=== PATIENT | female | born 1930 | race Caucasian/White ===

== ENCOUNTER 2017-10-22 09:17 | Inpatient (IN) | payer MEDICARE, BC ==
[2017-10-22] MEDS ORDERED: Sodium Chloride 0.9% 10 ML Syringe FLUSH PRN (09:58)
--- NOTE | 2017-10-22 11:34 | EDM.PDOC ---
ED HPI GENERAL MEDICAL PROBLEM - General Chief Complaint: Cardiovascular Problem Stated Complaint: SENT BY DR. 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 The patient states that she's had about 3 bloody bowel movements in the last 4 days. She's noticed blood in the stool with her usual morning bowel movement. She feels weak and tired but otherwise okay. No abdominal pain. No vomiting. No additional complaint. No recent medication change. Denies history of similar symptoms previously. She had blood work done at clinic and was sent here because her hemoglobin is low. Hasn't previously required a blood transfusion. - Related Data Allergies Allergy/AdvReac Type Severity Reaction Status Date / Time Sulfa (Sulfonamide AdvReac Stomach Verified 07/23/16 09:33 Antibiotics) Ache Home Meds: Home Meds Omeprazole [Prilosec] 20 mg PO DAILY 04/25/14 [History] Acetaminophen [Tylenol] 650 mg PO Q6HR PRN 07/18/16 [History] Ferrous Sulfate [Iron] 325 mg PO DAILY 07/18/16 [History] Levothyroxine 25 mcg PO DAILY 07/18/16 [History] Torsemide 20 mg PO BID 07/18/16 [History] Allopurinol [Zyloprim] 300 mg PO BEDTIME 10/22/17 [History] Cholecalciferol (Vitamin D3) [Vitamin D3] 1,000 unit PO DAILY 10/22/17 [History] Lactobacillus Acidophilus [Acidophilus Lactobacillus] 1 cap PO BID 10/22/17 [ History] Loperamide HCl [Imodium A-D] 4 mg PO DAILY PRN 10/22/17 [History] Magnesium 500 mg PO DAILY 10/22/17 [History] Melatonin 3 mg PO BEDTIME PRN 10/22/17 [History] Metolazone 5 mg PO MO 10/22/17 [History] Potassium Chloride 20 meq PO DAILY 10/22/17 [History] Propylene Glycol/Peg 400 [Systane 0.3-0.4% Eye Drops] 1 drop EYEBOTH TID [History] Sildenafil [Revatio] 10 mg PO DAILY 10/22/17 [History] Sodium Bicarbonate 325 mg PO BID 10/22/17 [History] Warfarin [Coumadin] 2.5 mg PO MO 10/22/17 [History] Warfarin [Coumadin] 5 mg PO [id number] 10/22/17 [History] predniSONE [Prednisone] 5 mg PO DAILY 10/22/17 [History] Past Medical History HEENT History: Reports: Cataract, Impaired Vision Other HEENT History: Wears glasses Cardiovascular History: Reports: Afib, Heart Failure, Heart Valve Replacement, Pacemaker, Other (See Below) Other Cardiovascular History: thromboctyopenia, hypokalemia. Respiratory History: Reports: COPD, Sleep Apnea Other Respiratory History: Patient refuses to wear CPAP at night- states she could not sleep with it on Gastrointestinal History: Reports: Other (See Below) Other Gastrointestinal History: enterocolitis due to C-diff. Genitourinary History: Reports: Chronic Renal Insuffiency, UTI, Recurrent, Other (See Below) Other Genitourinary History: athrosclerosis of renal artery, anemia in chronic kidney disease. SUPERINTENDENT MEASUREMENT History: Reports: Musculoskeletal History: Reports: Osteoarthritis, Osteoporosis Endocrine/Metabolic History: Reports: Hyperparathyroidism Hematologic History: Reports: Anemia Dermatologic History: Reports: Other (See Below) Other Dermatologic History: chronic pruritus - Infectious Disease History Infectious Disease History: Reports: C-Difficile, Chicken Pox, Measles, Mumps - Past Surgical History HEENT Surgical History: Reports: Cataract Surgery, Other (See Below) Other HEENT Surgeries/Procedures: four front teeth implants. Cardiovascular Surgical History: Reports: Valve Replacement Female Surgical History: Reports: Hysterectomy Social & Family History - Family History Family Medical History: Unobtainable Cardiac: Reports: Hypertension, [place] - Tobacco Use Smoking Status *Q: Never Smoker Second Hand Smoke Exposure: No - Caffeine Use Caffeine Use: Reports: Coffee - Alcohol Use Days Per Week of Alcohol Use: 0 Number of Drinks Per Day: 0 Total Drinks Per Week: 0 - Recreational Drug Use Recreational Drug Use: No Drug Use in Last 12 Months: No - Living Situation & Occupation Living situation: Reports: Extended Care Facility Occupation: Retired ED ROS GENERAL - Review of Systems Review Of Systems: See Below Constitutional: Reports: Weakness, Fatigue. Denies: Fever HEENT: Reports: No Symptoms Respiratory: Denies: Shortness of Breath Cardiovascular: Denies: Chest Pain Endocrine: Reports: Fatigue GI/Abdominal: Denies: Abdominal Pain : Reports: No Symptoms Musculoskeletal: Reports: No Symptoms Neurological: Reports: No Symptoms ED EXAM, GENERAL - Physical Exam Exam: See Below Exam Limited By: No Limitations General Appearance: Alert, WD/WN, No Apparent Distress Eye Exam: Bilateral Eye: Normal Inspection Nose: Normal Inspection Throat/Mouth: Normal Inspection, Normal Voice, No Airway Compromise Head: Atraumatic, Normocephalic Neck: Normal Inspection, Supple, Non-Tender, Full Range of Motion Respiratory/Chest: No Respiratory Distress, Lungs Clear, Normal Breath Sounds, Chest Non-Tender Cardiovascular: Normal Peripheral Pulses, Regular Rate, Rhythm, No Edema GI/Abdominal: Soft, Non-Tender, No Distention Rectal (Female) Exam: Bloody Stool, Heme + Stool. No: Rectal Fissure, Tenderness Back Exam: Normal Inspection Extremities: Normal Inspection Neurological: Alert, Oriented, Normal Cognition, No Motor/Sensory Deficits Psychiatric: Normal Affect, Normal Mood Skin Exam: Warm, Dry, Intact, Normal Color, No Rash Course - Vital Signs Last Recorded V/S: Last Vital Signs Temp 36.6 C 10/22/17 09:50 Pulse 80 10/22/17 09:50 Resp 18 10/22/17 09:50 BP 115/71 10/22/17 09:50 Pulse Ox 100 10/22/17 09:50 - Orders/Labs/Meds Orders: Active Orders 24 hr Category Date Time Status EKG 12 Lead [EKG Documentation Completion] [RC] STAT Care 10/22/17 11:25 Active Peripheral IV Care [RC] . DIRECTED Care 10/22/17 09:58 Active Chest 1V Frontal [CR] Stat Exams 10/22/17 11:45 Taken PATIENT RETYPE [BBK] Stat Lab 10/22/17 10:25 Results TYPE AND SCREEN [BBK] Stat Lab 10/22/17 10:25 Results Sodium Chloride 0.9% [Saline Flush] Med 10/22/17 09:58 Active 10 ml FLUSH ASDIRECTED PRN Peripheral IV Insertion Adult [OM.PC] Routine Oth 10/22/17 09:58 Ordered Transfuse PRBC [Transfuse Red Blood Cells] [COMM] Stat Oth 10/22/17 10:32 Ordered Medication Orders Sodium Chloride (Saline Flush) 10 ml FLUSH ASDIRECTED PRN PRN Reason: Keep Vein Open Last Admin: 10/22/17 10:05 Dose: 10 ml Labs: Laboratory Tests 10/22/17 10/22/17 10/22/17 Range/Units 10:00 10:00 10:00 WBC 5.29 (3.98-10.04) K/mm3 RBC 2.48 L (3.98-5.22) M/mm3 Hgb 7.2 L* (11.2-15.7) gm/L Hct 23.2 L (34.1-44.9) % MCV 93.5 (79.4-94.8) fl MCH 29.0 (25.6-32.2) pg MCHC 31.0 L (32.2-35.5) g/dl RDW Std Deviation 55.2 H (36.4-46.3) fL Plt Count 370 H (182-369) K/mm3 MPV 8.3 L (9.4-12.3) fl Neut % (Auto) 79.8 H (34.0-71.1) % Lymph % (Auto) 11.7 L (19.3-51.7) % [place] % (Auto) 6.6 (4.7-12.5) % Eos % (Auto) 1.5 (0.7-5.8) Baso % (Auto) 0.2 (0.1-1.2) % Neut # (Auto) 4.22 (1.56-6.13) K/mm3 Lymph # (Auto) 0.62 L (1.18-3.74) K/mm3 [place] # (Auto) 0.35 (0.24-0.36) K/mm3 Eos # (Auto) 0.08 (0.04-0.36) K/mm3 Baso # (Auto) 0.01 (0.01-0.08) K/mm3 Manual Slide Review Abnormal smear PT 25.7 H (8.0-13.0) SECONDS INR 2.24 Sodium 139 (136-145) mEq/L Potassium 3.6 (3.5-5.1) mEq/L Chloride 101 (98-107) mEq/L Carbon Dioxide 28 (21-32) mEq/L Anion Gap 13.6 (5-15) BUN 74 H (7-18) mg/dL Creatinine 3.7 H (0.55-1.02) mg/dL Est Cr Clr Drug Dosing 9.20 mL/min Estimated GFR (MDRD) 12 (>60) mL/min BUN/Creatinine Ratio 20.0 H (14-18) Glucose 98 (83-115) mg/dL Lactic Acid (0.4-2.0) mmol/L Calcium 9.5 (8.5-10.1) mg/dL Total Bilirubin 0.6 (0.2-1.0) mg/dL AST 26 (15-37) U/L ALT 23 (14-59) U/L Alkaline Phosphatase 58 (46-116) U/L Total Protein 5.8 L (6.4-8.2) g/dl Albumin 3.4 (3.4-5.0) g/dl Globulin 2.4 gm/dL Albumin/Globulin Ratio 1.4 (1-2) Blood Type Gel Antibody Screen 10/22/17 10/22/17 Range/Units 10:25 10:25 WBC (3.98-10.04) K/mm3 RBC (3.98-5.22) M/mm3 Hgb (11.2-15.7) gm/L Hct (34.1-44.9) % MCV (79.4-94.8) fl MCH (25.6-32.2) pg MCHC (32.2-35.5) g/dl RDW Std Deviation (36.4-46.3) fL Plt Count (182-369) K/mm3 MPV (9.4-12.3) fl Neut % (Auto) (34.0-71.1) % Lymph % (Auto) (19.3-51.7) % [place] % (Auto) (4.7-12.5) % Eos % (Auto) (0.7-5.8) Baso % (Auto) (0.1-1.2) % Neut # (Auto) (1.56-6.13) K/mm3 Lymph # (Auto) (1.18-3.74) K/mm3 [place] # (Auto) (0.24-0.36) K/mm3 Eos # (Auto) (0.04-0.36) K/mm3 Baso # (Auto) (0.01-0.08) K/mm3 Manual Slide Review PT (8.0-13.0) SECONDS INR Sodium (136-145) mEq/L Potassium (3.5-5.1) mEq/L Chloride (98-107) mEq/L Carbon Dioxide (21-32) mEq/L Anion Gap (5-15) BUN (7-18) mg/dL Creatinine (0.55-1.02) mg/dL Est Cr Clr Drug Dosing mL/min Estimated GFR (MDRD) (>60) mL/min BUN/Creatinine Ratio (14-18) Glucose (83-115) mg/dL Lactic Acid 1.5 (0.4-2.0) mmol/L Calcium (8.5-10.1) mg/dL Total Bilirubin (0.2-1.0) mg/dL AST (15-37) U/L ALT (14-59) U/L Alkaline Phosphatase (46-116) U/L Total Protein (6.4-8.2) g/dl Albumin (3.4-5.0) g/dl Globulin gm/dL Albumin/Globulin Ratio (1-2) Blood Type A POSITIVE Gel Antibody Screen Negative Meds: Medications Generic Name Dose Route Start Last Admin Trade Name Freq PRN Reason Stop Dose Admin Sodium Chloride 10 ml 10/22/17 09:58 10/22/17 10:05 Saline Flush FLUSH 10 ml ASDIRECTED PRN Administration Keep Vein Open - Re-Assessments/Exams Free Text/Narrative Re-Assessment/Exam: 10/22/17 13:[address] Ramirez. INR today is 2.2. Goal is 2.5 - 3.5 per recent admission notes for her bioprosthetic valve. Given stable patient with no suggestion of brisk bleed (3 bloody BM's in past 4 days) and HCT low (drop from HCT 29 from baseline in Jul to 23 today) but not extreme change, will not further reverse INR at this time. Given age and comorbidities and risk of further HCT drop with possible exacerbation by anticoagulation status, will transfuse [address] Ramirez agrees to admit the patient. Discussed with Dr. Krishnan who is also aware of the patient. Departure - Departure Time of Disposition: 13:14 Disposition: Admitted As Inpatient 68 Clinical Impression: Acute blood loss anemia GI bleed Qualifiers: GI bleed type/associated pathology: melena Qualified Code(s): K92.1 - Melena Chronic renal insufficiency Qualifiers: Chronic kidney disease stage: unspecified stage Qualified Code(s): N18.9 - Chronic kidney disease, unspecified - My Orders Last 24 Hours: My Active Orders 10/22/17 09:58 Peripheral IV Care [RC] . DIRECTED Sodium Chloride 0.9% [Saline Flush] 10 ml FLUSH ASDIRECTED PRN Peripheral IV Insertion Adult [OM.PC] Routine 10/22/17 10:25 PATIENT RETYPE [BBK] Stat TYPE AND SCREEN [BBK] Stat 10/22/17 10:32 Transfuse PRBC [Transfuse Red Blood Cells] [COMM] Stat 10/22/17 11:25 EKG 12 Lead [EKG Documentation Completion] [RC] STAT 10/22/17 11:45 Chest 1V Frontal [CR] Stat - Assessment/Plan Last 24 Hours: My Active Orders 10/22/17 09:58 Peripheral IV Care [RC] . DIRECTED Sodium Chloride 0.9% [Saline Flush] 10 ml FLUSH ASDIRECTED PRN Peripheral IV Insertion Adult [OM.PC] Routine 10/22/17 10:25 PATIENT RETYPE [BBK] Stat TYPE AND SCREEN [BBK] Stat 10/22/17 10:32 Transfuse PRBC [Transfuse Red Blood Cells] [COMM] Stat 10/22/17 11:25 EKG 12 Lead [EKG Documentation Completion] [RC] STAT 10/22/17 11:45 Chest 1V Frontal [CR] Stat
[2017-10-22] MEDS ORDERED: Furosemide 20 MG/2 ML VIAL IVPUSH ONE (15:01)
--- NOTE | 2017-10-22 15:43 | CR ---
Chest: Portable view of the chest was obtained. Comparison: Prior chest x-ray of 07/18/16. Heart is mildly enlarged. Tortuous thoracic aorta is seen. Previous sternotomy is noted. Epicardial wires are seen. Prosthetic heart valve is noted. Lungs are clear. Previous lumbar spine surgery is noted. Scoliosis is present. Impression: 1. Mild cardiomegaly and other incidental findings. Nothing acute is seen. Diagnostic code #2
[2017-10-22] MEDS ORDERED: Ondansetron 4 MG/2 ML SDV IV PRN (15:45)
[2017-10-22] MEDS ORDERED: Ondansetron 4 MG Tab.DIS PO PRN (15:45)
[2017-10-22] MEDS ORDERED: Acetaminophen 325 MG Tab PO PRN (15:45)
--- NOTE | 2017-10-22 16:05 | PCM.HP ---
H&P History of Present Illness - General Date of Service: 10/22/17 Admit Problem/Dx: Admission Diagnosis/Problem Admission Diagnosis/Problem GI bleed not requiring more than 4 units of blood in 24 hours, ICU, or surgery Source of Information: Patient, Family, Old Records, RN, RN Notes Reviewed History Limitations: Reports: No Limitations - History of Present Illness Initial Comments - Free Text/Narative: Erica Cedeno is an 87 yo female who presented to ED today with recent bloody bowel movements. She reports 3 bright red bloody bowel movements the last 4 days. She denies any other changes in bowel movements. She has a history of a bioprosthetic valve, however she is unsure which valve was replaced. She is chronically on warfarin with an INR goal of 2.5-3.5 per recent notes. She reports she feels weak and tired but is otherwise doing well. No abdominal pain, vomiting, nausea, medication changes, or other complaints. No history of GI bleeds. She reportedly had blood work done and when the results were back today she was told to come to the ER because her hemoglobin is low. She is not previously required a blood transfusion. She lives in [facility], an assisted living facility. In the ED temperature 36.6 Celsius. Pulse 80. Respiration 18. BP 115/71. Pulse ox 100%. Labs are obtained: WBC 5.29. RBC low at 2.48. Hemoglobin low at 7.2. Hematocrit low at 23.2. She is normocytic. Its are elevated at 370, 000. Neutrophils are elevated at 79.8%. PT is 25.7. INR 2.24. Sodium 139. Potassium 3.6. Chloride 101. Carbon dioxide 28. Anion gap 13.7. BUN is very high at 74. Creatinine very high at 3.7. EGFR is very low at 12. Glucose is 98. Lactic acid 1.5. Calcium 9.5. Albumin 0.6. Liver enzymes are good with AST at 26, ALT at 23, alkaline phosphatase of 58. Protein is low at 5.8. Albumin good at 3.4. She was typed and screened. Blood type is A+. Antibody screen is negative. Old notes were reviewed and hematocrit was found to be 29 in July. 2 units of blood were ordered to be transfused, however they did not begin transfusion until she was admitted to the floor. She does have a pacemaker. Chest x-ray shows mild cardiomegaly and other incidental findings. Nothing acute is appreciated. It is reported she had one grossly bloody bowel movement while in the ED. She does have a rather complicated medical history. This includes: Impaired vision, A. fib, heart failure, prior heart valve replacement although unsure which one, pacemaker, COPD, sleep apnea although she refuses to wear her CPAP, Prior C. difficile infection, chronic end-stage renal insufficiency, recurrent UTIs, arthrosclerosis of the renal artery, anemia and chronic kidney disease, osteoarthritis, osteoporosis, hyperparathyroidism, chronic pruritus. She does appear to be at baseline with her kidney function currently. She is followed by Dr. Alonso. Family reports she is very close to needing dialysis. She was never a smoker. She is a full code. Her PCP is Dr. Johnson at [facility] in [place]. - Related Data Allergies/Adverse Reactions: Allergies Allergy/AdvReac Type Severity Reaction Status Date / Time Sulfa (Sulfonamide AdvReac Stomach Verified 07/23/16 09:33 Antibiotics) Ache Home Medications: Home Meds Omeprazole [Prilosec] 20 mg PO DAILY 04/25/14 [History] Acetaminophen [Tylenol] 650 mg PO Q6HR PRN 07/18/16 [History] Ferrous Sulfate [Iron] 325 mg PO DAILY 07/18/16 [History] Levothyroxine 25 mcg PO DAILY 07/18/16 [History] Torsemide 20 mg PO BID 07/18/16 [History] Allopurinol [Zyloprim] 300 mg PO BEDTIME 10/22/17 [History] Cholecalciferol (Vitamin D3) [Vitamin D3] 1,000 unit PO DAILY 10/22/17 [History] Lactobacillus Acidophilus [Acidophilus Lactobacillus] 1 cap PO BID 10/22/17 [ History] Loperamide HCl [Imodium A-D] 4 mg PO DAILY PRN 10/22/17 [History] Magnesium 500 mg PO DAILY 10/22/17 [History] Melatonin 3 mg PO BEDTIME PRN 10/22/17 [History] Metolazone 5 mg PO MO 10/22/17 [History] Potassium Chloride 20 meq PO DAILY 10/22/17 [History] Propylene Glycol/Peg 400 [Systane 0.3-0.4% Eye Drops] 1 drop EYEBOTH TID [History] Sildenafil [Revatio] 10 mg PO DAILY 10/22/17 [History] Sodium Bicarbonate 325 mg PO BID 10/22/17 [History] Warfarin [Coumadin] 2.5 mg PO MO 10/22/17 [History] Warfarin [Coumadin] 5 mg PO SUTUWETHFRSA 10/22/17 [History] predniSONE [Prednisone] 5 mg PO DAILY 10/22/17 [History] Past Medical History HEENT History: Reports: Cataract, Impaired Vision Other HEENT History: Wears glasses Cardiovascular History: Reports: Afib, Heart Failure, Heart Valve Replacement, Pacemaker, Other (See Below) Other Cardiovascular History: thromboctyopenia, hypokalemia. Respiratory History: Reports: COPD, Sleep Apnea Other Respiratory History: Patient refuses to wear CPAP at night- states she could not sleep with it on Gastrointestinal History: Reports: Other (See Below) Other Gastrointestinal History: enterocolitis due to C-diff. Genitourinary History: Reports: Chronic Renal Insuffiency, UTI, Recurrent, Other (See Below) Other Genitourinary History: athrosclerosis of renal artery, anemia in chronic kidney disease. 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 Cardiovascular Surgical History: Reports: Valve Replacement Female Surgical History: Reports: Hysterectomy Social & Family History - Family History Family Medical History: Unobtainable Cardiac: Reports: Hypertension, [place] - Tobacco Use Smoking Status *Q: Never Smoker Second Hand Smoke Exposure: No - Caffeine Use Caffeine Use: Reports: Coffee - Alcohol Use Days Per Week of Alcohol Use: 0 Number of Drinks Per Day: 0 Total Drinks Per Week: 0 - Recreational Drug Use Recreational Drug Use: No Drug Use in Last 12 Months: No - Living Situation & Occupation Living situation: Reports: Extended Care Facility Occupation: Retired H&P Review of Systems - Review of Systems: Review Of Systems: See Below General: Reports: Malaise, Weakness, Fatigue. Denies: Fever, Chills, Night Sweats, Diaphoresis, Decreased Appetite HEENT: Denies: Ear Pain, Eye Pain, Glasses, Headaches, Hearing Changes, Rhinitis , Sinus Congestion, Sore Throat, Vertigo, Visual Changes Pulmonary: Reports: No Symptoms. Denies: Shortness of Breath, Wheezing, Pleuritic Chest Pain, Cough, Sputum Cardiovascular: Reports: No Symptoms. Denies: Chest Pain, Palpitations, Dyspnea on Exertion, Edema, Lightheadedness, Syncope Gastrointestinal: Reports: Bloody Stool. Denies: Abdominal Pain, Black Stool, Constipation, Diarrhea, Decreased Appetite, Distension, Melena, Nausea, Vomiting Genitourinary: Reports: No Symptoms. Denies: Dysuria, Frequency, Burning, Pain , Urgency Musculoskeletal: Reports: No Symptoms. Denies: Neck Pain, Shoulder Pain, Arm Pain, Back Pain, Hand Pain, Leg Pain, Foot Pain, Joint Pain, Joint Swelling Skin: Reports: No Symptoms Psychiatric: Reports: No Symptoms Neurological: Reports: No Symptoms Hematologic/Lymphatic: Reports: No Symptoms Immunologic: Reports: No Symptoms Exam - Exam Exam: See Below - Vital Signs Vital Signs: Last Vital Signs Temp 98.2 F 10/22/17 14:43 Pulse 78 10/22/17 14:43 Resp 24 H 10/22/17 14:43 BP 103/53 L 10/22/17 14:43 Pulse Ox 100 10/22/17 14:43 Weight: 138 lb 4.8 oz - Exam Quality Assessment: DVT Prophylaxis General: Alert, Oriented, Cooperative. No: Mild Distress HEENT: Conjunctiva Clear, EACs Clear, EOMI, Hearing Intact, Mucosa Moist & [place] , Nares Patent, Normal Nasal Septum, Posterior Pharynx Clear, PERRLA Neck: Supple, Trachea Midline. No: JVD, Thyromegaly Lungs: Clear to Auscultation, Normal Respiratory Effort Cardiovascular: Regular Rate, Regular Rhythm GI/Abdominal Exam: Normal Bowel Sounds, Soft, Non-Tender, No Organomegaly, No Distention, No Abnormal Bruit, No Mass, Pelvis Stable (Female) Exam: Deferred Rectal (Female) Exam: Deferred Back Exam: Normal Inspection, Full Range of Motion Extremities: Normal Inspection, Normal Range of Motion, Non-Tender, No Pedal Edema, Normal Capillary Refill Peripheral Pulses: 3+: Radial (L), Radial (R), Posterior Tibial (L), Posterior Tibial (R), Dorsalis Pedis (L), Dorsalis Pedis (R) Skin: Warm, Dry, Intact Neurological: Cranial Nerves Intact (Grossly) Neuro Extensive - Mental Status: Alert, Oriented x3, Normal Mood/Affect, Normal Cognition, Memory Intact Neuro Extensive - Motor, Sensory, Reflexes: CN II-XII Intact (Grossly) Psychiatric: Alert, Normal Affect, Normal Mood - Patient Data Result Diagrams: 10/22/17 10:00 10/22/17 10:00 *Q Meaningful Use (ADM) - VTE *Q VTE Criteria *Q: - Stroke *Q Stroke Criteria *Q: - AMI *Q AMI Criteria *Q: - Problem List (1) GI bleed SNOMED Code(s): 99244838 ICD Code: K92.2 - GASTROINTESTINAL HEMORRHAGE, UNSPECIFIED Status: Acute Priority: High Current Visit: Yes Qualifiers: GI bleed type/associated pathology: unspecified gastrointestinal hemorrhage type Qualified Code(s): K92.2 - Gastrointestinal hemorrhage, unspecified (2) Acute blood loss anemia SNOMED Code(s): 370810744 ICD Code: D62 - ACUTE POSTHEMORRHAGIC ANEMIA Status: Acute Priority: High Current Visit: Yes (3) CHF (congestive heart failure), NYHA class III SNOMED Code(s): 224876836 ICD Code: I50.9 - HEART FAILURE, UNSPECIFIED Status: Chronic Priority: High Current Visit: Yes Qualifiers: Congestive heart failure type: combined Congestive heart failure chronicity : acute on chronic Qualified Code(s): I50.43 - Acute on chronic combined systolic (congestive) and diastolic (congestive) heart failure (4) COPD (chronic obstructive pulmonary disease) SNOMED Code(s): 11434303 ICD Code: J44.9 - CHRONIC OBSTRUCTIVE PULMONARY DISEASE, UNSPECIFIED Status : Chronic Current Visit: Yes (5) Sleep apnea SNOMED Code(s): 76685514 ICD Code: G47.30 - SLEEP APNEA, UNSPECIFIED Status: Chronic Priority: Low Current Visit: Yes Qualifiers: Sleep apnea type: unspecified type Qualified Code(s): G47.30 - Sleep apnea , unspecified (6) Hyperparathyroidism SNOMED Code(s): 34614186 ICD Code: E21.3 - HYPERPARATHYROIDISM, UNSPECIFIED Status: Chronic Priority: Low Current Visit: No (7) History of heart valve repair SNOMED Code(s): 66053895840742 ICD Code: Z98.890 - OTHER SPECIFIED POSTPROCEDURAL STATES Status: Chronic Priority: Low Current Visit: No (8) Chronic renal insufficiency, stage V SNOMED Code(s): 42028443 ICD Code: N18.5 - CHRONIC KIDNEY DISEASE, STAGE 5 Status: Chronic Priority: Medium Current Visit: Yes Problem List Initiated/Reviewed/Updated: Yes Orders Last 24hrs: Active Orders 24 hr Category Date Time Status Admission Status [Patient Status] [ADT] Routine ADT 10/22/17 14:30 Active Ambulate [RC] PER UNIT ROUTINE Care 10/22/17 15:46 Active Antiembolic Devices [RC] PER UNIT ROUTINE Care 10/22/17 15:47 Active Cardiac Monitoring [RC] CONTINUOUS Care 10/22/17 15:46 Active Height and Weight [RC] DAILY Care 10/22/17 15:45 Active Intake and Output [RC] QSHIFT Care 10/22/17 15:46 Active Notify Provider Consults [RC] ASDIRECTED Care 10/22/17 15:53 Active Oxygen Therapy [RC] PRN Care 10/22/17 15:45 Active Pulse Oximetry [RC] PRN Care 10/22/17 15:46 Active Up With Assistance [RC] ASDIRECTED Care 10/22/17 15:45 Active VTE/DVT Education [RC] PER UNIT ROUTINE Care 10/22/17 15:45 Active Vital Signs [RC] Q4H Care 10/22/17 15:45 Active Consult to Case Management [CONS] Routine Cons 10/22/17 15:45 Active Consult to Physician [CONS] Routine Cons 10/22/17 15:53 Active OT Evaluation and Treatment [CONS] Routine Cons 10/22/17 15:45 Active PT Evaluation and Treatment [CONS] Routine Cons 10/22/17 15:45 Active Heart Healthy Diet [DIET] Diet 10/22/17 Dinner Active BASIC METABOLIC PANEL,BMP [CHEM] AM Lab 10/23/17 05:11 Ordered BASIC METABOLIC PANEL,BMP [CHEM] AM Lab 10/24/17 05:11 Ordered BASIC METABOLIC PANEL,BMP [CHEM] AM Lab 10/25/17 05:11 Ordered BASIC METABOLIC PANEL,BMP [CHEM] AM Lab 10/26/17 05:11 Ordered CBC WITH AUTO DIFF [HEME] AM Lab 10/23/17 05:11 Ordered CBC WITH AUTO DIFF [HEME] AM Lab 10/24/17 05:11 Ordered CBC WITH AUTO DIFF [HEME] AM Lab 10/25/17 05:11 Ordered CBC WITH AUTO DIFF [HEME] AM Lab 10/26/17 05:11 Ordered INR,PT,PROTHROMBIN TIME [COAG] AM Lab 10/23/17 05:11 Ordered INR,PT,PROTHROMBIN TIME [COAG] AM Lab 10/24/17 05:11 Ordered INR,PT,PROTHROMBIN TIME [COAG] AM Lab 10/25/17 05:11 Ordered INR,PT,PROTHROMBIN TIME [COAG] AM Lab 10/26/17 05:11 Ordered MAGNESIUM [CHEM] AM Lab 10/23/17 05:11 Ordered MAGNESIUM [CHEM] AM Lab 10/24/17 05:11 Ordered MAGNESIUM [CHEM] AM Lab 10/25/17 05:11 Ordered MAGNESIUM [CHEM] AM Lab 10/26/17 05:11 Ordered PACKED CELLS [RED BLOOD CELLS LP] [BBK] Routine Lab 10/22/17 10:25 Results PRO B-TYPE NATRIUR PEPT,BNPPRO [CHEM] Routine Lab 10/23/17 05:11 Ordered Acetaminophen [Tylenol] Med 10/22/17 15:45 Active 650 mg PO Q4H PRN Ondansetron [Zofran ODT] Med 10/22/17 15:45 Active 4 mg PO Q6H PRN Ondansetron [Zofran] Med 10/22/17 15:45 Active 4 mg IV Q6H PRN Antiembolic Hose [OM.PC] Per Unit Routine Oth 10/22/17 15:46 Ordered Resuscitation Status Routine Resus Stat 10/22/17 15:45 Ordered Medication Orders Acetaminophen (Tylenol) 650 mg PO Q4H PRN PRN Reason: Pain (Mild 1-3)/fever Ondansetron HCl (Zofran Odt) 4 mg PO Q6H PRN PRN Reason: nausea, able to take PO Ondansetron HCl (Zofran) 4 mg IV Q6H PRN PRN Reason: Nausea/Vomiting Sodium Chloride (Saline Flush) 10 ml FLUSH ASDIRECTED PRN PRN Reason: Keep Vein Open Last Admin: 10/22/17 10:05 Dose: 10 ml Assessment/Plan Comment:: I/P: Acute: GI Bleed leading to anemia -Increased fatigue and weakness -Reports 3 grossly bloody bowel movements over last 4 days -Grossly bloody bowel movement while in ED -No prior hx/o GI bleeding, no recent changes in medications -On chronic warfarin s/p bioprosthetic valve replacement - unsure which valve , obtain medical records -Hold warfarin for today and monitor INR/PT -Hgb 7.2 -Hct 23.2 -Type and screen - A Positive, negative antibody -Will transfuse 2 units now followed by 20mg of lasix -Utilize extreme caution as Stage V CKD -Following Dr. Alonso -Reportedly on verge of needing dialysis -General surgery consult ordered - Dr. 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 Diff infection Stage V CKD - Baseline creatinine 3.3-3.8, baseline eGFR 11-13 - stable Athrosclerosis of renal artery Osteoarthritis Osteoporosis Hyperparathyroidism Anemia - as above Puritis Plan: Admit to medical floor Obtain old records from cardiology CM for discharge planning PT/OT Other orders as indicated above Routine AM labs Home medications as ordered GI prophylaxis - PPI DVT/PE prophylaxis - ENA Stovall, will monitor PT/INR; on warfarin Code Status: Full Code. Her PCP is Dr. Johnson at [facility] in [place]
[2017-10-22] MEDS ORDERED: Sodium Chloride 0.9% 250 ML IV SCH (16:15)
[2017-10-22] MEDS ORDERED: Sodium Chloride 0.9% 250 ML ONE (16:26)
--- NOTE | 2017-10-22 16:44 | PCM.CONS ---
H&P History of Present Illness - General Date of Service: 10/22/17 Admit Problem/Dx: Admission Diagnosis/Problem Admission Diagnosis/Problem GI bleed not requiring more than 4 units of blood in 24 hours, ICU, or surgery Source of Information: Patient, Provider History Limitations: Reports: No Limitations - History of Present Illness Initial Comments - Free Text/Narative: 87-year-old active female noticed some blood after a bowel movement on Friday about 5 days prior to admission. She said she didn't think much of it but experienced several more episodes of painless rectal bleeding over the next couple days. After she began to experience increasing fatigue she became slightly worried. She called her provider who asked her to present to the emergency room for evaluation. Over this period of time she denied presyncopal symptoms and denied syncope. She had no palpitations. Her appetite and weight of been stable. She denied abdominal pain. She also denied chronic diarrhea and chronic constipation. She has a porcine valve in place and is on anticoagulation with an INR of 2.2. Her last colonoscopy to the best of her recollection was about 5 years ago and by report from her this exam was within normal limits. She has been admitted to the hospitalist service with a hemoglobin of approximately 8 and I was asked to see her in consultation. - Related Data Allergies/Adverse Reactions: Allergies Allergy/AdvReac Type Severity Reaction Status Date / Time Sulfa (Sulfonamide AdvReac Stomach Verified 07/23/16 09:33 Antibiotics) Ache Home Medications: Home Meds Omeprazole [Prilosec] 20 mg PO DAILY 04/25/14 [History] Acetaminophen [Tylenol] 650 mg PO Q6HR PRN 07/18/16 [History] Ferrous Sulfate [Iron] 325 mg PO DAILY 07/18/16 [History] Levothyroxine 25 mcg PO DAILY 07/18/16 [History] Torsemide 20 mg PO BID 07/18/16 [History] Allopurinol [Zyloprim] 300 mg PO BEDTIME 10/22/17 [History] Cholecalciferol (Vitamin D3) [Vitamin D3] 1,000 unit PO DAILY 10/22/17 [History] Lactobacillus Acidophilus [Acidophilus Lactobacillus] 1 cap PO BID 10/22/17 [ History] Loperamide HCl [Imodium A-D] 4 mg PO DAILY PRN 10/22/17 [History] Magnesium 500 mg PO DAILY 10/22/17 [History] Melatonin 3 mg PO BEDTIME PRN 10/22/17 [History] Metolazone 5 mg PO MO 10/22/17 [History] Potassium Chloride 20 meq PO DAILY 10/22/17 [History] Propylene Glycol/Peg 400 [Systane 0.3-0.4% Eye Drops] 1 drop EYEBOTH TID [History] Sildenafil [Revatio] 10 mg PO DAILY 10/22/17 [History] Sodium Bicarbonate 325 mg PO BID 10/22/17 [History] Warfarin [Coumadin] 2.5 mg PO MO 10/22/17 [History] Warfarin [Coumadin] 5 mg PO SUTUWETHFRSA 10/22/17 [History] predniSONE [Prednisone] 5 mg PO DAILY 10/22/17 [History] Past Medical History HEENT History: Reports: Cataract, Impaired Vision Other HEENT History: Wears glasses Cardiovascular History: Reports: Afib, Heart Failure, Heart Valve Replacement, Pacemaker, Other (See Below) Other Cardiovascular History: thromboctyopenia, hypokalemia. Respiratory History: Reports: COPD, Sleep Apnea Other Respiratory History: Patient refuses to wear CPAP at night- states she could not sleep with it on Gastrointestinal History: Reports: Other (See Below) Other Gastrointestinal History: enterocolitis due to C-diff. Genitourinary History: Reports: Chronic Renal Insuffiency, UTI, Recurrent, Other (See Below) Other Genitourinary History: athrosclerosis of renal artery, anemia in chronic kidney disease. 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 Cardiovascular Surgical History: Reports: Valve Replacement Female Surgical History: Reports: Hysterectomy Social & Family History - Family History Family Medical History: Unobtainable Cardiac: Reports: Hypertension, [place] - Tobacco Use Smoking Status *Q: Never Smoker Second Hand Smoke Exposure: No - Caffeine Use Caffeine Use: Reports: Coffee - Alcohol Use Days Per Week of Alcohol Use: 0 Number of Drinks Per Day: 0 Total Drinks Per Week: 0 Date of Last Drink: 10/21/17 Time of Last Drink: 19:00 - Recreational Drug Use Recreational Drug Use: No Drug Use in Last 12 Months: No - Living Situation & Occupation Living situation: Reports: Extended Care Facility Occupation: Retired H&P Review of Systems - Review of Systems: Review Of Systems: ROS reveals no pertinent complaints other than HPI. Exam - Exam Exam: See Below - Vital Signs Vital Signs: Last Vital Signs Temp 36.8 C 10/22/17 14:43 Pulse 78 10/22/17 14:43 Resp 24 H 10/22/17 14:43 BP 103/53 L 10/22/17 14:43 Pulse Ox 100 10/22/17 14:43 Weight: 62.732 kg - Exam Quality Assessment: Supplemental Oxygen General: Alert, Oriented, Cooperative HEENT: Hearing Intact (but slightly hard of hearing) Neck: Supple, Trachea Midline Lungs: Normal Respiratory Effort GI/Abdominal Exam: Soft, Non-Tender, No Distention (Female) Exam: Deferred Rectal (Female) Exam: Deferred Extremities: Normal Inspection Skin: Warm, Dry, Intact Neuro Extensive - Mental Status: Alert, Oriented x3, Normal Mood/Affect Psychiatric: Alert, Normal Affect - Patient Data Result Diagrams: 10/22/17 10:00 10/22/17 10:00 Consult PN Assessment/Plan Procedures: Procedures ASSAY OF BLOOD OSMOLALITY (07/18/16) ASSAY OF BLOOD/URIC ACID (09/05/16) ASSAY OF CREATININE (03/23/15) ASSAY OF FERRITIN (07/18/16) ASSAY OF IRON (07/18/16) ASSAY OF MAGNESIUM (07/18/16) ASSAY OF NATRIURETIC PEPTIDE (07/18/16) ASSAY OF PARATHORMONE (09/05/15) ASSAY OF PROTEIN URINE (09/05/15) ASSAY OF TRANSFERRIN (07/18/16) ASSAY OF TROPONIN QUANT (07/18/16) ASSAY OF URINE CHLORIDE (07/18/16) ASSAY OF URINE CREATININE (07/18/16) ASSAY OF URINE OSMOLALITY (07/18/16) ASSAY OF URINE POTASSIUM (07/18/16) ASSAY OF URINE SODIUM (07/18/16) ASSAY OF URINE/URIC ACID (07/18/16) C DIFF AMPLIFIED PROBE (08/10/16) CHEST X-RAY 1 VIEW FRONTAL (07/18/16) COMPLETE CBC AUTOMATED (07/18/16) COMPLETE CBC W/AUTO DIFF WBC (01/03/17) COMPREHEN METABOLIC PANEL (07/18/16) CONTRAST X-RAY ESOPHAGUS (03/06/15) CREATINE MB FRACTION (07/18/16) CT ABD & PELVIS W/O CONTRAST (03/23/15) CT HEAD/BRAIN W/O DYE (09/29/15) CT THORAX W/O DYE (03/23/15) EGD BIOPSY SINGLE/MULTIPLE (04/05/15) ELECTROCARDIOGRAM TRACING (07/18/16) EMERGENCY DEPT VISIT (07/18/16) EMERGENCY DEPT VISIT (10/01/15) EMERGENCY DEPT VISIT (09/29/15) EVALUATE PT USE OF INHALER (07/18/16) EXTREMITY STUDY (05/29/17) HYDRATE IV INFUSION ADD-ON (07/18/16) HYDRATION IV INFUSION INIT (07/18/16) METABOLIC PANEL TOTAL CA (07/18/16) NASAL SMEAR FOR EOSINOPHILS (07/18/16) OCCULT BLD FECES 1-3 TESTS (07/18/16) OT EVALUATION (07/18/16) PROTHROMBIN TIME (07/18/16) PT EVALUATION (07/18/16) RENAL FUNCTION PANEL (01/03/17) ROUTINE VENIPUNCTURE (01/03/17) RPR F/E/E/N/L/M 2.5 CM/< (09/29/15) THERAPEUTIC ACTIVITIES (07/18/16) TISSUE EXAM BY PATHOLOGIST (08/29/15) URINALYSIS AUTO W/SCOPE (07/18/16) URINE CULTURE/COLONY COUNT (07/18/16) US EXAM ABDO BACK WALL COMP (07/18/16) VANOMYCIN DNA AMP PROBE (08/10/16) VITAMIN D 25 HYDROXY (09/05/15) Problem List Initiated/Reviewed/Updated: Yes Plan: imp: Symptomatic lower GI bleed. Most likely colorectal source. Diagnostic colonoscopy is indicated after medical stabilization of the hemoglobin and normalization of this patient's INR. plan: Stable with medical management for now. Please let me know when she is medically cleared for colonoscopy.
[2017-10-22] MEDS: Sodium Bicarbonate 650 MG Tab PO SCH (21:24)
[2017-10-22] MEDS: Allopurinol 300 MG Tab PO SCH (21:25)
[2017-10-22] MEDS: Polyethylene Glycol 3350 Powder 17 GM Packet PO SCH (21:26)
[2017-10-22] MEDS: Sildenafil 20 MG Tab PO SCH (21:29)
[2017-10-22] MEDS: diphenhydrAMINE 25 MG Cap PO PRN (22:41)
[2017-10-23] MEDS: Pantoprazole 40 MG Tab.CR PO SCH (06:32)
--- NOTE | 2017-10-23 08:48 | PCM.CONSN ---
- General Info Date of Service: 10/23/17 Functional Status: Reports: Tolerating Diet, Urinating - Review of Systems Gastrointestinal: Reports: No Symptoms, Other (No bowel movements overnight and the patient denied passage of blood per rectum.) - Patient Data Vitals - Most Recent: Last Vital Signs Temp 36.6 C 10/23/17 02:37 Pulse 75 10/23/17 02:37 Resp 16 10/23/17 02:37 BP 100/70 10/23/17 02:37 Pulse Ox 98 10/23/17 02:37 Weight - Most Recent: 62.006 kg I&O - Last 24 Hours: Intake & Output 10/22/17 10/23/17 10/23/17 22:59 06:59 14:59 Intake Total 15 750 Output Total 500 Balance 15 250 Lab Results Last 24 Hours: Laboratory Results - last 24 hr 10/22/17 10/23/17 10/23/17 Range/Units 20:22 06:05 06:05 WBC 5.77 (3.98-10.04) K/mm3 RBC 3.26 L (3.98-5.22) M/mm3 Hgb 9.4 L (11.2-15.7) gm/L Hct 28.8 L (34.1-44.9) % MCV 88.3 (79.4-94.8) fl MCH 28.8 (25.6-32.2) pg MCHC 32.6 (32.2-35.5) g/dl RDW Std Deviation 55.5 H (36.4-46.3) fL Plt Count 337 (182-369) K/mm3 MPV 8.7 L (9.4-12.3) fl Neut % (Auto) 77.6 H (34.0-71.1) % Lymph % (Auto) 12.1 L (19.3-51.7) % [place] % (Auto) 8.5 (4.7-12.5) % Eos % (Auto) 1.4 (0.7-5.8) Baso % (Auto) 0.2 (0.1-1.2) % Neut # (Auto) 4.48 (1.56-6.13) K/mm3 Lymph # (Auto) 0.70 L (1.18-3.74) K/mm3 [place] # (Auto) 0.49 H (0.24-0.36) K/mm3 Eos # (Auto) 0.08 (0.04-0.36) K/mm3 Baso # (Auto) 0.01 (0.01-0.08) K/mm3 PT 19.5 H (8.0-13.0) SECONDS INR 1.73 Sodium (136-145) mEq/L Potassium (3.5-5.1) mEq/L Chloride (98-107) mEq/L Carbon Dioxide (21-32) mEq/L Anion Gap (5-15) BUN (7-18) mg/dL Creatinine (0.55-1.02) mg/dL Est Cr Clr Drug Dosing mL/min Estimated GFR (MDRD) (>60) mL/min BUN/Creatinine Ratio (14-18) Glucose (83-115) mg/dL Calcium (8.5-10.1) mg/dL Magnesium (1.8-2.4) mg/dl NT-Pro-B Natriuret Pep (0-450) pg/mL MRSA (PCR) Negative 10/23/17 Range/Units 06:05 WBC (3.98-10.04) K/mm3 RBC (3.98-5.22) M/mm3 Hgb (11.2-15.7) gm/L Hct (34.1-44.9) % MCV (79.4-94.8) fl MCH (25.6-32.2) pg MCHC (32.2-35.5) g/dl RDW Std Deviation (36.4-46.3) fL Plt Count (182-369) K/mm3 MPV (9.4-12.3) fl Neut % (Auto) (34.0-71.1) % Lymph % (Auto) (19.3-51.7) % [place] % (Auto) (4.7-12.5) % Eos % (Auto) (0.7-5.8) Baso % (Auto) (0.1-1.2) % Neut # (Auto) (1.56-6.13) K/mm3 Lymph # (Auto) (1.18-3.74) K/mm3 [place] # (Auto) (0.24-0.36) K/mm3 Eos # (Auto) (0.04-0.36) K/mm3 Baso # (Auto) (0.01-0.08) K/mm3 PT (8.0-13.0) SECONDS INR Sodium 139 (136-145) mEq/L Potassium 3.5 (3.5-5.1) mEq/L Chloride 100 (98-107) mEq/L Carbon Dioxide 31 (21-32) mEq/L Anion Gap 11.5 (5-15) BUN 70 H (7-18) mg/dL Creatinine 3.5 H (0.55-1.02) mg/dL Est Cr Clr Drug Dosing 9.72 mL/min Estimated GFR (MDRD) 12 (>60) mL/min BUN/Creatinine Ratio 20.0 H (14-18) Glucose 96 (83-115) mg/dL Calcium 9.2 (8.5-10.1) mg/dL Magnesium 2.3 (1.8-2.4) mg/dl NT-Pro-B Natriuret Pep 3391 H (0-450) pg/mL MRSA (PCR) Med Orders - Current: Current Medications Acetaminophen (Tylenol) 650 mg PO Q4H PRN PRN Reason: Pain (Mild 1-3)/fever Allopurinol (Zyloprim) 300 mg PO BEDTIME [facility] Last Admin: 10/22/17 21:25 Dose: 300 mg Diphenhydramine HCl (Benadryl) 25 mg PO BEDTIME PRN PRN Reason: Sleep Last Admin: 10/22/17 22:41 Dose: 25 mg Ferrous Sulfate (Ferrous Sulfate) 325 mg PO DAILY [facility] Sodium Chloride (Normal Saline) 250 mls @ 100 mls/hr IV ASDIRECTED [facility] Last Admin: 10/22/17 22:17 Dose: 100 mls/hr Levothyroxine Sodium (Levothyroxine) 25 mcg PO DAILY [facility] Magnesium Oxide (Magnesium Oxide) 400 mg PO DAILY [facility] Metolazone (Zaroxolyn) 5 mg PO Mo@0900 [facility] Ondansetron HCl (Zofran Odt) 4 mg PO Q6H PRN PRN Reason: nausea, able to take PO Ondansetron HCl (Zofran) 4 mg IV Q6H PRN PRN Reason: Nausea/Vomiting Pantoprazole Sodium (Protonix) 40 mg PO DAILY@0700 [facility] Last Admin: 10/23/17 06:32 Dose: 40 mg Polyethylene Glycol (Miralax) 17 gm PO TID [facility] Last Admin: 10/22/17 21:26 Dose: 17 gm Potassium Chloride (Klor-Con M20) 20 meq PO DAILY [facility] Prednisone (Prednisone) 5 mg PO DAILY [facility] Saccharomyces Boulardii (Florastor) 250 mg PO BID [facility] Sildenafil Citrate (Revatio) 10 mg PO BID [facility] Last Admin: 10/22/17 21:29 Dose: Not Given Sodium Bicarbonate (Sodium Bicarbonate) 325 mg PO BID [facility] Last Admin: 10/22/17 21:24 Dose: 325 mg Sodium Chloride (Saline Flush) 10 ml FLUSH ASDIRECTED PRN PRN Reason: Keep Vein Open Last Admin: 10/22/17 10:05 Dose: 10 ml Discontinued Medications Furosemide (Lasix) 20 mg IVPUSH ONETIME ONE Stop: 10/22/17 15:02 Last Admin: 10/22/17 20:31 Dose: 20 mg Sodium Chloride (Normal Saline) Confirm Administered Dose 250 mls @ as directed .ROUTE .STK-MED ONE Stop: 10/22/17 16:27 Last Admin: 10/22/17 17:23 Dose: Not Given - Exam GI/Abdominal Exam: Soft Consult PN Assessment/Plan Procedures: Procedures ASSAY OF BLOOD OSMOLALITY (07/18/16) ASSAY OF BLOOD/URIC ACID (09/05/16) ASSAY OF CREATININE (03/23/15) ASSAY OF FERRITIN (07/18/16) ASSAY OF IRON (07/18/16) ASSAY OF MAGNESIUM (07/18/16) ASSAY OF NATRIURETIC PEPTIDE (07/18/16) ASSAY OF PARATHORMONE (09/05/15) ASSAY OF PROTEIN URINE (09/05/15) ASSAY OF TRANSFERRIN (07/18/16) ASSAY OF TROPONIN QUANT (07/18/16) ASSAY OF URINE CHLORIDE (07/18/16) ASSAY OF URINE CREATININE (07/18/16) ASSAY OF URINE OSMOLALITY (07/18/16) ASSAY OF URINE POTASSIUM (07/18/16) ASSAY OF URINE SODIUM (07/18/16) ASSAY OF URINE/URIC ACID (07/18/16) C DIFF AMPLIFIED PROBE (08/10/16) CHEST X-RAY 1 VIEW FRONTAL (07/18/16) COMPLETE CBC AUTOMATED (07/18/16) COMPLETE CBC W/AUTO DIFF WBC (01/03/17) COMPREHEN METABOLIC PANEL (07/18/16) CONTRAST X-RAY ESOPHAGUS (03/06/15) CREATINE MB FRACTION (07/18/16) CT ABD & PELVIS W/O CONTRAST (03/23/15) CT HEAD/BRAIN W/O DYE (09/29/15) CT THORAX W/O DYE (03/23/15) EGD BIOPSY SINGLE/MULTIPLE (04/05/15) ELECTROCARDIOGRAM TRACING (07/18/16) EMERGENCY DEPT VISIT (07/18/16) EMERGENCY DEPT VISIT (10/01/15) EMERGENCY DEPT VISIT (09/29/15) EVALUATE PT USE OF INHALER (07/18/16) EXTREMITY STUDY (05/29/17) HYDRATE IV INFUSION ADD-ON (07/18/16) HYDRATION IV INFUSION INIT (07/18/16) METABOLIC PANEL TOTAL CA (07/18/16) NASAL SMEAR FOR EOSINOPHILS (07/18/16) OCCULT BLD FECES 1-3 TESTS (07/18/16) OT EVALUATION (07/18/16) PROTHROMBIN TIME (07/18/16) PT EVALUATION (07/18/16) RENAL FUNCTION PANEL (01/03/17) ROUTINE VENIPUNCTURE (01/03/17) RPR F/E/E/N/L/M 2.5 CM/< (09/29/15) THERAPEUTIC ACTIVITIES (07/18/16) TISSUE EXAM BY PATHOLOGIST (08/29/15) URINALYSIS AUTO W/SCOPE (07/18/16) URINE CULTURE/COLONY COUNT (07/18/16) US EXAM ABDO BACK WALL COMP (07/18/16) VANOMYCIN DNA AMP PROBE (08/10/16) VITAMIN D 25 HYDROXY (09/05/15) Problem List Initiated/Reviewed/Updated: Yes Plan: Hemodynamically stable. No evidence of further bleeding. We'll follow.
[2017-10-23] MEDS: Saccharomyces Boulardii (Probiotic) 250 MG Cap PO SCH ×2 (09:43→20:35)
[2017-10-23] MEDS: predniSONE 5 MG Tab PO SCH (09:43)
[2017-10-23] MEDS: Magnesium Oxide 400 MG Tab PO SCH (09:43)
[2017-10-23] MEDS: Sodium Bicarbonate 650 MG Tab PO SCH ×2 (09:43→20:35)
[2017-10-23] MEDS: Ferrous Sulfate 325 MG Tab PO SCH (09:43)
[2017-10-23] MEDS: Levothyroxine 25 MCG Tab PO SCH (09:43)
[2017-10-23] MEDS: Potassium Chloride 20 MEQ Tab.ER PO SCH (09:43)
[2017-10-23] MEDS: Polyethylene Glycol 3350 Powder 17 GM Packet PO SCH ×3 (09:47→20:38)
[2017-10-23] MEDS: Sildenafil 20 MG Tab PO SCH ×2 (09:48→22:25)
--- NOTE | 2017-10-23 16:52 | PCM.PN ---
- General Info Date of Service: 10/23/17 Admission Dx/Problem (Free Text): Admission Diagnosis/Problem Admission Diagnosis/Problem GI bleed not requiring more than 4 units of blood in 24 hours, ICU, or surgery Subjective Update: In to see Erica today. She reports her weakness has improved. she did receive 2 units yesterday. Hemoglobin stable today. She reports one small bowel movement this morning with bright red blood mixed in the stool. No other complaints. INR is down to 1.75 today. We will give vitamin K to try to get her below 1.5 for INR tomorrow. this is the level at which Dr. Krishnan agreed to do a colonoscopy. I did consult him personally. He would like to do her colonoscopy tomorrow at 7 or 730 am. Bowel prep ordered. Nothing by mouth after midnight. She has been on a clear liquid diet since last night. She is in agreement to this plan. We did receive notes from Dr. Landeros's office. 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 It is noted her target INR has been 2.5-3.5. We will attempt to obtain more old records to further determine the exact target INR as she may have been over anti-coagulated. Functional Status: Reports: Pain Controlled, Tolerating Diet, Ambulating, Urinating. Denies: New Symptoms - Review of Systems General: Reports: Weakness (improving ), Fatigue (improving ), Malaise ( improving ), Appetite. Denies: Fever, Chills, Night Sweats HEENT: Reports: No Symptoms. Denies: Ear Pain, Eye Pain, Headaches, Sore Throat , Rhinitis, Visual Changes Pulmonary: Reports: No Symptoms. Denies: Shortness of Breath, Pleuritic Chest Pain, Cough, Sputum, Hemoptysis, Wheezing Cardiovascular: Reports: No Symptoms. Denies: Chest Pain, Palpitations, Dyspnea on Exertion, Lightheadedness Gastrointestinal: Reports: Hematochezia (reports one episode this AM ). Denies : Abdominal Pain, Constipation, Decreased Appetite, Diarrhea, Melena, Nausea, Vomiting Genitourinary: Reports: No Symptoms. Denies: Dysuria, Burning, Urgency Musculoskeletal: Reports: No Symptoms. Denies: Neck Pain, Shoulder Pain, Arm Pain, Back Pain, Leg Pain, Foot Pain, Joint Pain, Joint Swelling Skin: Reports: No Symptoms Neurological: Reports: No Symptoms Psychiatric: Reports: No Symptoms - Patient Data Vitals - Most Recent: Last Vital Signs Temp 98.8 F 10/23/17 15:59 Pulse 77 10/23/17 15:59 Resp 17 10/23/17 15:59 BP 130/75 10/23/17 15:59 Pulse Ox 99 10/23/17 15:59 Weight - Most Recent: 136 lb 11.2 oz I&O - Last 24 Hours: Intake & Output 10/23/17 10/23/17 10/23/17 06:59 14:59 22:59 Intake Total 750 360 400 Output Total 500 1000 Balance 250 360 -600 Lab Results Last 24 Hours: Laboratory Results - last 24 hr 10/22/17 10/23/17 10/23/17 Range/Units 20:22 06:05 06:05 WBC 5.77 (3.98-10.04) K/mm3 RBC 3.26 L (3.98-5.22) M/mm3 Hgb 9.4 L (11.2-15.7) gm/L Hct 28.8 L (34.1-44.9) % MCV 88.3 (79.4-94.8) fl MCH 28.8 (25.6-32.2) pg MCHC 32.6 (32.2-35.5) g/dl RDW Std Deviation 55.5 H (36.4-46.3) fL Plt Count 337 (182-369) K/mm3 MPV 8.7 L (9.4-12.3) fl Neut % (Auto) 77.6 H (34.0-71.1) % Lymph % (Auto) 12.1 L (19.3-51.7) % [place] % (Auto) 8.5 (4.7-12.5) % Eos % (Auto) 1.4 (0.7-5.8) Baso % (Auto) 0.2 (0.1-1.2) % Neut # (Auto) 4.48 (1.56-6.13) K/mm3 Lymph # (Auto) 0.70 L (1.18-3.74) K/mm3 [place] # (Auto) 0.49 H (0.24-0.36) K/mm3 Eos # (Auto) 0.08 (0.04-0.36) K/mm3 Baso # (Auto) 0.01 (0.01-0.08) K/mm3 PT 19.5 H (8.0-13.0) SECONDS INR 1.73 Sodium (136-145) mEq/L Potassium (3.5-5.1) mEq/L Chloride (98-107) mEq/L Carbon Dioxide (21-32) mEq/L Anion Gap (5-15) BUN (7-18) mg/dL Creatinine (0.55-1.02) mg/dL Est Cr Clr Drug Dosing mL/min Estimated GFR (MDRD) (>60) mL/min BUN/Creatinine Ratio (14-18) Glucose (83-115) mg/dL Calcium (8.5-10.1) mg/dL Magnesium (1.8-2.4) mg/dl NT-Pro-B Natriuret Pep (0-450) pg/mL MRSA (PCR) Negative 10/23/17 Range/Units 06:05 WBC (3.98-10.04) K/mm3 RBC (3.98-5.22) M/mm3 Hgb (11.2-15.7) gm/L Hct (34.1-44.9) % MCV (79.4-94.8) fl MCH (25.6-32.2) pg MCHC (32.2-35.5) g/dl RDW Std Deviation (36.4-46.3) fL Plt Count (182-369) K/mm3 MPV (9.4-12.3) fl Neut % (Auto) (34.0-71.1) % Lymph % (Auto) (19.3-51.7) % [place] % (Auto) (4.7-12.5) % Eos % (Auto) (0.7-5.8) Baso % (Auto) (0.1-1.2) % Neut # (Auto) (1.56-6.13) K/mm3 Lymph # (Auto) (1.18-3.74) K/mm3 [place] # (Auto) (0.24-0.36) K/mm3 Eos # (Auto) (0.04-0.36) K/mm3 Baso # (Auto) (0.01-0.08) K/mm3 PT (8.0-13.0) SECONDS INR Sodium 139 (136-145) mEq/L Potassium 3.5 (3.5-5.1) mEq/L Chloride 100 (98-107) mEq/L Carbon Dioxide 31 (21-32) mEq/L Anion Gap 11.5 (5-15) BUN 70 H (7-18) mg/dL Creatinine 3.5 H (0.55-1.02) mg/dL Est Cr Clr Drug Dosing 9.72 mL/min Estimated GFR (MDRD) 12 (>60) mL/min BUN/Creatinine Ratio 20.0 H (14-18) Glucose 96 (83-115) mg/dL Calcium 9.2 (8.5-10.1) mg/dL Magnesium 2.3 (1.8-2.4) mg/dl NT-Pro-B Natriuret Pep 3391 H (0-450) pg/mL MRSA (PCR) Med Orders - Current: Current Medications Acetaminophen (Tylenol) 650 mg PO Q4H PRN PRN Reason: Pain (Mild 1-3)/fever Allopurinol (Zyloprim) 300 mg PO BEDTIME [facility] Last Admin: 10/22/17 21:25 Dose: 300 mg Diphenhydramine HCl (Benadryl) 25 mg PO BEDTIME PRN PRN Reason: Sleep Last Admin: 10/22/17 22:41 Dose: 25 mg Ferrous Sulfate (Ferrous Sulfate) 325 mg PO DAILY [facility] Last Admin: 10/23/17 09:43 Dose: 325 mg Sodium Chloride (Normal Saline) 250 mls @ 100 mls/hr IV ASDIRECTED [facility] Last Admin: 10/22/17 22:17 Dose: 100 mls/hr Levothyroxine Sodium (Levothyroxine) 25 mcg PO DAILY [facility] Last Admin: 10/23/17 09:43 Dose: 25 mcg Magnesium Oxide (Magnesium Oxide) 400 mg PO DAILY [facility] Last Admin: 10/23/17 09:43 Dose: 400 mg Metolazone (Zaroxolyn) 5 mg PO Mo@0900 [facility] Ondansetron HCl (Zofran Odt) 4 mg PO Q6H PRN PRN Reason: nausea, able to take PO Ondansetron HCl (Zofran) 4 mg IV Q6H PRN PRN Reason: Nausea/Vomiting Pantoprazole Sodium (Protonix) 40 mg PO DAILY@0700 [facility] Last Admin: 10/23/17 06:32 Dose: 40 mg Polyethylene Glycol (Miralax) 17 gm PO TID [facility] Last Admin: 10/23/17 15:14 Dose: Not Given Potassium Chloride (Klor-Con M20) 20 meq PO DAILY [facility] Last Admin: 10/23/17 09:43 Dose: 20 meq Prednisone (Prednisone) 5 mg PO DAILY [facility] Last Admin: 10/23/17 09:43 Dose: 5 mg Saccharomyces Boulardii (Florastor) 250 mg PO BID [facility] Last Admin: 10/23/17 09:43 Dose: 250 mg Sildenafil Citrate (Revatio) 10 mg PO BID [facility] Last Admin: 10/23/17 09:48 Dose: Not Given Sodium Bicarbonate (Sodium Bicarbonate) 325 mg PO BID [facility] Last Admin: 10/23/17 09:43 Dose: 325 mg Sodium Chloride (Saline Flush) 10 ml FLUSH ASDIRECTED PRN PRN Reason: Keep Vein Open Last Admin: 10/22/17 10:05 Dose: 10 ml Discontinued Medications Furosemide (Lasix) 20 mg IVPUSH ONETIME ONE Stop: 10/22/17 15:02 Last Admin: 10/22/17 20:31 Dose: 20 mg Sodium Chloride (Normal Saline) Confirm Administered Dose 250 mls @ as directed .ROUTE .STK-MED ONE Stop: 10/22/17 16:27 Last Admin: 10/22/17 17:23 Dose: Not Given Phytonadione 2.5 mg/ Sodium (Chloride) 50.25 mls @ 100 mls/hr IV NOW ONE Stop: 10/23/17 16:10 - Exam Quality Assessment: DVT Prophylaxis General: Alert, Oriented, Cooperative HEENT: Pupils Equal, Pupils Reactive, EOMI, Mucous Membr. Moist/[place] Neck: Supple Lungs: Clear to Auscultation, Normal Respiratory Effort Cardiovascular: Regular Rate, Regular Rhythm, No Murmurs GI/Abdominal Exam: Normal Bowel Sounds, Soft, Non-Tender, No Organomegaly, No Distention, No Abnormal Bruit, No Mass, Pelvis Stable (Female) Exam: Deferred Back Exam: Normal Inspection, Full Range of Motion Extremities: Normal Inspection, Normal Range of Motion, Non-Tender, No Pedal Edema, Normal Capillary Refill Peripheral Pulses: 1+: Posterior Tibial (L), Posterior Tibial (R), Dorsalis Pedis (L), Dorsalis Pedis (R), 2+: Radial (L), Radial (R) Skin: Warm, Dry, Intact Neurological: No New Focal Deficit Psy/Mental Status: Alert, Normal Affect, Normal Mood - Problem List & Annotations (1) GI bleed SNOMED Code(s): 45318115 Code(s): K92.2 - GASTROINTESTINAL HEMORRHAGE, UNSPECIFIED Status: Acute Priority: High Current Visit: Yes Qualifiers: GI bleed type/associated pathology: unspecified gastrointestinal hemorrhage type Qualified Code(s): K92.2 - Gastrointestinal hemorrhage, unspecified (2) Acute blood loss anemia SNOMED Code(s): 190271445 Code(s): D62 - ACUTE POSTHEMORRHAGIC ANEMIA Status: Acute Priority: High Current Visit: Yes (3) CHF (congestive heart failure), NYHA class III SNOMED Code(s): 991159340 Code(s): I50.9 - HEART FAILURE, UNSPECIFIED Status: Chronic Priority: High Current Visit: Yes Qualifiers: Congestive heart failure type: combined Congestive heart failure chronicity : acute on chronic Qualified Code(s): I50.43 - Acute on chronic combined systolic (congestive) and diastolic (congestive) heart failure (4) COPD (chronic obstructive pulmonary disease) SNOMED Code(s): 46050977 Code(s): J44.9 - CHRONIC OBSTRUCTIVE PULMONARY DISEASE, UNSPECIFIED Status : Chronic Current Visit: Yes (5) Sleep apnea SNOMED Code(s): 68137537 Code(s): G47.30 - SLEEP APNEA, UNSPECIFIED Status: Chronic Priority: Low Current Visit: Yes Qualifiers: Sleep apnea type: unspecified type Qualified Code(s): G47.30 - Sleep apnea , unspecified (6) Hyperparathyroidism SNOMED Code(s): 25970565 Code(s): E21.3 - HYPERPARATHYROIDISM, UNSPECIFIED Status: Chronic Priority: Low Current Visit: No (7) History of heart valve repair SNOMED Code(s): 74293710486089 Code(s): Z98.890 - OTHER SPECIFIED POSTPROCEDURAL STATES Status: Chronic Priority: Low Current Visit: No (8) Chronic renal insufficiency, stage V SNOMED Code(s): 87145760 Code(s): N18.5 - CHRONIC KIDNEY DISEASE, STAGE 5 Status: Chronic Priority : Medium Current Visit: Yes - Problem List Review Problem List Initiated/Reviewed/Updated: Yes - My Orders Last 24 Hours: My Active Orders 10/22/17 15:53 Notify Provider Consults [RC] ASDIRECTED Consult to Physician [CONS] Routine 10/22/17 21:00 Allopurinol [Zyloprim] 300 mg PO BEDTIME Polyethylene Glycol 3350 [MiraLAX] 17 gm PO TID Sildenafil [Revatio] 10 mg PO BID Sodium Bicarbonate 325 mg PO BID 10/22/17 21:54 diphenhydrAMINE [Benadryl] 25 mg PO BEDTIME PRN 10/23/17 07:00 Pantoprazole [ProTONIX] 40 mg PO DAILY@0700 10/23/17 09:00 Ferrous Sulfate 325 mg PO DAILY Levothyroxine 25 mcg PO DAILY Magnesium Oxide 400 mg PO DAILY Potassium Chloride [Klor-Con M20] 20 meq PO DAILY Saccharomyces Boulardii [Florastor] 250 mg PO BID predniSONE 5 mg PO DAILY 10/23/17 Breakfast Clear Liquid Diet [DIET] 10/24/17 05:11 BASIC METABOLIC PANEL,BMP [CHEM] AM CBC WITH AUTO DIFF [HEME] AM INR,PT,PROTHROMBIN TIME [COAG] AM MAGNESIUM [CHEM] AM 10/25/17 05:11 BASIC METABOLIC PANEL,BMP [CHEM] AM CBC WITH AUTO DIFF [HEME] AM INR,PT,PROTHROMBIN TIME [COAG] AM MAGNESIUM [CHEM] AM 10/26/17 05:11 BASIC METABOLIC PANEL,BMP [CHEM] AM CBC WITH AUTO DIFF [HEME] AM INR,PT,PROTHROMBIN TIME [COAG] AM MAGNESIUM [CHEM] AM 10/27/17 09:00 Metolazone [Zaroxolyn] 5 mg PO Mo@0900 - Plan Plan:: I/P: Acute: GI Bleed leading to anemia -Increased fatigue and weakness -Reports 3 grossly bloody bowel movements over last 4 days; One mild bloody BM this AM. -Grossly bloody bowel movement while in ED -No prior hx/o GI bleeding, no recent changes in medications -On chronic warfarin s/p bioprosthetic valve replacement - unsure which valve , obtain medical records -Hold warfarin for today and monitor INR/PT -Hgb 7.2-->9.7 -Hct 23.2-->28.8 -Type and screen - A Positive, negative antibody -Will transfuse 2 units now followed by 20mg of lasix - tolerated well -Utilize extreme caution as Stage V CKD -Following Dr. Alonso -Reportedly on verge of needing dialysis -General surgery consult ordered - Dr. Krishnan -Colonoscopy for tomorrow AM -Bowel prep per protocol Resolved: Thrombocytosis -Likely 2/2 above -Monitor Chronic: Impaired vision A-fib CHF Hx/o heart valve replacement - obtain old records to determine which valve Pacemaker COPD Sleep apnea - refuses to wear CPAP Hx/o C. Diff infection Stage V CKD - Baseline creatinine 3.3-3.8, baseline eGFR 11-13 - stable Athrosclerosis of renal artery Osteoarthritis Osteoporosis Hyperparathyroidism Anemia - as above Puritis Plan: Admit to medical floor Obtain old records from cardiology, primary care provider to determine recommended INR goal. CM for discharge planning PT/OT Other orders as indicated above Routine AM labs Home medications as ordered GI prophylaxis - PPI DVT/PE prophylaxis - ENA [place], will monitor PT/INR; on warfarin - hold warfarin until after colonoscopy Code Status: Full Code. Her PCP is Dr. Johnson at [facility] here in [place]
[2017-10-23] MEDS ORDERED: Phytonadione ORAL 2.5mg/2.5ml Soln Simple Syrup U/D PO ONE (17:15)
[2017-10-23] MEDS ORDERED: Polyethylene Glycol/Electrolytes 4,000 ML Bottle PO ONE (17:32)
[2017-10-23] MEDS: Allopurinol 300 MG Tab PO SCH (20:35)
[2017-10-23] MEDS: diphenhydrAMINE 25 MG Cap PO PRN (20:37)
[2017-10-24] MEDS ORDERED: Propofol 200 MG/20 ML SDV ONE (07:27)
[2017-10-24] MEDS ORDERED: Lidocaine 1% 4 ML ONE (07:27)
[2017-10-24] MEDS ORDERED: fentaNYL 100 MCG/2 ML SDV ONE (07:28)
--- NOTE | 2017-10-24 07:30 | PCM.PREANE ---
Preanesthetic Assessment - Procedure Proposed Procedure: Diagnostic colonoscopy - Anesthesia/Transfusion/Family Hx Anesthesia History: Prior Anesthesia Reaction Family History of Anesthesia Reaction: No Transfusion History: No Prior Transfusion(s) - Review of Systems General: No Symptoms Pulmonary: Other (COPD, MAYCOL without cpap) Cardiovascular: Other (CHF, Afib, pacemaker, hx valve replacement, HTN) Gastrointestinal: Other (GI bleed ) Neurological: No Symptoms Other: Reports: Easy Bleeding, Easy Bruising (on coumadin ) - Physical Assessment Pulse: 75 O2 Sat by Pulse Oximetry: 98 Respiratory Rate: 17 Blood Pressure: 129/74 Temperature: 36.7 C Vital Signs: Last Vital Signs Temp 36.7 C 10/24/17 05:45 Pulse 75 10/24/17 05:45 Resp 17 10/24/17 05:45 BP 129/74 10/24/17 05:45 Pulse Ox 98 10/24/17 05:45 Height: 1.6 m Weight: 61.326 kg ASA Class: 3 Mental Status: Alert & Oriented x3 Airway Class: Mallampati = 3 Dentition: Reports: Normal Dentition (front four top teeth implants ) Thyro-Mental Finger Breadths: 3 Mouth Opening Finger Breadths: 3 ROM/Head Extension: Full Lungs: Clear to Auscultation, Normal Respiratory Effort Cardiovascular: Regular Rate, Regular Rhythm - Lab Values: Laboratory Last Values WBC 6.00 K/mm3 (3.98-10.04) 10/24/17 06:10 RBC 3.45 M/mm3 (3.98-5.22) L 10/24/17 06:10 Hgb 9.7 gm/L (11.2-15.7) L 10/24/17 06:10 Hct 30.7 % (34.1-44.9) L 10/24/17 06:10 MCV 89.0 fl (79.4-94.8) 10/24/17 06:10 MCH 28.1 pg (25.6-32.2) 10/24/17 06:10 MCHC 31.6 g/dl (32.2-35.5) L 10/24/17 06:10 RDW Std Deviation 55.6 fL (36.4-46.3) H 10/24/17 06:10 Plt Count 341 K/mm3 (182-369) 10/24/17 06:10 MPV 8.1 fl (9.4-12.3) L 10/24/17 06:10 Neut % (Auto) 77.8 % (34.0-71.1) H 10/24/17 06:10 Lymph % (Auto) 12.8 % (19.3-51.7) L 10/24/17 06:10 [place] % (Auto) 7.8 % (4.7-12.5) 10/24/17 06:10 Eos % (Auto) 1.0 (0.7-5.8) 10/24/17 06:10 Baso % (Auto) 0.3 % (0.1-1.2) 10/24/17 06:10 Neut # (Auto) 4.66 K/mm3 (1.56-6.13) 10/24/17 06:10 Lymph # (Auto) 0.77 K/mm3 (1.18-3.74) L 10/24/17 06:10 [place] # (Auto) 0.47 K/mm3 (0.24-0.36) H 10/24/17 06:10 Eos # (Auto) 0.06 K/mm3 (0.04-0.36) 10/24/17 06:10 Baso # (Auto) 0.02 K/mm3 (0.01-0.08) 10/24/17 06:10 Manual Slide Review Abnormal smear 10/22/17 10:00 PT 16.3 SECONDS (8.0-13.0) H 10/24/17 06:10 INR 1.46 10/24/17 06:10 Sodium 142 mEq/L (136-145) 10/24/17 06:10 Potassium 3.3 mEq/L (3.5-5.1) L 10/24/17 06:10 Chloride 102 mEq/L (98-107) 10/24/17 06:10 Carbon Dioxide 29 mEq/L (21-32) 10/24/17 06:10 Anion Gap 14.3 (5-15) 10/24/17 06:10 BUN 52 mg/dL (7-18) H 10/24/17 06:10 Creatinine 3.3 mg/dL (0.55-1.02) H 10/24/17 06:10 Est Cr Clr Drug Dosing 10.31 mL/min 10/24/17 06:10 Estimated GFR (MDRD) 13 mL/min (>60) 10/24/17 06:10 BUN/Creatinine Ratio 15.8 (14-18) 10/24/17 06:10 Glucose 95 mg/dL (83-115) 10/24/17 06:10 Lactic Acid 1.5 mmol/L (0.4-2.0) 10/22/17 10:25 Calcium 9.1 mg/dL (8.5-10.1) 10/24/17 06:10 Magnesium 2.2 mg/dl (1.8-2.4) 10/24/17 06:10 Total Bilirubin 0.6 mg/dL (0.2-1.0) 10/22/17 10:00 AST 26 U/L (15-37) 10/22/17 10:00 ALT 23 U/L (14-59) 10/22/17 10:00 Alkaline Phosphatase 58 U/L (46-116) 10/22/17 10:00 NT-Pro-B Natriuret Pep 3391 pg/mL (0-450) H 10/23/17 06:05 Total Protein 5.8 g/dl (6.4-8.2) L 10/22/17 10:00 Albumin 3.4 g/dl (3.4-5.0) 10/22/17 10:00 Globulin 2.4 gm/dL 10/22/17 10:00 Albumin/Globulin Ratio 1.4 (1-2) 10/22/17 10:00 MRSA (PCR) Negative 10/22/17 20:22 Blood Type A POSITIVE 10/22/17 10:25 Gel Antibody Screen Negative 10/22/17 10:25 Crossmatch See Detail 10/22/17 10:25 - Allergies Allergies/Adverse Reactions: Allergies Allergy/AdvReac Type Severity Reaction Status Date / Time Sulfa (Sulfonamide AdvReac Stomach Verified 07/23/16 09:33 Antibiotics) Ache - Blood Blood Available: No Product(s) Available: None - Anesthesia Plan Pre-Op Medication Ordered: None - Acknowledgements Anesthesia Type Planned: MAC Pt an Appropriate Candidate for the Planned Anesthesia: Yes Alternatives and Risks of Anesthesia Discussed w Pt/Guardian: Yes Pt/Guardian Understands and Agrees with Anesthesia Plan: Yes PreAnesthesia Questionnaire HEENT History: Reports: Cataract, Impaired Vision Other HEENT History: Wears glasses Cardiovascular History: Reports: Afib, Heart Failure, Heart Valve Replacement, Pacemaker, Other (See Below) Other Cardiovascular History: thromboctyopenia, hypokalemia. Respiratory History: Reports: COPD, Sleep Apnea Other Respiratory History: Patient refuses to wear CPAP at night- states she could not sleep with it on Gastrointestinal History: Reports: Other (See Below) Other Gastrointestinal History: enterocolitis due to C-diff. Genitourinary History: Reports: Chronic Renal Insuffiency, UTI, Recurrent, Other (See Below) Other Genitourinary History: athrosclerosis of renal artery, anemia in chronic kidney disease. [employer] History: Reports: Musculoskeletal History: Reports: Osteoarthritis, Osteoporosis Neurological History: Reports: None Psychiatric History: Reports: None Endocrine/Metabolic History: Reports: Hyperparathyroidism Hematologic History: Reports: Anemia Dermatologic History: Reports: Other (See Below) Other Dermatologic History: chronic pruritus - Infectious Disease History Infectious Disease History: Reports: C-Difficile, Chicken Pox, Measles, Mumps - Past Surgical History HEENT Surgical History: Reports: Cataract Surgery, Other (See Below) Other HEENT Surgeries/Procedures: four front teeth implants. Cardiovascular Surgical History: Reports: Valve Replacement Female Surgical History: Reports: Hysterectomy - SUBSTANCE USE Smoking Status *Q: Never Smoker Second Hand Smoke Exposure: No Days Per Week of Alcohol Use: 0 Number of Drinks Per Day: 0 Total Drinks Per Week: 0 Date of Last Drink: 10/21/17 Time of Last Drink: 19:00 Recreational Drug Use History: No - HOME MEDS Home Medications: Home Meds Omeprazole [Prilosec] 20 mg PO DAILY 04/25/14 [History] Acetaminophen [Tylenol] 650 mg PO Q6HR PRN 07/18/16 [History] Ferrous Sulfate [Iron] 325 mg PO DAILY 07/18/16 [History] Levothyroxine 25 mcg PO DAILY 07/18/16 [History] Torsemide 20 mg PO DAILY 07/18/16 [History] Allopurinol [Zyloprim] 300 mg PO BEDTIME 10/22/17 [History] Cholecalciferol (Vitamin D3) [Vitamin D3] 1,000 unit PO DAILY 10/22/17 [History] Lactobacillus Acidophilus [Acidophilus Lactobacillus] 1 cap PO BID 10/22/17 [ History] Loperamide HCl [Imodium A-D] 4 mg PO DAILY PRN 10/22/17 [History] Magnesium 500 mg PO DAILY 10/22/17 [History] Melatonin 3 mg PO BEDTIME PRN 10/22/17 [History] Metolazone 5 mg PO MO 10/22/17 [History] Potassium Chloride 20 meq PO DAILY 10/22/17 [History] Propylene Glycol/Peg 400 [Systane 0.3-0.4% Eye Drops] 1 drop EYEBOTH TID [History] Sildenafil [Revatio] 10 mg PO BID 10/22/17 [History] Sodium Bicarbonate 325 mg PO BID 10/22/17 [History] Warfarin [Coumadin] 2.5 mg PO MO 10/22/17 [History] Warfarin [Coumadin] 5 mg PO SUTUWETHFRSA 10/22/17 [History] predniSONE [Prednisone] 5 mg PO DAILY 10/22/17 [History] - CURRENT (IN HOUSE) MEDS Current Meds: Current Medications Acetaminophen (Tylenol) 650 mg PO Q4H PRN PRN Reason: Pain (Mild 1-3)/fever Allopurinol (Zyloprim) 300 mg PO BEDTIME [facility] Last Admin: 10/23/17 20:35 Dose: 300 mg Diphenhydramine HCl (Benadryl) 25 mg PO BEDTIME PRN PRN Reason: Sleep Last Admin: 10/23/17 20:37 Dose: 25 mg Ferrous Sulfate (Ferrous Sulfate) 325 mg PO DAILY [facility] Last Admin: 10/23/17 09:43 Dose: 325 mg Levothyroxine Sodium (Levothyroxine) 25 mcg PO DAILY [facility] Last Admin: 10/23/17 09:43 Dose: 25 mcg Magnesium Oxide (Magnesium Oxide) 400 mg PO DAILY [facility] Last Admin: 10/23/17 09:43 Dose: 400 mg Metolazone (Zaroxolyn) 5 mg PO Mo@0900 [facility] Ondansetron HCl (Zofran Odt) 4 mg PO Q6H PRN PRN Reason: nausea, able to take PO Ondansetron HCl (Zofran) 4 mg IV Q6H PRN PRN Reason: Nausea/Vomiting Pantoprazole Sodium (Protonix) 40 mg PO DAILY@0700 [facility] Last Admin: 10/23/17 06:32 Dose: 40 mg Polyethylene Glycol (Miralax) 17 gm PO TID [facility] Last Admin: 10/23/17 20:38 Dose: Not Given Potassium Chloride (Klor-Con M20) 20 meq PO DAILY [facility] Last Admin: 10/23/17 09:43 Dose: 20 meq Prednisone (Prednisone) 5 mg PO DAILY [facility] Last Admin: 10/23/17 09:43 Dose: 5 mg Saccharomyces Boulardii (Florastor) 250 mg PO BID [facility] Last Admin: 10/23/17 20:35 Dose: 250 mg Sildenafil Citrate (Revatio) 10 mg PO BID [facility] Last Admin: 10/23/17 22:25 Dose: Not Given Sodium Bicarbonate (Sodium Bicarbonate) 325 mg PO BID [facility] Last Admin: 10/23/17 20:35 Dose: 325 mg Sodium Chloride (Saline Flush) 10 ml FLUSH ASDIRECTED PRN PRN Reason: Keep Vein Open Last Admin: 10/22/17 10:05 Dose: 10 ml Discontinued Medications Furosemide (Lasix) 20 mg IVPUSH ONETIME ONE Stop: 10/22/17 15:02 Last Admin: 10/22/17 20:31 Dose: 20 mg Sodium Chloride (Normal Saline) 250 mls @ 100 mls/hr IV ASDIRECTED [facility] Last Admin: 10/22/17 22:17 Dose: 100 mls/hr Sodium Chloride (Normal Saline) Confirm Administered Dose 250 mls @ as directed .ROUTE .STK-MED ONE Stop: 10/22/17 16:27 Last Admin: 10/22/17 17:23 Dose: Not Given Phytonadione 2.5 mg/ Sodium (Chloride) 50.25 mls @ 100 mls/hr IV NOW ONE Stop: 10/23/17 16:10 Last Admin: 10/23/17 17:50 Dose: Not Given Phytonadione (Aquamephyton) 2.5 mg PO ONETIME ONE Stop: 10/23/17 16:59 Last Admin: 10/23/17 17:46 Dose: 2.5 mg Phytonadione (Aquamephyton) 2.5 mg PO ONETIME ONE Stop: 10/23/17 17:16 Last Admin: 10/23/17 17:43 Dose: Not Given Polyethylene Glycol/Electrolytes (Golytely) 4,000 ml PO ONETIME ONE Stop: 10/23/17 17:33 Last Admin: 10/23/17 17:55 Dose: 4,000 ml
--- NOTE | 2017-10-24 08:41 | PCM48HPAN ---
Post Anesthesia Note - EVALUATION WITHIN 48HRS OF ANESTHETIC Vital Signs in Normal Range: Yes Patient Participated in Evaluation: Yes Respiratory Function Stable: Yes Airway Patent: Yes Cardiovascular Function Stable: Yes Hydration Status Stable: Yes Pain Control Satisfactory: Yes Nausea and Vomiting Control Satisfactory: Yes Mental Status Recovered: Yes - COMMENTS/OBSERVATIONS Free Text/Narrative:: Patient taken to recovery for a short period just to let the medications more thoroughly metabolize before returning to the floor.
--- NOTE | 2017-10-24 08:44 | PCM.OPNOTE ---
- General Post-Op/Procedure Note Date of Surgery/Procedure: 10/24/17 Operative Procedure(s): Diagnostic Colonoscopy Findings: Moderately large sigmoid diverticulosis. No AV malformations were seen. No mass lesions or inflammatory changes seen. The terminal ileum was grossly normal. There was no luminal blood within the distal small bowel or colon. Pre Op Diagnosis: Lower GI bleed Post-Op Diagnosis: Sigmoid diverticulosis Anesthesia Technique: MAC, Moderate Sedation Primary Surgeon: Arnel Krishnan Pathology: none EBL in mLs: 0 Complications: None Condition: Good Free Text/Narrative:: Intake & Output 10/23/17 10/24/17 10/24/17 22:59 06:59 14:59 Intake Total 1760 250 Output Total 1000 Balance 760 250 After adequate IV sedation and analgesia was obtained with monitoring the patient was placed on her left side. Perianal inspection and digital rectal examination were performed next and were unremarkable. A lubricated colonoscope was inserted into the rectum and advanced under direct vision through a tortuous sigmoid colon to reach the cecum which was identified along with the appendiceal orifice. The scope was inserted into the terminal ileum which was grossly normal. I then withdrew the scope to the cecum and ascending colon both had no mass lesions or inflammatory changes nor there any AV malformations. There was no acute or chronic luminal blood. The transverse and descending colons were likewise endoscopically normal. The sigmoid had large diverticula which were not bleeding. There were no mass lesions in this area. The rectum in both views was unremarkable. Instructional Assistant photographs were taken for the patient for the medical record. She tolerated the procedure well and there were no procedure complications.
[2017-10-24] MEDS: predniSONE 5 MG Tab PO SCH (09:33)
[2017-10-24] MEDS: Ferrous Sulfate 325 MG Tab PO SCH (09:34)
[2017-10-24] MEDS: Potassium Chloride 20 MEQ Tab.ER PO SCH (09:34)
[2017-10-24] MEDS: Saccharomyces Boulardii (Probiotic) 250 MG Cap PO SCH (09:34)
[2017-10-24] MEDS: Sodium Bicarbonate 650 MG Tab PO SCH (09:34)
[2017-10-24] MEDS: Magnesium Oxide 400 MG Tab PO SCH (09:34)
[2017-10-24] MEDS: Levothyroxine 25 MCG Tab PO SCH (09:34)
[2017-10-24] MEDS: Pantoprazole 40 MG Tab.CR PO SCH (09:34)
[2017-10-24] MEDS: Polyethylene Glycol 3350 Powder 17 GM Packet PO SCH ×2 (09:35→09:39)
[2017-10-24] MEDS: Sildenafil 20 MG Tab PO SCH (09:35)
--- NOTE | 2017-10-24 11:06 | PCM.DCSUM1 ---
Discharge Summary - Hospital Course Free Text/Narrative:: 87 year old with LGIB presented and was evaluated after receiving at least 2 units of PRBCs as well as FFP and Vitamin K. The patient is on coumadin with a higher INR target, 2.5-3.5. She was within the therapeutic range when she presented. She had been sent to the ED from her PCPs office. She had had at least 3 bloody bowel movements and had a Hgb 6.5. Coumadin was held, INR corrected and a colonoscopy performed which documented no active bleeding. She was DCd to home after tolerating a heart healthy diet post procedure. Primary Dx Fe anemia TVR A Fib ESRD, refusing HD Condition Good Disposition Home Meds Home meds including Coumadin as previously prescribed PCP Follow up with [facility] with 1-2 weeks Activity As tolerated Instructions Clarify INR required to decrease risk of bleeding - Discharge Data Discharge Date: 10/24/17 Discharge Disposition: Home, Self-Care 01 Condition: Good - Patient Summary/Data Operative Procedure(s) Performed: Diagnostic Colonoscopy Consults: Consultations 10/22/17 15:45 Consult to Case Management [CONS] Routine OT Evaluation and Treatment [CONS] Routine PT Evaluation and Treatment [CONS] Routine 10/22/17 15:53 Consult to Physician [CONS] Routine - Patient Instructions Diet: Usual Diet as Tolerated Activity: As Tolerated Driving: Do Not Drive Showering/Bathing: May Shower Notify Provider of: Fever, Nausea and/or Vomiting - Discharge Plan Home Medications: Home Meds Omeprazole [Prilosec] 20 mg PO DAILY 04/25/14 [History] Acetaminophen [Tylenol] 650 mg PO Q6HR PRN 07/18/16 [History] Ferrous Sulfate [Iron] 325 mg PO DAILY 07/18/16 [History] Levothyroxine 25 mcg PO DAILY 07/18/16 [History] Torsemide 20 mg PO DAILY 07/18/16 [History] Allopurinol [Zyloprim] 300 mg PO BEDTIME 10/22/17 [History] Cholecalciferol (Vitamin D3) [Vitamin D3] 1,000 unit PO DAILY 10/22/17 [History] Lactobacillus Acidophilus [Acidophilus Lactobacillus] 1 cap PO BID 10/22/17 [ History] Loperamide HCl [Imodium A-D] 4 mg PO DAILY PRN 10/22/17 [History] Magnesium 500 mg PO DAILY 10/22/17 [History] Melatonin 3 mg PO BEDTIME PRN 10/22/17 [History] Metolazone 5 mg PO MO 10/22/17 [History] Potassium Chloride 20 meq PO DAILY 10/22/17 [History] Propylene Glycol/Peg 400 [Systane 0.3-0.4% Eye Drops] 1 drop EYEBOTH TID [History] Sildenafil [Revatio] 10 mg PO BID 10/22/17 [History] Sodium Bicarbonate 325 mg PO BID 10/22/17 [History] Warfarin [Coumadin] 2.5 mg PO MO 10/22/17 [History] Warfarin [Coumadin] 5 mg PO SUTUWETHFRSA 10/22/17 [History] predniSONE [Prednisone] 5 mg PO DAILY 10/22/17 [History] Patient Handouts: Gastrointestinal Bleeding Referrals: Judy Mark NP [Ordering Only Provider] - 10/31/17 11:00 am (Please follow up with BARRON Welsh on 10/31/17 at 1100 AM. ) Benito Johnson MD [Primary Care Provider] - (Please schedule own appointment with Dr. Benitez as he will be out of office unitl November 11, 2016. ) - Discharge Summary/Plan Comment DC Time >30 min.: No - General Info Date of Service: 10/22/17 Functional Status: Reports: Tolerating Diet, Ambulating, Urinating - Review of Systems General: Reports: No Symptoms HEENT: Reports: No Symptoms Pulmonary: Reports: No Symptoms Cardiovascular: Reports: No Symptoms Gastrointestinal: Reports: No Symptoms Genitourinary: Reports: No Symptoms Musculoskeletal: Reports: No Symptoms Skin: Reports: No Symptoms Neurological: Reports: No Symptoms Psychiatric: Reports: No Symptoms - Patient Data Vitals - Most Recent: Last Vital Signs Temp 36.9 C 10/24/17 08:28 Pulse 87 10/24/17 08:28 Resp 14 10/24/17 08:28 BP 117/76 10/24/17 08:28 Pulse Ox 96 10/24/17 08:28 Weight - Most Recent: 61.326 kg I&O - Last 24 hours: Intake & Output 10/23/17 10/24/17 10/24/17 22:59 06:59 14:59 Intake Total 1760 250 50 Output Total 1000 Balance 760 250 50 Lab Results - Last 24 hrs: Laboratory Results - last 24 hr 10/24/17 10/24/17 10/24/17 Range/Units 06:10 06:10 06:10 WBC 6.00 (3.98-10.04) K/mm3 RBC 3.45 L (3.98-5.22) M/mm3 Hgb 9.7 L (11.2-15.7) gm/L Hct 30.7 L (34.1-44.9) % MCV 89.0 (79.4-94.8) fl MCH 28.1 (25.6-32.2) pg MCHC 31.6 L (32.2-35.5) g/dl RDW Std Deviation 55.6 H (36.4-46.3) fL Plt Count 341 (182-369) K/mm3 MPV 8.1 L (9.4-12.3) fl Neut % (Auto) 77.8 H (34.0-71.1) % Lymph % (Auto) 12.8 L (19.3-51.7) % [place] % (Auto) 7.8 (4.7-12.5) % Eos % (Auto) 1.0 (0.7-5.8) Baso % (Auto) 0.3 (0.1-1.2) % Neut # (Auto) 4.66 (1.56-6.13) K/mm3 Lymph # (Auto) 0.77 L (1.18-3.74) K/mm3 [place] # (Auto) 0.47 H (0.24-0.36) K/mm3 Eos # (Auto) 0.06 (0.04-0.36) K/mm3 Baso # (Auto) 0.02 (0.01-0.08) K/mm3 PT 16.3 H (8.0-13.0) SECONDS INR 1.46 Sodium 142 (136-145) mEq/L Potassium 3.3 L (3.5-5.1) mEq/L Chloride 102 (98-107) mEq/L Carbon Dioxide 29 (21-32) mEq/L Anion Gap 14.3 (5-15) BUN 52 H (7-18) mg/dL Creatinine 3.3 H (0.55-1.02) mg/dL Est Cr Clr Drug Dosing 10.31 mL/min Estimated GFR (MDRD) 13 (>60) mL/min BUN/Creatinine Ratio 15.8 (14-18) Glucose 95 (83-115) mg/dL Calcium 9.1 (8.5-10.1) mg/dL Magnesium 2.2 (1.8-2.4) mg/dl Med Orders - Current: Current Medications Acetaminophen (Tylenol) 650 mg PO Q4H PRN PRN Reason: Pain (Mild 1-3)/fever Allopurinol (Zyloprim) 300 mg PO BEDTIME [facility] Last Admin: 10/23/17 20:35 Dose: 300 mg Diphenhydramine HCl (Benadryl) 25 mg PO BEDTIME PRN PRN Reason: Sleep Last Admin: 10/23/17 20:37 Dose: 25 mg Ferrous Sulfate (Ferrous Sulfate) 325 mg PO DAILY [facility] Last Admin: 10/24/17 09:34 Dose: 325 mg Levothyroxine Sodium (Levothyroxine) 25 mcg PO DAILY [facility] Last Admin: 10/24/17 09:34 Dose: 25 mcg Magnesium Oxide (Magnesium Oxide) 400 mg PO DAILY [facility] Last Admin: 10/24/17 09:34 Dose: 400 mg Metolazone (Zaroxolyn) 5 mg PO Mo@0900 [facility] Ondansetron HCl (Zofran Odt) 4 mg PO Q6H PRN PRN Reason: nausea, able to take PO Ondansetron HCl (Zofran) 4 mg IV Q6H PRN PRN Reason: Nausea/Vomiting Pantoprazole Sodium (Protonix) 40 mg PO DAILY@0700 [facility] Last Admin: 10/24/17 09:34 Dose: 40 mg Polyethylene Glycol (Miralax) 17 gm PO TID [facility] Last Admin: 10/24/17 09:39 Dose: Not Given Potassium Chloride (Klor-Con M20) 20 meq PO DAILY [facility] Last Admin: 10/24/17 09:34 Dose: 20 meq Prednisone (Prednisone) 5 mg PO DAILY [facility] Last Admin: 10/24/17 09:33 Dose: 5 mg Saccharomyces Boulardii (Florastor) 250 mg PO BID [facility] Last Admin: 10/24/17 09:34 Dose: 250 mg Sildenafil Citrate (Revatio) 10 mg PO BID [facility] Last Admin: 10/24/17 09:35 Dose: Not Given Sodium Bicarbonate (Sodium Bicarbonate) 325 mg PO BID [facility] Last Admin: 10/24/17 09:34 Dose: 325 mg Sodium Chloride (Saline Flush) 10 ml FLUSH ASDIRECTED PRN PRN Reason: Keep Vein Open Last Admin: 10/22/17 10:05 Dose: 10 ml Discontinued Medications Fentanyl (Sublimaze) Confirm Administered Dose 100 mcg .ROUTE .STK-MED ONE Stop: 10/24/17 07:29 Furosemide (Lasix) 20 mg IVPUSH ONETIME ONE Stop: 10/22/17 15:02 Last Admin: 10/22/17 20:31 Dose: 20 mg Sodium Chloride (Normal Saline) 250 mls @ 100 mls/hr IV ASDIRECTED [facility] Last Admin: 10/22/17 22:17 Dose: 100 mls/hr Sodium Chloride (Normal Saline) Confirm Administered Dose 250 mls @ as directed .ROUTE .STK-MED ONE Stop: 10/22/17 16:27 Last Admin: 10/22/17 17:23 Dose: Not Given Phytonadione 2.5 mg/ Sodium (Chloride) 50.25 mls @ 100 mls/hr IV NOW ONE Stop: 10/23/17 16:10 Last Admin: 10/23/17 17:50 Dose: Not Given Lidocaine HCl (Xylocaine-Mpf 1%) Confirm Administered Dose 4 mls @ as directed .ROUTE .STK-MED ONE Stop: 10/24/17 07:28 Phytonadione (Aquamephyton) 2.5 mg PO ONETIME ONE Stop: 10/23/17 16:59 Last Admin: 10/23/17 17:46 Dose: 2.5 mg Phytonadione (Aquamephyton) 2.5 mg PO ONETIME ONE Stop: 10/23/17 17:16 Last Admin: 10/23/17 17:43 Dose: Not Given Polyethylene Glycol/Electrolytes (Golytely) 4,000 ml PO ONETIME ONE Stop: 10/23/17 17:33 Last Admin: 10/23/17 17:55 Dose: 4,000 ml Propofol (Diprivan 20 Ml) Confirm Administered Dose 200 mg .ROUTE .STK-MED ONE Stop: 10/24/17 07:28 - Exam Quality Assessment: Reports: DVT Prophylaxis General: Reports: Alert, Oriented, Cooperative, No Acute Distress HEENT: Reports: Pupils Equal, Pupils Reactive, EOMI Neck: Reports: Supple, Trachea Midline, No JVD Lungs: Reports: Clear to Auscultation, Normal Respiratory Effort Cardiovascular: Reports: Regular Rate, Irregular Rhythm GI/Abdominal Exam: Normal Bowel Sounds, Soft, Non-Tender, No Organomegaly, No Distention (Female) Exam: Deferred Rectal (Female) Exam: Deferred Back Exam: Reports: Normal Inspection Extremities: Normal Inspection Skin: Reports: Warm Wound/Incisions: Reports: Decubitis Neurological: Reports: No New Focal Deficit, Normal Gait Psy/Mental Status: Reports: Alert, Normal Affect *Q Meaningful Use (DIS) - VTE *Q VTE Criteria *Q: - Stroke *Q Stroke Criteria *Q: - AMI *Q AMI Criteria *Q:
[2017-10-24 14:34] VITALS: BP 104/58
[2017-10-27] MEDS ORDERED: Metolazone 5 MG Tab PO SCH (09:00)
== END 2017-10-24 12:33 | disposition home or self-care (01) | DRG 377 ==
LOC: JD.ED 09:17 → UNDOADMIN 12:57 → JD.MS 12:57
PROVIDERS: ADMIT Internal Medicine Cardiovascular Disease; ATTEND Internal Medicine Cardiovascular Disease
PROC: 30233N1 Transfusion of Nonautologous Red Blood Cells into Peripheral Vein, Percutaneous Approach (ICD-10-PCS; 2017-10-23)
PROC: 30233L1 Transfusion of Nonautologous Fresh Plasma into Peripheral Vein, Percutaneous Approach (ICD-10-PCS; 2017-10-23)
PROC: 30233K1 Transfusion of Nonautologous Frozen Plasma into Peripheral Vein, Percutaneous Approach (ICD-10-PCS; 2017-10-23)
PROC: 0DJD8ZZ Inspection of Lower Intestinal Tract, Via Natural or Artificial Opening Endoscopic (ICD-10-PCS; principal; 2017-10-24)
DX: K92.1 Melena (principal); I50.43 Acute on chronic combined systolic (congestive) and diastolic (congestive) heart failure; N18.6 End stage renal disease; D50.0 Iron deficiency anemia secondary to blood loss (chronic); Z95.2 Presence of prosthetic heart valve; Z79.01 Long term (current) use of anticoagulants; I50.9 Heart failure, unspecified; I48.91 Unspecified atrial fibrillation; H54.7 Unspecified visual loss; Z95.0 Presence of cardiac pacemaker; N18.9 Chronic kidney disease, unspecified; J44.9 Chronic obstructive pulmonary disease, unspecified; G47.30 Sleep apnea, unspecified; D63.1 Anemia in chronic kidney disease; M19.90 Unspecified osteoarthritis, unspecified site; M81.0 Age-related osteoporosis without current pathological fracture; E21.3 Hyperparathyroidism, unspecified; R53.1 Weakness; D47.3 Essential (hemorrhagic) thrombocythemia; I70.1 Atherosclerosis of renal artery; L29.9 Pruritus, unspecified; K57.30 Diverticulosis of large intestine without perforation or abscess without bleeding; Z88.2 Allergy status to sulfonamides; Z79.899 Other long term (current) drug therapy
CPT/HCPCS: 36415; 71010; 80053; 82270; 83605; 85025; 85610; 86850; 86900; 86901; 86922; 93005; 99285; J7050; 00810; 36430; 80048; 83735; 83880; 87641; 93010; 97162-GP; 97165-GO; 99284-25; A9270-GY; J2704; J3010; J3430; P9016

== ENCOUNTER 2018-12-21 02:38 | Inpatient (IN) | payer MEDICARE, BC ==
[2018-12-21] MEDS ORDERED: HYDROmorphone 1 MG/ML Syringe IVPUSH ONE (02:55)
[2018-12-21] MEDS ORDERED: Ondansetron 4 MG/2 ML SDV IVPUSH ONE (02:55)
[2018-12-21] MEDS ORDERED: Dextrose 5%-0.9% NaCl 1,000 ML IV SCH (03:00)
--- NOTE | 2018-12-21 03:01 | EDM.PDOC ---
ED HPI GENERAL MEDICAL PROBLEM - General Chief Complaint: Upper Extremity Injury/Pain Stated Complaint: [facility] Time Seen by Provider: 12/21/18 02:45 Source of Information: Reports: Patient, EMS History Limitations: Reports: No Limitations - History of Present Illness INITIAL COMMENTS - FREE TEXT/NARRATIVE: 88-year-old female presents to the ED per ambulance after a syncopal episode versus fall with loss of consciousness at her home last evening. The last things that she can remember is turning off the television and prepared to get ready for bed about 2100 hrs. She states she did not have her nightgown on and she is obviously tripped and fallen or had a syncopal event striking the right side of her head on an object as she has a large hematoma abrasions to the frontotemporal aspect of her forehead and scalp. It's suspect suspect that she may have lost consciousness for a period of time. She is unsure. She injured her right shoulder and is unable to lift or move her right arm in any degree because of pain she has injuries to her right elbow with skin tears. Denies pain in her ribs are back and neck were pelvis or lower extremitys. He is covered in multiple bruises on her hands and extensor surface of the forearms which she states is normal for her since she's been on the Coumadin. She's had a previous aortic valve replacement 2 years ago and remains on Coumadin for this reason. She states week ago her Coumadin dosage was decreased a little because her blood was too thin. She couldn't get up from the floor after a fall and head to its wriggle herself across the room to the phone to call for help. At present she denies any headache or nausea or vomiting. Pain in her right shoulder is tender to 10 Onset: Unknown/Unsure (Last thing she remembers was ) Onset Date: 12/21/18 (Unclear if she's been down for the last 5 hours.) Duration: Hour(s): Location: Reports: Head, Face, Neck, Upper Extremity, Right (Right shoulder) Quality: Reports: Ache Severity: Moderate Improves with: Reports: Rest Worsens with: Reports: Other (Any movement or attempted movement of the right shoulder causes exquisite severe pain.) Context: Reports: Other Associated Symptoms: Reports: Malaise, Rash (Ecchymoses on arms and legs from being on Coumadin and getting banged up by her walker), Shortness of Breath, Weakness. Denies: Confusion (Syncopal versus fall at home. Normally she does walk with a walker but she can remember she got tripped up by her walker.), Chest Pain, Cough, cough w sputum, Diaphoresis, Fever/Chills, Headaches, Loss of Appetite, Nausea/Vomiting, Syncope Right Shoulder Pain Score (Numeric/FACES): 6 - Related Data Allergies Allergy/AdvReac Type Severity Reaction Status Date / Time Sulfa (Sulfonamide AdvReac Stomach Verified 12/21/18 02:48 Antibiotics) Ache Home Meds: Home Meds Omeprazole [Prilosec] 20 mg PO DAILY 04/25/14 [History] Acetaminophen [Tylenol] 650 mg PO Q6HR PRN 07/18/16 [History] Ferrous Sulfate [Iron] 325 mg PO DAILY 07/18/16 [History] Levothyroxine 25 mcg PO DAILY 07/18/16 [History] Torsemide 20 mg PO DAILY 07/18/16 [History] Allopurinol [Zyloprim] 300 mg PO BEDTIME 10/22/17 [History] Cholecalciferol (Vitamin D3) [Vitamin D3] 1,000 unit PO DAILY 10/22/17 [History] Lactobacillus Acidophilus [Acidophilus Lactobacillus] 1 cap PO BID 10/22/17 [ History] Loperamide HCl [Imodium A-D] 4 mg PO DAILY PRN 10/22/17 [History] Magnesium 500 mg PO DAILY 10/22/17 [History] Melatonin 3 mg PO BEDTIME PRN 10/22/17 [History] Potassium Chloride 20 meq PO DAILY 10/22/17 [History] Propylene Glycol/Peg 400 [Systane 0.3-0.4% Eye Drops] 1 drop EYEBOTH TID [History] Sildenafil [Revatio] 10 mg PO BID 10/22/17 [History] Sodium Bicarbonate 325 mg PO BID 10/22/17 [History] Warfarin [Coumadin] 2.5 mg PO MO 10/22/17 [History] Warfarin [Coumadin] 5 mg PO SUTUWETHFRSA 10/22/17 [History] metOLazone [Metolazone] 5 mg PO MO 10/22/17 [History] predniSONE [Prednisone] 5 mg PO DAILY 10/22/17 [History] Past Medical History HEENT History: Reports: Cataract, Impaired Vision Other HEENT History: Wears glasses Cardiovascular History: Reports: Afib, Heart Failure, Heart Valve Replacement, Pacemaker, Other (See Below) Other Cardiovascular History: thromboctyopenia, hypokalemia. Respiratory History: Reports: COPD, Sleep Apnea, Other (See Below) (Pulmonary hypertension) Other Respiratory History: Patient refuses to wear CPAP at night- states she could not sleep with it on Gastrointestinal History: Reports: Other (See Below) Other Gastrointestinal History: enterocolitis due to C-diff. Genitourinary History: Reports: Chronic Renal Insuffiency, UTI, Recurrent, Other (See Below) Other Genitourinary History: athrosclerosis of renal artery, anemia in chronic kidney disease. [employer] History: Reports: Musculoskeletal History: Reports: Osteoarthritis, Osteoporosis Neurological History: Reports: None Psychiatric History: Reports: None Endocrine/Metabolic History: Reports: Hyperparathyroidism Hematologic History: Reports: Anemia Dermatologic History: Reports: Other (See Below) Other Dermatologic History: chronic pruritus - Infectious Disease History Infectious Disease History: Reports: C-Difficile, Chicken Pox, Measles, Mumps - Past Surgical History HEENT Surgical History: Reports: Cataract Surgery, Other (See Below) Other HEENT Surgeries/Procedures: four front teeth implants. Cardiovascular Surgical History: Reports: Valve Replacement Female Surgical History: Reports: Hysterectomy Social & Family History - Family History Family Medical History: Unobtainable Cardiac: Reports: Hypertension, NH - Caffeine Use Caffeine Use: Reports: Coffee - Living Situation & Occupation Living situation: Reports: Extended Care Facility Occupation: Retired Social History Comment: Lives in [facility] Review of Systems - Review of Systems Review Of Systems: See Below Constitutional: Reports: Weakness. Denies: Chills, Diaphoresis, Fever Eyes: Reports: Decreased Acuity, Glasses Ears: Reports: No Symptoms Nose: Reports: No Symptoms Mouth/Throat: Reports: No Symptoms Respiratory: Reports: Shortness of Breath (Has known COPD and does not use oxygen.), Cough, Sputum (Occasional cough). Denies: Wheezing ( Has sleep apnea but does not use CPAP machine), Pleuritic Chest Pain, Hemoptysis ( acute occasional white sputum production) Cardiovascular: Reports: Other (Has a pacemaker in place. Has had previous aortic valve replacement). Denies: Chest Pain, Edema, Irregular Heart Rate GI/Abdominal: Reports: Constipation. Denies: Abdominal Pain, Bloody Stool, Decreased Appetite, Diarrhea, Hematemesis, Nausea, Vomiting Genitourinary: Reports: Incontinence (Both stress and urge components.), Other ( Urinary frequency as she is on a diuretic) Musculoskeletal: Reports: Back Pain, Joint Pain (Knees hips shoulders and neck at times) Skin: Reports: Bruising (Bruises extremely easily and she is on Coumadin) Neurological: Reports: No Symptoms Psychiatric: Reports: No Symptoms ED EXAM, GENERAL - Physical Exam Exam: See Below Exam Limited By: No Limitations General Appearance: Alert, WD/WN, Other (Changes of her questions appropriately. She is obviously suffered significant injury to her right lenny- face and scalp with superficial abrasion skin tear is a large hematoma measuring approximately 10 cm in diameter encompassing the right temporal face forehead slight bruising of her right lateral upper eyelid and extending to the temporofrontoparietal lobe of her scalp.) Eye Exam: Bilateral Eye: Other (Ecchymoses of the lateral upper right eyelid. The) Ears: Normal TMs Nose: Normal Inspection, Other (No nasal contusion or bleeding) Throat/Mouth: Other (Tongue is slightly dry and coated with no evidence of biting her tongue or oropharyngeal injury) Neck: Tender Lateral. No: Supple, Carotid Bruit, Limited Range of Motion, Lymphadenopathy (L), Lymphadenopathy (R) Respiratory/Chest: No Respiratory Distress, Lungs Clear, Normal Breath Sounds, No Accessory Muscle Use, Chest Non-Tender, Other (No pain on compression of the ribs or sternum. She has a well-healed midline sternotomy incision. Pacemaker left upper anterior chest.) Cardiovascular: Regular Rate, Rhythm, No Edema, No Gallop, No Murmur, No Rub, Other (Audible click from aortic heart valve.). No: Normal Peripheral Pulses Peripheral Pulses: 1+: Posterior Tibial (L), Posterior Tibial (R), Dorsalis Pedis (L), Dorsalis Pedis (R) GI/Abdominal: Normal Bowel Sounds, Non-Tender, No Organomegaly, No Abnormal Bruit, No Mass, Pelvis Stable, Distended (Distended and diffusely tympanitic to percussion compatible some degree of aerophagia.) Back Exam: Other Extremities: Other (Patient has ecchymoses of all of her extremities. Both knee show evidence of posterior 30 changes but she is able to lift them both off the gurney. She has full external and internal rotation of both lower extremities with no evidence of pelvic fracture or lower extremity injuries. The right upper extremity shows numerous skin tears and ecchymoses at the elbow. Right shoulder joint is abnormal in terms that it protrudes anteriorly and may be dislocated or fractured or both. Also may be a large hemarthrosis of the shoulder joint clinically. Any movement of the right upper extremity causes pain. She has full pronation supination at the elbow and forearm. Left arm shows numerous ecchymoses of the forearm and dorsal hand but no signs of fracture or injury.). No: Pedal Edema, Leg Pain Neurological: Alert, Oriented, CN II-XII Intact, Normal Cognition Psychiatric: Normal Affect, Normal Mood Skin Exam: Warm, Dry, Other (Numerous skin tears to the right elbow and a few superficial skin tears to the right temporal aspect of her scalp.) EKG INTERPRETATION EKG Date: 12/21/18 Time: 03:05 Rhythm: Other (100% paced rhythm at 100/m.) Rate (Beats/Min): 80 [place]: RAD-Right [place] Deviation (235) P-Wave: Absent QRS: Wide EKG Interpretation Comments: 100% paced ventricular rhythm at 100/m. No further analysis attempted Course - Vital Signs Last Recorded V/S: Last Vital Signs Temp 36.7 C 12/21/18 02:43 Pulse 97 12/21/18 02:43 Resp 12 12/21/18 02:43 BP 128/93 H 12/21/18 02:43 Pulse Ox 95 12/21/18 02:43 - Orders/Labs/Meds Orders: Active Orders 24 hr Category Date Time Status EKG Documentation Completion [RC] STAT Care 12/21/18 02:56 Active Cervical Spine wo Cont [CT] Stat Exams 12/21/18 03:01 Taken Chest 1V Frontal [CR] Stat Exams 12/21/18 02:56 Taken Head wo Cont [CT] Stat Exams 12/21/18 02:57 Taken Shoulder Comp Rt [CR] Stat Exams 12/21/18 02:58 Taken URINALYSIS W/MICROSCOPIC [UA W/MICROSCOPIC] [URIN] Stat Lab 12/21/18 04:30 Results Dextrose 5%-0.9% NaCl [Dextrose 5%-Normal Saline] 1,000 Med 12/21/18 03:00 Active ml IV ASDIRECTED Magnesium Sulfate/Water [Magnesium Sulfate 2 GM in Med 12/21/18 04:56 Active Water 50 ML] 2 gm Premix Bag 1 bag IV ONETIME Medication Orders Dextrose/Sodium Chloride (Dextrose 5%-Normal Saline) 1,000 mls @ 100 mls/hr IV ASDIRECTED SHELLEY Last Admin: 12/21/18 03:13 Dose: 100 mls/hr Magnesium Sulfate 2 gm/ Premix 50 mls @ 25 mls/hr IV ONETIME ONE Stop: 12/21/18 06:55 Last Admin: 12/21/18 05:16 Dose: 25 mls/hr Labs: Laboratory Tests 12/21/18 12/21/18 12/21/18 Range/Units 03:10 03:10 03:10 WBC 12.80 H (3.98-10.04) K/mm3 RBC 3.36 L (3.98-5.22) M/mm3 Hgb 10.4 L (11.2-15.7) gm/L Hct 32.7 L (34.1-44.9) % MCV 97.3 H (79.4-94.8) fl MCH 31.0 (25.6-32.2) pg MCHC 31.8 L (32.2-35.5) g/dl RDW Std Deviation 61.0 H (36.4-46.3) fL Plt Count 285 (182-369) K/mm3 MPV 9.0 L (9.4-12.3) fl Neutrophils % (Manual) 87 H (40-60) % Band Neutrophils % 1 (0-10) % Lymphocytes % (Manual) 5 L (20-40) % Atypical Lymphs % 0 % Monocytes % (Manual) 7 (2-10) % Eosinophils % (Manual) 0 L (0.7-5.8) % Basophils % (Manual) 0 L (0.1-1.2) Toxic Granulation 1+ slight Platelet Estimate Adequate Plt Morphology Comment Normal Hypochromasia 1+ slight Anisocytosis 2+ moderate RBC Morph Comment Not Reportable PT 34.1 H (9.5-12.1) SECONDS INR 3.20 Sodium 141 (136-145) mEq/L Potassium 3.3 L (3.5-5.1) mEq/L Chloride 100 (98-107) mEq/L Carbon Dioxide 27 (21-32) mEq/L Anion Gap 17.3 H (5-15) BUN 50 H (7-18) mg/dL Creatinine 2.8 H (0.55-1.02) mg/dL Est Cr Clr Drug Dosing 12.45 mL/min Estimated GFR (MDRD) 16 (>60) mL/min BUN/Creatinine Ratio 17.9 (14-18) Glucose 94 (83-115) mg/dL Calcium 8.9 (8.5-10.1) mg/dL Magnesium (1.8-2.4) mg/dl Total Bilirubin 0.5 (0.2-1.0) mg/dL AST 30 (15-37) U/L ALT 23 (14-59) U/L Alkaline Phosphatase 67 (46-116) U/L Creatine Kinase (26-192) U/L CK-MB (CK-2) 5.0 H (0-3.6) ng/ml Troponin I 0.274 H* (0.00-0.056) ng/mL NT-Pro-B Natriuret Pep (0-450) pg/mL Total Protein 6.2 L (6.4-8.2) g/dl Albumin 3.2 L (3.4-5.0) g/dl Globulin 3.0 gm/dL Albumin/Globulin Ratio 1.1 (1-2) Urine Color (Yellow) Urine Appearance (Clear) Urine pH (5.0-8.0) Ur Specific [place] (1.005-1.030) Urine Protein (Negative) Urine Glucose (UA) (Negative) Urine Ketones (Negative) Urine Occult Blood (Negative) Urine Nitrite (Negative) Urine Bilirubin (Negative) Urine Urobilinogen (0.2-1.0) Ur Leukocyte Esterase (Negative) 12/21/18 12/21/18 12/21/18 Range/Units 03:10 03:10 03:10 WBC (3.98-10.04) K/mm3 RBC (3.98-5.22) M/mm3 Hgb (11.2-15.7) gm/L Hct (34.1-44.9) % MCV (79.4-94.8) fl MCH (25.6-32.2) pg MCHC (32.2-35.5) g/dl RDW Std Deviation (36.4-46.3) fL Plt Count (182-369) K/mm3 MPV (9.4-12.3) fl Neutrophils % (Manual) (40-60) % Band Neutrophils % (0-10) % Lymphocytes % (Manual) (20-40) % Atypical Lymphs % % Monocytes % (Manual) (2-10) % Eosinophils % (Manual) (0.7-5.8) % Basophils % (Manual) (0.1-1.2) Toxic Granulation Platelet Estimate Plt Morphology Comment Hypochromasia Anisocytosis RBC Morph Comment PT (9.5-12.1) SECONDS INR Sodium (136-145) mEq/L Potassium (3.5-5.1) mEq/L Chloride (98-107) mEq/L Carbon Dioxide (21-32) mEq/L Anion Gap (5-15) BUN (7-18) mg/dL Creatinine (0.55-1.02) mg/dL Est Cr Clr Drug Dosing mL/min Estimated GFR (MDRD) (>60) mL/min BUN/Creatinine Ratio (14-18) Glucose (83-115) mg/dL Calcium (8.5-10.1) mg/dL Magnesium 1.2 L (1.8-2.4) mg/dl Total Bilirubin (0.2-1.0) mg/dL AST (15-37) U/L ALT (14-59) U/L Alkaline Phosphatase (46-116) U/L Creatine Kinase 186 (26-192) U/L CK-MB (CK-2) (0-3.6) ng/ml Troponin I (0.00-0.056) ng/mL NT-Pro-B Natriuret Pep 4486 H (0-450) pg/mL Total Protein (6.4-8.2) g/dl Albumin (3.4-5.0) g/dl Globulin gm/dL Albumin/Globulin Ratio (1-2) Urine Color (Yellow) Urine Appearance (Clear) Urine pH (5.0-8.0) Ur Specific [place] (1.005-1.030) Urine Protein (Negative) Urine Glucose (UA) (Negative) Urine Ketones (Negative) Urine Occult Blood (Negative) Urine Nitrite (Negative) Urine Bilirubin (Negative) Urine Urobilinogen (0.2-1.0) Ur Leukocyte Esterase (Negative) 12/21/18 12/21/18 Range/Units 04:30 05:35 WBC (3.98-10.04) K/mm3 RBC (3.98-5.22) M/mm3 Hgb (11.2-15.7) gm/L Hct (34.1-44.9) % MCV (79.4-94.8) fl MCH (25.6-32.2) pg MCHC (32.2-35.5) g/dl RDW Std Deviation (36.4-46.3) fL Plt Count (182-369) K/mm3 MPV (9.4-12.3) fl Neutrophils % (Manual) (40-60) % Band Neutrophils % (0-10) % Lymphocytes % (Manual) (20-40) % Atypical Lymphs % % Monocytes % (Manual) (2-10) % Eosinophils % (Manual) (0.7-5.8) % Basophils % (Manual) (0.1-1.2) Toxic Granulation Platelet Estimate Plt Morphology Comment Hypochromasia Anisocytosis RBC Morph Comment PT (9.5-12.1) SECONDS INR Sodium (136-145) mEq/L Potassium (3.5-5.1) mEq/L Chloride (98-107) mEq/L Carbon Dioxide (21-32) mEq/L Anion Gap (5-15) BUN (7-18) mg/dL Creatinine (0.55-1.02) mg/dL Est Cr Clr Drug Dosing mL/min Estimated GFR (MDRD) (>60) mL/min BUN/Creatinine Ratio (14-18) Glucose (83-115) mg/dL Calcium (8.5-10.1) mg/dL Magnesium (1.8-2.4) mg/dl Total Bilirubin (0.2-1.0) mg/dL AST (15-37) U/L ALT (14-59) U/L Alkaline Phosphatase (46-116) U/L Creatine Kinase (26-192) U/L CK-MB (CK-2) 4.7 H (0-3.6) ng/ml Troponin I 0.336 H* (0.00-0.056) ng/mL NT-Pro-B Natriuret Pep (0-450) pg/mL Total Protein (6.4-8.2) g/dl Albumin (3.4-5.0) g/dl Globulin gm/dL Albumin/Globulin Ratio (1-2) Urine Color Yellow (Yellow) Urine Appearance Clear (Clear) Urine pH 6.5 (5.0-8.0) Ur Specific [place] 1.015 (1.005-1.030) Urine Protein Negative (Negative) Urine Glucose (UA) Negative (Negative) Urine Ketones Negative (Negative) Urine Occult Blood Trace-intact H (Negative) Urine Nitrite Negative (Negative) Urine Bilirubin Negative (Negative) Urine Urobilinogen 0.2 (0.2-1.0) Ur Leukocyte Esterase Trace H (Negative) Meds: Medications Generic Name Dose Route Start Last Admin Trade Name Freq PRN Reason Stop Dose Admin Dextrose/Sodium Chloride 1,000 mls @ 100 mls/hr 12/21/18 03:00 12/21/18 03:13 Dextrose 5%-Normal Saline IV 100 mls/hr ASDIRECTED SHELLEY Administration Magnesium Sulfate 2 gm/ Premix 50 mls @ 25 mls/hr 12/21/18 04:56 12/21/18 05: 16 IV 12/21/18 06:55 25 mls/hr ONETIME ONE Administration Discontinued Medications Generic Name Dose Route Start Last Admin Trade Name Freq PRN Reason Stop Dose Admin Bumetanide 1 mg 12/21/18 04:56 12/21/18 05:14 Bumex IVPUSH 12/21/18 04:57 1 mg ONETIME ONE Administration Diphtheria/Tetanus/Acell Pertussis 0.5 ml 12/21/18 04:19 Adacel IM 12/21/18 04:20 .ONCE ONE Hydromorphone HCl 0.5 mg 12/21/18 02:55 12/21/18 03:16 Dilaudid IVPUSH 12/21/18 02:56 0.5 mg ONETIME ONE Administration Ondansetron HCl 4 mg 12/21/18 02:55 12/21/18 03:13 Zofran IVPUSH 12/21/18 02:56 4 mg ONETIME ONE Administration - Radiology Interpretation Free Text/Narrative:: 88-year-old female presents to the ED after falling or suffering a second syncopal event at home last evening. The last thing she can remember was getting ready for bed about 2100 hrs. She was shutting off her TV and she walks with aid of a walker. She states she was not restaurant in her nightgown. It's unclear how long she's been down the floor. She states she could not get up from the floor due to injury to her right shoulder she suspects she was knocked out for a period of time. She removed herself over to the phone and eventually was able to phone 911 and the paramedics asked attended her her home. On examination she is obviously struck the right side of her head quite hard on something. There is a 10 cm hematoma involving the right frontal temporal scalp as well as her temporalis face and slightly to her lateral upper eyebrow and eyelid. Skin abrasions are present. Major injury to her right shoulder is occurred with protuberance of the humeral head suggesting fracture dislocation or perhaps a large hemarthrosis. Patient is on Coumadin chronically. No other major injuries were identified to her ribs spine pelvis or lower extremities. Plan CT head. CT cervical spine. X-ray right shoulder. Routine labs to include course PT/INR. T gap will be updated since it's unclear even with her family members here as to when she would've received her last tetanus toxoid. - Re-Assessments/Exams Free Text/Narrative Re-Assessment/Exam: 12/21/18 03:57 CT of her head reveals no skull fractures no intracranial bleeding or midline shift. No mass effect. There is age-appropriate degenerative changes with small vessel ischemic changes in both basal ganglia and some encephalomalacia malacia both posterior and anterior horns of the lateral ventricles with dilatation of the ventricles. No skull fractures identified. There is soft tissue hematoma formation over the right frontal scalp. CT of the cervical spine reveals advanced degenerative arthritic changes throughout all of the facet joints on the sides of the neck. No fractures or dislocations are identified. 12/21/18 04:15 chest x-ray shows poor inspirational view. She is also rotated to the right side. Visualized portions of the lungs appear to be normal without any pleural effusion. Perhaps mild cardiomegaly. Pacemaker left upper anterior chest. No obvious rib fractures identified. X-rays of the right shoulder also show the humeral head to be in adequate position without any obvious fracture of the glenoid or the humeral head. There is slight widening of the acromioclavicular joint and some degenerative changes in this area. SPECT the joint is filled with blood. She walks with the aid of a walker and she is right- hand dominant. She lives [facility] and does receive assisted living at that institution. The problem is her ambulation much help she can actually get there. Awaiting further labs and urinalysis. 12/21/18 04:22 White count is mildly elevated at 12.80 with a left shift of 87 % neutrophils and 1% bands. Hemoglobin is 10.4 with hematocrit of 32.7. MCV is slightly elevated at 97.3. Platelet count is 285,000. PT is 34.1 with an INR 3.20 ie .slightly supratherapeutic. Sodium is 141 with potassium of 3.3. Chloride is 100 with a bicarbonate 27. Anion gap is elevated at 17.3. BUN is 50 with a creatinine of 2.8. GFR is only 16 i.e. stage IV chronic kidney disease. Glucose is 94 with a calcium of 8.9. Magnesium is low at 1.2. Total bilirubin is 0.5 AST is 30 with an ALT of 23. Alk phosphatase is 67. Total creatine kinase is 186. CK-MB fraction is elevated at 5.0 troponin I is elevated at 0.274 BNP is elevated at 4486. Total protein is 6.2 with an albumin fraction of 3.2. With her elevated troponin I ,I cannot rule out a myocardial infarction. This would be highly unlikely with a INR of 3.2 which would make it nearly impossible to clot. It may be elevated due to the markedly elevated BNP. O2 sats are staying around 92-96% on room air. Will try and obtain a CODE STATUS on this lady. 12/21/18 04:52 nurses were able to establish that her tetanus toxoid was last updated in 2017 and therefore tetanus diphtheria and pertussis vaccine was withheld. Her CODE STATUS is full code. Patient will need to be admitted to the hospital with acute injury to her right shoulder and arm that she will not be able to walk with the aid of her walker. I suspect she has a hemarthrosis of the right shoulder from supratherapeutic INR. I will repeat her cardiac markers at 0600 hrs. this morning. The urine has been obtained by catheterization as well. Large flap skin tear to the posterior right arm will be Steri-Stripped in place. The elbow has numerous skin tears and debridement of most of these will be carried out as there is really nothing to suture or hold the poor tissue in place. Will give Bumex 1 mg IV for congestive heart failure. Will give 2 g of magnesium intravenously over the next 2 hours as well and as she is hypomagnesemic at 1.2 12/21/18 06:24 Second troponin is elevated at 0.336. The initial one was 0.274. His CK-MB fraction actually is gone down from 5.0-4.7 which is within Laboratory measurement error. 12/21/18 06:45: I spoke to the patient at length--in regards to how aggressive she wants is to be in terms of managing her heart failure and her kidney failure especially with evidence that appears to be she gathered that she has suffered a myocardial infarction and may succumb to terminal congestive failure. She was quick to decide that she did not want any CPR did not want a tube to breathe for her. I.e. CODE STATUS changed to comfort care measures only DNR/DNI. Patient also appears to be in urinary retention. She can only dribble a small amount of urine but feels strongly need to go. Previous catheterization was 4/500 mils. Due to continuous need of diuretic therapy for her heart failure a [place] catheter will be placed. Case discussed with Dr. Ramirez continuous still operator hospitalist and she agrees with admission to the hospital as an inpatient on telemetry. Departure - Departure Time of Disposition: 06:52 Disposition: Admitted As Inpatient 68 Condition: Poor Clinical Impression: Hemarthrosis, right shoulder, Hypomagnesemia, Chronic renal insufficiency, stage IV (severe), Supratherapeutic INR, Urinary retention Closed head injury without concussion Qualifiers: Encounter type: initial encounter Qualified Code(s): S09.90XA - Unspecified injury of head, initial encounter Contusion of scalp Qualifiers: Encounter type: initial encounter Qualified Code(s): S00.03XA - Contusion of scalp, initial encounter Skin tear of right upper arm without complication Qualifiers: Encounter type: initial encounter Qualified Code(s): S41.111A - Laceration without foreign body of right upper arm, initial encounter Skin tear of right elbow without complication Qualifiers: Encounter type: initial encounter Qualified Code(s): S51.011A - Laceration without foreign body of right elbow, initial encounter CHF (congestive heart failure), NYHA class III Qualifiers: Congestive heart failure type: combined Congestive heart failure chronicity: acute on chronic Qualified Code(s): I50.43 - Acute on chronic combined systolic (congestive) and diastolic (congestive) heart failure Acute myocardial infarction Qualifiers: Myocardial infarction type: unspecified - Discharge Information *PRESCRIPTION DRUG MONITORING PROGRAM REVIEWED*: Not Applicable *COPY OF PRESCRIPTION DRUG MONITORING REPORT IN PATIENT TEMO: Not Applicable Referrals: Benito Johnson MD [Primary Care Provider] - Forms: ED Department Discharge - My Orders Last 24 Hours: My Active Orders 12/21/18 02:56 EKG Documentation Completion [RC] STAT Chest 1V Frontal [CR] Stat 12/21/18 02:57 Head wo Cont [CT] Stat 12/21/18 02:58 Shoulder Comp Rt [CR] Stat 12/21/18 03:00 Dextrose 5%-0.9% NaCl [Dextrose 5%-Normal Saline] 1,000 ml IV ASDIRECTED 12/21/18 03:01 Cervical Spine wo Cont [CT] Stat 12/21/18 04:30 URINALYSIS W/MICROSCOPIC [UA W/MICROSCOPIC] [URIN] Stat 12/21/18 04:56 Magnesium Sulfate/Water [Magnesium Sulfate 2 GM in Water 50 ML] 2 gm Premix Bag 1 bag IV ONETIME - Assessment/Plan Last 24 Hours: My Active Orders 12/21/18 02:56 EKG Documentation Completion [RC] STAT Chest 1V Frontal [CR] Stat 12/21/18 02:57 Head wo Cont [CT] Stat 12/21/18 02:58 Shoulder Comp Rt [CR] Stat 12/21/18 03:00 Dextrose 5%-0.9% NaCl [Dextrose 5%-Normal Saline] 1,000 ml IV ASDIRECTED 12/21/18 03:01 Cervical Spine wo Cont [CT] Stat 12/21/18 04:30 URINALYSIS W/MICROSCOPIC [UA W/MICROSCOPIC] [URIN] Stat 12/21/18 04:56 Magnesium Sulfate/Water [Magnesium Sulfate 2 GM in Water 50 ML] 2 gm Premix Bag 1 bag IV ONETIME
[2018-12-21] MEDS ORDERED: Diphtheria,Pertussis(Acell),Tetanus Vaccine 0.5 ML Syringe IM ONE (04:19)
[2018-12-21] MEDS ORDERED: Bumetanide 1 MG/4 ML MDV IVPUSH ONE (04:56)
[2018-12-21] MEDS ORDERED: Magnesium Sulfate/Water 2 GM in Premix Bag 1 BAG IV ONE (04:56)
--- NOTE | 2018-12-21 07:25 | CT ---
CT cervical spine Technique: Multiple axial sections were obtained from above C1 inferiorly to the top of T3. Reconstructed sagittal and coronal images were reviewed. Comparison: No prior cervical spine imaging. Findings: Mild scattered degenerative change is noted throughout the apophyseal joints. Minimal spondylolisthesis is noted at C5-C6 compatible with degenerative apophyseal change. Slight spondylolisthesis also noted at T1-T2 compatible with degenerative apophyseal change. Mild diffuse posterior disc space narrowing is seen. Mild scattered posterior osteophytes are seen. Degenerative change noted between the dens and anterior arch of C1. No fracture is appreciated. Mild mucosal thickening seen within the right sphenoid sinus. Impression: 1. Mild diffuse degenerative change. 2. No acute abnormality is seen. Diagnostic code #2 I agree with preliminary report from [facility], finalized on 12/21/18, 5:02 AM Central Time
--- NOTE | 2018-12-21 07:25 | CT ---
Head CT Technique: Multiple axial sections through the brain were obtained. Intravenous contrast was not utilized. Comparison: Prior head CT study of 09/29/15. Findings: Ventricles along with basal cisterns and sulci over the convexities are moderately prominent. Diffuse diminished density is noted within the mel as well as within the periventricular and subcortical white matter compatible with small vessel ischemic demyelination change. 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 No other abnormal parenchymal densities are seen. No evidence of intracranial hemorrhage. No midline shift or mass effect is seen. Bone window settings were reviewed which show the visualized sinuses to appear clear. No acute calvarial abnormality is seen. Soft tissue swelling is seen within the right scalp. Impression: 1. Soft tissue swelling within the right scalp. 2. Senescent change as noted above. 3. No acute intracranial abnormality is identified. Diagnostic code #2 I agree with preliminary report from [facility], finalized on 12/21/18, 5:00 AM Central Time
--- NOTE | 2018-12-21 07:25 | CR ---
Right shoulder: Three views of the right shoulder were obtained. Comparison: No previous right shoulder study. Degenerative change is noted within the acromioclavicular joint. Minimal inferior spurring is seen within the glenohumeral joint. No acute fracture or dislocation is seen. Impression: 1. Mild degenerative change. Nothing acute is appreciated on right shoulder study. Diagnostic code #2
--- NOTE | 2018-12-21 07:25 | CR ---
Chest: Frontal view of the chest was obtained. Comparison: Prior chest x-ray of 10/22/17. Heart is slightly enlarged. Previous sternotomy and prosthetic heart valve is noted. Epicardial wires are noted. Lungs are clear with no acute parenchymal change. Impression: 1. Previous cardiac surgery. Nothing acute is appreciated on frontal chest x-ray. Diagnostic code 2
--- NOTE | 2018-12-21 08:00 | PCM.HP ---
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 She reports she was getting ready for bed and turn off the TV around 2100 hrs. and states she tripped and fell or had a syncopal event striking the right side of her head on an object. She's noted have a large hematoma and abrasions to the frontotemporal aspect of her head and scalp. Likely that she lost consciousness however she is unsure. She also reported and her shoulders unable to lift or move her right arm in any degree because the pain is too severe. Right elbow was multiple skin tears. Denies any pain to her ribs, back, neck, pelvis, or lower extremities. Noted multiple bruises on her hands and extensor surface of her forearms which is normal for her since she's been on Coumadin. He had aortic valve replaced 2 years ago and remains on Coumadin for this reason. She reports a week ago her Coumadin dose was decreased because her level was "too thin." She reported he was unable to get up from the floor after a fall and was able to wiggle across the room to get to the phone to call for help. Denies any headache, nausea, vomiting. TG was obtained showing 100% paced rhythm at 100 beats per minutes. Temp is 36.7 Celsius. Pulse 97. Respirations 12. Blood pressure 120/93. Pulse ox 95% . Labs are obtained: WBC is elevated at 12.80. Hemoglobin 10.4. Hematocrit 32.7. She is macrocytic. Platelet of 285,000. Neutrophils are elevated at 87% . There is 1% band neutrophils noted. PT 34.1. INR 3.2. Sodium 141. Potassium 3.3. Chloride 100. Carbon dioxide 27. Anion gap 17.3. BUN is 50. Creatinine 2.8. EGFR 16. Glucose 94. Calcium 8.9. Bilirubin 0.5. AST is 30 , ALT 23, alkaline phosphatase 67. CK-MB is 5.0. Troponin is elevated at 0.274. Protein 6.2. Albumin 3.2. Magnesium is low 1.2. Creatinine kinase is 86. ProBNP is elevated at 4486. CK-MB is repeated and is high at 4.7 and troponins gone up to 0.336. UA is obtained and is negative with the exception of trace occult blood and trace leukocyte Estrace. She started on D5 half NSN 100 mils an hour and given magnesium. She is also given 1 mg of Bumex, 0.5 mg Dilaudid for pain, and 4 mg Zofran. ED report notes she does normally use a walker. Chest x-rays obtained and interpreted by Dr. Rebollar as having previous cardiac surgery. Nothing acute is appreciated. Chest x-ray of the right shoulder is obtained showing mild degenerative change and nothing acute. CT scan of the head without contrast obtained and interpreted by Dr. Rebollar as "1. Soft tissue swelling within the right scalp. 2. Senescent changes noted above. 3. No acute intracranial abnormality is identified." CT of the cervical spine without contrast was obtained and interpreted by Dr. Rebollar as "1. Mild diffuse degenerative change. 2. No acute abnormality is seen." She is noted to be right hand dominant. While in the ED she is noted to have multiple episodes of feeling urge to void and unable to pass any urine. Bladder scan reveals significant urinary retention and Santoyo catheter is subsequently placed. She carries a history of: Cataracts, A. fib, heart failure, heart valve replacement, pacemaker, thrombocytopenia, hypokalemia, COPD, sleep apnea and is noncompliant on CPAP use, pulmonary hypertension, renal insufficiency, UTI, atherosclerosis of renal artery, anemia of chronic kidney disease, osteoporosis , osteoporosis, hyperparathyroidism, history of C. difficile infection. She is subsequently admitted to the medical floor on telemetry. Her PCP is Dr. Johnson. Code status is DNR/DNI Right Shoulder Pain Score (Numeric/FACES): 6 - Related Data Allergies/Adverse Reactions: Allergies Allergy/AdvReac Type Severity Reaction Status Date / Time Sulfa (Sulfonamide AdvReac Stomach Verified 12/21/18 08:42 Antibiotics) Ache Home Medications: Home Meds Omeprazole [Prilosec] 20 mg PO DAILY 04/25/14 [History] Acetaminophen [Tylenol] 650 mg PO Q6HR PRN 07/18/16 [History] Ferrous Sulfate [Iron] 325 mg PO DAILY 07/18/16 [History] Levothyroxine 25 mcg PO DAILY 07/18/16 [History] Torsemide 20 mg PO DAILY 07/18/16 [History] Allopurinol [Zyloprim] 300 mg PO BEDTIME 10/22/17 [History] Cholecalciferol (Vitamin D3) [Vitamin D3] 1,000 unit PO DAILY 10/22/17 [History] Lactobacillus Acidophilus [Acidophilus Lactobacillus] 1 cap PO BID 10/22/17 [ History] Loperamide HCl [Imodium A-D] 4 mg PO DAILY PRN 10/22/17 [History] Magnesium 500 mg PO DAILY 10/22/17 [History] Melatonin 3 mg PO BEDTIME PRN 10/22/17 [History] Potassium Chloride 20 meq PO DAILY 10/22/17 [History] Sildenafil [Revatio] 20 mg PO BID 10/22/17 [History] Sodium Bicarbonate 650 mg PO BID 10/22/17 [History] Warfarin [Coumadin] 2.5 mg PO MO 10/22/17 [History] Warfarin [Coumadin] 5 mg PO SUTUWETHFRSA 10/22/17 [History] metOLazone [Metolazone] 5 mg PO MO 10/22/17 [History] predniSONE [Prednisone] 10 mg PO DAILY 10/22/17 [History] Amitriptyline [Elavil] 25 mg PO BEDTIME 12/21/18 [History] Calcium Acetate 667 mg PO BID 12/21/18 [History] Magnesium 500 mg PO BEDTIME 12/21/18 [History] Promethazine HCl/Codeine [Prometh-Codein 6.25-10 mg/5 ml] 5 ml PO Q6H PRN [History] Past Medical History HEENT History: Reports: Cataract, Impaired Vision Other HEENT History: Wears glasses Cardiovascular History: Reports: Afib, Heart Failure, Heart Valve Replacement, Pacemaker, Other (See Below) Other Cardiovascular History: thromboctyopenia, hypokalemia. Respiratory History: Reports: COPD, Sleep Apnea, Other (See Below) (Pulmonary hypertension) Other Respiratory History: Patient refuses to wear CPAP at night- states she could not sleep with it on Gastrointestinal History: Reports: Other (See Below) Other Gastrointestinal History: enterocolitis due to C-diff. Genitourinary History: Reports: Chronic Renal Insuffiency, UTI, Recurrent, Other (See Below) Other Genitourinary History: athrosclerosis of renal artery, anemia in chronic kidney disease. 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 Cardiovascular Surgical History: Reports: Valve Replacement Female Surgical History: Reports: Hysterectomy Social & Family History - Family History Family Medical History: Unobtainable Cardiac: Reports: Hypertension, AR - Tobacco Use Smoking Status *Q: Never Smoker - Caffeine Use Caffeine Use: Reports: Coffee - Recreational Drug Use Recreational Drug Use: No - Living Situation & Occupation Living situation: Reports: Extended Care Facility Occupation: Retired H&P Review of Systems - Review of Systems: Review Of Systems: See Below General: Reports: Weakness. Denies: Fever, Chills, Malaise, Fatigue HEENT: Reports: No Symptoms. Denies: Headaches, Sore Throat Pulmonary: Reports: Shortness of Breath. Denies: Wheezing, Pleuritic Chest Pain , Cough, Sputum Cardiovascular: Reports: No Symptoms, Orthopnea, Edema. Denies: Chest Pain, Palpitations, Dyspnea on Exertion Gastrointestinal: Reports: No Symptoms. Denies: Abdominal Pain, Constipation, Diarrhea, Nausea, Vomiting Genitourinary: Reports: Frequency, Incontinence, Retention Musculoskeletal: Reports: Shoulder Pain (right 2/2 fall ), Joint Pain, Joint Swelling (right shoulder). Denies: Neck Pain, Arm Pain, Back Pain, Hand Pain, Leg Pain, Foot Pain Skin: Reports: Other (scattered ecchymosis since starting coumadin ) Psychiatric: Reports: No Symptoms Neurological: Reports: No Symptoms. Denies: Confusion Hematologic/Lymphatic: Reports: Easy Bleeding, Easy Bruising Immunologic: Reports: No Symptoms Exam - Exam Exam: See Below - Vital Signs Vital Signs: Last Vital Signs Temp 98.1 F 12/21/18 02:43 Pulse 97 12/21/18 02:43 Resp 12 12/21/18 02:43 BP 128/93 H 12/21/18 02:43 Pulse Ox 95 12/21/18 02:43 Weight: 147 lb - Exam Quality Assessment: DVT Prophylaxis General: Alert, Oriented, Cooperative. No: Mild Distress HEENT: Conjunctiva Clear, EACs Clear, EOMI, Hearing Intact, Mucosa Moist & Trent , Normal Nasal Septum, Posterior Pharynx Clear, Other (significant bruising to upper right eyelid, right temporal region and right face 2/2 fall. ), PERRLA Neck: Supple, Trachea Midline Lungs: Clear to Auscultation, Normal Respiratory Effort Cardiovascular: Regular Rate, Regular Rhythm, Other (paced rhythm. prostetic heart valve ) GI/Abdominal Exam: Normal Bowel Sounds, Soft, Non-Tender, No Organomegaly, No Distention, No Abnormal Bruit, No Mass, Pelvis Stable (Female) Exam: Deferred Rectal (Female) Exam: Deferred Back Exam: Normal Inspection, Decreased Range of Motion (2/2 pain ) Extremities: Normal Inspection, Normal Range of Motion, Non-Tender, No Pedal Edema, Normal Capillary Refill Peripheral Pulses: 1+: Radial (L), Radial (R), Dorsalis Pedis (L), Dorsalis Pedis (R) Skin: Warm, Dry, Intact, Ecchymosis (Scattered ecchymosis 2/2 coumadin use. ) Neurological: Cranial Nerves Intact (grossly ) Neuro Extensive - Mental Status: Alert, Oriented x3, Normal Mood/Affect, Normal Cognition - Patient Data Lab Results Last 24 hrs: Laboratory Results - last 24 hr 12/21/18 12/21/18 12/21/18 Range/Units 03:10 03:10 03:10 WBC 12.80 H (3.98-10.04) K/mm3 RBC 3.36 L (3.98-5.22) M/mm3 Hgb 10.4 L (11.2-15.7) gm/L Hct 32.7 L (34.1-44.9) % MCV 97.3 H (79.4-94.8) fl MCH 31.0 (25.6-32.2) pg MCHC 31.8 L (32.2-35.5) g/dl RDW Std Deviation 61.0 H (36.4-46.3) fL Plt Count 285 (182-369) K/mm3 MPV 9.0 L (9.4-12.3) fl Neutrophils % (Manual) 87 H (40-60) % Band Neutrophils % 1 (0-10) % Lymphocytes % (Manual) 5 L (20-40) % Atypical Lymphs % 0 % Monocytes % (Manual) 7 (2-10) % Eosinophils % (Manual) 0 L (0.7-5.8) % Basophils % (Manual) 0 L (0.1-1.2) Toxic Granulation 1+ slight Platelet Estimate Adequate Plt Morphology Comment Normal Hypochromasia 1+ slight Anisocytosis 2+ moderate RBC Morph Comment Not Reportable PT 34.1 H (9.5-12.1) SECONDS INR 3.20 Sodium 141 (136-145) mEq/L Potassium 3.3 L (3.5-5.1) mEq/L Chloride 100 (98-107) mEq/L Carbon Dioxide 27 (21-32) mEq/L Anion Gap 17.3 H (5-15) BUN 50 H (7-18) mg/dL Creatinine 2.8 H (0.55-1.02) mg/dL Est Cr Clr Drug Dosing 12.45 mL/min Estimated GFR (MDRD) 16 (>60) mL/min BUN/Creatinine Ratio 17.9 (14-18) Glucose 94 (83-115) mg/dL Calcium 8.9 (8.5-10.1) mg/dL Magnesium (1.8-2.4) mg/dl Total Bilirubin 0.5 (0.2-1.0) mg/dL AST 30 (15-37) U/L ALT 23 (14-59) U/L Alkaline Phosphatase 67 (46-116) U/L Creatine Kinase (26-192) U/L CK-MB (CK-2) 5.0 H (0-3.6) ng/ml Troponin I 0.274 H* (0.00-0.056) ng/mL NT-Pro-B Natriuret Pep (0-450) pg/mL Total Protein 6.2 L (6.4-8.2) g/dl Albumin 3.2 L (3.4-5.0) g/dl Globulin 3.0 gm/dL Albumin/Globulin Ratio 1.1 (1-2) Urine Color (Yellow) Urine Appearance (Clear) Urine pH (5.0-8.0) Ur Specific [place] (1.005-1.030) Urine Protein (Negative) Urine Glucose (UA) (Negative) Urine Ketones (Negative) Urine Occult Blood (Negative) Urine Nitrite (Negative) Urine Bilirubin (Negative) Urine Urobilinogen (0.2-1.0) Ur Leukocyte Esterase (Negative) Urine RBC (0-5) /hpf Urine WBC (0-5) /hpf Ur Epithelial Cells (0-5) /hpf Urine Bacteria (FEW) /hpf Urine Mucus (FEW) /hpf 12/21/18 12/21/18 12/21/18 Range/Units 03:10 03:10 03:10 WBC (3.98-10.04) K/mm3 RBC (3.98-5.22) M/mm3 Hgb (11.2-15.7) gm/L Hct (34.1-44.9) % MCV (79.4-94.8) fl MCH (25.6-32.2) pg MCHC (32.2-35.5) g/dl RDW Std Deviation (36.4-46.3) fL Plt Count (182-369) K/mm3 MPV (9.4-12.3) fl Neutrophils % (Manual) (40-60) % Band Neutrophils % (0-10) % Lymphocytes % (Manual) (20-40) % Atypical Lymphs % % Monocytes % (Manual) (2-10) % Eosinophils % (Manual) (0.7-5.8) % Basophils % (Manual) (0.1-1.2) Toxic Granulation Platelet Estimate Plt Morphology Comment Hypochromasia Anisocytosis RBC Morph Comment PT (9.5-12.1) SECONDS INR Sodium (136-145) mEq/L Potassium (3.5-5.1) mEq/L Chloride (98-107) mEq/L Carbon Dioxide (21-32) mEq/L Anion Gap (5-15) BUN (7-18) mg/dL Creatinine (0.55-1.02) mg/dL Est Cr Clr Drug Dosing mL/min Estimated GFR (MDRD) (>60) mL/min BUN/Creatinine Ratio (14-18) Glucose (83-115) mg/dL Calcium (8.5-10.1) mg/dL Magnesium 1.2 L (1.8-2.4) mg/dl Total Bilirubin (0.2-1.0) mg/dL AST (15-37) U/L ALT (14-59) U/L Alkaline Phosphatase (46-116) U/L Creatine Kinase 186 (26-192) U/L CK-MB (CK-2) (0-3.6) ng/ml Troponin I (0.00-0.056) ng/mL NT-Pro-B Natriuret Pep 4486 H (0-450) pg/mL Total Protein (6.4-8.2) g/dl Albumin (3.4-5.0) g/dl Globulin gm/dL Albumin/Globulin Ratio (1-2) Urine Color (Yellow) Urine Appearance (Clear) Urine pH (5.0-8.0) Ur Specific [place] (1.005-1.030) Urine Protein (Negative) Urine Glucose (UA) (Negative) Urine Ketones (Negative) Urine Occult Blood (Negative) Urine Nitrite (Negative) Urine Bilirubin (Negative) Urine Urobilinogen (0.2-1.0) Ur Leukocyte Esterase (Negative) Urine RBC (0-5) /hpf Urine WBC (0-5) /hpf Ur Epithelial Cells (0-5) /hpf Urine Bacteria (FEW) /hpf Urine Mucus (FEW) /hpf 12/21/18 12/21/18 Range/Units 04:30 05:35 WBC (3.98-10.04) K/mm3 RBC (3.98-5.22) M/mm3 Hgb (11.2-15.7) gm/L Hct (34.1-44.9) % MCV (79.4-94.8) fl MCH (25.6-32.2) pg MCHC (32.2-35.5) g/dl RDW Std Deviation (36.4-46.3) fL Plt Count (182-369) K/mm3 MPV (9.4-12.3) fl Neutrophils % (Manual) (40-60) % Band Neutrophils % (0-10) % Lymphocytes % (Manual) (20-40) % Atypical Lymphs % % Monocytes % (Manual) (2-10) % Eosinophils % (Manual) (0.7-5.8) % Basophils % (Manual) (0.1-1.2) Toxic Granulation Platelet Estimate Plt Morphology Comment Hypochromasia Anisocytosis RBC Morph Comment PT (9.5-12.1) SECONDS INR Sodium (136-145) mEq/L Potassium (3.5-5.1) mEq/L Chloride (98-107) mEq/L Carbon Dioxide (21-32) mEq/L Anion Gap (5-15) BUN (7-18) mg/dL Creatinine (0.55-1.02) mg/dL Est Cr Clr Drug Dosing mL/min Estimated GFR (MDRD) (>60) mL/min BUN/Creatinine Ratio (14-18) Glucose (83-115) mg/dL Calcium (8.5-10.1) mg/dL Magnesium (1.8-2.4) mg/dl Total Bilirubin (0.2-1.0) mg/dL AST (15-37) U/L ALT (14-59) U/L Alkaline Phosphatase (46-116) U/L Creatine Kinase (26-192) U/L CK-MB (CK-2) 4.7 H (0-3.6) ng/ml Troponin I 0.336 H* (0.00-0.056) ng/mL NT-Pro-B Natriuret Pep (0-450) pg/mL Total Protein (6.4-8.2) g/dl Albumin (3.4-5.0) g/dl Globulin gm/dL Albumin/Globulin Ratio (1-2) Urine Color Yellow (Yellow) Urine Appearance Clear (Clear) Urine pH 6.5 (5.0-8.0) Ur Specific [place] 1.015 (1.005-1.030) Urine Protein Negative (Negative) Urine Glucose (UA) Negative (Negative) Urine Ketones Negative (Negative) Urine Occult Blood Trace-intact H (Negative) Urine Nitrite Negative (Negative) Urine Bilirubin Negative (Negative) Urine Urobilinogen 0.2 (0.2-1.0) Ur Leukocyte Esterase Trace H (Negative) Urine RBC 0-5 (0-5) /hpf Urine WBC 10-20 H (0-5) /hpf Ur Epithelial Cells Not seen (0-5) /hpf Urine Bacteria Many H (FEW) /hpf Urine Mucus Not seen (FEW) /hpf Result Diagrams: 12/21/18 03:10 12/21/18 03:10 - Problem List (1) Acute myocardial infarction SNOMED Code(s): 25907641 ICD Code: I21.9 - ACUTE MYOCARDIAL INFARCTION, UNSPECIFIED Status: Acute Priority: High Current Visit: Yes Qualifiers: Myocardial infarction type: non-ST elevation myocardial infarction Qualified Code(s): I21.4 - Non-ST elevation (NSTEMI) myocardial infarction (2) Closed head injury without concussion SNOMED Code(s): 96077410 ICD Code: S09.90XA - UNSPECIFIED INJURY OF HEAD, INITIAL ENCOUNTER Status: Acute Priority: High Current Visit: Yes Qualifiers: Encounter type: initial encounter Qualified Code(s): S09.90XA - Unspecified injury of head, initial encounter (3) Contusion of scalp SNOMED Code(s): 55782637 ICD Code: S00.03XA - CONTUSION OF SCALP, INITIAL ENCOUNTER Status: Acute Priority: High Current Visit: Yes Qualifiers: Encounter type: initial encounter Qualified Code(s): S00.03XA - Contusion of scalp, initial encounter (4) Hemarthrosis, right shoulder SNOMED Code(s): 4190421 ICD Code: M25.011 - HEMARTHROSIS, RIGHT SHOULDER Status: Acute Priority: High Current Visit: Yes (5) Hypomagnesemia SNOMED Code(s): 601836368 ICD Code: E83.42 - HYPOMAGNESEMIA Status: Acute Priority: High Current Visit: Yes (6) Skin tear of right elbow without complication SNOMED Code(s): 020213116 ICD Code: S51.011A - LACERATION WITHOUT FOREIGN BODY OF RIGHT ELBOW, INIT ENCNTR Status: Acute Priority: High Current Visit: Yes Qualifiers: Encounter type: initial encounter Qualified Code(s): S51.011A - Laceration without foreign body of right elbow, initial encounter (7) Skin tear of right upper arm without complication SNOMED Code(s): 296312069 ICD Code: S41.111A - LACERATION W/O FOREIGN BODY OF RIGHT UPPER ARM, INIT ENCNTR Status: Acute Priority: High Current Visit: Yes Qualifiers: Encounter type: initial encounter Qualified Code(s): S41.111A - Laceration without foreign body of right upper arm, initial encounter (8) Supratherapeutic INR SNOMED Code(s): 190865269 ICD Code: R79.1 - ABNORMAL COAGULATION PROFILE Status: Acute Priority: High Current Visit: Yes (9) Urinary retention SNOMED Code(s): 998277014 ICD Code: R33.9 - RETENTION OF URINE, UNSPECIFIED Status: Acute Priority : High Current Visit: Yes (10) CHF (congestive heart failure), NYHA class III SNOMED Code(s): 933404695, 536825193 ICD Code: I50.9 - HEART FAILURE, UNSPECIFIED Status: Chronic Priority: High Current Visit: Yes Qualifiers: Congestive heart failure type: combined Congestive heart failure chronicity : acute on chronic Qualified Code(s): I50.43 - Acute on chronic combined systolic (congestive) and diastolic (congestive) heart failure (11) Chronic renal insufficiency, stage IV (severe) SNOMED Code(s): 31115787 ICD Code: N18.4 - CHRONIC KIDNEY DISEASE, STAGE 4 (SEVERE) Status: Chronic Priority: High Current Visit: Yes Problem Details: acute on chronic renal failure Baseline creatinine 2.2-2.5 range prior (12) Hypokalemia SNOMED Code(s): 32683527 ICD Code: E87.6 - HYPOKALEMIA Status: Acute Current Visit: Yes (13) UTI, Urinary tract infectious disease SNOMED Code(s): 21533205 ICD Code: N39.0 - URINARY TRACT INFECTION, SITE NOT SPECIFIED Status: Acute Priority: High Current Visit: Yes (14) COPD (chronic obstructive pulmonary disease) SNOMED Code(s): 51950367 ICD Code: J44.9 - CHRONIC OBSTRUCTIVE PULMONARY DISEASE, UNSPECIFIED Status : Chronic Priority: Medium Current Visit: No (15) History of fundoplication SNOMED Code(s): 292755957 ICD Code: Z98.89 - OTHER SPECIFIED POSTPROCEDURAL STATES * DO NOT USE * Status: Chronic Priority: Low Current Visit: No Onset Date: 04/05/15 (16) History of heart valve repair SNOMED Code(s): 90867686604306 ICD Code: Z98.890 - OTHER SPECIFIED POSTPROCEDURAL STATES Status: Chronic Priority: Medium Current Visit: No (17) Hyperparathyroidism SNOMED Code(s): 02202188 ICD Code: E21.3 - HYPERPARATHYROIDISM, UNSPECIFIED Status: Chronic Priority: Low Current Visit: No (18) Sleep apnea SNOMED Code(s): 98898338 ICD Code: G47.30 - SLEEP APNEA, UNSPECIFIED Status: Chronic Priority: Low Current Visit: No Qualifiers: Sleep apnea type: unspecified type Qualified Code(s): G47.30 - Sleep apnea , unspecified Problem List Initiated/Reviewed/Updated: Yes Orders Last 24hrs: Active Orders 24 hr Category Date Time Status Admission Status [Patient Status] [ADT] Routine ADT 12/21/18 06:55 Active Bladder Scan [RC] ASDIRECTED Care 12/21/18 07:05 Active EKG Documentation Completion [RC] STAT Care 12/21/18 02:56 Active Snatoyo Catheter Insertion [Insert Urinary Catheter] [OM. Care 12/21/18 07:00 Ordered PC] Q24H Urinary Catheter Assessment [RC] ASDIRECTED Care 12/21/18 06:53 Active Dextrose 5%-0.9% NaCl [Dextrose 5%-Normal Saline] 1,000 Med 12/21/18 03:00 Active ml IV ASDIRECTED Medication Orders Dextrose/Sodium Chloride (Dextrose 5%-Normal Saline) 1,000 mls @ 100 mls/hr IV ASDIRECTED SHELLEY Last Admin: 12/21/18 03:13 Dose: 100 mls/hr Assessment/Plan Comment:: I/P: Acute: Non-STEMI -Denies current chest pain but did have unwitnessed fall -Chronically on Warfarin with INR of 3.20 in ED -Hx/o A-fib, CHF, Heart valve replacement, Pacemaker, MAYCOL with refusal of CPAP, Anemia -Troponin 0.274-->0.336-->0.305 -CK-MB 5.0-->4.7-->3.8 -Likely worsened by excess fluid -Suspect may have contributed to fall -ASA 325mg now with 81mg daily after -Plavix 600mg now with 75mg daily after -Echo ordered -12-lead in ED shows 100% paced rhythm -Patient refused transfer in ED and on floor -Repeat troponin at 1700 tonight to ensure trend downward continues -Pharmacy to dose Warfarin (reportedly just decreased warfarin dosing about 1 week ago) -Lipid panel: Triglycerides 99, Total cholesterol 177, LDL 92, HDL 81 Heart failure -Noted increased edema and orthopnea -Pro-BNP 4486 -On home metolazone and torsemide - hold for now -CXR in ED shows nothing acute -Given 1gm bumex in ED -Santoyo catheter placed for urinary retention in ED -Start lasix drip now -Caution with worsening kidney function -Repeat BMP tonight at 1700 UTI -Reports frequent UTIs -Noted incontinence, retention, urgency -Likely contributed to fall -UA in ED shows Trace LE, 10-20 WBC, Many bacteria -Urine culture ordered -WBC 12.80 (although appears to be on chronic prednisone) -Start rocephin 2gm daily -CRP will be skewed 2/2 injury from fall Urinary retention -Noted to have urge to urinate with minimal output in ED -Bladder scan x2 revealed significant post-void residual urine -Santoyo catheter placed -May need urology f/u after discharge S/P fall -Unwitnessed fall -Unsure if she lost consciousness; Unsure of how long down -CK 186 (WNL) -Swelling/bruising noted to right face, eyelid, temporal region -CT head and neck shows soft tissue swelling within right scalp, otherwise nothing acute -Multiple skin tears on right arm -Right shoulder pain and difficulty with movement 2/2 pain -Pain medications as ordered -Chest and right shoulder x-rays show nothing acute, no fractures noted -PT/OT starting tomorrow Hypomagnesemia -Acute on chronic -Magnesium 1.2 -Supplemented in ED Hypokalemia -Acute on chronic -Potassium 3.3 -Supplemented Supratheraputic INR -Reports warfarin was just decreased about 1 week ago 2/2 supratheraputic INR -PT 34.1 -INR 3.20 -Pharmacy to monitor and dose Chronic: A-fib CHF S/P Heart valve replacement Chronic Warfarin use Pacemaker Thrombocytopenia Hypokalemia COPD Sleep apnea without CPAP use Pulmonary hypertension Hx/O C. Diff Chronic stage 4 renal insufficiency - Appears better than baseline today. Recurrent UTIs Athrosclerosis of renal artery Anemia in CKD Osteoarthritis Osteoporosis Hyperparathyroidism Chronic Puritis Plan: Admit to medical floor on telemetry Home medications as ordered Routine AM labs PT/OT starting 12/22/18 CM/SW for discharge planning - from [place] Renetta Starr DVT Prophylaxis: Warfarin - Monitor INR Spiritual care consult Code status:DNR/DNI (Confirmed by ED provider and on floor); PCP: Dr. Johnson
[2018-12-21] MEDS ORDERED: Ondansetron 4 MG/2 ML SDV IV PRN (08:01)
[2018-12-21] MEDS ORDERED: Bisacodyl 5 MG Tab PO PRN (08:01)
[2018-12-21] MEDS ORDERED: Acetaminophen/HYDROcodone 325-5 MG Tab PO PRN (08:01)
[2018-12-21] MEDS ORDERED: Polyethylene Glycol 3350 Powder 17 GM Packet PO PRN (08:01)
[2018-12-21] MEDS ORDERED: Docusate Sodium 100 MG Cap PO PRN (08:01)
[2018-12-21] MEDS ORDERED: Metoprolol Tartrate 5 MG/5 ML SDV IVPUSH PRN (08:05)
[2018-12-21] MEDS: Potassium Chloride 20 MEQ Tab.ER PO SCH ×2 (09:31→13:54)
[2018-12-21] MEDS: Acetaminophen 325 MG Tab PO PRN ×3 (09:31→20:20)
[2018-12-21] MEDS ORDERED: Clopidogrel 75 MG Tab PO ONE (10:45)
[2018-12-21] MEDS ORDERED: Aspirin 325 MG Tab.EC PO ONE (11:00)
[2018-12-21] MEDS: Furosemide 100 MG in Sodium Chloride 0.9% 90 ML IV SCH (11:07)
[2018-12-21] MEDS ORDERED: MELATONIN 3 MG PO PRN (12:51)
[2018-12-21] MEDS: cefTRIAXone 2 GM in Sodium Chloride 0.9% 100 ML IV SCH (13:54)
[2018-12-21] MEDS ORDERED: Warfarin Sliding Scale PO ONE (18:00)
[2018-12-21] MEDS: Sodium Bicarbonate 650 MG Tab PO SCH (20:20)
[2018-12-21] MEDS: Saccharomyces Boulardii (Probiotic) 250 MG Cap PO SCH (20:21)
[2018-12-21] MEDS: Calcium Carbonate 600 MG Tab PO SCH (20:21)
[2018-12-21] MEDS: Allopurinol 300 MG Tab PO SCH (20:21)
[2018-12-21] MEDS: Amitriptyline 25 MG Tab PO SCH (20:22)
[2018-12-22] MEDS: Levothyroxine 25 MCG Tab PO SCH (06:15)
[2018-12-22] MEDS: Acetaminophen 325 MG Tab PO PRN ×3 (06:16→21:33)
[2018-12-22] MEDS ORDERED: Magnesium Sulfate/Water 2 GM in Premix Bag 1 BAG IV ONE (08:16)
--- NOTE | 2018-12-22 08:32 | PCM.PN ---
- General Info Date of Service: 12/22/18 Admission Dx/Problem (Free Text): Admission Diagnosis/Problem Admission Diagnosis/Problem Fall at home Functional Status: Reports: Pain Controlled, Tolerating Diet, Ambulating, Urinating. Denies: New Symptoms - Review of Systems General: Reports: Weakness (improving ), Fatigue (improving ). Denies: Fever, Malaise, Chills HEENT: Reports: No Symptoms. Denies: Headaches, Sore Throat Pulmonary: Reports: No Symptoms. Denies: Shortness of Breath, Cough, Sputum, Wheezing Cardiovascular: Reports: Edema. Denies: Chest Pain, Palpitations, Dyspnea on Exertion Gastrointestinal: Reports: Decreased Appetite, Difficulty Swallowing (nursing noted difficulty with pills ). Denies: Abdominal Pain, Constipation, Diarrhea, Nausea, Vomiting Genitourinary: Reports: No Symptoms. Denies: Pain Musculoskeletal: Reports: No Symptoms Skin: Reports: No Symptoms Neurological: Reports: No Symptoms. Denies: Confusion Psychiatric: Reports: No Symptoms - Patient Data Vitals - Most Recent: Last Vital Signs Temp 98.6 F 12/22/18 00:15 Pulse 89 12/22/18 00:15 Resp 20 12/22/18 00:15 BP 127/74 12/22/18 00:15 Pulse Ox 92 L 12/22/18 00:15 Weight - Most Recent: 146 lb 9.6 oz I&O - Last 24 Hours: Intake & Output 12/21/18 12/22/18 12/22/18 22:59 06:59 14:59 Intake Total 320 245 Output Total 1875 Balance 320 -1630 Lab Results Last 24 Hours: Laboratory Results - last 24 hr 12/21/18 12/21/18 12/21/18 Range/Units 09:13 10:40 10:40 WBC (3.98-10.04) K/mm3 RBC (3.98-5.22) M/mm3 Hgb (11.2-15.7) gm/L Hct (34.1-44.9) % MCV (79.4-94.8) fl MCH (25.6-32.2) pg MCHC (32.2-35.5) g/dl RDW Std Deviation (36.4-46.3) fL Plt Count (182-369) K/mm3 MPV (9.4-12.3) fl Neut % (Auto) (34.0-71.1) % Lymph % (Auto) (19.3-51.7) % Caroline % (Auto) (4.7-12.5) % Eos % (Auto) (0.7-5.8) Baso % (Auto) (0.1-1.2) % Neut # (Auto) (1.56-6.13) K/mm3 Lymph # (Auto) (1.18-3.74) K/mm3 Caroline # (Auto) (0.24-0.36) K/mm3 Eos # (Auto) (0.04-0.36) K/mm3 Baso # (Auto) (0.01-0.08) K/mm3 Manual Slide Review PT (9.5-12.1) SECONDS INR Sodium (136-145) mEq/L Potassium (3.5-5.1) mEq/L Chloride (98-107) mEq/L Carbon Dioxide (21-32) mEq/L Anion Gap (5-15) BUN (7-18) mg/dL Creatinine (0.55-1.02) mg/dL Est Cr Clr Drug Dosing mL/min Estimated GFR (MDRD) (>60) mL/min BUN/Creatinine Ratio (14-18) Glucose (83-115) mg/dL Calcium (8.5-10.1) mg/dL Magnesium 2.0 (1.8-2.4) mg/dl CK-MB (CK-2) 3.8 H (0-3.6) ng/ml Troponin I 0.305 H* (0.00-0.056) ng/mL C-Reactive Protein (<1.0) mg/dL NT-Pro-B Natriuret Pep (0-450) pg/mL Triglycerides 99 (<150) mg/dL Cholesterol 177 (<200) mg/dL LDL Cholesterol Direct 92 (<100) mg/dL HDL Cholesterol 83.0 H (40-59) mg/dL MRSA (PCR) Negative 12/21/18 12/22/18 12/22/18 Range/Units 17:26 06:07 06:07 WBC 9.97 (3.98-10.04) K/mm3 RBC 3.88 L (3.98-5.22) M/mm3 Hgb 12.2 (11.2-15.7) gm/L Hct 38.7 (34.1-44.9) % MCV 99.7 H (79.4-94.8) fl MCH 31.4 (25.6-32.2) pg MCHC 31.5 L (32.2-35.5) g/dl RDW Std Deviation 64.0 H (36.4-46.3) fL Plt Count 284 (182-369) K/mm3 MPV 9.2 L (9.4-12.3) fl Neut % (Auto) 86.6 H (34.0-71.1) % Lymph % (Auto) 6.4 L (19.3-51.7) % Caroline % (Auto) 5.9 (4.7-12.5) % Eos % (Auto) 0.4 L (0.7-5.8) Baso % (Auto) 0.1 (0.1-1.2) % Neut # (Auto) 8.63 H (1.56-6.13) K/mm3 Lymph # (Auto) 0.64 L (1.18-3.74) K/mm3 Caroline # (Auto) 0.59 H (0.24-0.36) K/mm3 Eos # (Auto) 0.04 (0.04-0.36) K/mm3 Baso # (Auto) 0.01 (0.01-0.08) K/mm3 Manual Slide Review Abnormal smear PT (9.5-12.1) SECONDS INR Sodium 141 139 (136-145) mEq/L Potassium 4.7 3.6 (3.5-5.1) mEq/L Chloride 101 96 L (98-107) mEq/L Carbon Dioxide 31 34 H (21-32) mEq/L Anion Gap 13.7 12.6 (5-15) BUN 47 H 44 H (7-18) mg/dL Creatinine 2.9 H 2.9 H (0.55-1.02) mg/dL Est Cr Clr Drug Dosing 12.02 12.02 mL/min Estimated GFR (MDRD) 15 15 (>60) mL/min BUN/Creatinine Ratio 16.2 15.2 (14-18) Glucose 112 137 H (83-115) mg/dL Calcium 9.1 10.5 H (8.5-10.1) mg/dL Magnesium 1.7 L (1.8-2.4) mg/dl CK-MB (CK-2) 2.6 (0-3.6) ng/ml Troponin I 0.245 H* (0.00-0.056) ng/mL C-Reactive Protein 5.4 H* (<1.0) mg/dL NT-Pro-B Natriuret Pep (0-450) pg/mL Triglycerides (<150) mg/dL Cholesterol (<200) mg/dL LDL Cholesterol Direct (<100) mg/dL HDL Cholesterol (40-59) mg/dL MRSA (PCR) 12/22/18 12/22/18 12/22/18 Range/Units 06:07 06:07 06:07 WBC (3.98-10.04) K/mm3 RBC (3.98-5.22) M/mm3 Hgb (11.2-15.7) gm/L Hct (34.1-44.9) % MCV (79.4-94.8) fl MCH (25.6-32.2) pg MCHC (32.2-35.5) g/dl RDW Std Deviation (36.4-46.3) fL Plt Count (182-369) K/mm3 MPV (9.4-12.3) fl Neut % (Auto) (34.0-71.1) % Lymph % (Auto) (19.3-51.7) % Caroline % (Auto) (4.7-12.5) % Eos % (Auto) (0.7-5.8) Baso % (Auto) (0.1-1.2) % Neut # (Auto) (1.56-6.13) K/mm3 Lymph # (Auto) (1.18-3.74) K/mm3 Caroline # (Auto) (0.24-0.36) K/mm3 Eos # (Auto) (0.04-0.36) K/mm3 Baso # (Auto) (0.01-0.08) K/mm3 Manual Slide Review PT 30.3 H (9.5-12.1) SECONDS INR 2.84 Sodium (136-145) mEq/L Potassium (3.5-5.1) mEq/L Chloride (98-107) mEq/L Carbon Dioxide (21-32) mEq/L Anion Gap (5-15) BUN (7-18) mg/dL Creatinine (0.55-1.02) mg/dL Est Cr Clr Drug Dosing mL/min Estimated GFR (MDRD) (>60) mL/min BUN/Creatinine Ratio (14-18) Glucose (83-115) mg/dL Calcium (8.5-10.1) mg/dL Magnesium (1.8-2.4) mg/dl CK-MB (CK-2) (0-3.6) ng/ml Troponin I 0.162 H* (0.00-0.056) ng/mL C-Reactive Protein (<1.0) mg/dL NT-Pro-B Natriuret Pep 9293 H (0-450) pg/mL Triglycerides (<150) mg/dL Cholesterol (<200) mg/dL LDL Cholesterol Direct (<100) mg/dL HDL Cholesterol (40-59) mg/dL MRSA (PCR) Med Orders - Current: Current Medications Acetaminophen (Tylenol) 650 mg PO Q4H PRN PRN Reason: Pain (Mild 1-3)/fever Last Admin: 12/22/18 06:16 Dose: 650 mg Hydrocodone Bitart/Acetaminophen ([place] 325-5 Mg) 1 tab PO Q4H PRN PRN Reason: Pain (moderate 4-6) Allopurinol (Zyloprim) 300 mg PO BEDTIME [facility] Last Admin: 12/21/18 20:21 Dose: 300 mg Amitriptyline HCl (Elavil) 25 mg PO BEDTIME [facility] Last Admin: 12/21/18 20:22 Dose: 25 mg Aspirin (Halfprin) 81 mg PO DAILY [facility] Bisacodyl (Dulcolax) 5 mg PO DAILY PRN PRN Reason: Constipation Calcium Carbonate/Glycine (Calcium Carbonate) 600 mg PO BID [facility] Last Admin: 12/21/18 20:21 Dose: 600 mg Cholecalciferol (Vitamin D3) 1,000 units PO DAILY [facility] Clopidogrel Bisulfate (Plavix) 75 mg PO DAILY [facility] Docusate Sodium (Colace) 100 mg PO BID PRN PRN Reason: Constipation Famotidine (Pepcid) 20 mg PO DAILY [facility] Ferrous Sulfate (Ferrous Sulfate) 325 mg PO DAILY [facility] Furosemide 100 mg/ Sodium (Chloride) 100 mls @ 4 mls/hr IV TITRATE [facility]; Protocol Last Admin: 12/21/18 11:07 Dose: 4 mls/hr Ceftriaxone Sodium 2 gm/ (Sodium Chloride) 100 mls @ 200 mls/hr IV Q24H [facility] Last Admin: 12/21/18 13:54 Dose: 200 mls/hr Magnesium Sulfate 2 gm/ Premix 50 mls @ 25 mls/hr IV ONETIME ONE Stop: 12/22/18 10:15 Levothyroxine Sodium (Levothyroxine) 25 mcg PO DAILY@0700 [facility] Last Admin: 12/22/18 06:15 Dose: 25 mcg Magnesium Oxide (Magnesium Oxide) 400 mg PO BID [facility] Metoprolol Tartrate (Lopressor) 5 mg IVPUSH Q4H PRN PRN Reason: Tachycardia Ondansetron HCl (Zofran) 4 mg IV Q6H PRN PRN Reason: Nausea/Vomiting Polyethylene Glycol (Miralax) 17 gm PO DAILY PRN PRN Reason: Constipation Potassium Chloride (Klor-Con M20) 20 meq PO DAILY [facility] Prednisone (Prednisone) 10 mg PO DAILY [facility] Saccharomyces Boulardii (Florastor) 250 mg PO BID [facility] Last Admin: 12/21/18 20:21 Dose: 250 mg Senna/Docusate Sodium (Senna Plus) 1 tab PO BID PRN PRN Reason: Constipation Sodium Bicarbonate (Sodium Bicarbonate) 650 mg PO BID [facility] Last Admin: 12/21/18 20:20 Dose: 650 mg Warfarin Sodium (Pharmacy To Dose - Warfarin) 1 dose .XX ASDIRECTED [facility] Discontinued Medications Aspirin (Ecotrin) 325 mg PO ONETIME ONE Stop: 12/21/18 11:01 Last Admin: 12/21/18 11:13 Dose: 325 mg Bumetanide (Bumex) 1 mg IVPUSH ONETIME ONE Stop: 12/21/18 04:57 Last Admin: 12/21/18 05:14 Dose: 1 mg Clopidogrel Bisulfate (Plavix) 600 mg PO ONETIME ONE Stop: 12/21/18 10:46 Last Admin: 12/21/18 11:13 Dose: 600 mg Diphtheria/Tetanus/Acell Pertussis (Adacel) 0.5 ml IM .ONCE ONE Stop: 12/21/18 04:20 Last Admin: 12/21/18 09:07 Dose: Not Given Hydromorphone HCl (Dilaudid) 0.5 mg IVPUSH ONETIME ONE Stop: 12/21/18 02:56 Last Admin: 12/21/18 03:16 Dose: 0.5 mg Dextrose/Sodium Chloride (Dextrose 5%-Normal Saline) 1,000 mls @ 100 mls/hr IV ASDIRECTED [facility] Last Admin: 12/21/18 03:13 Dose: 100 mls/hr Magnesium Sulfate 2 gm/ Premix 50 mls @ 25 mls/hr IV ONETIME ONE Stop: 12/21/18 06:55 Last Admin: 12/21/18 05:16 Dose: 25 mls/hr Non-Formulary Medication (Magnesium [Magnesium]) 500 mg PO DAILY [facility] Non-Formulary Medication (Melatonin) 3 mg PO BEDTIME PRN PRN Reason: Insomnia Ondansetron HCl (Zofran) 4 mg IVPUSH ONETIME ONE Stop: 12/21/18 02:56 Last Admin: 12/21/18 03:13 Dose: 4 mg Potassium Chloride (Klor-Con M20) 40 meq PO Q4H [facility] Stop: 12/21/18 13:16 Last Admin: 12/21/18 13:54 Dose: 40 meq Warfarin Sodium (Coumadin Sliding Scale) 0 each PO ONETIME ONE Stop: 12/21/18 18:01 Last Admin: 12/21/18 19:06 Dose: Not Given - Exam Quality Assessment: Urine Catheter, DVT Prophylaxis General: Alert, Oriented, Cooperative, No Acute Distress HEENT: Pupils Equal, Pupils Reactive, EOMI, Mucous Membr. Moist/[place], Other ( Bruising to right face ) Neck: Supple, Trachea Midline, No JVD Lungs: Clear to Auscultation, Normal Respiratory Effort Cardiovascular: Regular Rate, Regular Rhythm, Other (Paced rhythm ) GI/Abdominal Exam: Normal Bowel Sounds, Soft, Non-Tender, No Distention, No Abnormal Bruit (Female) Exam: Deferred Back Exam: Normal Inspection, Full Range of Motion Extremities: Normal Inspection, Non-Tender, Pedal Edema ( improving ), Arm Pain (right shoulder - improving ), Limited Range of Motion (right arm 2/2 pain ) Peripheral Pulses: 3+: Radial (L), Radial (R), Dorsalis Pedis (L), Dorsalis Pedis (R) Skin: Warm, Dry, Intact, Ecchymosis (scattered ) Neurological: No New Focal Deficit Psy/Mental Status: Alert, Normal Affect, Normal Mood - Problem List & Annotations (1) Acute myocardial infarction SNOMED Code(s): 69623368 Code(s): I21.9 - ACUTE MYOCARDIAL INFARCTION, UNSPECIFIED Status: Acute Priority: High Current Visit: Yes Qualifiers: Myocardial infarction type: non-ST elevation myocardial infarction Qualified Code(s): I21.4 - Non-ST elevation (NSTEMI) myocardial infarction (2) Closed head injury without concussion SNOMED Code(s): 50535522 Code(s): S09.90XA - UNSPECIFIED INJURY OF HEAD, INITIAL ENCOUNTER Status: Acute Priority: High Current Visit: Yes Qualifiers: Encounter type: initial encounter Qualified Code(s): S09.90XA - Unspecified injury of head, initial encounter (3) Contusion of scalp SNOMED Code(s): 14178992 Code(s): S00.03XA - CONTUSION OF SCALP, INITIAL ENCOUNTER Status: Acute Priority: High Current Visit: Yes Qualifiers: Encounter type: initial encounter Qualified Code(s): S00.03XA - Contusion of scalp, initial encounter (4) Hemarthrosis, right shoulder SNOMED Code(s): 8179654 Code(s): M25.011 - HEMARTHROSIS, RIGHT SHOULDER Status: Acute Priority: High Current Visit: Yes (5) Hypomagnesemia SNOMED Code(s): 832495669 Code(s): E83.42 - HYPOMAGNESEMIA Status: Acute Priority: High Current Visit: Yes (6) Skin tear of right elbow without complication SNOMED Code(s): 073276540 Code(s): S51.011A - LACERATION WITHOUT FOREIGN BODY OF RIGHT ELBOW, INIT ENCNTR Status: Acute Priority: High Current Visit: Yes Qualifiers: Encounter type: initial encounter Qualified Code(s): S51.011A - Laceration without foreign body of right elbow, initial encounter (7) Skin tear of right upper arm without complication SNOMED Code(s): 616241056 Code(s): S41.111A - LACERATION W/O FOREIGN BODY OF RIGHT UPPER ARM, INIT ENCNTR Status: Acute Priority: High Current Visit: Yes Qualifiers: Encounter type: initial encounter Qualified Code(s): S41.111A - Laceration without foreign body of right upper arm, initial encounter (8) Supratherapeutic INR SNOMED Code(s): 013102566 Code(s): R79.1 - ABNORMAL COAGULATION PROFILE Status: Acute Priority: High Current Visit: Yes (9) Urinary retention SNOMED Code(s): 674823152 Code(s): R33.9 - RETENTION OF URINE, UNSPECIFIED Status: Acute Priority: High Current Visit: Yes (10) CHF (congestive heart failure), NYHA class III SNOMED Code(s): 022557951, 880458582 Code(s): I50.9 - HEART FAILURE, UNSPECIFIED Status: Chronic Priority: High Current Visit: Yes Qualifiers: Congestive heart failure type: combined Congestive heart failure chronicity : acute on chronic Qualified Code(s): I50.43 - Acute on chronic combined systolic (congestive) and diastolic (congestive) heart failure (11) Chronic renal insufficiency, stage IV (severe) SNOMED Code(s): 63632236 Code(s): N18.4 - CHRONIC KIDNEY DISEASE, STAGE 4 (SEVERE) Status: Chronic Priority: High Current Visit: Yes Annotation/Comment:: acute on chronic renal failure Baseline creatinine 2.2-2.5 range prior (12) Hypokalemia SNOMED Code(s): 80248023 Code(s): E87.6 - HYPOKALEMIA Status: Resolved Current Visit: Yes (13) UTI, Urinary tract infectious disease SNOMED Code(s): 23133816 Code(s): N39.0 - URINARY TRACT INFECTION, SITE NOT SPECIFIED Status: Acute Priority: High Current Visit: Yes (14) COPD (chronic obstructive pulmonary disease) SNOMED Code(s): 63191569 Code(s): J44.9 - CHRONIC OBSTRUCTIVE PULMONARY DISEASE, UNSPECIFIED Status : Chronic Priority: Medium Current Visit: No (15) History of fundoplication SNOMED Code(s): 566598931 Code(s): Z98.89 - OTHER SPECIFIED POSTPROCEDURAL STATES * DO NOT USE * Status: Chronic Priority: Low Current Visit: No Onset Date: 04/05/15 (16) History of heart valve repair SNOMED Code(s): 11742139062439 Code(s): Z98.890 - OTHER SPECIFIED POSTPROCEDURAL STATES Status: Chronic Priority: Medium Current Visit: No (17) Hyperparathyroidism SNOMED Code(s): 44880640 Code(s): E21.3 - HYPERPARATHYROIDISM, UNSPECIFIED Status: Chronic Priority: Low Current Visit: No (18) Sleep apnea SNOMED Code(s): 19136931 Code(s): G47.30 - SLEEP APNEA, UNSPECIFIED Status: Chronic Priority: Low Current Visit: No Qualifiers: Sleep apnea type: unspecified type Qualified Code(s): G47.30 - Sleep apnea , unspecified - Problem List Review Problem List Initiated/Reviewed/Updated: Yes - My Orders Last 24 Hours: My Active Orders 12/21/18 08:01 Height and Weight [RC] 04 Oxygen Therapy [RC] PRN Up With Assistance [RC] BID VTE/DVT Education [RC] BID Vital Signs [RC] Q4HR Consult to Case Management/Project Administrative Assistant [CONS] Routine Consult to Spiritual Care [CONS] Routine Acetaminophen [Tylenol] 650 mg PO Q4H PRN Acetaminophen/HYDROcodone [[place] 325-5 MG] 1 tab PO Q4H PRN Bisacodyl [Dulcolax] 5 mg PO DAILY PRN Docusate Sodium [Colace] 100 mg PO BID PRN Docusate Sodium/Sennosides [Senna Plus] 1 tab PO BID PRN Ondansetron [Zofran] 4 mg IV Q6H PRN Polyethylene Glycol 3350 [MiraLAX] 17 gm PO DAILY PRN 12/21/18 08:02 Intake and Output [RC] 04,16 12/21/18 08:05 Metoprolol Tartrate [Lopressor] 5 mg IVPUSH Q4H PRN 12/21/18 08:15 Pharmacy to Dose - Warfarin 1 dose .XX ASDIRECTED 12/21/18 10:45 Furosemide [Lasix] 100 mg Sodium Chloride 0.9% [Normal Saline] 90 ml IV TITRATE 12/21/18 13:30 cefTRIAXone [Rocephin] 2 gm Sodium Chloride 0.9% [Normal Saline] 100 ml IV Q24H 12/21/18 13:33 Code Status [Resuscitation Status] Routine 12/21/18 21:00 Allopurinol [Zyloprim] 300 mg PO BEDTIME Amitriptyline [Elavil] 25 mg PO BEDTIME Calcium Carbonate 600 mg PO BID Saccharomyces Boulardii [Florastor] 250 mg PO BID Sodium Bicarbonate 650 mg PO BID 12/22/18 07:00 Levothyroxine 25 mcg PO DAILY@0700 12/22/18 08:00 Consult to Occupational Therapy [OT Evaluation and Treatment] [CONS] Routine PT Evaluation and Treatment [CONS] Routine 12/22/18 08:16 Magnesium Sulfate/Water [Magnesium Sulfate 2 GM in Water 50 ML] 2 gm Premix Bag 1 bag IV ONETIME 12/22/18 09:00 Cholecalciferol (Vitamin D3) [Vitamin D3] 1,000 units PO DAILY Clopidogrel [Plavix] 75 mg PO DAILY Famotidine [Pepcid] 20 mg PO DAILY Ferrous Sulfate 325 mg PO DAILY Potassium Chloride [Klor-Con M20] 20 meq PO DAILY predniSONE 10 mg PO DAILY 12/23/18 05:11 BASIC METABOLIC PANEL,BMP [CHEM] AM CBC WITH AUTO DIFF [HEME] AM CRP [C-REACTIVE PROTEIN] [CHEM] AM INR,PT,PROTHROMBIN TIME [COAG] AM MAGNESIUM [CHEM] AM PRO B-TYPE NATRIUR PEPT,BNPPRO [CHEM] DAILY 12/23/18 09:00 Magnesium Oxide 400 mg PO BID 12/24/18 05:11 BASIC METABOLIC PANEL,BMP [CHEM] AM CBC WITH AUTO DIFF [HEME] AM CRP [C-REACTIVE PROTEIN] [CHEM] AM INR,PT,PROTHROMBIN TIME [COAG] AM MAGNESIUM [CHEM] AM PRO B-TYPE NATRIUR PEPT,BNPPRO [CHEM] DAILY 12/25/18 05:11 BASIC METABOLIC PANEL,BMP [CHEM] AM CBC WITH AUTO DIFF [HEME] AM CRP [C-REACTIVE PROTEIN] [CHEM] AM INR,PT,PROTHROMBIN TIME [COAG] AM MAGNESIUM [CHEM] AM PRO B-TYPE NATRIUR PEPT,BNPPRO [CHEM] DAILY - Plan Plan:: I/P: Acute: Non-STEMI, Stable -Denies current chest pain but did have unwitnessed fall -Chronically on Warfarin with INR of 3.20 in ED -Hx/o A-fib, CHF, Heart valve replacement, Pacemaker, MAYCOL with refusal of CPAP, Anemia -Troponin 0.274-->0.336-->0.305-->0.248-->0.162 (discontinue) -CK-MB 5.0-->4.7-->3.8-->2.6 (discontinue) -Likely worsened by excess fluid -Suspect may have contributed to fall -ASA 325mg initially with 81mg daily after -Plavix 600mg initially with 75mg daily after -Echo obtained 12/21/18: 1. LVEF, by visual estimation, is 65 to 70% 2. Restrictive (Grade 3) pattern of LV diastolic filling 3. Severely dilated left atrium 4. Severely dilated right atrium 5. There is mild aortic valve sclerosis 6. Moderate mitral valve regurgitation 7. Trace aortic valve regurgitation 8. A porcine valve is in the tricuspid position 9. Trace tricuspid valve regurgitation 10. The gradient through the TV prothesis is not adequately assessed. The leaflets appear ting and mobile 11. Mild to moderate pulmonic valve regurgitation -12-lead in ED shows 100% paced rhythm -Patient refused transfer in ED and on floor -Pharmacy to dose Warfarin (reportedly just decreased warfarin dosing about 1 week ago) -Lipid panel: Triglycerides 99, Total cholesterol 177, LDL 92, HDL 81 Heart failure, Diastolic - clinically improving -Noted increased edema and orthopnea -Pro-BNP 4486-->9293 -3lb weight loss so far -2810 output -On home metolazone and torsemide - hold for now -CXR in ED shows nothing acute -Given 1gm bumex in ED -Echo as above -Santoyo catheter placed for urinary retention in ED -Start lasix drip now-> continue today for total of 48 hours -Caution with worsening kidney function (has been stable) UTI -Reports frequent UTIs -Noted incontinence, retention, urgency -Likely contributed to fall -UA in ED shows Trace LE, 10-20 WBC, Many bacteria -Urine culture - gram negative rods -WBC 12.80 (although appears to be on chronic prednisone)-->9.97 -Start rocephin 2gm daily -CRP 5.4 (will be skewed 2/2 injury from fall) Urinary retention -Noted to have urge to urinate with minimal output in ED -Bladder scan x2 revealed significant post-void residual urine -Santoyo catheter placed -May need urology f/u after discharge S/P fall -Unwitnessed fall -Unsure if she lost consciousness; Unsure of how long down -CK 186 (WNL) -Swelling/bruising noted to right face, eyelid, temporal region -CT head and neck shows soft tissue swelling within right scalp, otherwise nothing acute -Multiple skin tears on right arm -Right shoulder pain and difficulty with movement 2/2 pain -Pain medications as ordered -Chest and right shoulder x-rays show nothing acute, no fractures noted -PT/OT starting tomorrow Hypomagnesemia -Acute on chronic -Continue home supplementation and add other supplementation as needed -Magnesium 1.2-->2.0-->1.7 -Supplemented in ED Resolved: Hypokalemia -Acute on chronic -Potassium 3.3-->4.7 -Supplemented Supratheraputic INR -Reports warfarin was just decreased about 1 week ago 2/2 supratheraputic INR -PT 34.1-->30.3 -INR 3.20-->2.84 -Pharmacy to monitor and dose Chronic: A-fib CHF S/P Heart valve replacement Chronic Warfarin use Pacemaker Thrombocytopenia Hypokalemia COPD Sleep apnea without CPAP use Pulmonary hypertension Hx/O C. Diff Chronic stage 4 renal insufficiency - Appears better than baseline today. Recurrent UTIs Athrosclerosis of renal artery Anemia in CKD Osteoarthritis Osteoporosis Hyperparathyroidism Chronic Puritis Plan: Admit to medical floor on telemetry Home medications as ordered Routine AM labs PT/OT starting today CM/SW for discharge planning - from Melissa Starr DVT Prophylaxis: Warfarin - Monitor INR Swallow evaluation - Nursing noted difficulty with pills Spiritual care consult Code status:DNR/DNI (Confirmed by ED provider and on floor); PCP: Dr. Johnson
[2018-12-22] MEDS ORDERED: Non-Formulary Medication 1 Each (Magnesium [Magnesium] 500 MG) PO SCH (09:00)
[2018-12-22] MEDS ORDERED: Magnesium Oxide 400 MG Tab PO ONE (09:34)
[2018-12-22] MEDS: Aspirin 81 MG Tab.EC PO SCH (09:41)
[2018-12-22] MEDS: Cholecalciferol (Vitamin D3) 1,000 Unit Tab PO SCH (09:42)
[2018-12-22] MEDS: Sodium Bicarbonate 650 MG Tab PO SCH ×2 (09:42→21:14)
[2018-12-22] MEDS: Clopidogrel 75 MG Tab PO SCH (09:42)
[2018-12-22] MEDS: Saccharomyces Boulardii (Probiotic) 250 MG Cap PO SCH ×2 (09:42→21:14)
[2018-12-22] MEDS: Ferrous Sulfate 325 MG Tab PO SCH (09:43)
[2018-12-22] MEDS: Famotidine 20 MG Tab PO SCH (09:43)
[2018-12-22] MEDS: predniSONE 10 MG Tab PO SCH (09:44)
[2018-12-22] MEDS: Potassium Chloride 20 MEQ Tab.ER PO SCH (09:44)
[2018-12-22] MEDS: Calcium Carbonate 600 MG Tab PO SCH ×2 (09:44→21:14)
[2018-12-22] MEDS: Magnesium Oxide 400 MG Tab PO SCH ×2 (09:49→21:14)
[2018-12-22] MEDS: Furosemide 100 MG in Sodium Chloride 0.9% 90 ML IV SCH (10:24)
[2018-12-22] MEDS: cefTRIAXone 2 GM in Sodium Chloride 0.9% 100 ML IV SCH (14:22)
[2018-12-22] MEDS ORDERED: Warfarin 2.5 MG Tab PO SCH (18:00)
[2018-12-22] MEDS: Allopurinol 300 MG Tab PO SCH (21:14)
[2018-12-22] MEDS: Amitriptyline 25 MG Tab PO SCH (21:14)
[2018-12-23] MEDS: Levothyroxine 25 MCG Tab PO SCH (06:34)
[2018-12-23] MEDS: Acetaminophen 325 MG Tab PO PRN ×2 (06:34→21:31)
--- NOTE | 2018-12-23 08:20 | PCM.PN ---
- General Info Date of Service: 12/23/18 Admission Dx/Problem (Free Text): Admission Diagnosis/Problem Admission Diagnosis/Problem Fall at home Subjective Update: In to see Erica. She reports she feels very well today. She has a small wound on her lip that is actively bleeding. Nursing in applying pressure and we will continue to hold the warfarin. Likely discharge Friday. Functional Status: Reports: Pain Controlled, Tolerating Diet, Ambulating, Urinating, New Symptoms (Lip bleeding and tongue pain ) - Review of Systems General: Reports: No Symptoms, Weakness. Denies: Fever, Fatigue, Malaise HEENT: Reports: No Symptoms. Denies: Headaches, Sore Throat Pulmonary: Reports: No Symptoms. Denies: Shortness of Breath, Cough, Sputum, Wheezing Cardiovascular: Reports: No Symptoms. Denies: Chest Pain, Palpitations, Dyspnea on Exertion, Edema Gastrointestinal: Reports: No Symptoms. Denies: Abdominal Pain, Constipation, Diarrhea, Nausea, Vomiting Genitourinary: Reports: No Symptoms. Denies: Pain Musculoskeletal: Reports: No Symptoms, Joint Swelling (right shoulder - improved ) Skin: Reports: No Symptoms Neurological: Reports: No Symptoms. Denies: Confusion Psychiatric: Reports: No Symptoms - Patient Data Vitals - Most Recent: Last Vital Signs Temp 97.5 F 12/23/18 07:39 Pulse 94 12/23/18 07:39 Resp 15 12/23/18 07:39 BP 137/83 12/23/18 07:39 Pulse Ox 100 12/23/18 07:39 Weight - Most Recent: 140 lb 1.6 oz I&O - Last 24 Hours: Intake & Output 12/22/18 12/23/18 12/23/18 22:59 06:59 14:59 Intake Total 1308 191 Output Total 2525 700 Balance -1217 -509 Lab Results Last 24 Hours: Laboratory Results - last 24 hr 12/23/18 12/23/18 12/23/18 Range/Units 06:10 06:10 06:10 WBC 8.82 (3.98-10.04) K/mm3 RBC 4.14 (3.98-5.22) M/mm3 Hgb 13.1 (11.2-15.7) gm/L Hct 40.9 (34.1-44.9) % MCV 98.8 H (79.4-94.8) fl MCH 31.6 (25.6-32.2) pg MCHC 32.0 L (32.2-35.5) g/dl RDW Std Deviation 63.7 H (36.4-46.3) fL Plt Count 282 (182-369) K/mm3 MPV 8.9 L (9.4-12.3) fl Neut % (Auto) 83.7 H (34.0-71.1) % Lymph % (Auto) 8.0 L (19.3-51.7) % [place] % (Auto) 7.1 (4.7-12.5) % Eos % (Auto) 0.3 L (0.7-5.8) Baso % (Auto) 0.1 (0.1-1.2) % Neut # (Auto) 7.37 H (1.56-6.13) K/mm3 Lymph # (Auto) 0.71 L (1.18-3.74) K/mm3 [place] # (Auto) 0.63 H (0.24-0.36) K/mm3 Eos # (Auto) 0.03 L (0.04-0.36) K/mm3 Baso # (Auto) 0.01 (0.01-0.08) K/mm3 Manual Slide Review Abnormal smear PT (9.5-12.1) SECONDS INR Sodium 138 (136-145) mEq/L Potassium 3.5 (3.5-5.1) mEq/L Chloride 94 L (98-107) mEq/L Carbon Dioxide 37 H (21-32) mEq/L Anion Gap 10.5 (5-15) BUN 49 H (7-18) mg/dL Creatinine 3.4 H (0.55-1.02) mg/dL Est Cr Clr Drug Dosing 10.26 mL/min Estimated GFR (MDRD) 13 (>60) mL/min BUN/Creatinine Ratio 14.4 (14-18) Glucose 126 H (83-115) mg/dL Calcium 9.9 (8.5-10.1) mg/dL Magnesium 1.7 L (1.8-2.4) mg/dl NT-Pro-B Natriuret Pep 13625 H (0-450) pg/mL 12/23/18 Range/Units 06:10 WBC (3.98-10.04) K/mm3 RBC (3.98-5.22) M/mm3 Hgb (11.2-15.7) gm/L Hct (34.1-44.9) % MCV (79.4-94.8) fl MCH (25.6-32.2) pg MCHC (32.2-35.5) g/dl RDW Std Deviation (36.4-46.3) fL Plt Count (182-369) K/mm3 MPV (9.4-12.3) fl Neut % (Auto) (34.0-71.1) % Lymph % (Auto) (19.3-51.7) % [place] % (Auto) (4.7-12.5) % Eos % (Auto) (0.7-5.8) Baso % (Auto) (0.1-1.2) % Neut # (Auto) (1.56-6.13) K/mm3 Lymph # (Auto) (1.18-3.74) K/mm3 [place] # (Auto) (0.24-0.36) K/mm3 Eos # (Auto) (0.04-0.36) K/mm3 Baso # (Auto) (0.01-0.08) K/mm3 Manual Slide Review PT 24.2 H (9.5-12.1) SECONDS INR 2.26 Sodium (136-145) mEq/L Potassium (3.5-5.1) mEq/L Chloride (98-107) mEq/L Carbon Dioxide (21-32) mEq/L Anion Gap (5-15) BUN (7-18) mg/dL Creatinine (0.55-1.02) mg/dL Est Cr Clr Drug Dosing mL/min Estimated GFR (MDRD) (>60) mL/min BUN/Creatinine Ratio (14-18) Glucose (83-115) mg/dL Calcium (8.5-10.1) mg/dL Magnesium (1.8-2.4) mg/dl NT-Pro-B Natriuret Pep (0-450) pg/mL [place] Results Last 24 Hours: Microbiology 12/21/18 04:30 Urine Culture - Preliminary Urine, Clean Catch Gram Negative Rods Klebsiella Oxytoca Med Orders - Current: Current Medications Acetaminophen (Tylenol) 650 mg PO Q4H PRN PRN Reason: Pain (Mild 1-3)/fever Last Admin: 12/23/18 06:34 Dose: 650 mg Hydrocodone Bitart/Acetaminophen ([place] 325-5 Mg) 1 tab PO Q4H PRN PRN Reason: Pain (moderate 4-6) Allopurinol (Zyloprim) 300 mg PO BEDTIME COUNT INCLUDES THE [facility] Last Admin: 12/22/18 21:14 Dose: 300 mg Amitriptyline HCl (Elavil) 25 mg PO BEDTIME COUNT INCLUDES THE [facility] Last Admin: 12/22/18 21:14 Dose: 25 mg Aspirin (Halfprin) 81 mg PO DAILY COUNT INCLUDES THE [facility] Last Admin: 12/22/18 09:41 Dose: 81 mg Bisacodyl (Dulcolax) 5 mg PO DAILY PRN PRN Reason: Constipation Calcium Carbonate/Glycine (Calcium Carbonate) 600 mg PO BID COUNT INCLUDES THE [facility] Last Admin: 12/22/18 21:14 Dose: 600 mg Cholecalciferol (Vitamin D3) 1,000 units PO DAILY COUNT INCLUDES THE [facility] Last Admin: 12/22/18 09:42 Dose: 1,000 units Clopidogrel Bisulfate (Plavix) 75 mg PO DAILY COUNT INCLUDES THE [facility] Last Admin: 12/22/18 09:42 Dose: 75 mg Docusate Sodium (Colace) 100 mg PO BID PRN PRN Reason: Constipation Last Admin: 12/22/18 21:14 Dose: 100 mg Famotidine (Pepcid) 20 mg PO DAILY COUNT INCLUDES THE [facility] Last Admin: 12/22/18 09:43 Dose: 20 mg Ferrous Sulfate (Ferrous Sulfate) 325 mg PO DAILY COUNT INCLUDES THE [facility] Last Admin: 12/22/18 09:43 Dose: 325 mg Furosemide 100 mg/ Sodium (Chloride) 100 mls @ 4 mls/hr IV TITRATE COUNT INCLUDES THE [facility]; Protocol Last Admin: 12/22/18 10:24 Dose: 4 mls/hr Ceftriaxone Sodium 2 gm/ (Sodium Chloride) 100 mls @ 200 mls/hr IV Q24H COUNT INCLUDES THE [facility] Last Admin: 12/22/18 14:22 Dose: 200 mls/hr Levothyroxine Sodium (Levothyroxine) 25 mcg PO DAILY@0700 COUNT INCLUDES THE [facility] Last Admin: 12/23/18 06:34 Dose: 25 mcg Magnesium Oxide (Magnesium Oxide) 400 mg PO BID COUNT INCLUDES THE [facility] Last Admin: 12/22/18 21:14 Dose: 400 mg Metoprolol Tartrate (Lopressor) 5 mg IVPUSH Q4H PRN PRN Reason: Tachycardia Ondansetron HCl (Zofran) 4 mg IV Q6H PRN PRN Reason: Nausea/Vomiting Polyethylene Glycol (Miralax) 17 gm PO DAILY PRN PRN Reason: Constipation Potassium Chloride (Klor-Con M20) 20 meq PO DAILY COUNT INCLUDES THE [facility] Last Admin: 12/22/18 09:44 Dose: 20 meq Prednisone (Prednisone) 10 mg PO DAILY COUNT INCLUDES THE [facility] Last Admin: 12/22/18 09:44 Dose: 10 mg Saccharomyces Boulardii (Florastor) 250 mg PO BID COUNT INCLUDES THE [facility] Last Admin: 12/22/18 21:14 Dose: 250 mg Senna/Docusate Sodium (Senna Plus) 1 tab PO BID PRN PRN Reason: Constipation Sodium Bicarbonate (Sodium Bicarbonate) 650 mg PO BID COUNT INCLUDES THE [facility] Last Admin: 12/22/18 21:14 Dose: 650 mg Warfarin Sodium (Pharmacy To Dose - Warfarin) 1 dose .XX ASDIRECTED COUNT INCLUDES THE [facility] Discontinued Medications Aspirin (Ecotrin) 325 mg PO ONETIME ONE Stop: 12/21/18 11:01 Last Admin: 12/21/18 11:13 Dose: 325 mg Bumetanide (Bumex) 1 mg IVPUSH ONETIME ONE Stop: 12/21/18 04:57 Last Admin: 12/21/18 05:14 Dose: 1 mg Clopidogrel Bisulfate (Plavix) 600 mg PO ONETIME ONE Stop: 12/21/18 10:46 Last Admin: 12/21/18 11:13 Dose: 600 mg Diphtheria/Tetanus/Acell Pertussis (Adacel) 0.5 ml IM .ONCE ONE Stop: 12/21/18 04:20 Last Admin: 12/21/18 09:07 Dose: Not Given Hydromorphone HCl (Dilaudid) 0.5 mg IVPUSH ONETIME ONE Stop: 12/21/18 02:56 Last Admin: 12/21/18 03:16 Dose: 0.5 mg Dextrose/Sodium Chloride (Dextrose 5%-Normal Saline) 1,000 mls @ 100 mls/hr IV ASDIRECTED COUNT INCLUDES THE [facility] Last Admin: 12/21/18 03:13 Dose: 100 mls/hr Magnesium Sulfate 2 gm/ Premix 50 mls @ 25 mls/hr IV ONETIME ONE Stop: 12/21/18 06:55 Last Admin: 12/21/18 05:16 Dose: 25 mls/hr Magnesium Sulfate 2 gm/ Premix 50 mls @ 50 mls/hr IV ONETIME ONE Stop: 12/22/18 09:15 Last Admin: 12/22/18 10:38 Dose: Not Given Magnesium Oxide (Magnesium Oxide) 400 mg PO ONETIME ONE Stop: 12/22/18 09:35 Last Admin: 12/22/18 09:42 Dose: 400 mg Non-Formulary Medication (Magnesium [Magnesium]) 500 mg PO DAILY COUNT INCLUDES THE [facility] Non-Formulary Medication (Melatonin) 3 mg PO BEDTIME PRN PRN Reason: Insomnia Ondansetron HCl (Zofran) 4 mg IVPUSH ONETIME ONE Stop: 12/21/18 02:56 Last Admin: 12/21/18 03:13 Dose: 4 mg Potassium Chloride (Klor-Con M20) 40 meq PO Q4H COUNT INCLUDES THE [facility] Stop: 12/21/18 13:16 Last Admin: 12/21/18 13:54 Dose: 40 meq Warfarin Sodium (Coumadin Sliding Scale) 0 each PO ONETIME ONE Stop: 12/21/18 18:01 Last Admin: 12/21/18 19:06 Dose: Not Given Warfarin Sodium (Coumadin) 2.5 mg PO QPM COUNT INCLUDES THE [facility] Stop: 12/22/18 18:01 - Exam Quality Assessment: DVT Prophylaxis. No: Urine Catheter (removed today ) General: Alert, Oriented, Cooperative, No Acute Distress HEENT: Pupils Equal, Pupils Reactive, EOMI, Mucous Membr. Moist/[place] Neck: Supple, Trachea Midline, No JVD Lungs: Clear to Auscultation, Normal Respiratory Effort Cardiovascular: Regular Rate, Regular Rhythm GI/Abdominal Exam: Normal Bowel Sounds, Soft, Non-Tender, No Distention, No Abnormal Bruit (Female) Exam: Deferred Back Exam: Normal Inspection, Full Range of Motion Extremities: Normal Inspection, Normal Range of Motion, Non-Tender, No Pedal Edema, Normal Capillary Refill Peripheral Pulses: 2+: Radial (L), Radial (R), Dorsalis Pedis (L), Dorsalis Pedis (R) Skin: Warm, Dry, Intact Neurological: No New Focal Deficit Psy/Mental Status: Alert, Normal Affect, Normal Mood - Problem List & Annotations (1) Acute myocardial infarction SNOMED Code(s): 71825233 Code(s): I21.9 - ACUTE MYOCARDIAL INFARCTION, UNSPECIFIED Status: Acute Priority: High Current Visit: Yes Qualifiers: Myocardial infarction type: non-ST elevation myocardial infarction Qualified Code(s): I21.4 - Non-ST elevation (NSTEMI) myocardial infarction (2) Closed head injury without concussion SNOMED Code(s): 54855614 Code(s): S09.90XA - UNSPECIFIED INJURY OF HEAD, INITIAL ENCOUNTER Status: Acute Priority: High Current Visit: Yes Qualifiers: Encounter type: initial encounter Qualified Code(s): S09.90XA - Unspecified injury of head, initial encounter (3) Contusion of scalp SNOMED Code(s): 08199667 Code(s): S00.03XA - CONTUSION OF SCALP, INITIAL ENCOUNTER Status: Acute Priority: High Current Visit: Yes Qualifiers: Encounter type: initial encounter Qualified Code(s): S00.03XA - Contusion of scalp, initial encounter (4) Hemarthrosis, right shoulder SNOMED Code(s): 0715005 Code(s): M25.011 - HEMARTHROSIS, RIGHT SHOULDER Status: Acute Priority: High Current Visit: Yes (5) Hypomagnesemia SNOMED Code(s): 711838032 Code(s): E83.42 - HYPOMAGNESEMIA Status: Acute Priority: High Current Visit: Yes (6) Skin tear of right elbow without complication SNOMED Code(s): 515419841 Code(s): S51.011A - LACERATION WITHOUT FOREIGN BODY OF RIGHT ELBOW, INIT ENCNTR Status: Acute Priority: High Current Visit: Yes Qualifiers: Encounter type: initial encounter Qualified Code(s): S51.011A - Laceration without foreign body of right elbow, initial encounter (7) Skin tear of right upper arm without complication SNOMED Code(s): 934610945 Code(s): S41.111A - LACERATION W/O FOREIGN BODY OF RIGHT UPPER ARM, INIT ENCNTR Status: Acute Priority: High Current Visit: Yes Qualifiers: Encounter type: initial encounter Qualified Code(s): S41.111A - Laceration without foreign body of right upper arm, initial encounter (8) Supratherapeutic INR SNOMED Code(s): 059809445 Code(s): R79.1 - ABNORMAL COAGULATION PROFILE Status: Acute Priority: High Current Visit: Yes (9) Urinary retention SNOMED Code(s): 874975267 Code(s): R33.9 - RETENTION OF URINE, UNSPECIFIED Status: Acute Priority: High Current Visit: Yes (10) CHF (congestive heart failure), NYHA class III SNOMED Code(s): 355987962, 630553861 Code(s): I50.9 - HEART FAILURE, UNSPECIFIED Status: Chronic Priority: High Current Visit: Yes Qualifiers: Congestive heart failure type: combined Congestive heart failure chronicity : acute on chronic Qualified Code(s): I50.43 - Acute on chronic combined systolic (congestive) and diastolic (congestive) heart failure (11) Chronic renal insufficiency, stage IV (severe) SNOMED Code(s): 16878022 Code(s): N18.4 - CHRONIC KIDNEY DISEASE, STAGE 4 (SEVERE) Status: Chronic Priority: High Current Visit: Yes Annotation/Comment:: acute on chronic renal failure Baseline creatinine 2.2-2.5 range prior (12) Hypokalemia SNOMED Code(s): 03104740 Code(s): E87.6 - HYPOKALEMIA Status: Resolved Current Visit: Yes (13) UTI, Urinary tract infectious disease SNOMED Code(s): 96699730 Code(s): N39.0 - URINARY TRACT INFECTION, SITE NOT SPECIFIED Status: Acute Priority: High Current Visit: Yes (14) COPD (chronic obstructive pulmonary disease) SNOMED Code(s): 64266987 Code(s): J44.9 - CHRONIC OBSTRUCTIVE PULMONARY DISEASE, UNSPECIFIED Status : Chronic Priority: Medium Current Visit: No (15) History of fundoplication SNOMED Code(s): 972085568 Code(s): Z98.89 - OTHER SPECIFIED POSTPROCEDURAL STATES * DO NOT USE * Status: Chronic Priority: Low Current Visit: No Onset Date: 04/05/15 (16) History of heart valve repair SNOMED Code(s): 26619948145723 Code(s): Z98.890 - OTHER SPECIFIED POSTPROCEDURAL STATES Status: Chronic Priority: Medium Current Visit: No (17) Hyperparathyroidism SNOMED Code(s): 11343002 Code(s): E21.3 - HYPERPARATHYROIDISM, UNSPECIFIED Status: Chronic Priority: Low Current Visit: No (18) Sleep apnea SNOMED Code(s): 45046953 Code(s): G47.30 - SLEEP APNEA, UNSPECIFIED Status: Chronic Priority: Low Current Visit: No Qualifiers: Sleep apnea type: unspecified type Qualified Code(s): G47.30 - Sleep apnea , unspecified - Problem List Review Problem List Initiated/Reviewed/Updated: Yes - My Orders Last 24 Hours: My Active Orders 12/22/18 08:00 Consult to Occupational Therapy [OT Evaluation and Treatment] [CONS] Routine PT Evaluation and Treatment [CONS] Routine 12/22/18 09:00 Cholecalciferol (Vitamin D3) [Vitamin D3] 1,000 units PO DAILY Clopidogrel [Plavix] 75 mg PO DAILY Famotidine [Pepcid] 20 mg PO DAILY Ferrous Sulfate 325 mg PO DAILY Potassium Chloride [Klor-Con M20] 20 meq PO DAILY predniSONE 10 mg PO DAILY 12/22/18 09:45 Magnesium Oxide 400 mg PO BID 12/22/18 12:58 Consult to Speech Language Pathology [BIOLOGICS SPECIALIST Evaluation and Treatment] [CONS] Routine 12/22/18 Lunch 2 Gram Sodium Diet [DIET] Fluid Restriction [DIET] 12/24/18 05:11 BASIC METABOLIC PANEL,BMP [CHEM] AM CBC WITH AUTO DIFF [HEME] AM INR,PT,PROTHROMBIN TIME [COAG] AM MAGNESIUM [CHEM] AM PRO B-TYPE NATRIUR PEPT,BNPPRO [CHEM] DAILY 12/25/18 05:11 BASIC METABOLIC PANEL,BMP [CHEM] AM CBC WITH AUTO DIFF [HEME] AM INR,PT,PROTHROMBIN TIME [COAG] AM MAGNESIUM [CHEM] AM PRO B-TYPE NATRIUR PEPT,BNPPRO [CHEM] DAILY - Plan Plan:: I/P: Acute: Non-STEMI, Stable -Denies current chest pain but did have unwitnessed fall -Chronically on Warfarin with INR of 3.20 in ED -Hx/o A-fib, CHF, Heart valve replacement, Pacemaker, MAYCOL with refusal of CPAP, Anemia -Troponin 0.274-->0.336-->0.305-->0.248-->0.162 (discontinue) -CK-MB 5.0-->4.7-->3.8-->2.6 (discontinue) -Likely worsened by excess fluid -Suspect may have contributed to fall -ASA 325mg initially with 81mg daily after -Plavix 600mg initially with 75mg daily after -Echo obtained 12/21/18: 1. LVEF, by visual estimation, is 65 to 70% 2. Restrictive (Grade 3) pattern of LV diastolic filling 3. Severely dilated left atrium 4. Severely dilated right atrium 5. There is mild aortic valve sclerosis 6. Moderate mitral valve regurgitation 7. Trace aortic valve regurgitation 8. A porcine valve is in the tricuspid position 9. Trace tricuspid valve regurgitation 10. The gradient through the TV prothesis is not adequately assessed. The leaflets appear ting and mobile 11. Mild to moderate pulmonic valve regurgitation -12-lead in ED shows 100% paced rhythm -Patient refused transfer in ED and on floor -Pharmacy to dose Warfarin (reportedly just decreased warfarin dosing about 1 week ago) -> hold due to lip bleeding -Lipid panel: Triglycerides 99, Total cholesterol 177, LDL 92, HDL 81 Heart failure, Diastolic - clinically improving -Noted increased edema and orthopnea prior to admission -Pro-BNP 4486-->9293-->03014 -11lb weight loss so far -3200 output so far -On home metolazone and torsemide - hold for now -CXR in ED shows nothing acute -Given 1gm bumex in ED -Echo as above -Santoyo catheter placed for urinary retention in ED -> discontinue -Start lasix drip now-> continue today for total of 48 hours -> discontinue today -Caution with worsening kidney function (worse today, monitor) UTI -Reports frequent UTIs -Noted incontinence, retention, urgency -Likely contributed to fall -UA in ED shows Trace LE, 10-20 WBC, Many bacteria -Urine culture - gram negative rods -WBC 12.80 (although appears to be on chronic prednisone)-->9.97-->8.82 -Start rocephin 2gm daily -CRP 5.4 (will be skewed 2/2 injury from fall) Urinary retention -Noted to have urge to urinate with minimal output in ED -Bladder scan x2 revealed significant post-void residual urine -Santoyo catheter placed -May need urology f/u after discharge S/P fall -Unwitnessed fall -Unsure if she lost consciousness; Unsure of how long down -CK 186 (WNL) -Swelling/bruising noted to right face, eyelid, temporal region -CT head and neck shows soft tissue swelling within right scalp, otherwise nothing acute -Multiple skin tears on right arm -Right shoulder pain and difficulty with movement 2/2 pain -Pain medications as ordered -Chest and right shoulder x-rays show nothing acute, no fractures noted -PT/OT starting tomorrow Hypomagnesemia -Acute on chronic -Continue home supplementation and add other supplementation as needed -Magnesium 1.2-->2.0-->1.7-->1.7 -Supplemented in ED Bleeding from lip/tongue pain -Reports tongue pain and bleeding from lip -Continue to hold warfarin -Bleeding has slowed to stop -Magic mouthwash for mouth pain Resolved: Hypokalemia -Acute on chronic -Potassium 3.3-->4.7 -Supplemented Supratheraputic INR -Reports warfarin was just decreased about 1 week ago 2/2 supratheraputic INR -PT 34.1-->30.3 -INR 3.20-->2.84 -Pharmacy to monitor and dose Chronic: A-fib CHF S/P Heart valve replacement Chronic Warfarin use Pacemaker Thrombocytopenia Hypokalemia COPD Sleep apnea without CPAP use Pulmonary hypertension Hx/O C. Diff Chronic stage 4 renal insufficiency - Appears worse today, monitor, remove fluid restriction. Recurrent UTIs Athrosclerosis of renal artery Anemia in CKD Osteoarthritis Osteoporosis Hyperparathyroidism Chronic Puritis Plan: Admit to medical floor on telemetry Home medications as ordered Routine AM labs PT/OT starting today CM/SW for discharge planning - from [facility] DVT Prophylaxis: Warfarin - Monitor INR Swallow evaluation - Nursing noted difficulty with pills: NDD4, crush pills, no straws Spiritual care consult Code status:DNR/DNI (Confirmed by ED provider and on floor); PCP: Dr. Johnson
[2018-12-23] MEDS: Famotidine 20 MG Tab PO SCH (09:15)
[2018-12-23] MEDS: Calcium Carbonate 600 MG Tab PO SCH ×2 (09:15→21:24)
[2018-12-23] MEDS: Sodium Bicarbonate 650 MG Tab PO SCH ×2 (09:15→21:25)
[2018-12-23] MEDS: Ferrous Sulfate 325 MG Tab PO SCH (09:15)
[2018-12-23] MEDS: Magnesium Oxide 400 MG Tab PO SCH ×2 (09:15→21:25)
[2018-12-23] MEDS: predniSONE 10 MG Tab PO SCH (09:15)
[2018-12-23] MEDS: Aspirin 81 MG Tab.EC PO SCH (09:15)
[2018-12-23] MEDS: Potassium Chloride 20 MEQ Tab.ER PO SCH (09:16)
[2018-12-23] MEDS: Saccharomyces Boulardii (Probiotic) 250 MG Cap PO SCH ×2 (09:16→21:24)
[2018-12-23] MEDS: Cholecalciferol (Vitamin D3) 1,000 Unit Tab PO SCH (09:16)
[2018-12-23] MEDS: Clopidogrel 75 MG Tab PO SCH (09:16)
[2018-12-23] MEDS ORDERED: Magnesium Sulfate/Water 2 GM in Premix Bag 1 BAG IV ONE (11:15)
[2018-12-23] MEDS ORDERED: Diphenhydramine/Lidocaine/MagAl/Simethicone 119 ML Bottle PO PRN (13:00)
[2018-12-23] MEDS: cefTRIAXone 2 GM in Sodium Chloride 0.9% 100 ML IV SCH (14:15)
[2018-12-23] MEDS: Amitriptyline 25 MG Tab PO SCH (21:24)
[2018-12-23] MEDS: Allopurinol 100 MG Tab PO SCH (21:24)
[2018-12-24] MEDS ORDERED: Magnesium Hydroxide 400 MG/5 ML Susp 30 ML Cup PO ONE (05:09)
[2018-12-24] MEDS: Levothyroxine 25 MCG Tab PO SCH (06:05)
[2018-12-24] MEDS: Acetaminophen 325 MG Tab PO PRN ×2 (06:05→20:17)
[2018-12-24] MEDS: Magnesium Oxide 400 MG Tab PO SCH ×2 (08:36→20:09)
[2018-12-24] MEDS: predniSONE 10 MG Tab PO SCH (08:36)
[2018-12-24] MEDS: Saccharomyces Boulardii (Probiotic) 250 MG Cap PO SCH ×2 (08:36→20:08)
[2018-12-24] MEDS: Sodium Bicarbonate 650 MG Tab PO SCH ×2 (08:36→20:09)
[2018-12-24] MEDS: Calcium Carbonate 600 MG Tab PO SCH ×2 (08:36→20:11)
[2018-12-24] MEDS: Clopidogrel 75 MG Tab PO SCH (08:37)
[2018-12-24] MEDS: Aspirin 81 MG Tab.EC PO SCH (08:37)
[2018-12-24] MEDS: Potassium Chloride 20 MEQ Tab.ER PO SCH (08:37)
[2018-12-24] MEDS: Ferrous Sulfate 325 MG Tab PO SCH (08:38)
[2018-12-24] MEDS: Cholecalciferol (Vitamin D3) 1,000 Unit Tab PO SCH (08:38)
--- NOTE | 2018-12-24 13:53 | PCM.PN ---
- General Info Date of Service: 12/24/18 Admission Dx/Problem (Free Text): Admission Diagnosis/Problem Admission Diagnosis/Problem Fall at home Subjective Update: In to see Erica. She is lying in bed taking a nap. She states she has been feeling pretty good. Her lip has quit bleeding. We will resume her home warfarin today. Otherwise no concerns. She will be discharged tomorrow pending continued improvement. Functional Status: Reports: Pain Controlled, Tolerating Diet, Ambulating, Urinating. Denies: New Symptoms - Review of Systems General: Reports: Weakness (improving ). Denies: Fever, Fatigue, Malaise, Chills HEENT: Reports: No Symptoms. Denies: Headaches, Sore Throat Pulmonary: Reports: No Symptoms. Denies: Shortness of Breath, Pleuritic Chest Pain, Cough, Sputum, Wheezing Cardiovascular: Reports: No Symptoms. Denies: Chest Pain, Palpitations, Dyspnea on Exertion, Edema, Lightheadedness Gastrointestinal: Reports: No Symptoms. Denies: Abdominal Pain, Constipation, Diarrhea, Nausea, Vomiting Genitourinary: Reports: No Symptoms. Denies: Pain Musculoskeletal: Reports: Joint Pain (right shoulder- improving ) Skin: Reports: No Symptoms. Denies: Cyanosis Neurological: Reports: No Symptoms. Denies: Confusion, Seizure, Difficulty Walking, Weakness, Gait Disturbance Psychiatric: Reports: No Symptoms - Patient Data Vitals - Most Recent: Last Vital Signs Temp 97.7 F 12/24/18 11:30 Pulse 80 12/24/18 11:30 Resp 16 12/24/18 11:30 BP 135/76 12/24/18 11:30 Pulse Ox 97 12/24/18 11:30 Weight - Most Recent: 125 lb I&O - Last 24 Hours: Intake & Output 12/23/18 12/24/18 12/24/18 22:59 06:59 14:59 Intake Total 270 550 Balance 270 550 Lab Results Last 24 Hours: Laboratory Results - last 24 hr 12/24/18 12/24/18 12/24/18 Range/Units 05:15 05:15 05:15 WBC 8.06 (3.98-10.04) K/mm3 RBC 4.04 (3.98-5.22) M/mm3 Hgb 12.8 (11.2-15.7) gm/L Hct 39.5 (34.1-44.9) % MCV 97.8 H (79.4-94.8) fl MCH 31.7 (25.6-32.2) pg MCHC 32.4 (32.2-35.5) g/dl RDW Std Deviation 62.5 H (36.4-46.3) fL Plt Count 295 (182-369) K/mm3 MPV 9.0 L (9.4-12.3) fl Neut % (Auto) 79.6 H (34.0-71.1) % Lymph % (Auto) 10.9 L (19.3-51.7) % [place] % (Auto) 7.7 (4.7-12.5) % Eos % (Auto) 0.9 (0.7-5.8) Baso % (Auto) 0.2 (0.1-1.2) % Neut # (Auto) 6.41 H (1.56-6.13) K/mm3 Lymph # (Auto) 0.88 L (1.18-3.74) K/mm3 [place] # (Auto) 0.62 H (0.24-0.36) K/mm3 Eos # (Auto) 0.07 (0.04-0.36) K/mm3 Baso # (Auto) 0.02 (0.01-0.08) K/mm3 PT (9.5-12.1) SECONDS INR Sodium 139 (136-145) mEq/L Potassium 3.4 L (3.5-5.1) mEq/L Chloride 94 L (98-107) mEq/L Carbon Dioxide 36 H (21-32) mEq/L Anion Gap 12.4 (5-15) BUN 55 H (7-18) mg/dL Creatinine 3.5 H (0.55-1.02) mg/dL Est Cr Clr Drug Dosing 10.04 mL/min Estimated GFR (MDRD) 12 (>60) mL/min BUN/Creatinine Ratio 15.7 (14-18) Glucose 116 H (83-115) mg/dL Calcium 9.8 (8.5-10.1) mg/dL Magnesium 2.6 H (1.8-2.4) mg/dl NT-Pro-B Natriuret Pep 6805 H (0-450) pg/mL 12/24/18 Range/Units 05:15 WBC (3.98-10.04) K/mm3 RBC (3.98-5.22) M/mm3 Hgb (11.2-15.7) gm/L Hct (34.1-44.9) % MCV (79.4-94.8) fl MCH (25.6-32.2) pg MCHC (32.2-35.5) g/dl RDW Std Deviation (36.4-46.3) fL Plt Count (182-369) K/mm3 MPV (9.4-12.3) fl Neut % (Auto) (34.0-71.1) % Lymph % (Auto) (19.3-51.7) % [place] % (Auto) (4.7-12.5) % Eos % (Auto) (0.7-5.8) Baso % (Auto) (0.1-1.2) % Neut # (Auto) (1.56-6.13) K/mm3 Lymph # (Auto) (1.18-3.74) K/mm3 [place] # (Auto) (0.24-0.36) K/mm3 Eos # (Auto) (0.04-0.36) K/mm3 Baso # (Auto) (0.01-0.08) K/mm3 PT 19.2 H (9.5-12.1) SECONDS INR 1.78 Sodium (136-145) mEq/L Potassium (3.5-5.1) mEq/L Chloride (98-107) mEq/L Carbon Dioxide (21-32) mEq/L Anion Gap (5-15) BUN (7-18) mg/dL Creatinine (0.55-1.02) mg/dL Est Cr Clr Drug Dosing mL/min Estimated GFR (MDRD) (>60) mL/min BUN/Creatinine Ratio (14-18) Glucose (83-115) mg/dL Calcium (8.5-10.1) mg/dL Magnesium (1.8-2.4) mg/dl NT-Pro-B Natriuret Pep (0-450) pg/mL [place] Results Last 24 Hours: Microbiology 12/21/18 04:30 Urine Culture - Preliminary Urine, Clean Catch Gram Negative Rods Klebsiella Oxytoca Med Orders - Current: Current Medications Acetaminophen (Tylenol) 650 mg PO Q4H PRN PRN Reason: Pain (Mild 1-3)/fever Last Admin: 12/24/18 06:05 Dose: 650 mg Hydrocodone Bitart/Acetaminophen ([place] 325-5 Mg) 1 tab PO Q4H PRN PRN Reason: Pain (moderate 4-6) Allopurinol (Zyloprim) 200 mg PO BEDTIME [facility] Last Admin: 12/23/18 21:24 Dose: 200 mg Amitriptyline HCl (Elavil) 25 mg PO BEDTIME [facility] Last Admin: 12/23/18 21:24 Dose: 25 mg Aspirin (Halfprin) 81 mg PO DAILY [facility] Last Admin: 12/24/18 08:37 Dose: 81 mg Bisacodyl (Dulcolax) 5 mg PO DAILY PRN PRN Reason: Constipation Last Admin: 12/24/18 08:37 Dose: 5 mg Calcium Carbonate/Glycine (Calcium Carbonate) 600 mg PO BID [facility] Last Admin: 12/24/18 08:36 Dose: 600 mg Cholecalciferol (Vitamin D3) 1,000 units PO DAILY [facility] Last Admin: 12/24/18 08:38 Dose: 1,000 units Clopidogrel Bisulfate (Plavix) 75 mg PO DAILY [facility] Last Admin: 12/24/18 08:37 Dose: 75 mg Diphenhydr/Magaldrate/Simeth/Lidoca (First-Mouthwash Blm Susp) 30 ml PO TID PRN PRN Reason: mouth bleeding Docusate Sodium (Colace) 100 mg PO BID PRN PRN Reason: Constipation Last Admin: 12/22/18 21:14 Dose: 100 mg Famotidine (Pepcid) 20 mg PO Q48H [facility] Ferrous Sulfate (Ferrous Sulfate) 325 mg PO DAILY [facility] Last Admin: 12/24/18 08:38 Dose: 325 mg Ceftriaxone Sodium 2 gm/ (Sodium Chloride) 100 mls @ 200 mls/hr IV Q24H [facility] Last Admin: 12/23/18 14:15 Dose: 200 mls/hr Potassium Chloride 10 meq/ (Premix) 100 mls @ 100 mls/hr IV Q1H [facility] Stop: 12/24/18 17:44 Levothyroxine Sodium (Levothyroxine) 25 mcg PO DAILY@0700 [facility] Last Admin: 12/24/18 06:05 Dose: 25 mcg Magnesium Oxide (Magnesium Oxide) 400 mg PO BID [facility] Last Admin: 12/24/18 08:36 Dose: 400 mg Metoprolol Tartrate (Lopressor) 5 mg IVPUSH Q4H PRN PRN Reason: Tachycardia Ondansetron HCl (Zofran) 4 mg IV Q6H PRN PRN Reason: Nausea/Vomiting Polyethylene Glycol (Miralax) 17 gm PO DAILY PRN PRN Reason: Constipation Potassium Chloride (Klor-Con M20) 20 meq PO DAILY [facility] Last Admin: 12/24/18 08:37 Dose: 20 meq Prednisone (Prednisone) 10 mg PO DAILY [facility] Last Admin: 12/24/18 08:36 Dose: 10 mg Saccharomyces Boulardii (Florastor) 250 mg PO BID [facility] Last Admin: 12/24/18 08:36 Dose: 250 mg Senna/Docusate Sodium (Senna Plus) 1 tab PO BID PRN PRN Reason: Constipation Sildenafil Citrate (Revatio) 10 mg PO BID [facility] Sodium Bicarbonate (Sodium Bicarbonate) 650 mg PO BID [facility] Last Admin: 12/24/18 08:36 Dose: 650 mg Warfarin Sodium (Coumadin) 2.5 mg PO SUTUWETHSA [facility] Warfarin Sodium (Coumadin) 5 mg PO MOFR [facility] Discontinued Medications Allopurinol (Zyloprim) 300 mg PO BEDTIME [facility] Last Admin: 12/22/18 21:14 Dose: 300 mg Aspirin (Ecotrin) 325 mg PO ONETIME ONE Stop: 12/21/18 11:01 Last Admin: 12/21/18 11:13 Dose: 325 mg Bumetanide (Bumex) 1 mg IVPUSH ONETIME ONE Stop: 12/21/18 04:57 Last Admin: 12/21/18 05:14 Dose: 1 mg Clopidogrel Bisulfate (Plavix) 600 mg PO ONETIME ONE Stop: 12/21/18 10:46 Last Admin: 12/21/18 11:13 Dose: 600 mg Diphtheria/Tetanus/Acell Pertussis (Adacel) 0.5 ml IM .ONCE ONE Stop: 12/21/18 04:20 Last Admin: 12/21/18 09:07 Dose: Not Given Famotidine (Pepcid) 20 mg PO DAILY [facility] Last Admin: 12/23/18 09:15 Dose: 20 mg Hydromorphone HCl (Dilaudid) 0.5 mg IVPUSH ONETIME ONE Stop: 12/21/18 02:56 Last Admin: 12/21/18 03:16 Dose: 0.5 mg Dextrose/Sodium Chloride (Dextrose 5%-Normal Saline) 1,000 mls @ 100 mls/hr IV ASDIRECTED [facility] Last Admin: 12/21/18 03:13 Dose: 100 mls/hr Magnesium Sulfate 2 gm/ Premix 50 mls @ 25 mls/hr IV ONETIME ONE Stop: 12/21/18 06:55 Last Admin: 12/21/18 05:16 Dose: 25 mls/hr Furosemide 100 mg/ Sodium (Chloride) 100 mls @ 4 mls/hr IV TITRATE [facility]; Protocol Last Admin: 12/22/18 10:24 Dose: 4 mls/hr Magnesium Sulfate 2 gm/ Premix 50 mls @ 50 mls/hr IV ONETIME ONE Stop: 12/22/18 09:15 Last Admin: 12/22/18 10:38 Dose: Not Given Magnesium Sulfate 2 gm/ Premix 50 mls @ 25 mls/hr IV ONETIME ONE Stop: 12/23/18 13:14 Last Admin: 12/23/18 11:46 Dose: 25 mls/hr Magnesium Hydroxide (Milk Of Magnesia) 30 ml PO ONETIME ONE Stop: 12/24/18 05:10 Last Admin: 12/24/18 06:05 Dose: 30 ml Magnesium Oxide (Magnesium Oxide) 400 mg PO ONETIME ONE Stop: 12/22/18 09:35 Last Admin: 12/22/18 09:42 Dose: 400 mg Non-Formulary Medication (Magnesium [Magnesium]) 500 mg PO DAILY [facility] Non-Formulary Medication (Melatonin) 3 mg PO BEDTIME PRN PRN Reason: Insomnia Ondansetron HCl (Zofran) 4 mg IVPUSH ONETIME ONE Stop: 12/21/18 02:56 Last Admin: 12/21/18 03:13 Dose: 4 mg Potassium Chloride (Klor-Con M20) 40 meq PO Q4H [facility] Stop: 12/21/18 13:16 Last Admin: 12/21/18 13:54 Dose: 40 meq Warfarin Sodium (Pharmacy To Dose - Warfarin) 1 dose .XX ASDIRECTED [facility] Warfarin Sodium (Coumadin Sliding Scale) 0 each PO ONETIME ONE Stop: 12/21/18 18:01 Last Admin: 12/21/18 19:06 Dose: Not Given Warfarin Sodium (Coumadin) 2.5 mg PO QPM [facility] Stop: 12/22/18 18:01 - Exam Quality Assessment: DVT Prophylaxis. No: Supplemental Oxygen, Urine Catheter General: Alert, Oriented, Cooperative, No Acute Distress HEENT: Pupils Equal, Pupils Reactive, EOMI, Mucous Membr. Moist/[place] Neck: Supple, Trachea Midline, No JVD Lungs: Clear to Auscultation, Normal Respiratory Effort Cardiovascular: Regular Rate, Regular Rhythm GI/Abdominal Exam: Normal Bowel Sounds, Soft, Non-Tender, No Distention, No Abnormal Bruit (Female) Exam: Deferred Back Exam: Normal Inspection, Full Range of Motion Extremities: Normal Inspection, Normal Range of Motion, Non-Tender, No Pedal Edema, Normal Capillary Refill Peripheral Pulses: 3+: Radial (L), Radial (R), Dorsalis Pedis (L), Dorsalis Pedis (R) Skin: Warm, Dry, Intact Neurological: No New Focal Deficit Psy/Mental Status: Alert, Normal Affect, Normal Mood - Problem List & Annotations (1) Acute myocardial infarction SNOMED Code(s): 06481190 Code(s): I21.9 - ACUTE MYOCARDIAL INFARCTION, UNSPECIFIED Status: Acute Priority: High Current Visit: Yes Qualifiers: Myocardial infarction type: non-ST elevation myocardial infarction Qualified Code(s): I21.4 - Non-ST elevation (NSTEMI) myocardial infarction (2) Closed head injury without concussion SNOMED Code(s): 81305615 Code(s): S09.90XA - UNSPECIFIED INJURY OF HEAD, INITIAL ENCOUNTER Status: Acute Priority: High Current Visit: Yes Qualifiers: Encounter type: initial encounter Qualified Code(s): S09.90XA - Unspecified injury of head, initial encounter (3) Contusion of scalp SNOMED Code(s): 07642768 Code(s): S00.03XA - CONTUSION OF SCALP, INITIAL ENCOUNTER Status: Acute Priority: High Current Visit: Yes Qualifiers: Encounter type: initial encounter Qualified Code(s): S00.03XA - Contusion of scalp, initial encounter (4) Hemarthrosis, right shoulder SNOMED Code(s): 4586629 Code(s): M25.011 - HEMARTHROSIS, RIGHT SHOULDER Status: Acute Priority: High Current Visit: Yes (5) Hypomagnesemia SNOMED Code(s): 985271666 Code(s): E83.42 - HYPOMAGNESEMIA Status: Acute Priority: High Current Visit: Yes (6) Skin tear of right elbow without complication SNOMED Code(s): 436811906 Code(s): S51.011A - LACERATION WITHOUT FOREIGN BODY OF RIGHT ELBOW, INIT ENCNTR Status: Acute Priority: High Current Visit: Yes Qualifiers: Encounter type: initial encounter Qualified Code(s): S51.011A - Laceration without foreign body of right elbow, initial encounter (7) Skin tear of right upper arm without complication SNOMED Code(s): 258326731 Code(s): S41.111A - LACERATION W/O FOREIGN BODY OF RIGHT UPPER ARM, INIT ENCNTR Status: Acute Priority: High Current Visit: Yes Qualifiers: Encounter type: initial encounter Qualified Code(s): S41.111A - Laceration without foreign body of right upper arm, initial encounter (8) Supratherapeutic INR SNOMED Code(s): 905651443 Code(s): R79.1 - ABNORMAL COAGULATION PROFILE Status: Acute Priority: High Current Visit: Yes (9) Urinary retention SNOMED Code(s): 561669307 Code(s): R33.9 - RETENTION OF URINE, UNSPECIFIED Status: Acute Priority: High Current Visit: Yes (10) CHF (congestive heart failure), NYHA class III SNOMED Code(s): 891366724, 055476381 Code(s): I50.9 - HEART FAILURE, UNSPECIFIED Status: Chronic Priority: High Current Visit: Yes Qualifiers: Congestive heart failure type: combined Congestive heart failure chronicity : acute on chronic Qualified Code(s): I50.43 - Acute on chronic combined systolic (congestive) and diastolic (congestive) heart failure (11) Chronic renal insufficiency, stage IV (severe) SNOMED Code(s): 87954439 Code(s): N18.4 - CHRONIC KIDNEY DISEASE, STAGE 4 (SEVERE) Status: Chronic Priority: High Current Visit: Yes Annotation/Comment:: acute on chronic renal failure Baseline creatinine 2.2-2.5 range prior (12) Hypokalemia SNOMED Code(s): 21661661 Code(s): E87.6 - HYPOKALEMIA Status: Resolved Current Visit: Yes (13) UTI, Urinary tract infectious disease SNOMED Code(s): 70494939 Code(s): N39.0 - URINARY TRACT INFECTION, SITE NOT SPECIFIED Status: Acute Priority: High Current Visit: Yes (14) COPD (chronic obstructive pulmonary disease) SNOMED Code(s): 35162654 Code(s): J44.9 - CHRONIC OBSTRUCTIVE PULMONARY DISEASE, UNSPECIFIED Status : Chronic Priority: Medium Current Visit: No (15) History of fundoplication SNOMED Code(s): 873973287 Code(s): Z98.89 - OTHER SPECIFIED POSTPROCEDURAL STATES * DO NOT USE * Status: Chronic Priority: Low Current Visit: No Onset Date: 04/05/15 (16) History of heart valve repair SNOMED Code(s): 38893537482363 Code(s): Z98.890 - OTHER SPECIFIED POSTPROCEDURAL STATES Status: Chronic Priority: Medium Current Visit: No (17) Hyperparathyroidism SNOMED Code(s): 03542767 Code(s): E21.3 - HYPERPARATHYROIDISM, UNSPECIFIED Status: Chronic Priority: Low Current Visit: No (18) Sleep apnea SNOMED Code(s): 02943127 Code(s): G47.30 - SLEEP APNEA, UNSPECIFIED Status: Chronic Priority: Low Current Visit: No Qualifiers: Sleep apnea type: unspecified type Qualified Code(s): G47.30 - Sleep apnea , unspecified - Problem List Review Problem List Initiated/Reviewed/Updated: Yes - My Orders Last 24 Hours: My Active Orders 12/24/18 13:45 Potassium Chloride [KCl 10 MEQ in Water 100 ML] 10 meq Premix Bag 1 bag IV Q1H Warfarin [Coumadin] 2.5 mg PO SUTUWETHSA 12/24/18 21:00 Sildenafil [Revatio] 10 mg PO BID 12/25/18 05:11 BASIC METABOLIC PANEL,BMP [CHEM] AM CBC WITH AUTO DIFF [HEME] AM INR,PT,PROTHROMBIN TIME [COAG] AM MAGNESIUM [CHEM] AM PRO B-TYPE NATRIUR PEPT,BNPPRO [CHEM] DAILY 12/25/18 09:00 Famotidine [Pepcid] 20 mg PO Q48H 12/25/18 13:38 Warfarin [Coumadin] 5 mg PO MOFR - Plan Plan:: I/P: Acute: Non-STEMI, Stable -Denies current chest pain but did have unwitnessed fall -Chronically on Warfarin with INR of 3.20 in ED -Hx/o A-fib, CHF, Heart valve replacement, Pacemaker, MAYCOL with refusal of CPAP, Anemia -Troponin 0.274-->0.336-->0.305-->0.248-->0.162 (discontinue) -CK-MB 5.0-->4.7-->3.8-->2.6 (discontinue) -Likely worsened by excess fluid -Suspect may have contributed to fall -ASA 325mg initially with 81mg daily after -Plavix 600mg initially with 75mg daily after -Echo obtained 12/21/18: 1. LVEF, by visual estimation, is 65 to 70% 2. Restrictive (Grade 3) pattern of LV diastolic filling 3. Severely dilated left atrium 4. Severely dilated right atrium 5. There is mild aortic valve sclerosis 6. Moderate mitral valve regurgitation 7. Trace aortic valve regurgitation 8. A porcine valve is in the tricuspid position 9. Trace tricuspid valve regurgitation 10. The gradient through the TV prothesis is not adequately assessed. The leaflets appear ting and mobile 11. Mild to moderate pulmonic valve regurgitation -12-lead in ED shows 100% paced rhythm -Patient refused transfer in ED and on floor -Pharmacy to dose Warfarin (reportedly just decreased warfarin dosing about 1 week ago) -> hold due to lip bleeding -Lipid panel: Triglycerides 99, Total cholesterol 177, LDL 92, HDL 81 Heart failure, Diastolic - clinically improving -Noted increased edema and orthopnea prior to admission -Pro-BNP 4486-->9293-->91320-->6805 -11lb weight loss so far -3200 output so far -On home metolazone and torsemide - hold for now -CXR in ED shows nothing acute -Given 1gm bumex in ED -Echo as above -Santoyo catheter placed for urinary retention in ED -> discontinue -Start lasix drip now-> continue today for total of 48 hours -> discontinue today -Caution with worsening kidney function (worse today, monitor) UTI -Reports frequent UTIs -Noted incontinence, retention, urgency -Likely contributed to fall -UA in ED shows Trace LE, 10-20 WBC, Many bacteria -Urine culture - gram negative rods -WBC 12.80 (although appears to be on chronic prednisone)-->9.97-->8.82 -Start rocephin 2gm daily -CRP 5.4 (will be skewed 2/2 injury from fall) S/P fall -Unwitnessed fall -Unsure if she lost consciousness; Unsure of how long down -CK 186 (WNL) -Swelling/bruising noted to right face, eyelid, temporal region -CT head and neck shows soft tissue swelling within right scalp, otherwise nothing acute -Multiple skin tears on right arm -Right shoulder pain and difficulty with movement 2/2 pain -Pain medications as ordered -Chest and right shoulder x-rays show nothing acute, no fractures noted -PT/OT starting tomorrow Bleeding from lip/tongue pain - improved to resolved -Reports tongue pain and bleeding from lip -Continue to hold warfarin -Bleeding has slowed to stop -Magic mouthwash for mouth pain Resolved: Hypokalemia -Acute on chronic -Potassium 3.3-->4.7 -Supplemented Supratheraputic INR -Reports warfarin was just decreased about 1 week ago 2/2 supratheraputic INR -PT 34.1-->30.3 -INR 3.20-->2.84 -Pharmacy to monitor and dose Hypomagnesemia -Acute on chronic -Continue home supplementation and add other supplementation as needed -Magnesium 1.2-->2.0-->1.7-->1.7-->2.6 -Supplemented in ED Urinary retention -Noted to have urge to urinate with minimal output in ED -Bladder scan x2 revealed significant post-void residual urine -Santoyo catheter placed - Removed -May need urology f/u after discharge Chronic: A-fib CHF S/P Heart valve replacement Chronic Warfarin use Pacemaker Thrombocytopenia Hypokalemia COPD Sleep apnea without CPAP use Pulmonary hypertension Hx/O C. Diff Chronic stage 4 renal insufficiency - Appears worse today, monitor, remove fluid restriction. Recurrent UTIs Athrosclerosis of renal artery Anemia in CKD Osteoarthritis Osteoporosis Hyperparathyroidism Chronic Puritis Plan: Admit to medical floor on telemetry Home medications as ordered Routine AM labs PT/OT starting today CM/SW for discharge planning - from Melissa Starr DVT Prophylaxis: Warfarin - Monitor INR Swallow evaluation - Nursing noted difficulty with pills: NDD4, crush pills, no straws Spiritual care consult Code status:DNR/DNI (Confirmed by ED provider and on floor); PCP: Dr. Johnson
[2018-12-24] MEDS: cefTRIAXone 2 GM in Sodium Chloride 0.9% 100 ML IV SCH (14:42)
[2018-12-24] MEDS ORDERED: Potassium Chloride 20 MEQ Tab.ER PO ONE (15:00)
[2018-12-24] MEDS: Potassium Chloride 10 MEQ in Premix Bag 1 BAG IV SCH (15:43)
[2018-12-24] MEDS ORDERED: Warfarin 2.5 MG Tab PO SCH (18:00)
[2018-12-24] MEDS: Allopurinol 100 MG Tab PO SCH (20:09)
[2018-12-24] MEDS: Amitriptyline 25 MG Tab PO SCH (20:11)
[2018-12-24] MEDS: SILDENAFIL 20 MG PO SCH (20:14)
[2018-12-25] MEDS: Levothyroxine 25 MCG Tab PO SCH (06:18)
--- NOTE | 2018-12-25 06:26 | PCM.DCSUM1 ---
Discharge Summary - Hospital Course HPI Initial Comments: Erica Cedeno is an 89 yo female who presents to our ED in the very linen controller hours via [facility] after a syncopal episode and fall with loss of consciousness at home last evening. She reports she was getting ready for bed and turn off the TV around 2100 hrs. and states she tripped and fell or had a syncopal event striking the right side of her head on an object. She's noted have a large hematoma and abrasions to the frontotemporal aspect of her head and scalp. Likely that she lost consciousness however she is unsure. She also reported and her shoulders unable to lift or move her right arm in any degree because the pain is too severe. Right elbow was multiple skin tears. Denies any pain to her ribs, back, neck, pelvis, or lower extremities. Noted multiple bruises on her hands and extensor surface of her forearms which is normal for her since she's been on Coumadin. He had aortic valve replaced 2 years ago and remains on Coumadin for this reason. She reports a week ago her Coumadin dose was decreased because her level was "too thin." She reported he was unable to get up from the floor after a fall and was able to wiggle across the room to get to the phone to call for help. Denies any headache, nausea, vomiting. TG was obtained showing 100% paced rhythm at 100 beats per minutes. Temp is 36.7 Celsius. Pulse 97. Respirations 12. Blood pressure 120/93. Pulse ox 95% . Labs are obtained: WBC is elevated at 12.80. Hemoglobin 10.4. Hematocrit 32.7. She is macrocytic. Platelet of 285,000. Neutrophils are elevated at 87% . There is 1% band neutrophils noted. PT 34.1. INR 3.2. Sodium 141. Potassium 3.3. Chloride 100. Carbon dioxide 27. Anion gap 17.3. BUN is 50. Creatinine 2.8. EGFR 16. Glucose 94. Calcium 8.9. Bilirubin 0.5. AST is 30 , ALT 23, alkaline phosphatase 67. CK-MB is 5.0. Troponin is elevated at 0.274. Protein 6.2. Albumin 3.2. Magnesium is low 1.2. Creatinine kinase is 86. ProBNP is elevated at 4486. CK-MB is repeated and is high at 4.7 and troponins gone up to 0.336. UA is obtained and is negative with the exception of trace occult blood and trace leukocyte Estrace. She started on D5 half NSN 100 mils an hour and given magnesium. She is also given 1 mg of Bumex, 0.5 mg Dilaudid for pain, and 4 mg Zofran. ED report notes she does normally use a walker. Chest x-rays obtained and interpreted by Dr. Rebollar as having previous cardiac surgery. Nothing acute is appreciated. Chest x-ray of the right shoulder is obtained showing mild degenerative change and nothing acute. CT scan of the head without contrast obtained and interpreted by Dr. Rebollar as "1. Soft tissue swelling within the right scalp. 2. Senescent changes noted above. 3. No acute intracranial abnormality is identified." CT of the cervical spine without contrast was obtained and interpreted by Dr. Rebollar as "1. Mild diffuse degenerative change. 2. No acute abnormality is seen." She is noted to be right hand dominant. While in the ED she is noted to have multiple episodes of feeling urge to void and unable to pass any urine. Bladder scan reveals significant urinary retention and Santoyo catheter is subsequently placed. She carries a history of: Cataracts, A. fib, heart failure, heart valve replacement, pacemaker, thrombocytopenia, hypokalemia, COPD, sleep apnea and is noncompliant on CPAP use, pulmonary hypertension, renal insufficiency, UTI, atherosclerosis of renal artery, anemia of chronic kidney disease, osteoporosis , osteoporosis, hyperparathyroidism, history of C. difficile infection. She is subsequently admitted to the medical floor on telemetry. Her PCP is Dr. Johnson. Code status is DNR/DNI Diagnosis: Stroke: No - Discharge Data Discharge Date: 12/25/18 (Admit date: 12/21/18) Discharge Disposition: DC/Tfer to Other 70 Condition: Good - Discharge Diagnosis/Problem(s) (1) Acute myocardial infarction SNOMED Code(s): 91808723 ICD Code: I21.9 - ACUTE MYOCARDIAL INFARCTION, UNSPECIFIED Status: Acute Priority: High Current Visit: Yes Qualifiers: Myocardial infarction type: non-ST elevation myocardial infarction Qualified Code(s): I21.4 - Non-ST elevation (NSTEMI) myocardial infarction (2) Closed head injury without concussion SNOMED Code(s): 62757120 ICD Code: S09.90XA - UNSPECIFIED INJURY OF HEAD, INITIAL ENCOUNTER Status: Acute Priority: High Current Visit: Yes Qualifiers: Encounter type: initial encounter Qualified Code(s): S09.90XA - Unspecified injury of head, initial encounter (3) Contusion of scalp SNOMED Code(s): 24896987 ICD Code: S00.03XA - CONTUSION OF SCALP, INITIAL ENCOUNTER Status: Acute Priority: High Current Visit: Yes Qualifiers: Encounter type: initial encounter Qualified Code(s): S00.03XA - Contusion of scalp, initial encounter (4) Hemarthrosis, right shoulder SNOMED Code(s): 9567369 ICD Code: M25.011 - HEMARTHROSIS, RIGHT SHOULDER Status: Acute Priority: High Current Visit: Yes (5) Hypomagnesemia SNOMED Code(s): 367557038 ICD Code: E83.42 - HYPOMAGNESEMIA Status: Resolved Priority: High Current Visit: Yes (6) Skin tear of right elbow without complication SNOMED Code(s): 880410164 ICD Code: S51.011A - LACERATION WITHOUT FOREIGN BODY OF RIGHT ELBOW, INIT ENCNTR Status: Acute Priority: High Current Visit: Yes Qualifiers: Encounter type: initial encounter Qualified Code(s): S51.011A - Laceration without foreign body of right elbow, initial encounter (7) Skin tear of right upper arm without complication SNOMED Code(s): 703344698 ICD Code: S41.111A - LACERATION W/O FOREIGN BODY OF RIGHT UPPER ARM, INIT ENCNTR Status: Acute Priority: High Current Visit: Yes Qualifiers: Encounter type: initial encounter Qualified Code(s): S41.111A - Laceration without foreign body of right upper arm, initial encounter (8) Supratherapeutic INR SNOMED Code(s): 857484016 ICD Code: R79.1 - ABNORMAL COAGULATION PROFILE Status: Resolved Priority : High Current Visit: Yes (9) Urinary retention SNOMED Code(s): 612255686 ICD Code: R33.9 - RETENTION OF URINE, UNSPECIFIED Status: Acute Priority : High Current Visit: Yes (10) CHF (congestive heart failure), NYHA class III SNOMED Code(s): 998371559, 523076005 ICD Code: I50.9 - HEART FAILURE, UNSPECIFIED Status: Chronic Priority: High Current Visit: Yes Qualifiers: Congestive heart failure type: combined Congestive heart failure chronicity : acute on chronic Qualified Code(s): I50.43 - Acute on chronic combined systolic (congestive) and diastolic (congestive) heart failure (11) Chronic renal insufficiency, stage IV (severe) SNOMED Code(s): 51765009 ICD Code: N18.4 - CHRONIC KIDNEY DISEASE, STAGE 4 (SEVERE) Status: Chronic Priority: High Current Visit: Yes Problem Details: acute on chronic renal failure Baseline creatinine 2.2-2.5 range prior (12) Hypokalemia SNOMED Code(s): 06723423 ICD Code: E87.6 - HYPOKALEMIA Status: Resolved Current Visit: Yes (13) UTI, Urinary tract infectious disease SNOMED Code(s): 30703379 ICD Code: N39.0 - URINARY TRACT INFECTION, SITE NOT SPECIFIED Status: Acute Priority: High Current Visit: Yes (14) COPD (chronic obstructive pulmonary disease) SNOMED Code(s): 25143629 ICD Code: J44.9 - CHRONIC OBSTRUCTIVE PULMONARY DISEASE, UNSPECIFIED Status : Chronic Priority: Medium Current Visit: No (15) History of fundoplication SNOMED Code(s): 322777897 ICD Code: Z98.89 - OTHER SPECIFIED POSTPROCEDURAL STATES * DO NOT USE * Status: Chronic Priority: Low Current Visit: No Onset Date: 04/05/15 (16) History of heart valve repair SNOMED Code(s): 01910336434891 ICD Code: Z98.890 - OTHER SPECIFIED POSTPROCEDURAL STATES Status: Chronic Priority: Medium Current Visit: No (17) Hyperparathyroidism SNOMED Code(s): 60167022 ICD Code: E21.3 - HYPERPARATHYROIDISM, UNSPECIFIED Status: Chronic Priority: Low Current Visit: No (18) Sleep apnea SNOMED Code(s): 29924056 ICD Code: G47.30 - SLEEP APNEA, UNSPECIFIED Status: Chronic Priority: Low Current Visit: No Qualifiers: Sleep apnea type: unspecified type Qualified Code(s): G47.30 - Sleep apnea , unspecified - Patient Summary/Data Consults: Consultations 12/21/18 08:01 Consult to Case Management/Health Administration Teacher [CONS] Routine Consult to Spiritual Care [CONS] Routine 12/22/18 08:00 Consult to Occupational Therapy [OT Evaluation and Treatment] [CONS] Routine PT Evaluation and Treatment [CONS] Routine 12/22/18 12:58 Consult to Speech Language Pathology [CAREERS COUNSELLOR Evaluation and Treatment] [CONS] Routine Labs Pending at D/C: None Recommended Follow-up Testing/Procedures: Follow-up with PCP within 7-10 days of discharge. Re-check of INR ordered for 12/28/18 with results to patients PCP - Dr. Johnson Outpatient PT for right shoulder pain. Hospital Course: I/P: Acute: Non-STEMI, Stable -Denies current chest pain but did have unwitnessed fall -Chronically on Warfarin with INR of 3.20 in ED -Hx/o A-fib, CHF, Heart valve replacement, Pacemaker, MAYCOL with refusal of CPAP, Anemia -Troponin 0.274-->0.336-->0.305-->0.248-->0.162 (discontinue) -CK-MB 5.0-->4.7-->3.8-->2.6 (discontinue) -Likely worsened by excess fluid -Suspect may have contributed to fall -ASA 325mg initially with 81mg daily after -Plavix 600mg initially with 75mg daily after -Echo obtained 12/21/18: 1. LVEF, by visual estimation, is 65 to 70% 2. Restrictive (Grade 3) pattern of LV diastolic filling 3. Severely dilated left atrium 4. Severely dilated right atrium 5. There is mild aortic valve sclerosis 6. Moderate mitral valve regurgitation 7. Trace aortic valve regurgitation 8. A porcine valve is in the tricuspid position 9. Trace tricuspid valve regurgitation 10. The gradient through the TV prothesis is not adequately assessed. The leaflets appear ting and mobile 11. Mild to moderate pulmonic valve regurgitation -12-lead in ED shows 100% paced rhythm -Patient refused transfer in ED and on floor -Pharmacy to dose Warfarin (reportedly just decreased warfarin dosing about 1 week ago) -> hold due to lip bleeding -Lipid panel: Triglycerides 99, Total cholesterol 177, LDL 92, HDL 81 Heart failure, Diastolic - clinically improving -Noted increased edema and orthopnea prior to admission -Pro-BNP 4486-->9293-->73396-->6805 -11lb weight loss so far -3200 output so far -On home metolazone and torsemide - hold for now -CXR in ED shows nothing acute -Given 1gm bumex in ED -Echo as above -Santoyo catheter placed for urinary retention in ED -> discontinue -Start lasix drip now-> continue today for total of 48 hours -> discontinue today -Caution with worsening kidney function (worse today, monitor) UTI -Reports frequent UTIs -Noted incontinence, retention, urgency -Likely contributed to fall -UA in ED shows Trace LE, 10-20 WBC, Many bacteria -Urine culture - gram negative rods -WBC 12.80 (although appears to be on chronic prednisone)-->9.97-->8.82 -Start rocephin 2gm daily -CRP 5.4 (will be skewed 2/2 injury from fall) S/P fall -Unwitnessed fall -Unsure if she lost consciousness; Unsure of how long down -CK 186 (WNL) -Swelling/bruising noted to right face, eyelid, temporal region -CT head and neck shows soft tissue swelling within right scalp, otherwise nothing acute -Multiple skin tears on right arm -Right shoulder pain and difficulty with movement 2/2 pain -Pain medications as ordered -Chest and right shoulder x-rays show nothing acute, no fractures noted -PT/OT starting tomorrow Resolved: Hypokalemia -Acute on chronic -Potassium 3.3-->4.7 -Supplemented Supratheraputic INR -Reports warfarin was just decreased about 1 week ago 2/2 supratheraputic INR -PT 34.1-->30.3 -INR 3.20-->2.84 -Pharmacy to monitor and dose Hypomagnesemia -Acute on chronic -Continue home supplementation and add other supplementation as needed -Magnesium 1.2-->2.0-->1.7-->1.7-->2.6 -Supplemented in ED Urinary retention -Noted to have urge to urinate with minimal output in ED -Bladder scan x2 revealed significant post-void residual urine -Santoyo catheter placed - Removed -May need urology f/u after discharge Bleeding from lip/tongue pain - improved to resolved -Reports tongue pain and bleeding from lip -Continue to hold warfarin -Bleeding has slowed to stop -Magic mouthwash for mouth pain Chronic: A-fib CHF S/P Heart valve replacement Chronic Warfarin use Pacemaker Thrombocytopenia Hypokalemia COPD Sleep apnea without CPAP use Pulmonary hypertension Hx/O C. Diff Chronic stage 4 renal insufficiency - Appears worse today, monitor, remove fluid restriction. Recurrent UTIs Athrosclerosis of renal artery Anemia in CKD Osteoarthritis Osteoporosis Hyperparathyroidism Chronic Puritis Plan: Admit to medical floor on telemetry Home medications as ordered Routine AM labs PT/OT starting today CM/SW for discharge planning - from [facility] DVT Prophylaxis: Warfarin - Monitor INR Swallow evaluation - Nursing noted difficulty with pills: NDD4, crush pills, no straws Spiritual care consult Code status:DNR/DNI (Confirmed by ED provider and on floor); PCP: Dr. Johnson Overall Erica did well. She came in after she fell at [facility]. It is unknown why she fell and she is not sure if she lost consciousness. She was noted to have edema and was given bumex. She was also noted to have an elevated troponin and positive UA with symptoms. She was admitted to the floor and started on a lasix drip with excellent results. Her creatinine did remain stable for the first few day however then it increased significantly 2/2 the lasix drip. This drip was subsequently stopped. She was on a sodium and fluid restriction and we did lift the fluid restriction. Her creatinine did then begin to trend down. She continued to be near or below her prior baseline. Her troponin continued to trend upward. She has a fully paced rhythm and because of this we could not appreciate any ST changes. She was started on ASA, plavix, and her home warfarin was continued. Interestingly her INR was actually high on admission and warfarin was held. The INR goal was 2. Warfarin was resumed and the patient was noted to have lip bleeding and some mouth sores which are suspected to be 2/2 her fall. Warfarin was again held and resumed with no further bleeding. Her electrolytes were monitored and supplemented in addition to her usual home supplementation. Magnesium was elevated 2/2 oversupplementation so she was instructed to hold her next days magnesium and resume on 12/27/18. Santoyo was placed 2/2 urinary retention and need for I&O monitoring during lasix drip. This was removed and she continued to void. Urine culture continued to grow klebsiella, sensitive to rocephin, along with another gram negative bulmaro that our laboratory has been unable to isolate. She will be discharged on 3 more days worth of Keflex 500mg Q8H. She will also be discharged on 75mg Plavix daily. Home warfarin was resumed and an INR is ordered for 12/28/18 with results to the patients PCP. She did see our building carpenter helper who recommended ensure supplementation, although the patient ultimately refused because of taste. She was listed as a full code on admission but after discussion in the ED and on the floor she decided she would like to be DNR/DNI and this was updated in her chart. She was also discharged on PRN magic mouthwash for mouth sores. She returned to [facility] today with outpatient PT for right shoulder pain 12/12 to her fall. - Patient Instructions Diet: Heart Healthy Diet, Low Sodium Activity: As Tolerated Driving: Do Not Drive Showering/Bathing: May Shower Notify Provider of: Fever, Increased Pain, Nausea and/or Vomiting - Discharge Plan *PRESCRIPTION DRUG MONITORING PROGRAM REVIEWED*: No *COPY OF PRESCRIPTION DRUG MONITORING REPORT IN PATIENT TEMO: No Prescriptions/Med Rec: Cephalexin [Keflex] 500 mg PO Q8H #7 capsule Clopidogrel [Plavix] 75 mg PO DAILY #20 tablet Diphenhyd/Lidocaine/MagAl/Ashlyn [First-Mouthwash BLM Susp] 30 ml MM TID PRN #1 bottle PRN Reason: Mouth bleeding/pain Home Medications: Home Meds Omeprazole [Prilosec] 20 mg PO DAILY 04/25/14 [History] Acetaminophen [Tylenol] 650 mg PO Q6HR PRN 07/18/16 [History] Ferrous Sulfate [Iron] 325 mg PO DAILY 07/18/16 [History] Levothyroxine 25 mcg PO DAILY 07/18/16 [History] Torsemide 20 mg PO DAILY 07/18/16 [History] Allopurinol [Zyloprim] 300 mg PO BEDTIME 10/22/17 [History] Cholecalciferol (Vitamin D3) [Vitamin D3] 1,000 unit PO DAILY 10/22/17 [History] Lactobacillus Acidophilus [Acidophilus Lactobacillus] 1 cap PO BID 10/22/17 [ History] Loperamide HCl [Imodium A-D] 4 mg PO DAILY PRN 10/22/17 [History] Magnesium 500 mg PO DAILY 10/22/17 [History] Melatonin 3 mg PO BEDTIME PRN 10/22/17 [History] Potassium Chloride 20 meq PO DAILY 10/22/17 [History] Sildenafil [Revatio] 10 mg PO BID 10/22/17 [History] Sodium Bicarbonate 650 mg PO BID 10/22/17 [History] Warfarin [Coumadin] 2.5 mg PO SUTUWETHSA 10/22/17 [History] Warfarin [Coumadin] 5 mg PO MOFR 10/22/17 [History] metOLazone [Metolazone] 5 mg PO MO 10/22/17 [History] predniSONE [Prednisone] 10 mg PO DAILY 10/22/17 [History] Amitriptyline [Elavil] 25 mg PO BEDTIME 12/21/18 [History] Calcium Acetate 667 mg PO BID 12/21/18 [History] Promethazine HCl/Codeine [Prometh-Codein 6.25-10 mg/5 ml] 5 ml PO Q6H PRN [History] Cephalexin [Keflex] 500 mg PO Q8H #7 capsule 12/25/18 [Rx] Clopidogrel [Plavix] 75 mg PO DAILY #20 tablet 12/25/18 [Rx] Diphenhyd/Lidocaine/MagAl/Ashlyn [First-Mouthwash BLM Susp] 30 ml MM TID PRN #1 bottle 12/25/18 [Rx] Magnesium 500 mg PO BEDTIME #0 12/25/18 [Rx] Oxygen Therapy Mode: Room Air Patient Handouts: Fall Prevention in the Home, [id number], Urinary Tract Infection, Adult, Heart Attack, [id number] Referrals: Benito Johnson MD [Primary Care Provider] - 01/05/19 10:15 am (Please follow-up with your primary care doctor on January 05 at 1015am. ) - Discharge Summary/Plan Comment DC Time >30 min.: Yes (45 Mins ) - General Info Date of Service: 12/25/18 Admission Dx/Problem (Free Text: Admission Diagnosis/Problem Admission Diagnosis/Problem Fall at home Subjective Update: In to see Erica. She is lying in bed taking a nap. She states she has been feeling pretty good. Her warfarin was continued yesterday with no more bleeding. No patient or nursing concerns. She will be discharged today back to [facility]. Functional Status: Reports: Pain Controlled, Tolerating Diet, Ambulating, Urinating. Denies: New Symptoms - Review of Systems General: Reports: No Symptoms. Denies: Fever, Weakness, Fatigue, Malaise, Chills HEENT: Reports: No Symptoms. Denies: Headaches, Sore Throat Pulmonary: Reports: No Symptoms. Denies: Shortness of Breath, Cough, Sputum, Wheezing Cardiovascular: Reports: No Symptoms. Denies: Chest Pain, Palpitations, Dyspnea on Exertion, Edema, Lightheadedness Gastrointestinal: Reports: No Symptoms. Denies: Abdominal Pain, Constipation, Diarrhea, Nausea, Vomiting Genitourinary: Reports: No Symptoms. Denies: Pain Musculoskeletal: Reports: Shoulder Pain (right shoulder pain 2/2 fall ) Skin: Reports: No Symptoms Neurological: Reports: No Symptoms. Denies: Confusion, Headache, Numbness, Tingling, Trouble Speaking, Difficulty Walking, Gait Disturbance Psychiatric: Reports: No Symptoms - Patient Data Vitals - Most Recent: Last Vital Signs Temp 98.2 F 12/24/18 15:44 Pulse 88 12/24/18 20:09 Resp 18 12/24/18 20:09 BP 125/90 12/24/18 20:09 Pulse Ox 95 12/24/18 20:09 Weight - Most Recent: 125 lb I&O - Last 24 hours: Intake & Output 12/24/18 12/24/18 12/25/18 14:59 22:59 06:59 Intake Total 0 800 Output Total 4 Balance 0 796 Lab Results - Last 24 hrs: Laboratory Results - last 24 hr 12/24/18 12/24/18 12/24/18 Range/Units 05:15 05:15 05:15 PT 19.2 H (9.5-12.1) SECONDS INR 1.78 Sodium 139 (136-145) mEq/L Potassium 3.4 L (3.5-5.1) mEq/L Chloride 94 L (98-107) mEq/L Carbon Dioxide 36 H (21-32) mEq/L Anion Gap 12.4 (5-15) BUN 55 H (7-18) mg/dL Creatinine 3.5 H (0.55-1.02) mg/dL Est Cr Clr Drug Dosing 10.04 mL/min Estimated GFR (MDRD) 12 (>60) mL/min BUN/Creatinine Ratio 15.7 (14-18) Glucose 116 H (83-115) mg/dL Calcium 9.8 (8.5-10.1) mg/dL Magnesium 2.6 H (1.8-2.4) mg/dl Troponin I (0.00-0.056) ng/mL NT-Pro-B Natriuret Pep 6805 H (0-450) pg/mL 12/24/18 Range/Units 14:06 PT (9.5-12.1) SECONDS INR Sodium (136-145) mEq/L Potassium (3.5-5.1) mEq/L Chloride (98-107) mEq/L Carbon Dioxide (21-32) mEq/L Anion Gap (5-15) BUN (7-18) mg/dL Creatinine (0.55-1.02) mg/dL Est Cr Clr Drug Dosing mL/min Estimated GFR (MDRD) (>60) mL/min BUN/Creatinine Ratio (14-18) Glucose (83-115) mg/dL Calcium (8.5-10.1) mg/dL Magnesium (1.8-2.4) mg/dl Troponin I 0.123 H* (0.00-0.056) ng/mL NT-Pro-B Natriuret Pep (0-450) pg/mL CALIN Results - Last 24 hrs: Microbiology 12/21/18 04:30 Urine Culture - Preliminary Urine, Clean Catch Gram Negative Rods Klebsiella Oxytoca Med Orders - Current: Current Medications Acetaminophen (Tylenol) 650 mg PO Q4H PRN PRN Reason: Pain (Mild 1-3)/fever Last Admin: 12/24/18 20:17 Dose: 650 mg Hydrocodone Bitart/Acetaminophen (Rudyard 325-5 Mg) 1 tab PO Q4H PRN PRN Reason: Pain (moderate 4-6) Allopurinol (Zyloprim) 200 mg PO BEDTIME [facility] Last Admin: 12/24/18 20:09 Dose: 200 mg Amitriptyline HCl (Elavil) 25 mg PO BEDTIME [facility] Last Admin: 12/24/18 20:11 Dose: 25 mg Aspirin (Halfprin) 81 mg PO DAILY [facility] Last Admin: 12/24/18 08:37 Dose: 81 mg Bisacodyl (Dulcolax) 5 mg PO DAILY PRN PRN Reason: Constipation Last Admin: 12/24/18 08:37 Dose: 5 mg Calcium Carbonate/Glycine (Calcium Carbonate) 600 mg PO BID [facility] Last Admin: 12/24/18 20:11 Dose: 600 mg Cholecalciferol (Vitamin D3) 1,000 units PO DAILY [facility] Last Admin: 12/24/18 08:38 Dose: 1,000 units Clopidogrel Bisulfate (Plavix) 75 mg PO DAILY [facility] Last Admin: 12/24/18 08:37 Dose: 75 mg Diphenhydr/Magaldrate/Simeth/Lidoca (First-Mouthwash Blm Susp) 30 ml PO TID PRN PRN Reason: mouth bleeding Docusate Sodium (Colace) 100 mg PO BID PRN PRN Reason: Constipation Last Admin: 12/22/18 21:14 Dose: 100 mg Famotidine (Pepcid) 20 mg PO Q48H [facility] Ferrous Sulfate (Ferrous Sulfate) 325 mg PO DAILY [facility] Last Admin: 12/24/18 08:38 Dose: 325 mg Ceftriaxone Sodium 2 gm/ (Sodium Chloride) 100 mls @ 200 mls/hr IV Q24H [facility] Last Admin: 12/24/18 14:42 Dose: 200 mls/hr Levothyroxine Sodium (Levothyroxine) 25 mcg PO DAILY@0700 [facility] Last Admin: 12/25/18 06:18 Dose: 25 mcg Magnesium Oxide (Magnesium Oxide) 400 mg PO BID [facility] Last Admin: 12/24/18 20:09 Dose: 400 mg Metoprolol Tartrate (Lopressor) 5 mg IVPUSH Q4H PRN PRN Reason: Tachycardia Ondansetron HCl (Zofran) 4 mg IV Q6H PRN PRN Reason: Nausea/Vomiting Polyethylene Glycol (Miralax) 17 gm PO DAILY PRN PRN Reason: Constipation Potassium Chloride (Klor-Con M20) 20 meq PO DAILY [facility] Last Admin: 12/24/18 08:37 Dose: 20 meq Prednisone (Prednisone) 10 mg PO DAILY [facility] Last Admin: 12/24/18 08:36 Dose: 10 mg Saccharomyces Boulardii (Florastor) 250 mg PO BID [facility] Last Admin: 12/24/18 20:08 Dose: 250 mg Senna/Docusate Sodium (Senna Plus) 1 tab PO BID PRN PRN Reason: Constipation Sildenafil Citrate (Revatio) 10 mg PO BID [facility] Last Admin: 12/24/18 20:14 Dose: Not Given Sodium Bicarbonate (Sodium Bicarbonate) 650 mg PO BID [facility] Last Admin: 12/24/18 20:09 Dose: 650 mg Warfarin Sodium (Coumadin) 2.5 mg PO SUTUWETHSA [facility] Last Admin: 12/24/18 18:41 Dose: 2.5 mg Warfarin Sodium (Coumadin) 5 mg PO MOFR [facility] Discontinued Medications Allopurinol (Zyloprim) 300 mg PO BEDTIME [facility] Last Admin: 12/22/18 21:14 Dose: 300 mg Aspirin (Ecotrin) 325 mg PO ONETIME ONE Stop: 12/21/18 11:01 Last Admin: 12/21/18 11:13 Dose: 325 mg Bumetanide (Bumex) 1 mg IVPUSH ONETIME ONE Stop: 12/21/18 04:57 Last Admin: 12/21/18 05:14 Dose: 1 mg Clopidogrel Bisulfate (Plavix) 600 mg PO ONETIME ONE Stop: 12/21/18 10:46 Last Admin: 12/21/18 11:13 Dose: 600 mg Diphtheria/Tetanus/Acell Pertussis (Adacel) 0.5 ml IM .ONCE ONE Stop: 12/21/18 04:20 Last Admin: 12/21/18 09:07 Dose: Not Given Famotidine (Pepcid) 20 mg PO DAILY [facility] Last Admin: 12/23/18 09:15 Dose: 20 mg Hydromorphone HCl (Dilaudid) 0.5 mg IVPUSH ONETIME ONE Stop: 12/21/18 02:56 Last Admin: 12/21/18 03:16 Dose: 0.5 mg Dextrose/Sodium Chloride (Dextrose 5%-Normal Saline) 1,000 mls @ 100 mls/hr IV ASDIRECTED [facility] Last Admin: 12/21/18 03:13 Dose: 100 mls/hr Magnesium Sulfate 2 gm/ Premix 50 mls @ 25 mls/hr IV ONETIME ONE Stop: 12/21/18 06:55 Last Admin: 12/21/18 05:16 Dose: 25 mls/hr Furosemide 100 mg/ Sodium (Chloride) 100 mls @ 4 mls/hr IV TITRATE [facility]; Protocol Last Admin: 12/22/18 10:24 Dose: 4 mls/hr Magnesium Sulfate 2 gm/ Premix 50 mls @ 50 mls/hr IV ONETIME ONE Stop: 12/22/18 09:15 Last Admin: 12/22/18 10:38 Dose: Not Given Magnesium Sulfate 2 gm/ Premix 50 mls @ 25 mls/hr IV ONETIME ONE Stop: 12/23/18 13:14 Last Admin: 12/23/18 11:46 Dose: 25 mls/hr Potassium Chloride 10 meq/ (Premix) 100 mls @ 100 mls/hr IV Q1H [facility] Stop: 12/24/18 17:44 Last Admin: 12/24/18 15:43 Dose: Not Given Magnesium Hydroxide (Milk Of Magnesia) 30 ml PO ONETIME ONE Stop: 12/24/18 05:10 Last Admin: 12/24/18 06:05 Dose: 30 ml Magnesium Oxide (Magnesium Oxide) 400 mg PO ONETIME ONE Stop: 12/22/18 09:35 Last Admin: 12/22/18 09:42 Dose: 400 mg Non-Formulary Medication (Magnesium [Magnesium]) 500 mg PO DAILY [facility] Non-Formulary Medication (Melatonin) 3 mg PO BEDTIME PRN PRN Reason: Insomnia Ondansetron HCl (Zofran) 4 mg IVPUSH ONETIME ONE Stop: 12/21/18 02:56 Last Admin: 12/21/18 03:13 Dose: 4 mg Potassium Chloride (Klor-Con M20) 40 meq PO Q4H [facility] Stop: 12/21/18 13:16 Last Admin: 12/21/18 13:54 Dose: 40 meq Potassium Chloride (Klor-Con M20) 40 meq PO ONETIME ONE Stop: 12/24/18 15:01 Last Admin: 12/24/18 16:40 Dose: 40 meq Warfarin Sodium (Pharmacy To Dose - Warfarin) 1 dose .XX ASDIRECTED [facility] Warfarin Sodium (Coumadin Sliding Scale) 0 each PO ONETIME ONE Stop: 12/21/18 18:01 Last Admin: 12/21/18 19:06 Dose: Not Given Warfarin Sodium (Coumadin) 2.5 mg PO QPM [facility] Stop: 12/22/18 18:01 - Exam Quality Assessment: Reports: DVT Prophylaxis General: Reports: Alert, Oriented, Cooperative, No Acute Distress HEENT: Reports: Pupils Equal, Pupils Reactive, EOMI, Mucous Membr. Moist/[place] Neck: Reports: Supple, Trachea Midline, No JVD Lungs: Reports: Clear to Auscultation, Normal Respiratory Effort Cardiovascular: Reports: Regular Rate, Regular Rhythm GI/Abdominal Exam: Normal Bowel Sounds, Soft, Non-Tender, No Distention, No Abnormal Bruit (Female) Exam: Deferred Rectal (Female) Exam: Deferred Back Exam: Reports: Normal Inspection, Full Range of Motion Extremities: Normal Inspection, Non-Tender, No Pedal Edema, Normal Capillary Refill, Limited Range of Motion (right arm 2/2 pain ) Skin: Reports: Warm, Dry, Intact, Ecchymosis (scattered ) Neurological: Reports: No New Focal Deficit Psy/Mental Status: Reports: Alert, Normal Affect, Normal Mood
[2018-12-25] MEDS ORDERED: Famotidine 20 MG Tab PO SCH (09:00)
[2018-12-25] MEDS: Calcium Carbonate 600 MG Tab PO SCH (09:15)
[2018-12-25] MEDS: Potassium Chloride 20 MEQ Tab.ER PO SCH (09:17)
[2018-12-25] MEDS: Saccharomyces Boulardii (Probiotic) 250 MG Cap PO SCH (09:18)
[2018-12-25] MEDS: Sodium Bicarbonate 650 MG Tab PO SCH (09:19)
[2018-12-25] MEDS: Ferrous Sulfate 325 MG Tab PO SCH (09:20)
[2018-12-25] MEDS: Acetaminophen 325 MG Tab PO PRN (09:20)
[2018-12-25] MEDS: Aspirin 81 MG Tab.EC PO SCH (09:22)
[2018-12-25] MEDS: Cholecalciferol (Vitamin D3) 1,000 Unit Tab PO SCH (09:23)
[2018-12-25] MEDS: predniSONE 10 MG Tab PO SCH (09:23)
[2018-12-25] MEDS: Clopidogrel 75 MG Tab PO SCH (09:24)
[2018-12-25] MEDS: SILDENAFIL 20 MG PO SCH (09:26)
[2018-12-25] MEDS: cefTRIAXone 2 GM in Sodium Chloride 0.9% 100 ML IV SCH (13:39)
[2018-12-25 14:53] VITALS: BP 135/76
[2018-12-25] MEDS ORDERED: Warfarin 5 MG Tab PO SCH (18:00)
[2018-12-28] MEDS ORDERED: Magnesium Oxide 400 MG Tab PO SCH (09:00)
== END 2018-12-25 17:01 | disposition other institution (70) | DRG 280 ==
LOC: JD.ED 02:38 → JD.MS 06:55
PROVIDERS: ADMIT Internal Medicine Cardiovascular Disease; ATTEND Internal Medicine Cardiovascular Disease
DX: I21.9 Acute myocardial infarction, unspecified (principal); I21.4 Non-ST elevation (NSTEMI) myocardial infarction; I50.33 Acute on chronic diastolic (congestive) heart failure; M25.011 Hemarthrosis, right shoulder; N18.4 Chronic kidney disease, stage 4 (severe); N39.0 Urinary tract infection, site not specified; I50.43 Acute on chronic combined systolic (congestive) and diastolic (congestive) heart failure; S00.03XA Contusion of scalp, initial encounter; S41.111A Laceration without foreign body of right upper arm, initial encounter; R33.9 Retention of urine, unspecified; T45.515A Adverse effect of anticoagulants, initial encounter; G47.30 Sleep apnea, unspecified; S51.011A Laceration without foreign body of right elbow, initial encounter; W01.10XA Fall on same level from slipping, tripping and stumbling with subsequent striking against unspecified object, initial encounter; I48.91 Unspecified atrial fibrillation; J44.9 Chronic obstructive pulmonary disease, unspecified; I27.20 Pulmonary hypertension, unspecified; I70.1 Atherosclerosis of renal artery; D63.1 Anemia in chronic kidney disease; B96.1 Klebsiella pneumoniae [K. pneumoniae] as the cause of diseases classified elsewhere; N39.46 Mixed incontinence; K13.79 Other lesions of oral mucosa; M19.90 Unspecified osteoarthritis, unspecified site; M81.0 Age-related osteoporosis without current pathological fracture; E21.3 Hyperparathyroidism, unspecified; E87.6 Hypokalemia; G47.33 Obstructive sleep apnea (adult) (pediatric); L29.9 Pruritus, unspecified; K59.00 Constipation, unspecified; N39.43 Post-void dribbling; M54.9 Dorsalgia, unspecified; R79.1 Abnormal coagulation profile; E83.42 Hypomagnesemia; Z95.2 Presence of prosthetic heart valve; D69.6 Thrombocytopenia, unspecified; R55 Syncope and collapse; R53.1 Weakness; M25.511 Pain in right shoulder; R53.81 Other malaise; R06.02 Shortness of breath; R05 Cough; H54.7 Unspecified visual loss; Z95.0 Presence of cardiac pacemaker; Z87.440 Personal history of urinary (tract) infections; Z88.2 Allergy status to sulfonamides; Z79.899 Other long term (current) drug therapy; Z79.01 Long term (current) use of anticoagulants; Z90.710 Acquired absence of both cervix and uterus; Z66 Do not resuscitate; Z91.19 Patient's noncompliance with other medical treatment and regimen; Z95.3 Presence of xenogenic heart valve
CPT/HCPCS: 36415; 51702; 51798; 70450; 71045; 72125; 73030; 80053; 81001; 82550; 82553 ×2; 83735; 83880; 84484 ×2; 85007; 85027; 85610; 87086; 87186 ×2; 90471; 93005; 96361; 96365; 96366; 96375; 99285; J1170; J2405; J3475; J3490; J7042; 80048; 80061; 85025; 86140; 87088; 87641; 92610-GN; 93010; 93306; 97110-GO; 97110-GP; 97116-GP; 97162-GP; 97165-GO; 97530-GO; 97530-GP; A9270-GY; J0696; J1940; J7030

== ENCOUNTER 2020-09-29 19:25 | Emergency (ER) | payer MEDICARE, BC ==
--- NOTE | 2020-09-29 20:17 | EDM.PDOC ---
ED HPI GENERAL MEDICAL PROBLEM - General Chief Complaint: General Stated Complaint: [facility] Time Seen by Provider: 09/29/20 19:31 Source of Information: Reports: Patient History Limitations: Reports: No Limitations - History of Present Illness INITIAL COMMENTS - FREE TEXT/NARRATIVE: This is an 89-year-old female from [facility]. She was diagnosed with Covid on September 26. She is sent to the ER because the prison staff states that she is short of breath or at least is complaining of shortness of breath. When the ambulance arrived to her room her pulse ox was 96% on room air. They brought her to the ER for evaluation. She does have a history of COPD renal insufficiency and congestive heart failure. When I go into the room the patient does not appear to be short of breath. She tells me that she feels fine and that she is just cold. When I look on the monitor her pulse ox is 98% on room air. She is not certain why she came to the ER or was sent to the ER. She denies any abdominal pain no nausea no vomiting no diarrhea no significant congestion no headache no sore throat no significant cough. Temperature was 98.0 in the ER. - Related Data Allergies Allergy/AdvReac Type Severity Reaction Status Date / Time Sulfa (Sulfonamide AdvReac Stomach Verified 09/29/20 19:32 Antibiotics) Ache Home Meds: Home Meds Omeprazole [Prilosec] 20 mg PO DAILY 04/25/14 [History] Acetaminophen [Tylenol] 650 mg PO Q6HR PRN 07/18/16 [History] Ferrous Sulfate [Iron] 650 mg PO DAILY 07/18/16 [History] Levothyroxine 25 mcg PO DAILY 07/18/16 [History] Torsemide 20 mg PO BID 07/18/16 [History] Allopurinol [Zyloprim] 300 mg PO BEDTIME 10/22/17 [History] Loperamide HCl [Imodium A-D] 4 mg PO DAILY PRN 10/22/17 [History] Magnesium 500 mg PO BEDTIME 10/22/17 [History] Melatonin 3 mg PO BEDTIME PRN 10/22/17 [History] Potassium Chloride 20 meq PO DAILY 10/22/17 [History] Sildenafil [Revatio] 10 mg PO BID 10/22/17 [History] Sodium Bicarbonate 325 mg PO BID 10/22/17 [History] metOLazone [Metolazone] 5 mg PO MO 10/22/17 [History] Calcium Acetate 667 mg PO 12/21/18 [History] Promethazine HCl/Codeine [Prometh-Codein 6.25-10 mg/5 ml] 10 ml PO Q6H PRN 12/21/18 [History] Diphenhyd/Lidocaine/MagAl/[place] [First-Mouthwash BLM Susp] 30 ml MM TID PRN #1 bottle 12/25/18 [Rx] C-Estradiol 0.1 ml TOP DAILY PRN 09/19/19 [History] Cholecalciferol (Vitamin D3) [Vitamin D3] 1,000 unit PO DAILY 09/19/19 [History] L. Acidophilus/Pectin, [place] [Acidophilus Capsule] 1 tab PO BID 09/19/19 [History] predniSONE [Prednisone] 10 mg PO DAILY 09/19/19 [History] dexAMETHasone [Decadron] 8 mg PO BID #6 tablet 09/29/20 [Rx] Past Medical History HEENT History: Reports: Cataract, Impaired Vision Other HEENT History: Wears glasses Cardiovascular History: Reports: Afib, Heart Failure, Heart Valve Replacement, Pacemaker, Other (See Below) Other Cardiovascular History: thromboctyopenia, hypokalemia. Respiratory History: Reports: COPD, Sleep Apnea, Other (See Below) Other Respiratory History: Patient refuses to wear CPAP at night- states she could not sleep with it on Gastrointestinal History: Reports: Other (See Below) Other Gastrointestinal History: enterocolitis due to C-diff. Genitourinary History: Reports: Chronic Renal Insuffiency, Other (See Below) Other Genitourinary History: athrosclerosis of renal artery, anemia in chronic kidney disease. 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: Musculoskeletal History: Reports: Osteoarthritis, Osteoporosis Neurological History: Reports: None Psychiatric History: Reports: None Endocrine/Metabolic History: Reports: Hyperparathyroidism Hematologic History: Reports: Anemia Dermatologic History: Reports: Other (See Below) Other Dermatologic History: chronic pruritus - Infectious Disease History Infectious Disease History: Reports: C-Difficile, Chicken Pox, Measles, Mumps, Novel Coronavirus - Past Surgical History HEENT Surgical History: Reports: Cataract Surgery, Other (See Below) Other HEENT Surgeries/Procedures: four front teeth implants. Cardiovascular Surgical History: Reports: Valve Replacement Other Cardiovascular Surgeries/Procedures: Pacemaker placement for rapid HR Respiratory Surgical History: Reports: None GI Surgical History: Reports: Hernia Repair/Other Other GI Surgeries/Procedures: patient reports hernia surgery hx Female Surgical History: Reports: Hysterectomy Other Female Surgeries/Procedures: 1975 Endocrine Surgical History: Reports: None Neurological Surgical History: Reports: Spinal Fusion Musculoskeletal Surgical History: Reports: None Other Musculoskeletal Surgeries/Procedures:: Patient reports previous back surgery Social & Family History - Family History Family Medical History: No Pertinent Family History Cardiac: Reports: Hypertension, SD - Tobacco Use Tobacco Use Status *Q: Never Tobacco User - Caffeine Use Caffeine Use: Reports: Coffee, Tea - Living Situation & Occupation Living situation: Reports: Extended Care Facility Occupation: Retired ED ROS GENERAL - Review of Systems Review Of Systems: See Below Constitutional: Reports: Fatigue. Denies: Fever, Chills HEENT: Reports: Hearing Loss. Denies: Rhinitis, Sinus Problem, Throat Pain Respiratory: Denies: Shortness of Breath, Cough Cardiovascular: Denies: Chest Pain Endocrine: Reports: No Symptoms GI/Abdominal: Denies: Abdominal Pain, Diarrhea, Nausea, Vomiting : Reports: No Symptoms Musculoskeletal: Reports: Other (Symptoms presently) Skin: Reports: Other (Have multiple areas it looks like she is picking at her skin and she has bruising and ecchymosis on her chest and her arms) Neurological: Reports: No Symptoms Psychiatric: Reports: No Symptoms Hematologic/Lymphatic: Reports: Anemia, Easy Bruising ED EXAM, GENERAL - Physical Exam Exam: See Below Exam Limited By: No Limitations General Appearance: Alert, WD/WN, No Apparent Distress Eye Exam: Bilateral Eye: Normal Inspection Ears: Normal External Exam Nose: Normal Inspection Throat/Mouth: Normal Voice, No Airway Compromise, Other (Dukas membranes are tacky) Head: Normocephalic Neck: Supple Respiratory/Chest: No Respiratory Distress, Lungs Clear, Normal Breath Sounds, Other (Her chest has small multiple quarter size ecchymosis where I believe she has been picking at her skin. Pacemaker noted.) Cardiovascular: Regular Rate, Rhythm, No Murmur GI/Abdominal: Soft, Non-Tender Back Exam: Decreased Range of Motion Extremities: Normal Inspection, Normal Range of Motion, Other (So has ecchymosis on her forearms and arms little spots.). No: Pedal Edema Neurological: Alert, Oriented, Other (Not oriented to time but she does know she is in the ER and is not sure why she was sent here) Psychiatric: Normal Affect, Normal Mood Skin Exam: Warm, Dry #1 Interpretation EKG Date: 09/29/20 Time: 21:25 EKG Interpretation Comments: EKG shows a ventricular paced rhythm rate of 99. I cannot really tell any acute ST or T wave changes or ischemic changes. Course - Vital Signs Last Recorded V/S: Last Vital Signs Temp 98.0 F 09/29/20 19:29 Pulse 96 09/29/20 19:29 Resp 18 09/29/20 19:29 BP 134/78 09/29/20 19:29 Pulse Ox 100 09/29/20 19:29 - Orders/Labs/Meds Orders: Active Orders 24 hr Category Date Time Status EKG 12 Lead [EKG Documentation Completion] [RC] STAT Care 09/29/20 21:15 Active CXR [Chest 1V Frontal] [CR] Stat Exams 09/29/20 20:17 Taken Labs: Laboratory Tests 09/29/20 09/29/20 09/29/20 Range/Units 20:35 20:35 20:35 WBC 8.12 (3.98-10.04) K/mm3 RBC 2.70 L (3.98-5.22) M/mm3 Hgb 8.2 L D (11.2-15.7) gm/dl Hct 26.9 L (34.1-44.9) % MCV 99.6 H (79.4-94.8) fl MCH 30.4 (25.6-32.2) pg MCHC 30.5 L (32.2-35.5) g/dl RDW Std Deviation 57.5 H (36.4-46.3) fL Plt Count 195 (182-369) K/mm3 MPV 8.9 L (9.4-12.3) fl Neut % (Auto) 91.1 H (34.0-71.1) % Lymph % (Auto) 4.2 L (19.3-51.7) % [place] % (Auto) 4.3 L (4.7-12.5) % Eos % (Auto) 0 L (0.7-5.8) Baso % (Auto) 0.0 L (0.1-1.2) % Neut # (Auto) 7.40 H (1.56-6.13) K/mm3 Lymph # (Auto) 0.34 L (1.18-3.74) K/mm3 [place] # (Auto) 0.35 (0.24-0.36) K/mm3 Eos # (Auto) 0.00 L (0.04-0.36) K/mm3 Baso # (Auto) 0.00 L (0.01-0.08) K/mm3 Manual Slide Review Abnormal smear PT 14.3 H (9.7-12.0) SECONDS INR 1.34 Sodium 134 L (136-145) mEq/L Potassium 3.5 (3.5-5.1) mEq/L Chloride 93 L (98-107) mEq/L Carbon Dioxide 29 (21-32) mEq/L Anion Gap 15.5 H (5-15) BUN 67 H (7-18) mg/dL Creatinine 3.9 H (0.55-1.02) mg/dL Est Cr Clr Drug Dosing TNP Estimated GFR (MDRD) 11 (>60) mL/min BUN/Creatinine Ratio 17.2 (14-18) Glucose 106 (83-115) mg/dL Calcium 9.1 (8.5-10.1) mg/dL Ferritin (8-252) ng/ml Total Bilirubin 0.5 (0.2-1.0) mg/dL AST 18 (15-37) U/L ALT 16 (14-59) U/L Alkaline Phosphatase 62 (46-116) U/L Lactate Dehydrogenase 283 H (81-234) U/L Troponin I 0.161 H* (0.00-0.056) ng/mL C-Reactive Protein 24.5 H* (<1.0) mg/dL Total Protein 6.2 L (6.4-8.2) g/dl Albumin 3.0 L (3.4-5.0) g/dl Globulin 3.2 gm/dL Albumin/Globulin Ratio 0.9 L (1-2) 20/20 Range/Units 20:35 WBC (3.98-10.04) K/mm3 RBC (3.98-5.22) M/mm3 Hgb (11.2-15.7) gm/dl Hct (34.1-44.9) % MCV (79.4-94.8) fl MCH (25.6-32.2) pg MCHC (32.2-35.5) g/dl RDW Std Deviation (36.4-46.3) fL Plt Count (182-369) K/mm3 MPV (9.4-12.3) fl Neut % (Auto) (34.0-71.1) % Lymph % (Auto) (19.3-51.7) % [place] % (Auto) (4.7-12.5) % Eos % (Auto) (0.7-5.8) Baso % (Auto) (0.1-1.2) % Neut # (Auto) (1.56-6.13) K/mm3 Lymph # (Auto) (1.18-3.74) K/mm3 [place] # (Auto) (0.24-0.36) K/mm3 Eos # (Auto) (0.04-0.36) K/mm3 Baso # (Auto) (0.01-0.08) K/mm3 Manual Slide Review PT (9.7-12.0) SECONDS INR Sodium (136-145) mEq/L Potassium (3.5-5.1) mEq/L Chloride (98-107) mEq/L Carbon Dioxide (21-32) mEq/L Anion Gap (5-15) BUN (7-18) mg/dL Creatinine (0.55-1.02) mg/dL Est Cr Clr Drug Dosing Estimated GFR (MDRD) (>60) mL/min BUN/Creatinine Ratio (14-18) Glucose (83-115) mg/dL Calcium (8.5-10.1) mg/dL Ferritin 149 (8-252) ng/ml Total Bilirubin (0.2-1.0) mg/dL AST (15-37) U/L ALT (14-59) U/L Alkaline Phosphatase (46-116) U/L Lactate Dehydrogenase (81-234) U/L Troponin I (0.00-0.056) ng/mL C-Reactive Protein (<1.0) mg/dL Total Protein (6.4-8.2) g/dl Albumin (3.4-5.0) g/dl Globulin gm/dL Albumin/Globulin Ratio (1-2) - Radiology Interpretation Free Text/Narrative:: Chest x-ray does not show any acute pulmonary findings. - Re-Assessments/Exams Free Text/Narrative Re-Assessment/Exam: 09/29/20 21:50 I spoke to the patient regarding her lab results. Her ferritin was 149 LDH of 283 troponin of 0.161 and C-reactive protein of 24.5. She is very anemic with a hemoglobin of 8.2 but she also has chronic renal insufficiency with a BUN of 67 creatinine of 3.9. Her chest x-ray did not show any acute abnormalities. Since her pulse ox is good we know she has Covid positive but she does not appear to be in respiratory distress or need of hospitalization. [facility]. Departure - Departure Time of Disposition: 21:51 Disposition: Home, Self-Care 01 Condition: Fair Clinical Impression: Lab test positive for detection of COVID-19 virus, Myocarditis due to 2019 novel coronavirus, Anemia of chronic renal failure, stage 4 (severe), Chronic renal insufficiency, stage IV (severe) - Discharge Information *PRESCRIPTION DRUG MONITORING PROGRAM REVIEWED*: Not Applicable *COPY OF PRESCRIPTION DRUG MONITORING REPORT IN PATIENT TEMO: Not Applicable Prescriptions: dexAMETHasone [Decadron] 8 mg PO BID #6 tablet Instructions: COVID-19 Frequently Asked Questions, Myocarditis, Adult Referrals: PCP,Unknown [Ordering Only Provider] - Forms: ED Department Discharge Additional Instructions: You were seen in the ER for COVID-19. Your pulse ox on room air was 98% and remained stable. You do have some myocarditis from the Covid virus and we will place you on some dexamethasone 8 mg twice a day for 3 days. You have chronic anemia related to your chronic renal insufficiency. You will be going back to the [facility] where they will resume your normal care. If symptoms seem to worsen with a COVID-19 return to the ER. Sepsis Event Note (ED) - Evaluation Sepsis Screening Result: No Definite Risk - Focused Exam Vital Signs: Vital Signs Temp Pulse Resp BP Pulse Ox 09/29/20 19:29 98.0 F 96 18 134/78 100 - My Orders Last 24 Hours: My Active Orders 09/29/20 20:17 CXR [Chest 1V Frontal] [CR] Stat 09/29/20 21:15 EKG 12 Lead [EKG Documentation Completion] [RC] STAT - Assessment/Plan Last 24 Hours: My Active Orders 09/29/20 20:17 CXR [Chest 1V Frontal] [CR] Stat 09/29/20 21:15 EKG 12 Lead [EKG Documentation Completion] [RC] STAT
[2020-09-29] MEDS ORDERED: Dexamethasone 4 MG Tab PO STA (22:10)
[2020-09-29 22:42] VITALS: BP 125/75; PULSE 82
--- NOTE | 2020-10-02 08:56 | CR ---
PROCEDURE INFORMATION: Exam: XR Chest, 1 View Exam date and time: 09/29/2020 8:26 PM Age: 89 years old Clinical indication: Chest pain; Patient HX: Covid positive, SOB, HX copd, TECHNIQUE: Imaging protocol: XR of the chest Views: 1 view. COMPARISON: DX Chest 1V Frontal 12/21/2018 4:05 AM FINDINGS: Tubes, catheters and devices: Cardiac electro stimulator. Lungs: No suspicious pulmonary nodules or areas of lung consolidation. Pleural space: Costophrenic angles are sharp. No pneumothorax. Heart/Mediastinum: Unremarkable. No cardiomegaly. Bones/joints: There has been a previous median sternotomy. IMPRESSION: 1. No acute pulmonary findings. 2. No significant interval change when compared to the DX Chest 1V Frontal 12/21/2018 4:05 AM. Thank you for allowing us to participate in the care of your patient. Dictated and Authenticated by: Josse Reeves MD 09/29/2020 10:09 PM Central Time ([place] & [place]) TRE
== END 2020-09-29 23:38 | disposition home or self-care (01) ==
LOC: JD.ED 19:25
DX: I51.4 Myocarditis, unspecified (principal); U07.1 COVID-19; N18.4 Chronic kidney disease, stage 4 (severe); D63.1 Anemia in chronic kidney disease; I50.9 Heart failure, unspecified; I48.91 Unspecified atrial fibrillation; J44.9 Chronic obstructive pulmonary disease, unspecified; E21.3 Hyperparathyroidism, unspecified; Z95.0 Presence of cardiac pacemaker; Z88.2 Allergy status to sulfonamides; Z79.899 Other long term (current) drug therapy
CPT/HCPCS: 36415; 71045; 80053; 82728; 83615; 84484; 85025; 85610; 86140; 93005; 99285; J8540; 93010; 99283

== ENCOUNTER 2020-10-04 18:18 | Inpatient (IN) | payer MEDICARE, BC ==
[2020-10-04] MEDS ORDERED: Sodium Chloride 0.9% 10 ML Syringe FLUSH PRN ×2 (19:05→22:02)
--- NOTE | 2020-10-04 19:14 | EDM.PDOC ---
ED HPI GENERAL MEDICAL PROBLEM - General Chief Complaint: Respiratory Problem Stated Complaint: [facility] Time Seen by Provider: 10/04/20 18:35 Source of Information: Reports: Patient, Old Records, RN Notes Reviewed History Limitations: Reports: No Limitations - History of Present Illness INITIAL COMMENTS - FREE TEXT/NARRATIVE: The patient is an 89-year-old female who presents to the ED via [facility] for the evaluation of her ongoing COVID-19 symptoms. the ambulance staff arrived on scene, and stated that her O2 sats were 80% on room air, so she was placed on oxygen. At time of triage her O2 sats were 77% on room air, and the nurse did place 2.5 L of oxygen via nasal cannula and her O2 sats improved to 98 to 100%. The patient was diagnosed with COVID-19 on 09/25/2020, and she was subsequently seen in the ER on 09/29/2020. her laboratory evaluation demonstrated an ongoing infection with COVID-19, she was not hypoxic and was sent home with a course of dexamethasone. Apparently the patient did take the dexamethasone, but was found to be hypoxic tonight, which brings her back to the ER. Patient resides at [facility] she has not had any fevers or chills, she does have a cough, she does not state that she feels short of breath, she is not having any chest pain. Patient does have a history of chronic kidney failure as well. Apparently the staff at [facility] states that she is usually pretty independent, but she has been requiring 2 person assist in the past day or 2. Which is a decline in functional status for her. - Related Data Allergies Allergy/AdvReac Type Severity Reaction Status Date / Time Sulfa (Sulfonamide AdvReac Stomach Verified 09/29/20 19:32 Antibiotics) Ache Home Meds: Home Meds Omeprazole [Prilosec] 20 mg PO DAILY 04/25/14 [History] Acetaminophen [Tylenol] 650 mg PO Q6HR PRN 07/18/16 [History] Ferrous Sulfate [Iron] 650 mg PO DAILY 07/18/16 [History] Levothyroxine 25 mcg PO DAILY 07/18/16 [History] Torsemide 20 mg PO BID 07/18/16 [History] Allopurinol [Zyloprim] 300 mg PO BEDTIME 10/22/17 [History] Loperamide HCl [Imodium A-D] 4 mg PO DAILY PRN 10/22/17 [History] Magnesium 500 mg PO BEDTIME 10/22/17 [History] Melatonin 3 mg PO BEDTIME PRN 10/22/17 [History] Potassium Chloride 20 meq PO DAILY 10/22/17 [History] Sildenafil [Revatio] 10 mg PO BID 10/22/17 [History] Sodium Bicarbonate 325 mg PO BID 10/22/17 [History] metOLazone [Metolazone] 5 mg PO MO 10/22/17 [History] Calcium Acetate 667 mg PO ,12/21/18 [History] Promethazine HCl/Codeine [Prometh-Codein 6.25-10 mg/5 ml] 10 ml PO Q6H PRN 12/21/18 [History] Diphenhyd/Lidocaine/MagAl/Ashlyn [First-Mouthwash BLM Susp] 30 ml MM TID PRN #1 bottle 12/25/18 [Rx] C-Estradiol 0.1 ml TOP DAILY PRN 09/19/19 [History] Cholecalciferol (Vitamin D3) [Vitamin D3] 1,000 unit PO DAILY 09/19/19 [History] L. Acidophilus/Pectin, [place] [Acidophilus Capsule] 1 tab PO BID 09/19/19 [History] predniSONE [Prednisone] 10 mg PO DAILY 09/19/19 [History] dexAMETHasone [Decadron] 8 mg PO BID #6 tablet 09/29/20 [Rx] Past Medical History HEENT History: Reports: Cataract, Impaired Vision Other HEENT History: Wears glasses Cardiovascular History: Reports: Afib, Heart Failure, Heart Valve Replacement, Pacemaker, Other (See Below) Other Cardiovascular History: thromboctyopenia, hypokalemia. Respiratory History: Reports: COPD, Sleep Apnea, Other (See Below) Other Respiratory History: Patient refuses to wear CPAP at night- states she could not sleep with it on Gastrointestinal History: Reports: Other (See Below) Other Gastrointestinal History: enterocolitis due to C-diff. Genitourinary History: Reports: Chronic Renal Insuffiency, Other (See Below) Other Genitourinary History: athrosclerosis of renal artery, anemia in chronic kidney disease. PSYCHIATRIC CNS History: Reports: Musculoskeletal History: Reports: Osteoarthritis, Osteoporosis Endocrine/Metabolic History: Reports: Hyperparathyroidism Hematologic History: Reports: Anemia Dermatologic History: Reports: Other (See Below) Other Dermatologic History: chronic pruritus - Infectious Disease History Infectious Disease History: Reports: C-Difficile, Chicken Pox, Measles, Mumps, Novel Coronavirus (09/25/2020) - Past Surgical History HEENT Surgical History: Reports: Cataract Surgery, Other (See Below) Other HEENT Surgeries/Procedures: four front teeth implants. Cardiovascular Surgical History: Reports: Valve Replacement Other Cardiovascular Surgeries/Procedures: Pacemaker placement for rapid HR GI Surgical History: Reports: Hernia Repair/Other Other GI Surgeries/Procedures: patient reports hernia surgery hx Female Surgical History: Reports: Hysterectomy Other Female Surgeries/Procedures: 1975 Neurological Surgical History: Reports: Spinal Fusion Other Musculoskeletal Surgeries/Procedures:: Patient reports previous back surgery Social & Family History - Family History Family Medical History: No Pertinent Family History Cardiac: Reports: Hypertension, [place] - Tobacco Use Tobacco Use Status *Q: Never Tobacco User Second Hand Smoke Exposure: No - Caffeine Use Caffeine Use: Reports: Coffee - Recreational Drug Use Recreational Drug Use: No - Living Situation & Occupation Living situation: Reports: Extended Care Facility Occupation: Retired ED ROS GENERAL - Review of Systems Review Of Systems: Comprehensive ROS is negative, except as noted in HPI. ED EXAM, GENERAL - Physical Exam Exam: See Below Exam Limited By: No Limitations General Appearance: Alert, WD/WN, No Apparent Distress Head: Atraumatic Neck: Normal Inspection Respiratory/Chest: No Respiratory Distress, Lungs Clear, Normal Breath Sounds, No Accessory Muscle Use, Chest Non-Tender Cardiovascular: Normal Peripheral Pulses, Regular Rate, Rhythm, No Murmur Peripheral Pulses: 2+: Radial (L), Radial (R) Extremities: Normal Inspection, Normal Capillary Refill Neurological: Alert, Normal Cognition, No Motor/Sensory Deficits Psychiatric: Normal Affect, Normal Mood Skin Exam: Warm, Dry, Intact, Normal Color, No Rash Course - Vital Signs Last Recorded V/S: Last Vital Signs Temp 98.9 F 10/04/20 18:32 Pulse 82 10/04/20 18:32 Resp 20 10/04/20 18:32 BP 146/85 H 10/04/20 18:32 Pulse Ox 98 10/04/20 18:32 - Orders/Labs/Meds Orders: Active Orders 24 hr Category Date Time Status Peripheral IV Care [RC] . DIRECTED Care 10/04/20 19:05 Active Chest 1V Frontal [CR] Stat Exams 10/04/20 19:03 Ordered C-REACTIVE PROTEIN [CHEM] Stat Lab 10/04/20 19:00 Received CBC WITH MANUAL DIFF [HEME] Stat Lab 10/04/20 19:00 Received COMPREHENSIVE METABOLIC PN,CMP [CHEM] Stat Lab 10/04/20 19:03 Ordered CULTURE BLOOD [BC] Stat Lab 10/04/20 19:05 Ordered CULTURE BLOOD [BC] Stat Lab 10/04/20 19:05 Ordered D-DIMER QUANTITATIVE [COAG] Stat Lab 10/04/20 19:00 Received FERRITIN [CHEM] Stat Lab 10/04/20 19:00 Received INR,PT,PROTHROMBIN TIME [COAG] Stat Lab 10/04/20 19:00 Received LACTATE SEPSIS W/ REFLEX [CHEM] Stat Lab 10/04/20 19:00 Received MAGNESIUM [CHEM] Stat Lab 10/04/20 19:03 Ordered PRO B-TYPE NATRIUR PEPT,BNPPRO [CHEM] Stat Lab 10/04/20 19:00 Received PTT,PARTIAL THROMBOPLSTIN TIME [COAG] Stat Lab 10/04/20 19:00 Received TROPONIN I [CHEM] Stat Lab 10/04/20 19:03 Ordered Remdesivir 100 mg Med 10/04/20 19:27 Ordered Sodium Chloride 0.9% [Normal Saline] 100 ml IV ONETIME Sodium Chloride 0.9% [Saline Flush] Med 10/04/20 19:05 Active 10 ml FLUSH ASDIRECTED PRN Blood Culture x2 Reflex Set [OM.PC] Stat Oth 10/04/20 19:04 Ordered Peripheral IV Insertion Adult [OM.PC] Routine Oth 10/04/20 19:05 Ordered Medication Orders Remdesivir 100 mg/ Sodium (Chloride) 100 mls @ 100 mls/hr IV ONETIME ONE Stop: 10/04/20 20:26 Sodium Chloride (Saline Flush) 10 ml FLUSH ASDIRECTED PRN PRN Reason: Keep Vein Open Meds: Medications Generic Name Dose Route Start Last Admin Trade Name Freq PRN Reason Stop Dose Admin Remdesivir 100 mg/ Sodium 100 mls @ 100 mls/hr 10/04/20 19:27 Chloride IV 10/04/20 20:26 ONETIME ONE Sodium Chloride 10 ml 10/04/20 19:05 Saline Flush FLUSH ASDIRECTED PRN Keep Vein Open Discontinued Medications Generic Name Dose Route Start Last Admin Trade Name [place] PRN Reason Stop Dose Admin Dexamethasone 6 mg 10/04/20 19:27 Decadron IVPUSH 10/04/20 19:28 ONETIME ONE - Re-Assessments/Exams Free Text/Narrative Re-Assessment/Exam: 10/04/20 19:13 Patient presents to the ED for the evaluation of her ongoing COVID-19 symptoms. She is hypoxic at this ER visit. Have ordered repeat labs, repeat chest x-ray, but the patient will likely need hospital admission at this time. She already got outpatient dexamethasone. She may benefit from IV remdesivir at a lower dose due to her renal status. 10/04/20 19:29 The patient's case was discussed with Dr. Bazan, hospitalist online producer. He does accept for admission. He does recommend doing the reduced dose of remdesivir, and repeating dexamethasone at this time. I have put these orders in, patient will be transferred to the floor as soon as nursing staff can pick her up. Departure - Departure Time of Disposition: 19:30 Disposition: Admitted As Inpatient 68 Condition: Fair Clinical Impression: COVID-19, Hypoxia - Discharge Information Referrals: Benito Johnson MD [Primary Care Provider] - Forms: ED Department Discharge Sepsis Event Note (ED) - Evaluation Sepsis Screening Result: No Definite Risk - Focused Exam Vital Signs: Vital Signs Temp Pulse Resp BP Pulse Ox 10/04/20 18:32 98.9 F 82 20 146/85 H 98 - My Orders Last 24 Hours: My Active Orders 10/04/20 19:00 C-REACTIVE PROTEIN [CHEM] Stat CBC WITH MANUAL DIFF [HEME] Stat D-DIMER QUANTITATIVE [COAG] Stat FERRITIN [CHEM] Stat INR,PT,PROTHROMBIN TIME [COAG] Stat LACTATE SEPSIS W/ REFLEX [CHEM] Stat PRO B-TYPE NATRIUR PEPT,BNPPRO [CHEM] Stat PTT,PARTIAL THROMBOPLSTIN TIME [COAG] Stat 10/04/20 19:03 Chest 1V Frontal [CR] Stat COMPREHENSIVE METABOLIC PN,CMP [CHEM] Stat MAGNESIUM [CHEM] Stat TROPONIN I [CHEM] Stat 10/04/20 19:04 Blood Culture x2 Reflex Set [OM.PC] Stat 10/04/20 19:05 Peripheral IV Care [RC] . DIRECTED CULTURE BLOOD [BC] Stat CULTURE BLOOD [BC] Stat Sodium Chloride 0.9% [Saline Flush] 10 ml FLUSH ASDIRECTED PRN Peripheral IV Insertion Adult [OM.PC] Routine 10/04/20 19:27 Remdesivir 100 mg Sodium Chloride 0.9% [Normal Saline] 100 ml IV ONETIME - Assessment/Plan Last 24 Hours: My Active Orders 10/04/20 19:00 C-REACTIVE PROTEIN [CHEM] Stat CBC WITH MANUAL DIFF [HEME] Stat D-DIMER QUANTITATIVE [COAG] Stat FERRITIN [CHEM] Stat INR,PT,PROTHROMBIN TIME [COAG] Stat LACTATE SEPSIS W/ REFLEX [CHEM] Stat PRO B-TYPE NATRIUR PEPT,BNPPRO [CHEM] Stat PTT,PARTIAL THROMBOPLSTIN TIME [COAG] Stat 10/04/20 19:03 Chest 1V Frontal [CR] Stat COMPREHENSIVE METABOLIC PN,CMP [CHEM] Stat MAGNESIUM [CHEM] Stat TROPONIN I [CHEM] Stat 10/04/20 19:04 Blood Culture x2 Reflex Set [OM.PC] Stat 10/04/20 19:05 Peripheral IV Care [RC] . DIRECTED CULTURE BLOOD [BC] Stat CULTURE BLOOD [BC] Stat Sodium Chloride 0.9% [Saline Flush] 10 ml FLUSH ASDIRECTED PRN Peripheral IV Insertion Adult [OM.PC] Routine 10/04/20 19:27 Remdesivir 100 mg Sodium Chloride 0.9% [Normal Saline] 100 ml IV ONETIME
[2020-10-04] MEDS ORDERED: Dexamethasone 10 MG/ML SDV IVPUSH ONE (19:27)
[2020-10-04] MEDS ORDERED: REMDESIVIR 100 MG in Sodium Chloride 0.9% 100 ML IV ONE (19:27)
[2020-10-04] MEDS ORDERED: Ondansetron 4 MG Tab.DIS PO PRN (22:02)
[2020-10-04] MEDS ORDERED: Temazepam 7.5 MG Cap PO PRN (22:02)
[2020-10-04] MEDS ORDERED: LORazepam 2 MG/ML SDV IV PRN (22:02)
[2020-10-04] MEDS ORDERED: Acetaminophen 325 MG Tab PO PRN ×2 (22:02→22:23)
--- NOTE | 2020-10-04 22:38 | PCM.HP.2 ---
H&P History of Present Illness - General Date of Service: 10/04/20 Admit Problem/Dx: Admission Diagnosis/Problem Admission Diagnosis/Problem Hypoxia Source of Information: Patient, EMS, Provider, RN History Limitations: Reports: Other (hard of hearing) - History of Present Illness Initial Comments - Free Text/Narative: vid on 09/25 increasing symptoms s 89 year old female dx with coince 09/29 , today with hypoxia and resp insuff/ coughing. admitted with more anxiety and weakness and anorexia. she is dehydrated a nd cannot say how much she is drinking but took her diuretics today . was placed on dexameth for 3 days and is hydrocortizone daily. multiple medical problems : copd/ valve replacement/renal insuff chronic./hypertension/pacemaker for tachybrady.//thrombocytopenia anemia/leukocytosis/ osteoporosis/hypokalemia/ /hyponatremia//hyperparathyrodism. recent increase in bruising and falling but no other bleeding. weight loss and malnutrition noted on eval/ petechia . anxiety and multiple osteoarthritic joints.chronic pain she states. + myalgias. diarrhea and hx of c diff. Onset of Symptoms: Reports: Gradual Duration of Symptoms: Reports: Day(s): (9) Location: Reports: Chest Quality: Reports: Ache, Dull Severity: Moderate Improves with: Reports: Rest Worsens with: Reports: Movement Associated Symptoms: Reports: Cough, Fever/Chills, Loss of Appetite, Malaise, Shortness of Breath, Weakness - Related Data Allergies/Adverse Reactions: Allergies Allergy/AdvReac Type Severity Reaction Status Date / Time Sulfa (Sulfonamide AdvReac Stomach Verified 10/04/20 19:59 Antibiotics) Ache Home Medications: Home Meds Omeprazole [Prilosec] 20 mg PO DAILY 04/25/14 [History] Acetaminophen [Tylenol] 650 mg PO Q6HR PRN 07/18/16 [History] Ferrous Sulfate [Iron] 650 mg PO DAILY 07/18/16 [History] Levothyroxine 25 mcg PO DAILY 07/18/16 [History] Torsemide 20 mg PO BID 07/18/16 [History] Allopurinol [Zyloprim] 300 mg PO BEDTIME 10/22/17 [History] Loperamide HCl [Imodium A-D] 4 mg PO DAILY PRN 10/22/17 [History] Magnesium 500 mg PO BEDTIME 10/22/17 [History] Melatonin 3 mg PO BEDTIME PRN 10/22/17 [History] Potassium Chloride 20 meq PO DAILY 10/22/17 [History] Sildenafil [Revatio] 10 mg PO BID 10/22/17 [History] Sodium Bicarbonate 325 mg PO BID 10/22/17 [History] metOLazone [Metolazone] 5 mg PO MO 10/22/17 [History] Calcium Acetate 667 mg PO 18 12/21/18 [History] Diphenhyd/Lidocaine/MagAl/Ashlyn [First-Mouthwash BLM Susp] 30 ml MM TID PRN #1 bottle 12/25/18 [Rx] C-Estradiol 0.1 ml TOP DAILY PRN 09/19/19 [History] Cholecalciferol (Vitamin D3) [Vitamin D3] 1,000 unit PO DAILY 09/19/19 [History] L. Acidophilus/Pectin, Lehr [Acidophilus Capsule] 1 tab PO BID 09/19/19 [History] predniSONE [Prednisone] 10 mg PO DAILY 09/19/19 [History] dexAMETHasone [Decadron] 8 mg PO BID #6 tablet 09/29/20 [Rx] Past Medical History HEENT History: Reports: Cataract, Impaired Vision Other HEENT History: Wears glasses Cardiovascular History: Reports: Afib, Heart Failure, Heart Valve Replacement, Pacemaker, Other (See Below) Other Cardiovascular History: thromboctyopenia, hypokalemia. Respiratory History: Reports: COPD, Sleep Apnea, Other (See Below) Other Respiratory History: Patient refuses to wear CPAP at night- states she could not sleep with it on Gastrointestinal History: Reports: Other (See Below) Other Gastrointestinal History: enterocolitis due to C-diff. Genitourinary History: Reports: Chronic Renal Insuffiency, Other (See Below) Other Genitourinary History: athrosclerosis of renal artery, anemia in chronic kidney disease. 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: Musculoskeletal History: Reports: Osteoarthritis, Osteoporosis Neurological History: Reports: None Psychiatric History: Reports: None Endocrine/Metabolic History: Reports: Hyperparathyroidism Hematologic History: Reports: Anemia Dermatologic History: Reports: Other (See Below) Other Dermatologic History: chronic pruritus - Infectious Disease History Infectious Disease History: Reports: C-Difficile, Chicken Pox, Measles, Mumps, Novel Coronavirus (09/25/2020) - Past Surgical History HEENT Surgical History: Reports: Cataract Surgery, Other (See Below) Other HEENT Surgeries/Procedures: four front teeth implants. Cardiovascular Surgical History: Reports: Valve Replacement Other Cardiovascular Surgeries/Procedures: Pacemaker placement for rapid HR GI Surgical History: Reports: Hernia Repair/Other Other GI Surgeries/Procedures: patient reports hernia surgery hx Female Surgical History: Reports: Hysterectomy Other Female Surgeries/Procedures: 1975 Neurological Surgical History: Reports: Spinal Fusion Other Musculoskeletal Surgeries/Procedures:: Patient reports previous back surgery Social & Family History - Family History Family Medical History: No Pertinent Family History Cardiac: Reports: Hypertension, [place], Other (See Below) (heart valve replacment) Respiratory: Reports: Interstitial Lung Disease GI: Reports: None : Reports: Renal Disease/Insufficiency Musculoskeletal: Reports: Arthritis, Back pain, Chronic, Gout, Osteoarthritis, Osteoporosis Psychiatric: Reports: Anxiety Endocrine/Metabolic: Reports: Hyperparathyroidism, Hypothyroidism, Osteopenia, Osteoporosis, Vitamin D Deficiency Hematologic: Reports: Anemia, Bleeding Disorder, Other (See Below) (thrombocytopenia/ elavated p.t/ptt) Immunologic: Reports: None Dermatologic: Reports: Other (See Below) (petechia) Oncologic: Reports: None - Tobacco Use Tobacco Use Status *Q: Never Tobacco User Second Hand Smoke Exposure: No - Caffeine Use Caffeine Use: Reports: Coffee - Recreational Drug Use Recreational Drug Use: No - Living Situation & Occupation Living situation: Reports: Extended Care Facility Occupation: Retired H&P Review of Systems - Review of Systems: Review Of Systems: See Below General: Reports: Chills, Malaise, Weakness, Fatigue, Decreased Appetite, Weight Loss HEENT: Reports: No Symptoms Pulmonary: Reports: Shortness of Breath, Cough Cardiovascular: Reports: Dyspnea on Exertion, Blood Pressure Problem Gastrointestinal: Reports: Decreased Appetite Genitourinary: Reports: No Symptoms Musculoskeletal: Reports: Shoulder Pain, Back Pain, Leg Pain, Joint Pain, Muscle Pain Skin: Reports: Bruising, Pruritis Psychiatric: Reports: Anxiety Neurological: Reports: Dizziness Hematologic/Lymphatic: Reports: Anemia, Easy Bruising Exam - Exam Exam: See Below - Vital Signs Vital Signs: Last Vital Signs Temp 37.2 C 10/04/20 18:32 Pulse 82 10/04/20 18:32 Resp 20 10/04/20 18:32 BP 146/85 H 10/04/20 18:32 Pulse Ox 100 10/04/20 19:30 Weight: 65.771 kg - Exam Quality Assessment: Supplemental Oxygen General: Mild Distress HEENT: PERRLA, Hearing Intact, Mucosa Moist & [place], Nares Patent, Normal Nasal Septum, Posterior Pharynx Clear, Conjunctiva Clear, EOMI, EACs Clear, TMs Clear Neck: Supple, Trachea Midline, 2 Lungs: Crackles, Rhonchi Cardiovascular: Regular Rate, Regular Rhythm GI/Abdominal Exam: Normal Bowel Sounds, Soft, Non-Tender, No Organomegaly, No Distention, No Abnormal Bruit, No Mass, Pelvis Stable (Female) Exam: Deferred Rectal (Female) Exam: Deferred Back Exam: Paraspinal Tenderness Extremities: Normal Inspection, Non-Tender, No Pedal Edema, Normal Capillary Refill Peripheral Pulses: 2+: Carotid (L), Carotid (R), Radial (L), Radial (R) Skin: Warm, Dry, Intact, Petechia Neurological: Cranial Nerves Intact, Reflexes Equal Bilateral, Abnormal Gait Neuro Extensive - Mental Status: Alert, Oriented x3, Normal Mood/Affect, Normal Cognition Neuro Extensive - Motor, Sensory, Reflexes: Ataxia Psychiatric: Anxious - Patient Data Lab Results Last 24 hrs: Laboratory Results - last 24 hr 10/04/20 10/04/20 10/04/20 Range/Units 19:00 19:00 19:00 WBC 22.00 H (3.98-10.04) K/mm3 RBC 3.10 L (3.98-5.22) M/mm3 Hgb 9.5 L (11.2-15.7) gm/dl Hct 28.8 L (34.1-44.9) % MCV 92.9 D (79.4-94.8) fl MCH 30.6 (25.6-32.2) pg MCHC 33.0 (32.2-35.5) g/dl RDW Std Deviation 50.7 H (36.4-46.3) fL Plt Count 255 (182-369) K/mm3 MPV 9.2 L (9.4-12.3) fl Neutrophils % (Manual) 96 H (40-60) % Band Neutrophils % 0 (0-10) % Lymphocytes % (Manual) 3 L (20-40) % Atypical Lymphs % 0 % Monocytes % (Manual) 1 L (2-10) % Eosinophils % (Manual) 0 L (0.7-5.8) % Basophils % (Manual) 0 L (0.1-1.2) Platelet Estimate Adequate RBC Morph Comment Normal PT 53.9 H* D (9.7-12.0) SECONDS INR 5.20 H* APTT 34.7 H (21.7-31.4) SECONDS D-Dimer, Quantitative 4.40 H (0.19-0.50) mg/L Sodium (136-145) mEq/L Potassium (3.5-5.1) mEq/L Chloride (98-107) mEq/L Carbon Dioxide (21-32) mEq/L Anion Gap (5-15) BUN (7-18) mg/dL Creatinine (0.55-1.02) mg/dL Est Cr Clr Drug Dosing Estimated GFR (MDRD) (>60) mL/min BUN/Creatinine Ratio (14-18) Glucose (83-115) mg/dL Lactic Acid (0.4-2.0) mmol/L Calcium (8.5-10.1) mg/dL Magnesium (1.8-2.4) mg/dl Ferritin (8-252) ng/ml Total Bilirubin (0.2-1.0) mg/dL AST (15-37) U/L ALT (14-59) U/L Alkaline Phosphatase (46-116) U/L Troponin I (0.00-0.056) ng/mL C-Reactive Protein 11.4 H* (<1.0) mg/dL NT-Pro-B Natriuret Pep (0-450) pg/mL Total Protein (6.4-8.2) g/dl Albumin (3.4-5.0) g/dl Globulin gm/dL Albumin/Globulin Ratio (1-2) 10/04/20 10/04/20 10/04/20 Range/Units 19:00 19:00 19:00 WBC (3.98-10.04) K/mm3 RBC (3.98-5.22) M/mm3 Hgb (11.2-15.7) gm/dl Hct (34.1-44.9) % MCV (79.4-94.8) fl MCH (25.6-32.2) pg MCHC (32.2-35.5) g/dl RDW Std Deviation (36.4-46.3) fL Plt Count (182-369) K/mm3 MPV (9.4-12.3) fl Neutrophils % (Manual) (40-60) % Band Neutrophils % (0-10) % Lymphocytes % (Manual) (20-40) % Atypical Lymphs % % Monocytes % (Manual) (2-10) % Eosinophils % (Manual) (0.7-5.8) % Basophils % (Manual) (0.1-1.2) Platelet Estimate RBC Morph Comment PT (9.7-12.0) SECONDS INR APTT (21.7-31.4) SECONDS D-Dimer, Quantitative (0.19-0.50) mg/L Sodium 129 L (136-145) mEq/L Potassium 3.1 L (3.5-5.1) mEq/L Chloride 87 L (98-107) mEq/L Carbon Dioxide 31 (21-32) mEq/L Anion Gap 14.1 (5-15) BUN 98 H D (7-18) mg/dL Creatinine 4.2 H (0.55-1.02) mg/dL Est Cr Clr Drug Dosing TNP Estimated GFR (MDRD) 10 (>60) mL/min BUN/Creatinine Ratio 23.3 H (14-18) Glucose 169 H (83-115) mg/dL Lactic Acid (0.4-2.0) mmol/L Calcium 9.5 (8.5-10.1) mg/dL Magnesium 2.6 H (1.8-2.4) mg/dl Ferritin 349 H (8-252) ng/ml Total Bilirubin 0.5 (0.2-1.0) mg/dL AST 34 (15-37) U/L ALT 23 (14-59) U/L Alkaline Phosphatase 58 (46-116) U/L Troponin I 0.278 H* (0.00-0.056) ng/mL C-Reactive Protein (<1.0) mg/dL NT-Pro-B Natriuret Pep 9114 H (0-450) pg/mL Total Protein 6.4 (6.4-8.2) g/dl Albumin 3.0 L (3.4-5.0) g/dl Globulin 3.4 gm/dL Albumin/Globulin Ratio 0.9 L (1-2) 10/04/20 Range/Units 19:00 WBC (3.98-10.04) K/mm3 RBC (3.98-5.22) M/mm3 Hgb (11.2-15.7) gm/dl Hct (34.1-44.9) % MCV (79.4-94.8) fl MCH (25.6-32.2) pg MCHC (32.2-35.5) g/dl RDW Std Deviation (36.4-46.3) fL Plt Count (182-369) K/mm3 MPV (9.4-12.3) fl Neutrophils % (Manual) (40-60) % Band Neutrophils % (0-10) % Lymphocytes % (Manual) (20-40) % Atypical Lymphs % % Monocytes % (Manual) (2-10) % Eosinophils % (Manual) (0.7-5.8) % Basophils % (Manual) (0.1-1.2) Platelet Estimate RBC Morph Comment PT (9.7-12.0) SECONDS INR APTT (21.7-31.4) SECONDS D-Dimer, Quantitative (0.19-0.50) mg/L Sodium (136-145) mEq/L Potassium (3.5-5.1) mEq/L Chloride (98-107) mEq/L Carbon Dioxide (21-32) mEq/L Anion Gap (5-15) BUN (7-18) mg/dL Creatinine (0.55-1.02) mg/dL Est Cr Clr Drug Dosing Estimated GFR (MDRD) (>60) mL/min BUN/Creatinine Ratio (14-18) Glucose (83-115) mg/dL Lactic Acid 1.5 (0.4-2.0) mmol/L Calcium (8.5-10.1) mg/dL Magnesium (1.8-2.4) mg/dl Ferritin (8-252) ng/ml Total Bilirubin (0.2-1.0) mg/dL AST (15-37) U/L ALT (14-59) U/L Alkaline Phosphatase (46-116) U/L Troponin I (0.00-0.056) ng/mL C-Reactive Protein (<1.0) mg/dL NT-Pro-B Natriuret Pep (0-450) pg/mL Total Protein (6.4-8.2) g/dl Albumin (3.4-5.0) g/dl Globulin gm/dL Albumin/Globulin Ratio (1-2) Result Diagrams: 10/04/20 19:00 10/04/20 19:00 Sepsis Event Note - Evaluation Sepsis Screening Result: No Definite Risk - Focused Exam Vital Signs: Vital Signs Temp Pulse Resp BP Pulse Ox Pulse Ox 10/04/20 19:30 100 10/04/20 18:32 37.2 C 82 20 146/85 H 98 *Q Meaningful Use (ADM) - VTE *Q VTE Anticoagulation Contraindications: Med/TX Not Indicated/Need - Problem List (1) Anemia SNOMED Code(s): 956599498 ICD Code: D64.9 - ANEMIA, UNSPECIFIED Status: Acute Current Visit: Yes Qualifiers: Chronic kidney disease stage: stage 3 (moderate) (2) Anemia of chronic renal failure, stage 4 (severe) SNOMED Code(s): 33765566 ICD Code: N18.4 - CHRONIC KIDNEY DISEASE, STAGE 4 (SEVERE); D63.1 - ANEMIA IN CHRONIC KIDNEY DISEASE Status: Acute Priority: Medium Current Visit: No Onset Date: ~10/04/20 Problem Details: check b12 folate/iron levels and peripheral smear/ chronic renal insuff and hx of increased ptt and pt and thrombocytopenia.suspected multifactorial (3) COVID-19 SNOMED Code(s): 901873061 ICD Code: U07.1 - COVID-19 Status: Acute Priority: High Current Visit: No Onset Date: ~09/25/20 (4) Chronic renal insufficiency SNOMED Code(s): 234421691 ICD Code: N18.9 - CHRONIC KIDNEY DISEASE, UNSPECIFIED Status: Acute Priority: Medium Current Visit: No Onset Date: ~10/04/20 Qualifiers: Chronic kidney disease stage: unspecified stage Qualified Code(s): N18.9 - Chronic kidney disease, unspecified (5) History of heart valve repair SNOMED Code(s): 99448308579973 ICD Code: Z98.890 - OTHER SPECIFIED POSTPROCEDURAL STATES Status: Chronic Priority: Medium Current Visit: No Onset Date: ~10/04/20 Problem Details: weakness/ memory loss and anxiety (6) Hyperparathyroidism SNOMED Code(s): 06973351 ICD Code: E21.3 - HYPERPARATHYROIDISM, UNSPECIFIED Status: Chronic Priority: Low Current Visit: No Onset Date: ~10/04/20 Problem Details: check pth (7) Sleep apnea SNOMED Code(s): 78348714 ICD Code: G47.30 - SLEEP APNEA, UNSPECIFIED Status: Chronic Priority: Medium Current Visit: No Onset Date: ~10/04/20 Qualifiers: Sleep apnea type: unspecified type Qualified Code(s): G47.30 - Sleep apnea, unspecified (8) Thrombocytopenia SNOMED Code(s): 932207128 ICD Code: D69.6 - THROMBOCYTOPENIA, UNSPECIFIED Status: Chronic Priority: Medium Current Visit: Yes Problem Details: hx of essential thrombocytopenia, ITP, 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 that has been dc'd (9) Hypomagnesemia SNOMED Code(s): 576324309 ICD Code: E83.42 - HYPOMAGNESEMIA Status: Resolved Priority: Medium Current Visit: No Onset Date: ~10/04/20 Problem Details: recheck on oral replacment (10) Supratherapeutic INR SNOMED Code(s): 206906507 ICD Code: R79.1 - ABNORMAL COAGULATION PROFILE Status: Resolved Priority: Medium Current Visit: No Onset Date: ~10/04/20 Problem Details: hx of essential thrombocytopenia prev.on urea/now not treated (11) Chronic hyponatremia SNOMED Code(s): 23824963 ICD Code: E87.1 - HYPO-OSMOLALITY AND HYPONATREMIA Status: Acute Priority: Medium Current Visit: Yes Onset Date: ~10/04/20 Problem Details: hold diuretics x 24 hours and reassess. (12) Hypokalemia SNOMED Code(s): 38478057 ICD Code: E87.6 - HYPOKALEMIA Status: Acute Priority: Medium Current Visit: Yes Onset Date: ~10/04/20 Problem Details: replace mag and k Problem List Initiated/Reviewed/Updated: Yes Orders Last 24hrs: Active Orders 24 hr Category Date Time Status Admission Status [Patient Status] [ADT] Routine ADT 10/04/20 20:31 Active Patient Status [ADT] Routine ADT 10/04/20 22:02 Ordered Blood Gl[facility] Check, [facility]side [facility] 10/04/20 22:02 Ordered EKG 12 Lead [EKG Documentation Completion] [] ROUTINE Care 10/05/20 22:17 Ordered Intake and Output [RC] QSHIFT Care 10/04/20 22:06 Ordered Oxygen Therapy [RC] PRN Care 10/04/20 22:02 Ordered Peripheral IV Care [RC] . DIRECTED Care 10/04/20 19:05 Active Pulse Oximetry [RC] CONTINUOUS Care 10/04/20 22:07 Ordered Up With Assistance [RC] ASDIRECTED Care 10/04/20 22:02 Ordered Up to Chair [RC] ASDIRECTED Care 10/04/20 22:02 Ordered VTE/DVT Education [RC] PER UNIT ROUTINE Care 10/04/20 22:02 Ordered Vital Signs [RC] Q4H Care 10/04/20 22:02 Ordered Consult to Case Management/Anchorer [CONS] Cons 10/04/20 22:02 Ordered Routine PT Evaluation and Treatment [CONS] Routine Cons 10/04/20 22:02 Ordered Respiratory Care Assess and Treatment [CONS] Routine Cons 10/04/20 22:02 Ordered Regular Diet [DIET] Diet 10/04/20 Breakfast Ordered Chest 1V Frontal [CR] Stat Exams 10/04/20 19:03 Taken Chest 2V [CR] Routine Exams 10/04/20 22:19 Ordered CBC WITH AUTO DIFF [HEME] DAILY Lab 10/05/20 22:15 Ordered COMPREHENSIVE METABOLIC PN,CMP [CHEM] DAILY Lab 10/05/20 22:15 Ordered CREATINE KINASE,CK [CHEM] AM Lab 10/05/20 05:11 Ordered CULTURE BLOOD [BC] Stat Lab 10/04/20 19:30 Received CULTURE BLOOD [BC] Stat Lab 10/04/20 19:40 Received IRON,FE [CHEM] Routine Lab 10/05/20 22:18 Ordered MAGNESIUM [CHEM] AM Lab 10/05/20 05:11 Ordered PRO B-TYPE NATRIUR PEPT,BNPPRO [CHEM] DAILY Lab 10/05/20 22:30 Ordered Acetaminophen [TylenoL] Med 10/04/20 22:02 Ordered 650 mg PO Q4H PRN Acetaminophen [TylenoL] Med 10/04/20 22:23 Ordered 650 mg PO Q6HR PRN Calcium Acetate [Calcium Acetate] Med 10/05/20 12:00 Ordered 667 mg PO 12,18 Cholecalciferol (Vitamin D3) [Vitamin D3] Med 10/05/20 09:00 Ordered 1,000 unit PO DAILY Ferrous Sulfate [Iron] Med 10/05/20 09:00 Ordered 650 mg PO DAILY L. Acidophilus/Pectin, Lehr [Acidophilus Capsule] Med 10/05/20 09:00 Ordered 1 tab PO BID LORazepam [Ativan] Med 10/04/20 22:02 Ordered 0.5 mg IV Q6H PRN Levothyroxine Med 10/05/20 09:00 Ordered 25 mcg PO DAILY Magnesium [Magnesium] Med 10/05/20 21:00 Ordered 500 mg PO BEDTIME Ondansetron [Zofran ODT] Med 10/04/20 22:02 Ordered 4 mg PO Q6H PRN Pantoprazole [ProTONIX] Med 10/05/20 21:00 Ordered 40 mg PO BEDTIME Potassium Chloride [Potassium Chloride] Med 10/05/20 09:00 Ordered 20 meq PO DAILY Remdesivir 100 mg Med 10/05/20 22:30 Ordered Sodium Chloride 0.9% [Normal Saline] 100 ml IV Q24H Sildenafil [Revatio] Med 10/05/20 09:00 Ordered 10 mg PO BID Sodium Bicarbonate Med 10/05/20 09:00 Ordered 325 mg PO BID Sodium Chloride 0.9% [Saline Flush] Med 10/04/20 19:05 Active 10 ml FLUSH ASDIRECTED PRN Sodium Chloride 0.9% [Saline Flush] Med 10/04/20 22:02 Ordered 10 ml FLUSH ASDIRECTED PRN Temazepam [Restoril] Med 10/04/20 22:02 Ordered 7.5 mg PO BEDTIME PRN allopurinoL [Zyloprim] Med 10/05/20 21:00 Ordered 300 mg PO BEDTIME dexAMETHasone Med 10/05/20 09:00 Ordered 6 mg PO DAILY Anticoagulation Contraindications VTE [AST] Per Unit Oth 10/04/20 22:02 Ordered Routine Blood Culture x2 Reflex Set [OM.PC] Stat Oth 10/04/20 19:04 Ordered Peripheral IV Insertion Adult [OM.PC] Routine Oth 10/04/20 19:05 Ordered Saline Lock Insert [OM.PC] Routine Oth 10/04/20 22:02 Ordered Resuscitation Status Routine Resus Stat 10/04/20 22:02 Ordered Medication Orders Acetaminophen (Tylenol) 650 mg PO Q4H PRN PRN Reason: Pain (Mild 1-3)/fever Acetaminophen (Tylenol) 650 mg PO Q6HR PRN PRN Reason: Pain Allopurinol (Zyloprim) 300 mg PO BEDTIME SHELLEY Dexamethasone (Dexamethasone) 6 mg PO DAILY [facility] Remdesivir 100 mg/ Sodium (Chloride) 100 mls @ 100 mls/hr IV Q24H SHE[facility] Stop: 10/08/20 23:29 Levothyroxine Sodium (Levothyroxine) 25 mcg PO DAILY [facility] Lorazepam (Ativan) 0.5 mg IV Q6H PRN PRN Reason: Irritability Non-Formulary Medication (Calcium Acetate [Calcium Acetate]) 667 mg PO 12,18 SHE[facility] Non-Formulary Medication (Cholecalciferol (Vitamin D3) [Vitamin D3]) 1,000 unit PO DAILY [facility] Non-Formulary Medication (Ferrous Sulfate [Iron]) 650 mg PO DAILY [facility] Non-Formulary Medication (L. Acidophilus/Pectin, Lehr [Acidophilus Capsule]) 1 tab PO BID [facility] Non-Formulary Medication (Magnesium [Magnesium]) 500 mg PO BEDTIME [facility] Non-Formulary Medication (Potassium Chloride [Potassium Chloride]) 20 meq PO DAILY [facility] Ondansetron HCl (Zofran Odt) 4 mg PO Q6H PRN PRN Reason: nausea, able to take PO Pantoprazole Sodium (Protonix) 40 mg PO BEDTIME SHE[facility] Sildenafil Citrate (Revatio) 10 mg PO BID [facility] Sodium Bicarbonate (Sodium Bicarbonate) 325 mg PO BID [facility] Sodium Chloride (Saline Flush) 10 ml FLUSH ASDIRECTED PRN PRN Reason: Keep Vein Open Last Admin: 10/04/20 19:49 Dose: 10 ml Documented by: HERMMIC Sodium Chloride (Saline Flush) 10 ml FLUSH ASDIRECTED PRN PRN Reason: Keep Vein Open Temazepam (Restoril) 7.5 mg PO BEDTIME PRN PRN Reason: Sleep Assessment/Plan Comment:: vid on 09/25 increasing symptoms s 89 year old female dx with coince 09/29 , today with hypoxia and resp insuff/ coughing. admitted with more anxiety and weakness and anorexia. she is dehydrated a nd cannot say how much she is drinking but took her diuretics today . was placed on dexameth for 3 days and is hydrocortizone daily. multiple medical problems : copd/ valve replacement/renal insuff chronic./hypertension/pacemaker for tachybrady.//thrombocytopenia anemia/leukocytosis/ osteoporosis/hypokalemia//hyponatremia //hyperparathyrodism. recent increase in bruising and falling but no other bleeding. weight loss and malnutrition noted on eval/ petechia . anxiety and multiple osteoarthritic joints.chronic pain she states. + myalgias. diarrhea and hx of c diff. - Mortality Measure Prognosis:: Poor
[2020-10-05] MEDS ORDERED: SILDENAFIL 20 MG PO SCH (09:00)
[2020-10-05] MEDS ORDERED: Cholecalciferol (Vitamin D3) 25 MCG Tab PO SCH (09:00)
[2020-10-05] MEDS: Potassium Chloride 20 MEQ Tab.ER PO SCH (09:34)
[2020-10-05] MEDS: Saccharomyces Boulardii (Probiotic) 250 MG Cap PO SCH ×2 (09:35→20:30)
[2020-10-05] MEDS: Levothyroxine 25 MCG Tab PO SCH (09:35)
[2020-10-05] MEDS: Dexamethasone 4 MG Tab PO SCH (09:36)
[2020-10-05] MEDS: Ferrous Sulfate 324 MG Tab.EC PO SCH (09:36)
[2020-10-05] MEDS: Sodium Bicarbonate 650 MG Tab PO SCH ×2 (09:37→20:42)
[2020-10-05] MEDS ORDERED: Cholecalciferol (Vitamin D3) 5,000 UNIT Cap PO SCH (10:15)
[2020-10-05] MEDS: Calcium Acetate 667 MG Cap PO SCH ×2 (11:06→18:45)
[2020-10-05] MEDS: Potassium Chloride 10 MEQ in Premix Bag 1 BAG IV SCH ×6 (13:17→22:46)
[2020-10-05] MEDS: Cholecalciferol (Vitamin D3) 25 MCG Tab PO SCH (13:20)
--- NOTE | 2020-10-05 13:32 | PCM.PN ---
- General Info Date of Service: 10/05/20 Admission Dx/Problem (Free Text): Admission Diagnosis/Problem Admission Diagnosis/Problem Hypoxia Subjective Update: Erica was very lethargic and only said that she was not feeling good. - Review of Systems General: Reports: Other (Unable to obtain review of systems secondary to lethargy) - Patient Data Vitals - Most Recent: Last Vital Signs Temp 97.7 F 10/05/20 11:18 Pulse 71 10/05/20 11:18 Resp 22 H 10/05/20 11:18 BP 117/72 10/05/20 11:18 Pulse Ox 90 L 10/05/20 12:54 Weight - Most Recent: 142 lb 12.8 oz I&O - Last 24 Hours: Intake & Output 10/04/20 10/05/20 10/05/20 22:59 06:59 14:59 Intake Total 0 Output Total 800 Balance -800 0 Imaging Impressions - Last 24 Hours: Chest x-ray shows worsening right lower lobe infiltrate Lab Results Last 24 Hours: Laboratory Results - last 24 hr 10/04/20 10/04/20 10/04/20 Range/Units 19:00 19:00 19:00 WBC 22.00 H (3.98-10.04) K/mm3 RBC 3.10 L (3.98-5.22) M/mm3 Hgb 9.5 L (11.2-15.7) gm/dl Hct 28.8 L (34.1-44.9) % MCV 92.9 D (79.4-94.8) fl MCH 30.6 (25.6-32.2) pg MCHC 33.0 (32.2-35.5) g/dl RDW Std Deviation 50.7 H (36.4-46.3) fL Plt Count 255 (182-369) K/mm3 MPV 9.2 L (9.4-12.3) fl Neut % (Auto) (34.0-71.1) % Lymph % (Auto) (19.3-51.7) % [place] % (Auto) (4.7-12.5) % Eos % (Auto) (0.7-5.8) Baso % (Auto) (0.1-1.2) % Neut # (Auto) (1.56-6.13) K/mm3 Lymph # (Auto) (1.18-3.74) K/mm3 [place] # (Auto) (0.24-0.36) K/mm3 Eos # (Auto) (0.04-0.36) K/mm3 Baso # (Auto) (0.01-0.08) K/mm3 Neutrophils % (Manual) 96 H (40-60) % Band Neutrophils % 0 (0-10) % Lymphocytes % (Manual) 3 L (20-40) % Atypical Lymphs % 0 % Monocytes % (Manual) 1 L (2-10) % Eosinophils % (Manual) 0 L (0.7-5.8) % Basophils % (Manual) 0 L (0.1-1.2) Manual Slide Review Platelet Estimate Adequate RBC Morph Comment Normal PT 53.9 H* D (9.7-12.0) SECONDS INR 5.20 H* APTT 34.7 H (21.7-31.4) SECONDS D-Dimer, Quantitative 4.40 H (0.19-0.50) mg/L Sodium (136-145) mEq/L Potassium (3.5-5.1) mEq/L Chloride (98-107) mEq/L Carbon Dioxide (21-32) mEq/L Anion Gap (5-15) BUN (7-18) mg/dL Creatinine (0.55-1.02) mg/dL Est Cr Clr Drug Dosing Estimated GFR (MDRD) (>60) mL/min BUN/Creatinine Ratio (14-18) Glucose (83-115) mg/dL POC Glucose (83-110) mg/dL Lactic Acid (0.4-2.0) mmol/L Calcium (8.5-10.1) mg/dL Magnesium (1.8-2.4) mg/dl Iron (50-170) ug/dL Ferritin (8-252) ng/ml Total Bilirubin (0.2-1.0) mg/dL AST (15-37) U/L ALT (14-59) U/L Alkaline Phosphatase (46-116) U/L Creatine Kinase (26-192) U/L Troponin I (0.00-0.056) ng/mL C-Reactive Protein 11.4 H* (<1.0) mg/dL NT-Pro-B Natriuret Pep (0-450) pg/mL Total Protein (6.4-8.2) g/dl Albumin (3.4-5.0) g/dl Globulin gm/dL Albumin/Globulin Ratio (1-2) MRSA (PCR) 10/04/20 10/04/20 10/04/20 Range/Units 19:00 19:00 19:00 WBC (3.98-10.04) K/mm3 RBC (3.98-5.22) M/mm3 Hgb (11.2-15.7) gm/dl Hct (34.1-44.9) % MCV (79.4-94.8) fl MCH (25.6-32.2) pg MCHC (32.2-35.5) g/dl RDW Std Deviation (36.4-46.3) fL Plt Count (182-369) K/mm3 MPV (9.4-12.3) fl Neut % (Auto) (34.0-71.1) % Lymph % (Auto) (19.3-51.7) % [place] % (Auto) (4.7-12.5) % Eos % (Auto) (0.7-5.8) Baso % (Auto) (0.1-1.2) % Neut # (Auto) (1.56-6.13) K/mm3 Lymph # (Auto) (1.18-3.74) K/mm3 [place] # (Auto) (0.24-0.36) K/mm3 Eos # (Auto) (0.04-0.36) K/mm3 Baso # (Auto) (0.01-0.08) K/mm3 Neutrophils % (Manual) (40-60) % Band Neutrophils % (0-10) % Lymphocytes % (Manual) (20-40) % Atypical Lymphs % % Monocytes % (Manual) (2-10) % Eosinophils % (Manual) (0.7-5.8) % Basophils % (Manual) (0.1-1.2) Manual Slide Review Platelet Estimate RBC Morph Comment PT (9.7-12.0) SECONDS INR APTT (21.7-31.4) SECONDS D-Dimer, Quantitative (0.19-0.50) mg/L Sodium 129 L (136-145) mEq/L Potassium 3.1 L (3.5-5.1) mEq/L Chloride 87 L (98-107) mEq/L Carbon Dioxide 31 (21-32) mEq/L Anion Gap 14.1 (5-15) BUN 98 H D (7-18) mg/dL Creatinine 4.2 H (0.55-1.02) mg/dL Est Cr Clr Drug Dosing TNP Estimated GFR (MDRD) 10 (>60) mL/min BUN/Creatinine Ratio 23.3 H (14-18) Glucose 169 H (83-115) mg/dL POC Glucose (83-110) mg/dL Lactic Acid (0.4-2.0) mmol/L Calcium 9.5 (8.5-10.1) mg/dL Magnesium 2.6 H (1.8-2.4) mg/dl Iron (50-170) ug/dL Ferritin 349 H (8-252) ng/ml Total Bilirubin 0.5 (0.2-1.0) mg/dL AST 34 (15-37) U/L ALT 23 (14-59) U/L Alkaline Phosphatase 58 (46-116) U/L Creatine Kinase (26-192) U/L Troponin I 0.278 H* (0.00-0.056) ng/mL C-Reactive Protein (<1.0) mg/dL NT-Pro-B Natriuret Pep 9114 H (0-450) pg/mL Total Protein 6.4 (6.4-8.2) g/dl Albumin 3.0 L (3.4-5.0) g/dl Globulin 3.4 gm/dL Albumin/Globulin Ratio 0.9 L (1-2) MRSA (PCR) 10/04/20 10/05/20 10/05/20 Range/Units 19:00 01:30 04:47 WBC 24.63 H (3.98-10.04) K/mm3 RBC 3.31 L (3.98-5.22) M/mm3 Hgb 10.1 L (11.2-15.7) gm/dl Hct 30.6 L (34.1-44.9) % MCV 92.4 (79.4-94.8) fl MCH 30.5 (25.6-32.2) pg MCHC 33.0 (32.2-35.5) g/dl RDW Std Deviation 50.9 H (36.4-46.3) fL Plt Count 280 (182-369) K/mm3 MPV 9.5 (9.4-12.3) fl Neut % (Auto) 97.3 H (34.0-71.1) % Lymph % (Auto) 1.2 L (19.3-51.7) % [place] % (Auto) 1.4 L (4.7-12.5) % Eos % (Auto) 0 L (0.7-5.8) Baso % (Auto) 0.1 (0.1-1.2) % Neut # (Auto) 23.96 H (1.56-6.13) K/mm3 Lymph # (Auto) 0.29 L (1.18-3.74) K/mm3 [place] # (Auto) 0.35 (0.24-0.36) K/mm3 Eos # (Auto) 0.01 L (0.04-0.36) K/mm3 Baso # (Auto) 0.02 (0.01-0.08) K/mm3 Neutrophils % (Manual) (40-60) % Band Neutrophils % (0-10) % Lymphocytes % (Manual) (20-40) % Atypical Lymphs % % Monocytes % (Manual) (2-10) % Eosinophils % (Manual) (0.7-5.8) % Basophils % (Manual) (0.1-1.2) Manual Slide Review Abnormal smear Platelet Estimate RBC Morph Comment PT (9.7-12.0) SECONDS INR APTT (21.7-31.4) SECONDS D-Dimer, Quantitative (0.19-0.50) mg/L Sodium (136-145) mEq/L Potassium (3.5-5.1) mEq/L Chloride (98-107) mEq/L Carbon Dioxide (21-32) mEq/L Anion Gap (5-15) BUN (7-18) mg/dL Creatinine (0.55-1.02) mg/dL Est Cr Clr Drug Dosing Estimated GFR (MDRD) (>60) mL/min BUN/Creatinine Ratio (14-18) Glucose (83-115) mg/dL POC Glucose (83-110) mg/dL Lactic Acid 1.5 (0.4-2.0) mmol/L Calcium (8.5-10.1) mg/dL Magnesium (1.8-2.4) mg/dl Iron (50-170) ug/dL Ferritin (8-252) ng/ml Total Bilirubin (0.2-1.0) mg/dL AST (15-37) U/L ALT (14-59) U/L Alkaline Phosphatase (46-116) U/L Creatine Kinase (26-192) U/L Troponin I (0.00-0.056) ng/mL C-Reactive Protein (<1.0) mg/dL NT-Pro-B Natriuret Pep (0-450) pg/mL Total Protein (6.4-8.2) g/dl Albumin (3.4-5.0) g/dl Globulin gm/dL Albumin/Globulin Ratio (1-2) MRSA (PCR) Negative 10/05/20 10/05/20 10/05/20 Range/Units 04:47 04:47 04:47 WBC (3.98-10.04) K/mm3 RBC (3.98-5.22) M/mm3 Hgb (11.2-15.7) gm/dl Hct (34.1-44.9) % MCV (79.4-94.8) fl MCH (25.6-32.2) pg MCHC (32.2-35.5) g/dl RDW Std Deviation (36.4-46.3) fL Plt Count (182-369) K/mm3 MPV (9.4-12.3) fl Neut % (Auto) (34.0-71.1) % Lymph % (Auto) (19.3-51.7) % [place] % (Auto) (4.7-12.5) % Eos % (Auto) (0.7-5.8) Baso % (Auto) (0.1-1.2) % Neut # (Auto) (1.56-6.13) K/mm3 Lymph # (Auto) (1.18-3.74) K/mm3 [place] # (Auto) (0.24-0.36) K/mm3 Eos # (Auto) (0.04-0.36) K/mm3 Baso # (Auto) (0.01-0.08) K/mm3 Neutrophils % (Manual) (40-60) % Band Neutrophils % (0-10) % Lymphocytes % (Manual) (20-40) % Atypical Lymphs % % Monocytes % (Manual) (2-10) % Eosinophils % (Manual) (0.7-5.8) % Basophils % (Manual) (0.1-1.2) Manual Slide Review Platelet Estimate RBC Morph Comment PT (9.7-12.0) SECONDS INR APTT (21.7-31.4) SECONDS D-Dimer, Quantitative (0.19-0.50) mg/L Sodium 132 L (136-145) mEq/L Potassium 2.8 L (3.5-5.1) mEq/L Chloride 89 L (98-107) mEq/L Carbon Dioxide 28 (21-32) mEq/L Anion Gap 17.8 H (5-15) BUN 96 H (7-18) mg/dL Creatinine 4.1 H (0.55-1.02) mg/dL Est Cr Clr Drug Dosing 7.85 Estimated GFR (MDRD) 10 (>60) mL/min BUN/Creatinine Ratio 23.4 H (14-18) Glucose 206 H (83-115) mg/dL POC Glucose (83-110) mg/dL Lactic Acid (0.4-2.0) mmol/L Calcium 9.5 (8.5-10.1) mg/dL Magnesium 2.3 (1.8-2.4) mg/dl Iron 18 L (50-170) ug/dL Ferritin (8-252) ng/ml Total Bilirubin 0.7 (0.2-1.0) mg/dL AST 31 (15-37) U/L ALT 21 (14-59) U/L Alkaline Phosphatase 61 (46-116) U/L Creatine Kinase 146 (26-192) U/L Troponin I (0.00-0.056) ng/mL C-Reactive Protein (<1.0) mg/dL NT-Pro-B Natriuret Pep 8649 H (0-450) pg/mL Total Protein 6.4 (6.4-8.2) g/dl Albumin 2.9 L (3.4-5.0) g/dl Globulin 3.5 gm/dL Albumin/Globulin Ratio 0.8 L (1-2) MRSA (PCR) 10/05/20 Range/Units 10:39 WBC (3.98-10.04) K/mm3 RBC (3.98-5.22) M/mm3 Hgb (11.2-15.7) gm/dl Hct (34.1-44.9) % MCV (79.4-94.8) fl MCH (25.6-32.2) pg MCHC (32.2-35.5) g/dl RDW Std Deviation (36.4-46.3) fL Plt Count (182-369) K/mm3 MPV (9.4-12.3) fl Neut % (Auto) (34.0-71.1) % Lymph % (Auto) (19.3-51.7) % [place] % (Auto) (4.7-12.5) % Eos % (Auto) (0.7-5.8) Baso % (Auto) (0.1-1.2) % Neut # (Auto) (1.56-6.13) K/mm3 Lymph # (Auto) (1.18-3.74) K/mm3 [place] # (Auto) (0.24-0.36) K/mm3 Eos # (Auto) (0.04-0.36) K/mm3 Baso # (Auto) (0.01-0.08) K/mm3 Neutrophils % (Manual) (40-60) % Band Neutrophils % (0-10) % Lymphocytes % (Manual) (20-40) % Atypical Lymphs % % Monocytes % (Manual) (2-10) % Eosinophils % (Manual) (0.7-5.8) % Basophils % (Manual) (0.1-1.2) Manual Slide Review Platelet Estimate RBC Morph Comment PT (9.7-12.0) SECONDS INR APTT (21.7-31.4) SECONDS D-Dimer, Quantitative (0.19-0.50) mg/L Sodium (136-145) mEq/L Potassium (3.5-5.1) mEq/L Chloride (98-107) mEq/L Carbon Dioxide (21-32) mEq/L Anion Gap (5-15) BUN (7-18) mg/dL Creatinine (0.55-1.02) mg/dL Est Cr Clr Drug Dosing Estimated GFR (MDRD) (>60) mL/min BUN/Creatinine Ratio (14-18) Glucose (83-115) mg/dL POC Glucose 209 H (83-110) mg/dL Lactic Acid (0.4-2.0) mmol/L Calcium (8.5-10.1) mg/dL Magnesium (1.8-2.4) mg/dl Iron (50-170) ug/dL Ferritin (8-252) ng/ml Total Bilirubin (0.2-1.0) mg/dL AST (15-37) U/L ALT (14-59) U/L Alkaline Phosphatase (46-116) U/L Creatine Kinase (26-192) U/L Troponin I (0.00-0.056) ng/mL C-Reactive Protein (<1.0) mg/dL NT-Pro-B Natriuret Pep (0-450) pg/mL Total Protein (6.4-8.2) g/dl Albumin (3.4-5.0) g/dl Globulin gm/dL Albumin/Globulin Ratio (1-2) MRSA (PCR) Med Orders - Current: Current Medications Acetaminophen (Tylenol) 650 mg PO Q4H PRN PRN Reason: Pain (Mild 1-3)/fever Allopurinol (Zyloprim) 300 mg PO BEDTIME [facility] Calcium Acetate (Phoslo) 667 mg PO 12,18 [facility] Last Admin: 10/05/20 11:06 Dose: 667 mg Documented by: Cholecalciferol (Vitamin D3) 25 mcg PO DAILY [facility] Last Admin: 10/05/20 13:20 Dose: 25 mcg Documented by: Dexamethasone (Dexamethasone) 6 mg PO DAILY [facility] Last Admin: 10/05/20 09:36 Dose: 6 mg Documented by: Ferrous Sulfate (Ferrous Sulfate) 648 mg PO DAILY [facility] Last Admin: 10/05/20 09:36 Dose: 648 mg Documented by: Remdesivir 100 mg/ Sodium (Chloride) 100 mls @ 100 mls/hr IV Q24H [facility] Stop: 10/08/20 20:59 Potassium Chloride 10 meq/ (Premix) 100 mls @ 100 mls/hr IV Q1H [facility] Stop: 10/05/20 17:44 Last Admin: 10/05/20 13:17 Dose: 100 mls/hr Documented by: Levothyroxine Sodium (Levothyroxine) 25 mcg PO DAILY [facility] Last Admin: 10/05/20 09:35 Dose: 25 mcg Documented by: Lorazepam (Ativan) 0.5 mg IV Q6H PRN PRN Reason: Irritability Magnesium Oxide (Magnesium Oxide) 400 mg PO BEDTIME [facility] Ondansetron HCl (Zofran Odt) 4 mg PO Q6H PRN PRN Reason: nausea, able to take PO Pantoprazole Sodium (Protonix) 40 mg PO BEDTIME [facility] Potassium Chloride (Klor-Con M20) 20 meq PO DAILY [facility] Last Admin: 10/05/20 09:34 Dose: 20 meq Documented by: Saccharomyces Boulardii (Florastor) 250 mg PO BID [facility] Last Admin: 10/05/20 09:35 Dose: 250 mg Documented by: Sildenafil Citrate (Revatio) 10 mg PO BID [facility] Sodium Bicarbonate (Sodium Bicarbonate) 325 mg PO BID [facility] Last Admin: 10/05/20 09:37 Dose: 325 mg Documented by: Sodium Chloride (Saline Flush) 10 ml FLUSH ASDIRECTED PRN PRN Reason: Keep Vein Open Last Admin: 10/04/20 19:49 Dose: 10 ml Documented by: Sodium Chloride (Saline Flush) 10 ml FLUSH ASDIRECTED PRN PRN Reason: Keep Vein Open Temazepam (Restoril) 7.5 mg PO BEDTIME PRN PRN Reason: Sleep Warfarin Sodium (Pharmacy To Dose - Warfarin) 1 dose .XX ASDIRECTED [facility] Discontinued Medications Acetaminophen (Tylenol) 650 mg PO Q6HR PRN PRN Reason: Pain Cholecalciferol (Vitamin D3) 1,000 mcg PO DAILY [facility] Last Admin: 10/05/20 10:46 Dose: Not Given Documented by: Cholecalciferol (Vitamin D3) 1,000 unit PO DAILY [facility] Last Admin: 10/05/20 10:53 Dose: Not Given Documented by: Dexamethasone (Decadron) 6 mg IVPUSH ONETIME ONE Stop: 10/04/20 19:28 Last Admin: 10/04/20 19:48 Dose: 6 mg Documented by: Remdesivir 100 mg/ Sodium (Chloride) 100 mls @ 100 mls/hr IV ONETIME ONE Stop: 10/04/20 20:26 Last Admin: 10/04/20 19:48 Dose: 100 mls/hr Documented by: Sildenafil Citrate (Revatio) 10 mg PO BID [facility] Last Admin: 10/05/20 10:45 Dose: Not Given Documented by: - Exam Quality Assessment: Supplemental Oxygen General: Lethargic Lungs: Rales (Throughout both lung brunner). No: Normal Respiratory Effort (Increased respiratory rate and effort) Cardiovascular: Regular Rate, Regular Rhythm GI/Abdominal Exam: Normal Bowel Sounds, No Distention, No Abnormal Bruit Extremities: Normal Inspection, Normal Capillary Refill Skin: Warm, Dry, Intact Psy/Mental Status: Alert, Normal Affect, Normal Mood Sepsis Event Note - Evaluation Sepsis Screening Result: No Definite Risk - Focused Exam Vital Signs: Vital Signs Temp Temp Pulse Pulse Resp BP BP 10/05/20 12:54 10/05/20 11:18 97.7 F 71 22 H 117/72 10/05/20 08:50 10/05/20 07:38 99.0 F 70 18 122/60 10/05/20 06:10 10/05/20 03:16 98.0 F 88 18 149/82 H Pulse Ox Pulse Ox 10/05/20 12:54 90 L 10/05/20 11:18 10/05/20 08:50 92 L 10/05/20 07:38 91 L 10/05/20 06:10 92 L 10/05/20 03:16 92 L - Problem List & Annotations (1) Anemia SNOMED Code(s): 144867504 Code(s): D64.9 - ANEMIA, UNSPECIFIED Status: Acute Current Visit: Yes Qualifiers: Chronic kidney disease stage: stage 3 (moderate) (2) Chronic hyponatremia SNOMED Code(s): 56909999 Code(s): E87.1 - HYPO-OSMOLALITY AND HYPONATREMIA Status: Acute Priority: Medium Current Visit: Yes Onset Date: ~10/04/20 Annotation/Comment:: hold diuretics x 24 hours and reassess. (3) Hypokalemia SNOMED Code(s): 01925477 Code(s): E87.6 - HYPOKALEMIA Status: Acute Priority: Medium Current Visit: Yes Onset Date: ~10/04/20 Annotation/Comment:: replace mag and k (4) COVID-19 SNOMED Code(s): 448310139 Code(s): U07.1 - COVID-19 Status: Acute Priority: High Current Visit: No Onset Date: ~09/25/20 - Problem List Review Problem List Initiated/Reviewed/Updated: Yes - My Orders Last 24 Hours: My Active Orders 10/05/20 11:45 Potassium Chloride [KCl 10 MEQ in Water 100 ML] 10 meq Premix Bag 1 bag IV Q1H 10/05/20 12:45 C-REACTIVE PROTEIN [CHEM] Routine D-DIMER QUANTITATIVE [COAG] Routine 10/06/20 05:11 INR,PT,PROTHROMBIN TIME [COAG] AM 10/06/20 08:00 Pharmacy to Dose - Warfarin 1 dose .XX ASDIRECTED 10/07/20 05:11 INR,PT,PROTHROMBIN TIME [COAG] AM 10/08/20 05:11 INR,PT,PROTHROMBIN TIME [COAG] AM 10/09/20 05:11 INR,PT,PROTHROMBIN TIME [COAG] AM 10/10/20 05:11 INR,PT,PROTHROMBIN TIME [COAG] AM - Plan Plan:: Assessment COVID-19 with pneumonia COPD Worsening white count concern for secondary bacterial pneumonia End-stage renal disease Metabolic encephalopathy/altered mental status * Patient has several high risk conditions associated with high mortality from COVID-19. * Oxygenation has worsened and she is requiring 6 L nasal cannula * White count increased to 24.6 with 97% bands. * Currently on remdesivir day 2 and dexamethasone * Was placed on dexamethasone for 3 days prior to the admission * Estimated GFR down to 10 with a creatinine of 4.1 and BUN of 96. * CRP increased to 24.3 from 11.4 Atrial fibrillation Congestive heart failure Heart valve replacement Pacemaker * INR 5.2 last night * Warfarin held this morning * Rate is controlled in the 70s * On torsemide 20 mg twice daily at home, but was held on admission secondary to concerns of dehydration * proBNP was 9114 on admission Chronic multiple medical problems : copd/ valve replacement/renal insuff chronic./hypertension/pacemaker for tachybrady.//thrombocytopenia anemia/leukocytosis/ osteoporosis/hypokalemia//hyponatremia//hyperparathyrodism. recent increase in bruising and falling but no other bleeding. weight loss and malnutrition noted on eval/ petechia . anxiety and multiple osteoarthritic joints.chronic pain she states. + myalgias. diarrhea and hx of c diff. Plan * Start Rocephin and azithromycin * Continue to titrate FiO2 to keep SPO2 between 88 and 94% * Start furosemide 80 mg IV twice daily tomorrow * Follow daily INR and pharmacy to adjust warfarin. * Continue remdesivir. It is considered contraindicated in people with end- stage renal disease, but her overall risk of mortality due to Covid is extremely high therefore risk benefit ways towards benefit. * Continue dexamethasone. * Follow Covid related lab work in the morning * Prognosis is extremely poor. Family updated and understands the gravity of the situation. * VTE prophylaxis with warfarin.
[2020-10-05] MEDS ORDERED: cefTRIAXone 2 GM in Sodium Chloride 0.9% 100 ML IV SCH (18:00)
[2020-10-05] MEDS ORDERED: Azithromycin 500 MG in Sodium Chloride 0.9% 250 ML IV SCH (18:30)
[2020-10-05] MEDS ORDERED: REMDESIVIR 100 MG in Sodium Chloride 0.9% 100 ML IV SCH (20:00)
[2020-10-05] MEDS ORDERED: Sodium Chloride 0.9% 0 ML ONE (20:21)
[2020-10-05] MEDS ORDERED: Sodium Chloride 0.9% 250 ML ONE (20:23)
[2020-10-05] MEDS ORDERED: Allopurinol 300 MG Tab PO SCH (21:00)
[2020-10-05] MEDS ORDERED: Pantoprazole 40 MG Tab.CR PO SCH (21:00)
[2020-10-05] MEDS ORDERED: Magnesium Oxide 400 MG Tab PO SCH (21:00)
[2020-10-06] MEDS ORDERED: Furosemide 40 MG/4 ML VIAL IVPUSH SCH ×2 (06:00)
[2020-10-06] MEDS ORDERED: HYDROmorphone 0.5 MG/0.5 ML Syringe IVPUSH ONE (08:01)
[2020-10-06] MEDS ORDERED: Sildenafil 20 MG Tab **PTOM PO SCH (09:00)
[2020-10-06] MEDS ORDERED: Morphine 10 MG/0.5 ML Oral Syringe PO PRN (10:19)
[2020-10-06] MEDS ORDERED: Ondansetron 4 MG/2 ML SDV IVPUSH PRN (10:23)
[2020-10-06] MEDS ORDERED: LORazepam 2 MG/ML SDV IVPUSH PRN (10:24)
--- NOTE | 2020-10-06 10:25 | PCM.PN ---
- General Info Date of Service: 10/06/20 Admission Dx/Problem (Free Text): Admission Diagnosis/Problem Admission Diagnosis/Problem Hypoxia Subjective Update: Patient continues to decline. She had a large black stool and she is less coherent today. White count continues to climb and INR continues to go up. She was started on Rocephin and azithromycin yesterday. She is complaining of pain. Functional Status: Denies: Pain Controlled - Review of Systems General: Reports: Other (Unable to obtain) - Patient Data Vitals - Most Recent: Last Vital Signs Temp 98.1 F 10/06/20 08:05 Pulse 79 10/06/20 08:05 Resp 16 10/06/20 08:05 BP 124/70 10/06/20 08:05 Pulse Ox 91 L 10/06/20 10:14 Weight - Most Recent: 143 lb I&O - Last 24 Hours: Intake & Output 10/05/20 10/06/20 10/06/20 22:59 06:59 14:59 Intake Total 400 1200 Balance 400 1200 Lab Results Last 24 Hours: Laboratory Results - last 24 hr 10/05/20 10/05/20 10/05/20 Range/Units 10:39 12:45 12:45 WBC (3.98-10.04) K/mm3 RBC (3.98-5.22) M/mm3 Hgb (11.2-15.7) gm/dl Hct (34.1-44.9) % MCV (79.4-94.8) fl MCH (25.6-32.2) pg MCHC (32.2-35.5) g/dl RDW Std Deviation (36.4-46.3) fL Plt Count (182-369) K/mm3 MPV (9.4-12.3) fl Neut % (Auto) (34.0-71.1) % Lymph % (Auto) (19.3-51.7) % [place] % (Auto) (4.7-12.5) % Eos % (Auto) (0.7-5.8) Baso % (Auto) (0.1-1.2) % Neut # (Auto) (1.56-6.13) K/mm3 Lymph # (Auto) (1.18-3.74) K/mm3 [place] # (Auto) (0.24-0.36) K/mm3 Eos # (Auto) (0.04-0.36) K/mm3 Baso # (Auto) (0.01-0.08) K/mm3 Manual Slide Review PT (9.7-12.0) SECONDS INR D-Dimer, Quantitative 3.28 H (0.19-0.50) mg/L Sodium (136-145) mEq/L Potassium (3.5-5.1) mEq/L Chloride (98-107) mEq/L Carbon Dioxide (21-32) mEq/L Anion Gap (5-15) BUN (7-18) mg/dL Creatinine (0.55-1.02) mg/dL Est Cr Clr Drug Dosing mL/min Estimated GFR (MDRD) (>60) mL/min BUN/Creatinine Ratio (14-18) Glucose (83-115) mg/dL POC Glucose 209 H (83-110) mg/dL Calcium (8.5-10.1) mg/dL Magnesium (1.8-2.4) mg/dl Total Bilirubin (0.2-1.0) mg/dL AST (15-37) U/L ALT (14-59) U/L Alkaline Phosphatase (46-116) U/L Creatine Kinase (26-192) U/L C-Reactive Protein 24.3 H* (<1.0) mg/dL Total Protein (6.4-8.2) g/dl Albumin (3.4-5.0) g/dl Globulin gm/dL Albumin/Globulin Ratio (1-2) 10/05/20 10/06/20 10/06/20 Range/Units 16:30 06:30 06:30 WBC 28.54 H (3.98-10.04) K/mm3 RBC 3.51 L (3.98-5.22) M/mm3 Hgb 10.5 L (11.2-15.7) gm/dl Hct 33.0 L (34.1-44.9) % MCV 94.0 (79.4-94.8) fl MCH 29.9 (25.6-32.2) pg MCHC 31.8 L (32.2-35.5) g/dl RDW Std Deviation 51.0 H (36.4-46.3) fL Plt Count 268 (182-369) K/mm3 MPV 9.8 (9.4-12.3) fl Neut % (Auto) 97.8 H (34.0-71.1) % Lymph % (Auto) 0.7 L (19.3-51.7) % [place] % (Auto) 1.4 L (4.7-12.5) % Eos % (Auto) 0 L (0.7-5.8) Baso % (Auto) 0.1 (0.1-1.2) % Neut # (Auto) 27.92 H (1.56-6.13) K/mm3 Lymph # (Auto) 0.19 L (1.18-3.74) K/mm3 [place] # (Auto) 0.41 H (0.24-0.36) K/mm3 Eos # (Auto) 0.00 L (0.04-0.36) K/mm3 Baso # (Auto) 0.02 (0.01-0.08) K/mm3 Manual Slide Review Abnormal smear PT (9.7-12.0) SECONDS INR D-Dimer, Quantitative (0.19-0.50) mg/L Sodium 131 L (136-145) mEq/L Potassium 4.6 D (3.5-5.1) mEq/L Chloride 89 L (98-107) mEq/L Carbon Dioxide 24 (21-32) mEq/L Anion Gap 22.6 H (5-15) BUN 106 H (7-18) mg/dL Creatinine 4.7 H (0.55-1.02) mg/dL Est Cr Clr Drug Dosing 6.84 mL/min Estimated GFR (MDRD) 9 (>60) mL/min BUN/Creatinine Ratio 22.6 H (14-18) Glucose 151 H (83-115) mg/dL POC Glucose 210 H (83-110) mg/dL Calcium 9.9 (8.5-10.1) mg/dL Magnesium 2.5 H (1.8-2.4) mg/dl Total Bilirubin 0.5 (0.2-1.0) mg/dL AST 38 H (15-37) U/L ALT 19 (14-59) U/L Alkaline Phosphatase 76 (46-116) U/L Creatine Kinase 381 H (26-192) U/L C-Reactive Protein (<1.0) mg/dL Total Protein 6.5 (6.4-8.2) g/dl Albumin 2.5 L (3.4-5.0) g/dl Globulin 4.0 gm/dL Albumin/Globulin Ratio 0.6 L (1-2) 10/06/20 Range/Units 06:30 WBC (3.98-10.04) K/mm3 RBC (3.98-5.22) M/mm3 Hgb (11.2-15.7) gm/dl Hct (34.1-44.9) % MCV (79.4-94.8) fl MCH (25.6-32.2) pg MCHC (32.2-35.5) g/dl RDW Std Deviation (36.4-46.3) fL Plt Count (182-369) K/mm3 MPV (9.4-12.3) fl Neut % (Auto) (34.0-71.1) % Lymph % (Auto) (19.3-51.7) % [place] % (Auto) (4.7-12.5) % Eos % (Auto) (0.7-5.8) Baso % (Auto) (0.1-1.2) % Neut # (Auto) (1.56-6.13) K/mm3 Lymph # (Auto) (1.18-3.74) K/mm3 [place] # (Auto) (0.24-0.36) K/mm3 Eos # (Auto) (0.04-0.36) K/mm3 Baso # (Auto) (0.01-0.08) K/mm3 Manual Slide Review PT 61.3 H* (9.7-12.0) SECONDS INR 5.93 H* D-Dimer, Quantitative 3.34 H (0.19-0.50) mg/L Sodium (136-145) mEq/L Potassium (3.5-5.1) mEq/L Chloride (98-107) mEq/L Carbon Dioxide (21-32) mEq/L Anion Gap (5-15) BUN (7-18) mg/dL Creatinine (0.55-1.02) mg/dL Est Cr Clr Drug Dosing mL/min Estimated GFR (MDRD) (>60) mL/min BUN/Creatinine Ratio (14-18) Glucose (83-115) mg/dL POC Glucose (83-110) mg/dL Calcium (8.5-10.1) mg/dL Magnesium (1.8-2.4) mg/dl Total Bilirubin (0.2-1.0) mg/dL AST (15-37) U/L ALT (14-59) U/L Alkaline Phosphatase (46-116) U/L Creatine Kinase (26-192) U/L C-Reactive Protein (<1.0) mg/dL Total Protein (6.4-8.2) g/dl Albumin (3.4-5.0) g/dl Globulin gm/dL Albumin/Globulin Ratio (1-2) Dashawn Results Last 24 Hours: Microbiology 10/04/20 19:40 Aerobic Blood Culture - Preliminary Blood - Venous - Lab Draw NO GROWTH AFTER 1 DAY Anaerobic Blood Culture - Preliminary NO GROWTH AFTER 1 DAY 10/04/20 19:30 Aerobic Blood Culture - Preliminary Blood - Venous NO GROWTH AFTER 1 DAY Anaerobic Blood Culture - Preliminary NO GROWTH AFTER 1 DAY Med Orders - Current: Current Medications Acetaminophen (Tylenol) 650 mg PO Q4H PRN PRN Reason: Pain (Mild 1-3)/fever Remdesivir 100 mg/ Sodium (Chloride) 100 mls @ 100 mls/hr IV Q24H [facility] Stop: 10/08/20 20:59 Last Admin: 10/05/20 21:23 Dose: 100 mls/hr Documented by: Lorazepam (Ativan) 0.5 mg IVPUSH Q1H PRN PRN Reason: Anxiety Morphine Sulfate (Morphine) 2 mg IVPUSH Q2H PRN PRN Reason: Pain Morphine Sulfate (Morphine 10 Mg/0.5 Ml Oral Syringe) 10 mg PO Q2H PRN PRN Reason: Pain Ondansetron HCl (Zofran) 4 mg IVPUSH Q4H PRN PRN Reason: Nausea Pantoprazole Sodium (Protonix) 40 mg PO BEDTIME [facility] Last Admin: 10/05/20 20:42 Dose: Not Given Documented by: Potassium Chloride (Klor-Con M20) 20 meq PO DAILY [facility] Last Admin: 10/05/20 09:34 Dose: 20 meq Documented by: Saccharomyces Boulardii (Florastor) 250 mg PO BID [facility] Last Admin: 10/05/20 20:30 Dose: Not Given Documented by: Sildenafil Citrate (Revatio) 10 mg PO BID [facility] Sodium Bicarbonate (Sodium Bicarbonate) 325 mg PO BID [facility] Last Admin: 10/05/20 20:42 Dose: Not Given Documented by: Sodium Chloride (Saline Flush) 10 ml FLUSH ASDIRECTED PRN PRN Reason: Keep Vein Open Last Admin: 10/04/20 19:49 Dose: 10 ml Documented by: Sodium Chloride (Saline Flush) 10 ml FLUSH ASDIRECTED PRN PRN Reason: Keep Vein Open Warfarin Sodium (Pharmacy To Dose - Warfarin) 1 dose .XX ASDIRECTED PRN PRN Reason: RX TO DOSE WARFARIN Warfarin Sodium (Coumadin Sliding Scale) 0 each PO QPM [facility] Stop: 10/06/20 18:01 Discontinued Medications Acetaminophen (Tylenol) 650 mg PO Q6HR PRN PRN Reason: Pain Allopurinol (Zyloprim) 300 mg PO BEDTIME [facility] Last Admin: 10/05/20 20:43 Dose: Not Given Documented by: Calcium Acetate (Phoslo) 667 mg PO 12,18 [facility] Last Admin: 10/05/20 18:45 Dose: 667 mg Documented by: Cholecalciferol (Vitamin D3) 1,000 mcg PO DAILY [facility] Last Admin: 10/05/20 10:46 Dose: Not Given Documented by: Cholecalciferol (Vitamin D3) 1,000 unit PO DAILY [facility] Last Admin: 10/05/20 10:53 Dose: Not Given Documented by: Cholecalciferol (Vitamin D3) 25 mcg PO DAILY [facility] Last Admin: 10/05/20 13:20 Dose: 25 mcg Documented by: Dexamethasone (Decadron) 6 mg IVPUSH ONETIME ONE Stop: 10/04/20 19:28 Last Admin: 10/04/20 19:48 Dose: 6 mg Documented by: Dexamethasone (Dexamethasone) 6 mg PO DAILY [facility] Last Admin: 10/05/20 09:36 Dose: 6 mg Documented by: Ferrous Sulfate (Ferrous Sulfate) 648 mg PO DAILY [facility] Last Admin: 10/05/20 09:36 Dose: 648 mg Documented by: Furosemide (Lasix) 40 mg IVPUSH BIDDIURETIC [facility] Furosemide (Lasix) 80 mg IVPUSH BIDDIURETIC [facility] Last Admin: 10/06/20 06:51 Dose: 80 mg Documented by: Hydromorphone HCl (Dilaudid) 0.25 mg IVPUSH ONETIME ONE Stop: 10/06/20 08:02 Last Admin: 10/06/20 08:18 Dose: 0.25 mg Documented by: Remdesivir 100 mg/ Sodium (Chloride) 100 mls @ 100 mls/hr IV ONETIME ONE Stop: 10/04/20 20:26 Last Admin: 10/04/20 19:48 Dose: 100 mls/hr Documented by: Potassium Chloride 10 meq/ (Premix) 100 mls @ 100 mls/hr IV Q1H [facility] Stop: 10/05/20 17:44 Last Admin: 10/05/20 22:46 Dose: 100 mls/hr Documented by: Ceftriaxone Sodium 2 gm/ (Sodium Chloride) 100 mls @ 200 mls/hr IV Q24H [facility] Stop: 10/11/20 18:29 Last Admin: 10/05/20 18:51 Dose: 200 mls/hr Documented by: Azithromycin 500 mg/ Sodium (Chloride) 250 mls @ 250 mls/hr IV Q24H [facility] Stop: 10/07/20 19:29 Last Admin: 10/05/20 20:21 Dose: 250 mls/hr Documented by: Sodium Chloride (Normal Saline (Advbag)) Confirm Administered Dose 250 mls @ as directed .ROUTE .STK-MED ONE Stop: 10/05/20 20:22 Last Admin: 10/05/20 21:23 Dose: Not Given Documented by: Sodium Chloride (Normal Saline) Confirm Administered Dose 250 mls @ as directed .ROUTE .STK-MED ONE Stop: 10/05/20 20:24 Last Admin: 10/05/20 20:29 Dose: 50 mls/hr Documented by: Levothyroxine Sodium (Levothyroxine) 25 mcg PO DAILY [facility] Last Admin: 10/05/20 09:35 Dose: 25 mcg Documented by: Lorazepam (Ativan) 0.5 mg IV Q6H PRN PRN Reason: Irritability Magnesium Oxide (Magnesium Oxide) 400 mg PO BEDTIME [facility] Last Admin: 10/05/20 20:30 Dose: Not Given Documented by: Ondansetron HCl (Zofran Odt) 4 mg PO Q6H PRN PRN Reason: nausea, able to take PO Sildenafil Citrate (Revatio) 10 mg PO BID [facility] Last Admin: 10/05/20 10:45 Dose: Not Given Documented by: Temazepam (Restoril) 7.5 mg PO BEDTIME PRN PRN Reason: Sleep - Exam Quality Assessment: Supplemental Oxygen (Face mask) General: Severe Distress Lungs: Rales. No: Normal Respiratory Effort (Increased respiratory effort) Cardiovascular: Irregular Rhythm GI/Abdominal Exam: Tender (Diffusely tender), Abnormal Bowel Sounds (Decreased). No: Guarding, Rigid Extremities: Slow Capillary Refill. No: Normal Capillary Refill (Decreased) Skin: Cool Psy/Mental Status: Agitated Sepsis Event Note - Evaluation Sepsis Screening Result: No Definite Risk - Focused Exam Vital Signs: Vital Signs Temp Pulse Pulse Resp BP BP Pulse Ox 10/06/20 10:14 10/06/20 08:05 98.1 F 79 16 124/70 93 L 10/06/20 04:00 70 20 132/68 92 L Pulse Ox 10/06/20 10:14 91 L 10/06/20 08:05 10/06/20 04:00 - Problem List & Annotations (1) Anemia SNOMED Code(s): 293140422 Code(s): D64.9 - ANEMIA, UNSPECIFIED Status: Acute Current Visit: Yes Qualifiers: Chronic kidney disease stage: stage 3 (moderate) (2) Chronic hyponatremia SNOMED Code(s): 18429812 Code(s): E87.1 - HYPO-OSMOLALITY AND HYPONATREMIA Status: Acute Priority: Medium Current Visit: Yes Onset Date: ~10/04/20 Annotation/Comment:: hold diuretics x 24 hours and reassess. (3) Hypokalemia SNOMED Code(s): 83165635 Code(s): E87.6 - HYPOKALEMIA Status: Acute Priority: Medium Current Visit: Yes Onset Date: ~10/04/20 Annotation/Comment:: replace mag and k (4) COVID-19 SNOMED Code(s): 798343928 Code(s): U07.1 - COVID-19 Status: Acute Priority: High Current Visit: No Onset Date: ~09/25/20 - Problem List Review Problem List Initiated/Reviewed/Updated: Yes - My Orders Last 24 Hours: My Active Orders 10/06/20 06:30 PROCALCITONIN [REF] Routine 10/06/20 08:00 Pharmacy to Dose - Warfarin 1 dose .XX ASDIRECTED PRN 10/06/20 10:11 Resuscitation Status Routine 10/06/20 10:19 Morphine 2 mg IVPUSH Q2H PRN 10/06/20 10:19 Morphine [Morphine 10 MG/0.5 ML Oral Syringe] 10 mg PO Q2H PRN 10/06/20 10:23 Ondansetron [Zofran] 4 mg IVPUSH Q4H PRN 10/06/20 10:24 LORazepam [Ativan] 0.5 mg IVPUSH Q1H PRN 10/06/20 18:00 Warfarin Sliding Scale [Coumadin Sliding Scale] 0 each PO QPM 10/07/20 05:11 INR,PT,PROTHROMBIN TIME [COAG] AM 10/08/20 05:11 INR,PT,PROTHROMBIN TIME [COAG] AM 10/09/20 05:11 INR,PT,PROTHROMBIN TIME [COAG] AM 10/10/20 05:11 INR,PT,PROTHROMBIN TIME [COAG] AM - Plan Plan:: Assessment 10/05/2020 COVID-19 with pneumonia COPD Worsening white count concern for secondary bacterial pneumonia End-stage renal disease Metabolic encephalopathy/altered mental status * Patient has several high risk conditions associated with high mortality from COVID-19. * Oxygenation has worsened and she is requiring 6 L nasal cannula * White count increased to 24.6 with 97% bands. * Currently on remdesivir day 2 and dexamethasone * Was placed on dexamethasone for 3 days prior to the admission * Estimated GFR down to 10 with a creatinine of 4.1 and BUN of 96. * CRP increased to 24.3 from 11.4 Atrial fibrillation Congestive heart failure Heart valve replacement Pacemaker * INR 5.2 last night * Warfarin held this morning * Rate is controlled in the 70s * On torsemide 20 mg twice daily at home, but was held on admission secondary to concerns of dehydration * proBNP was 9114 on admission 10/06/2020 COVID-19 with pneumonia COPD Worsening white count concern for secondary bacterial pneumonia End-stage renal disease Metabolic encephalopathy/altered mental status GI bleed Atrial fibrillation Congestive heart failure Heart valve replacement Pacemaker * Patient has had continued worsening of all parameters. White count up to 28,000, INR is increased to 5.93, and she has had worsening abdominal pain. * Had a large black stool today. * Kidney function has worsened with a GFR of 9 and creatinine of 4.7. BUN is elevated secondary to GI bleed and kidney failure at 106. * Worsening mental status * Worsening oxygenation now on simple mask Chronic multiple medical problems : copd/ valve replacement/renal insuff chronic./hypertension/pacemaker for tachybrady.//thrombocytopenia anemia/leukocytosis/ osteoporosis/hypokalemia//hyponatremia//hyperparathyrodism. recent increase in bruising and falling but no other bleeding. weight loss and malnutrition noted on eval/ petechia . anxiety and multiple osteoarthritic joints.chronic pain she states. + myalgias. diarrhea and hx of c diff. Plan * Discussed patient's condition with her family. I spoke with Tania Bell, her daughter, about her mother's condition. Tania then spoke with other members of her family and they came to the conclusion that she would want to be kept comfortable and not have any more treatment. Considering the patient's overall condition and extremely poor prognosis they requested that she be made comfort measures. * CODE STATUS was changed to DNR/DNI comfort measures. * Patient will be started on morphine, Ativan, and glycopyrrolate for comfort.
[2020-10-06] MEDS: Levothyroxine 25 MCG Tab PO SCH (10:41)
[2020-10-06] MEDS: Cholecalciferol (Vitamin D3) 25 MCG Tab PO SCH (10:41)
[2020-10-06] MEDS: Ferrous Sulfate 324 MG Tab.EC PO SCH (10:41)
[2020-10-06] MEDS: Dexamethasone 4 MG Tab PO SCH (10:41)
[2020-10-06] MEDS: Sodium Bicarbonate 650 MG Tab PO SCH (10:42)
[2020-10-06] MEDS: Potassium Chloride 20 MEQ Tab.ER PO SCH (10:42)
[2020-10-06] MEDS: Saccharomyces Boulardii (Probiotic) 250 MG Cap PO SCH (10:42)
[2020-10-06] MEDS ORDERED: Warfarin Sliding Scale PO SCH (18:00)
--- NOTE | 2020-10-07 11:25 | PCM.PN ---
- General Info Date of Service: 10/07/20 Admission Dx/Problem (Free Text): Admission Diagnosis/Problem Admission Diagnosis/Problem Hypoxia Subjective Update: No overnight or acute issues. She remains comfortable. Functional Status: Reports: Pain Controlled - Review of Systems General: Denies: Fever, Chills HEENT: Reports: No Symptoms Pulmonary: Reports: Shortness of Breath. Denies: Cough Cardiovascular: Denies: Chest Pain Gastrointestinal: Denies: Abdominal Pain, Nausea, Vomiting Genitourinary: Reports: No Symptoms Musculoskeletal: Denies: Joint Pain Skin: Reports: No Symptoms Neurological: Denies: Headache Psychiatric: Denies: Depression, Anxiety - Patient Data Vitals - Most Recent: Last Vital Signs Temp 36.7 C 10/06/20 08:05 Pulse 71 10/07/20 07:18 Resp 16 10/06/20 22:15 BP 149/76 H 10/06/20 22:15 Pulse Ox 91 L 10/07/20 07:18 Weight - Most Recent: 64.864 kg I&O - Last 24 Hours: Intake & Output 10/06/20 10/07/20 10/07/20 22:59 06:59 14:59 Intake Total 0 Output Total 400 500 Balance -400 -500 Lab Results Last 24 Hours: Laboratory Results - last 24 hr 10/06/20 Range/Units 06:30 Procalcitonin 167.45 H (<0.10) ng/mL Dashawn Results Last 24 Hours: Microbiology 10/04/20 19:40 Aerobic Blood Culture - Preliminary Blood - Venous - Lab Draw NO GROWTH AFTER 2 DAYS Anaerobic Blood Culture - Preliminary NO GROWTH AFTER 2 DAYS 10/04/20 19:30 Aerobic Blood Culture - Preliminary Blood - Venous NO GROWTH AFTER 2 DAYS Anaerobic Blood Culture - Preliminary NO GROWTH AFTER 2 DAYS Med Orders - Current: Current Medications Acetaminophen (Tylenol) 650 mg PO Q4H PRN PRN Reason: Pain (Mild 1-3)/fever Lorazepam (Ativan) 0.5 mg IVPUSH Q1H PRN PRN Reason: Anxiety Morphine Sulfate (Morphine) 2 mg IVPUSH Q2H PRN PRN Reason: Pain Morphine Sulfate (Morphine 10 Mg/0.5 Ml Oral Syringe) 10 mg PO Q2H PRN PRN Reason: Pain Ondansetron HCl (Zofran) 4 mg IVPUSH Q4H PRN PRN Reason: Nausea Sodium Chloride (Saline Flush) 10 ml FLUSH ASDIRECTED PRN PRN Reason: Keep Vein Open Discontinued Medications Acetaminophen (Tylenol) 650 mg PO Q6HR PRN PRN Reason: Pain Allopurinol (Zyloprim) 300 mg PO BEDTIME [facility] Last Admin: 10/05/20 20:43 Dose: Not Given Documented by: Calcium Acetate (Phoslo) 667 mg PO 12,18 [facility] Last Admin: 10/05/20 18:45 Dose: 667 mg Documented by: Cholecalciferol (Vitamin D3) 1,000 mcg PO DAILY [facility] Last Admin: 10/05/20 10:46 Dose: Not Given Documented by: Cholecalciferol (Vitamin D3) 1,000 unit PO DAILY [facility] Last Admin: 10/05/20 10:53 Dose: Not Given Documented by: Cholecalciferol (Vitamin D3) 25 mcg PO DAILY [facility] Last Admin: 10/06/20 10:41 Dose: Not Given Documented by: Dexamethasone (Decadron) 6 mg IVPUSH ONETIME ONE Stop: 10/04/20 19:28 Last Admin: 10/04/20 19:48 Dose: 6 mg Documented by: Dexamethasone (Dexamethasone) 6 mg PO DAILY [facility] Last Admin: 10/06/20 10:41 Dose: Not Given Documented by: Ferrous Sulfate (Ferrous Sulfate) 648 mg PO DAILY [facility] Last Admin: 10/06/20 10:41 Dose: Not Given Documented by: Furosemide (Lasix) 40 mg IVPUSH BIDDIURETIC [facility] Furosemide (Lasix) 80 mg IVPUSH BIDDIURETIC [facility] Last Admin: 10/06/20 06:51 Dose: 80 mg Documented by: Hydromorphone HCl (Dilaudid) 0.25 mg IVPUSH ONETIME ONE Stop: 10/06/20 08:02 Last Admin: 10/06/20 08:18 Dose: 0.25 mg Documented by: Remdesivir 100 mg/ Sodium (Chloride) 100 mls @ 100 mls/hr IV ONETIME ONE Stop: 10/04/20 20:26 Last Admin: 10/04/20 19:48 Dose: 100 mls/hr Documented by: Remdesivir 100 mg/ Sodium (Chloride) 100 mls @ 100 mls/hr IV Q24H [facility] Stop: 10/08/20 20:59 Last Admin: 11/26/20 21:23 Dose: 100 mls/hr Documented by: Potassium Chloride 10 meq/ (Premix) 100 mls @ 100 mls/hr IV Q1H [facility] Stop: 10/05/20 17:44 Last Admin: 10/05/20 22:46 Dose: 100 mls/hr Documented by: Ceftriaxone Sodium 2 gm/ (Sodium Chloride) 100 mls @ 200 mls/hr IV Q24H [facility] Stop: 10/11/20 18:29 Last Admin: 10/05/20 18:51 Dose: 200 mls/hr Documented by: Azithromycin 500 mg/ Sodium (Chloride) 250 mls @ 250 mls/hr IV Q24H [facility] Stop: 10/07/20 19:29 Last Admin: 10/05/20 20:21 Dose: 250 mls/hr Documented by: Sodium Chloride (Normal Saline (Advbag)) Confirm Administered Dose 250 mls @ as directed .ROUTE .STK-MED ONE Stop: 10/05/20 20:22 Last Admin: 10/05/20 21:23 Dose: Not Given Documented by: Sodium Chloride (Normal Saline) Confirm Administered Dose 250 mls @ as directed .ROUTE .STK-MED ONE Stop: 10/05/20 20:24 Last Admin: 10/05/20 20:29 Dose: 50 mls/hr Documented by: Levothyroxine Sodium (Levothyroxine) 25 mcg PO DAILY [facility] Last Admin: 10/06/20 10:41 Dose: Not Given Documented by: Lorazepam (Ativan) 0.5 mg IV Q6H PRN PRN Reason: Irritability Magnesium Oxide (Magnesium Oxide) 400 mg PO BEDTIME [facility] Last Admin: 10/05/20 20:30 Dose: Not Given Documented by: Ondansetron HCl (Zofran Odt) 4 mg PO Q6H PRN PRN Reason: nausea, able to take PO Pantoprazole Sodium (Protonix) 40 mg PO BEDTIME [facility] Last Admin: 10/05/20 20:42 Dose: Not Given Documented by: Potassium Chloride (Klor-Con M20) 20 meq PO DAILY [facility] Last Admin: 10/06/20 10:42 Dose: Not Given Documented by: Saccharomyces Boulardii (Florastor) 250 mg PO BID [facility] Last Admin: 10/06/20 10:42 Dose: Not Given Documented by: Sildenafil Citrate (Revatio) 10 mg PO BID [facility] Last Admin: 10/05/20 10:45 Dose: Not Given Documented by: Sildenafil Citrate (Revatio) 10 mg PO BID [facility] Last Admin: 10/06/20 10:42 Dose: Not Given Documented by: Sodium Bicarbonate (Sodium Bicarbonate) 325 mg PO BID [facility] Last Admin: 10/06/20 10:42 Dose: Not Given Documented by: Sodium Chloride (Saline Flush) 10 ml FLUSH ASDIRECTED PRN PRN Reason: Keep Vein Open Last Admin: 10/04/20 19:49 Dose: 10 ml Documented by: Temazepam (Restoril) 7.5 mg PO BEDTIME PRN PRN Reason: Sleep Warfarin Sodium (Pharmacy To Dose - Warfarin) 1 dose .XX ASDIRECTED PRN PRN Reason: RX TO DOSE WARFARIN Warfarin Sodium (Coumadin Sliding Scale) 0 each PO QPM [facility] Stop: 10/06/20 18:01 - Exam Quality Assessment: Supplemental Oxygen General: Sedated, Lethargic HEENT: Pupils Equal, Pupils Reactive Neck: Supple Lungs: Normal Respiratory Effort, Decreased Breath Sounds Cardiovascular: Regular Rate, Regular Rhythm GI/Abdominal Exam: Normal Bowel Sounds, Soft, Non-Tender, No Organomegaly, No Distention (Female) Exam: Deferred Back Exam: Normal Inspection, Decreased Range of Motion Extremities: Normal Inspection, Normal Range of Motion, Non-Tender, No Pedal Edema, Normal Capillary Refill Peripheral Pulses: 2+: Dorsalis Pedis (L), Dorsalis Pedis (R) Skin: Warm, Dry, Intact, Ecchymosis (all over her body) Neurological: No New Focal Deficit Psy/Mental Status: Normal Affect, Other (sedated/lethargic) Sepsis Event Note - Evaluation Sepsis Screening Result: No Definite Risk - Focused Exam Vital Signs: Vital Signs Pulse Pulse Ox 10/07/20 07:18 71 91 L 10/06/20 23:57 70 97 - Problem List Review Problem List Initiated/Reviewed/Updated: Yes - Plan Plan:: Assessment 10/05/2020 COVID-19 with pneumonia COPD Worsening white count concern for secondary bacterial pneumonia End-stage renal disease Metabolic encephalopathy/altered mental status * Patient has several high risk conditions associated with high mortality from COVID-19. * Oxygenation has worsened and she is requiring 6 L nasal cannula * White count increased to 24.6 with 97% bands. * Currently on remdesivir day 2 and dexamethasone * Was placed on dexamethasone for 3 days prior to the admission * Estimated GFR down to 10 with a creatinine of 4.1 and BUN of 96. * CRP increased to 24.3 from 11.4 Atrial fibrillation Congestive heart failure Heart valve replacement Pacemaker * INR 5.2 last night * Warfarin held this morning * Rate is controlled in the 70s * On torsemide 20 mg twice daily at home, but was held on admission secondary to concerns of dehydration * proBNP was 9114 on admission 10/06/2020 COVID-19 with pneumonia COPD Worsening white count concern for secondary bacterial pneumonia End-stage renal disease Metabolic encephalopathy/altered mental status GI bleed Atrial fibrillation Congestive heart failure Heart valve replacement Pacemaker [facility] Life [facility] * Patient has had continued worsening of all parameters. White count up to 28,000, INR is increased to 5.93, and she has had worsening abdominal pain. * Had a large black stool today. * Kidney function has worsened with a GFR of 9 and creatinine of 4.7. BUN is elevated secondary to GI bleed and kidney failure at 106. * Worsening mental status * Worsening oxygenation now on simple mask Chronic multiple medical problems : copd/ valve replacement/renal insuff chronic./hypertension/pacemaker for tachybrady.//thrombocytopenia anemia/leukocytosis/ oste oporosis/hypokalemia//hyponatremia//hyperparathyrodism. recent increase in bruising and falling but no other bleeding. weight loss and malnutrition noted on eval/ petechia . anxiety and multiple osteoarthritic joints.chronic pain she states. + myalgias. diarrhea and hx of c diff. Plan: * On Morphine, ativan and glycopyrrolate for comfort meds * Continue above treatment * CODE STATUS was changed to DNR/DNI comfort measures * Discharge > 96 hrs pending placement
[2020-10-07] MEDS: Morphine 2 MG/ML SYRINGE IVPUSH PRN (21:40)
--- NOTE | 2020-10-08 07:57 | PCM.PN ---
- General Info Date of Service: 10/08/20 Admission Dx/Problem (Free Text): Admission Diagnosis/Problem Admission Diagnosis/Problem Hypoxia Subjective Update: She rested well and no significant event overnight. She remains comfortable. Functional Status: Reports: Pain Controlled - Review of Systems General: Denies: Fever, Chills Pulmonary: Denies: Shortness of Breath Cardiovascular: Denies: Chest Pain Gastrointestinal: Denies: Abdominal Pain, Nausea, Vomiting Genitourinary: Denies: Burning Musculoskeletal: Denies: Joint Pain Skin: Denies: Rash Neurological: Denies: Headache Psychiatric: Denies: Depression, Anxiety - Patient Data Vitals - Most Recent: Last Vital Signs Temp 36.4 C 10/08/20 02:50 Pulse 90 10/08/20 02:51 Resp 20 10/08/20 02:50 BP 135/59 L 10/08/20 02:50 Pulse Ox 97 10/08/20 02:51 Weight - Most Recent: 65.045 kg I&O - Last 24 Hours: Intake & Output 10/07/20 10/08/20 10/08/20 22:59 06:59 14:59 Intake Total 0 800 Output Total 0 Balance 0 800 Dashawn Results Last 24 Hours: Microbiology 10/04/20 19:40 Aerobic Blood Culture - Preliminary Blood - Venous - Lab Draw NO GROWTH AFTER 3 DAYS Anaerobic Blood Culture - Preliminary NO GROWTH AFTER 3 DAYS 10/04/20 19:30 Aerobic Blood Culture - Preliminary Blood - Venous NO GROWTH AFTER 3 DAYS Anaerobic Blood Culture - Preliminary NO GROWTH AFTER 3 DAYS Med Orders - Current: Current Medications Acetaminophen (Tylenol) 650 mg PO Q4H PRN PRN Reason: Pain (Mild 1-3)/fever Lorazepam (Ativan) 0.5 mg IVPUSH Q1H PRN PRN Reason: Anxiety Morphine Sulfate (Morphine) 2 mg IVPUSH Q2H PRN PRN Reason: Pain Last Admin: 10/07/20 21:40 Dose: 2 mg Documented by: Morphine Sulfate (Morphine 10 Mg/0.5 Ml Oral Syringe) 10 mg PO Q2H PRN PRN Reason: Pain Ondansetron HCl (Zofran) 4 mg IVPUSH Q4H PRN PRN Reason: Nausea Sodium Chloride (Saline Flush) 10 ml FLUSH ASDIRECTED PRN PRN Reason: Keep Vein Open Discontinued Medications Acetaminophen (Tylenol) 650 mg PO Q6HR PRN PRN Reason: Pain Allopurinol (Zyloprim) 300 mg PO BEDTIME [facility] [place] Last Admin: 10/05/20 20:43 Dose: Not Given Documented by: Calcium Acetate (Phoslo) 667 mg PO 12,18 [facility] [place] Last Admin: 10/05/20 18:45 Dose: 667 mg Documented by: Cholecalciferol (Vitamin D3) 1,000 mcg PO DAILY [facility] [place] Last Admin: 10/05/20 10:46 Dose: Not Given Documented by: Cholecalciferol (Vitamin D3) 1,000 unit PO DAILY [facility] [place] Last Admin: 10/05/20 10:53 Dose: Not Given Documented by: Cholecalciferol (Vitamin D3) 25 mcg PO DAILY [facility] [place] Last Admin: 10/06/20 10:41 Dose: Not Given Documented by: Dexamethasone (Decadron) 6 mg IVPUSH ONETIME ONE Stop: 10/04/20 19:28 Last Admin: 10/04/20 19:48 Dose: 6 mg Documented by: Dexamethasone (Dexamethasone) 6 mg PO DAILY [facility] [place] Last Admin: 10/06/20 10:41 Dose: Not Given Documented by: Ferrous Sulfate (Ferrous Sulfate) 648 mg PO DAILY [facility] [place] Last Admin: 10/06/20 10:41 Dose: Not Given Documented by: Furosemide (Lasix) 40 mg IVPUSH BIDDIURETIC [facility] [place] Furosemide (Lasix) 80 mg IVPUSH BIDDIURETIC [facility] [place] Last Admin: 10/06/20 06:51 Dose: 80 mg Documented by: Hydromorphone HCl (Dilaudid) 0.25 mg IVPUSH ONETIME ONE Stop: 10/06/20 08:02 Last Admin: 10/06/20 08:18 Dose: 0.25 mg Documented by: Remdesivir 100 mg/ Sodium (Chloride) 100 mls @ 100 mls/hr IV ONETIME ONE Stop: 10/04/20 20:26 Last Admin: 10/04/20 19:48 Dose: 100 mls/hr Documented by: Remdesivir 100 mg/ Sodium (Chloride) 100 mls @ 100 mls/hr IV Q24H [facility] [place] Stop: 10/08/20 20:59 Last Admin: 10/05/20 21:23 Dose: 100 mls/hr Documented by: Potassium Chloride 10 meq/ (Premix) 100 mls @ 100 mls/hr IV Q1H [facility] [place] Stop: 10/05/20 17:44 Last Admin: 10/05/20 22:46 Dose: 100 mls/hr Documented by: Ceftriaxone Sodium 2 gm/ (Sodium Chloride) 100 mls @ 200 mls/hr IV Q24H [facility] [place] Stop: 10/11/20 18:29 Last Admin: 10/05/20 18:51 Dose: 200 mls/hr Documented by: Azithromycin 500 mg/ Sodium (Chloride) 250 mls @ 250 mls/hr IV Q24H [facility] [place] Stop: 10/07/20 19:29 Last Admin: 10/05/20 20:21 Dose: 250 mls/hr Documented by: Sodium Chloride (Normal Saline (Advbag)) Confirm Administered Dose 250 mls @ as directed .ROUTE .[facility] ONE Stop: 10/05/20 20:22 Last Admin: 10/05/20 21:23 Dose: Not Given Documented by: Sodium Chloride (Normal Saline) Confirm Administered Dose 250 mls @ as directed .ROUTE [facility] ONE Stop: 10/05/20 20:24 Last Admin: 10/05/20 20:29 Dose: 50 mls/hr Documented by: Levothyroxine Sodium (Levothyroxine) 25 mcg PO DAILY [facility] [place] Last Admin: 10/06/20 10:41 Dose: Not Given Documented by: Lorazepam (Ativan) 0.5 mg IV Q6H PRN PRN Reason: Irritability Magnesium Oxide (Magnesium Oxide) 400 mg PO BEDTIME [facility] [place] Last Admin: 10/05/20 20:30 Dose: Not Given Documented by: Ondansetron HCl (Zofran Odt) 4 mg PO Q6H PRN PRN Reason: nausea, able to take PO Pantoprazole Sodium (Protonix) 40 mg PO BEDTIME [facility] [place] Last Admin: 10/05/20 20:42 Dose: Not Given Documented by: Potassium Chloride (Klor-Con M20) 20 meq PO DAILY [facility] [place] Last Admin: 10/06/20 10:42 Dose: Not Given Documented by: Saccharomyces Boulardii (Florastor) 250 mg PO BID [facility] [place] Last Admin: 10/06/20 10:42 Dose: Not Given Documented by: Sildenafil Citrate (Revatio) 10 mg PO BID [facility] [place] Last Admin: 10/05/20 10:45 Dose: Not Given Documented by: Sildenafil Citrate (Revatio) 10 mg PO BID [facility] Last Admin: 10/06/20 10:42 Dose: Not Given Documented by: Sodium Bicarbonate (Sodium Bicarbonate) 325 mg PO BID [facility] Last Admin: 10/06/20 10:42 Dose: Not Given Documented by: Sodium Chloride (Saline Flush) 10 ml FLUSH ASDIRECTED PRN PRN Reason: Keep Vein Open Last Admin: 10/04/20 19:49 Dose: 10 ml Documented by: Temazepam (Restoril) 7.5 mg PO BEDTIME PRN PRN Reason: Sleep Warfarin Sodium (Pharmacy To Dose - Warfarin) 1 dose .XX ASDIRECTED PRN PRN Reason: RX TO DOSE WARFARIN Warfarin Sodium (Coumadin Sliding Scale) 0 each PO QPM [facility] [place] Stop: 10/06/20 18:01 - Exam General: Alert, Cooperative, No Acute Distress HEENT: Pupils Equal, Pupils Reactive, Mucous Membr. Moist/[place] Neck: Supple Lungs: Normal Respiratory Effort, Decreased Breath Sounds Cardiovascular: Regular Rate, Regular Rhythm GI/Abdominal Exam: Normal Bowel Sounds, Non-Tender (Female) Exam: Deferred Back Exam: Normal Inspection, Decreased Range of Motion Extremities: Normal Inspection, Normal Range of Motion, Non-Tender Peripheral Pulses: 1+: Dorsalis Pedis (L), Dorsalis Pedis (R) Skin: Warm, Dry, Intact, Ecchymosis (all over her body) Neurological: No New Focal Deficit Psy/Mental Status: Alert, Normal Affect, Normal Mood Sepsis Event Note - Evaluation Sepsis Screening Result: No Definite Risk - Focused Exam Vital Signs: Vital Signs Temp Pulse Resp BP Pulse Ox 10/08/20 02:51 90 97 10/08/20 02:50 36.4 C 74 20 135/59 L 82 L 10/07/20 21:37 36.3 C 99 20 107/61 89 L 10/07/20 21:30 89 91 L - Problem List Review Problem List Initiated/Reviewed/Updated: Yes - Plan Plan:: Assessment 10/05/2020 COVID-19 with pneumonia COPD Worsening white count concern for secondary bacterial pneumonia End-stage renal disease Metabolic encephalopathy/altered mental status * Patient has several high risk conditions associated with high mortality from COVID-19. * Oxygenation has worsened and she is requiring 6 L nasal cannula * White count increased to 24.6 with 97% bands. * Currently on remdesivir day 2 and dexamethasone * Was placed on dexamethasone for 3 days prior to the admission * Estimated GFR down to 10 with a creatinine of 4.1 and BUN of 96. * CRP increased to 24.3 from 11.4 Atrial fibrillation Congestive heart failure Heart valve replacement Pacemaker * INR 5.2 last night * Warfarin held this morning * Rate is controlled in the 70s * On torsemide 20 mg twice daily at home, but was held on admission secondary to concerns of dehydration * proBNP was 9114 on admission 10/06/2020 COVID-19 with pneumonia COPD Worsening white count concern for secondary bacterial pneumonia End-stage renal disease Metabolic encephalopathy/altered mental status GI bleed Atrial fibrillation Congestive heart failure Heart valve replacement Pacemaker [facility] * Patient has had continued worsening of all parameters. White count up to 28,000, INR is increased to 5.93, and she has had worsening abdominal pain. * Had a large black stool today. * Kidney function has worsened with a GFR of 9 and creatinine of 4.7. BUN is elevated secondary to GI bleed and kidney failure at 106. * Worsening mental status * Worsening oxygenation now on simple mask Chronic multiple medical problems : copd/ valve replacement/renal insuff chronic./hypertension/pacemaker for tachybrady.//thrombocytopenia anemia/leukocytosis/ osteoporosis/hypokalemia//hyponatremia//hyperparathyroidism. recent increase in bruising and falling but no other bleeding. weight loss and malnutrition noted on eval/ petechia . anxiety and multiple osteoarthritic joints.chronic pain she states. + myalgias. diarrhea and hx of c diff. Plan: * On Morphine, ativan and glycopyrrolate for comfort meds * Continue above treatment * CODE STATUS was changed to DNR/DNI comfort measures * LOS/Discharge > 96 hrs pending placement
--- NOTE | 2020-10-09 07:45 | PCM.PN ---
- General Info Date of Service: 10/09/20 Admission Dx/Problem (Free Text): Admission Diagnosis/Problem Admission Diagnosis/Problem Hypoxia Subjective Update: Erica was able to answer a couple questions but quickly fell back to sleep. She stated she was not in discomfort. - Review of Systems General: Reports: Other (Unable to obtain review of systems) - Patient Data Vitals - Most Recent: Last Vital Signs Temp 97.5 F 10/08/20 02:50 Pulse 78 10/08/20 08:10 Resp 16 10/08/20 07:57 BP 142/64 H 10/08/20 07:57 Pulse Ox 88 L 10/08/20 08:10 Weight - Most Recent: 142 lb 12.8 oz I&O - Last 24 Hours: Intake & Output 10/08/20 10/09/20 10/09/20 22:59 06:59 14:59 Intake Total 70 300 Output Total 0 Balance 70 300 Dashawn Results Last 24 Hours: Microbiology 10/04/20 19:40 Aerobic Blood Culture - Preliminary Blood - Venous - Lab Draw NO GROWTH AFTER 4 DAYS Anaerobic Blood Culture - Preliminary NO GROWTH AFTER 4 DAYS 10/04/20 19:30 Aerobic Blood Culture - Preliminary Blood - Venous NO GROWTH AFTER 4 DAYS Anaerobic Blood Culture - Preliminary NO GROWTH AFTER 4 DAYS Med Orders - Current: Current Medications Acetaminophen (Tylenol) 650 mg PO Q4H PRN PRN Reason: Pain (Mild 1-3)/fever Lorazepam (Ativan) 0.5 mg IVPUSH Q1H PRN PRN Reason: Anxiety Morphine Sulfate (Morphine) 2 mg IVPUSH Q2H PRN PRN Reason: Pain Last Admin: 10/07/20 21:40 Dose: 2 mg Documented by: Morphine Sulfate (Morphine 10 Mg/0.5 Ml Oral Syringe) 10 mg PO Q2H PRN PRN Reason: Pain Ondansetron HCl (Zofran) 4 mg IVPUSH Q4H PRN PRN Reason: Nausea Sodium Chloride (Saline Flush) 10 ml FLUSH ASDIRECTED PRN PRN Reason: Keep Vein Open Discontinued Medications Acetaminophen (Tylenol) 650 mg PO Q6HR PRN PRN Reason: Pain Allopurinol (Zyloprim) 300 mg PO BEDTIME [facility] Last Admin: 10/05/20 20:43 Dose: Not Given Documented by: Calcium Acetate (Phoslo) 667 mg PO 12,18 [facility] Last Admin: 10/05/20 18:45 Dose: 667 mg Documented by: Cholecalciferol (Vitamin D3) 1,000 mcg PO DAILY [facility] Last Admin: 10/05/20 10:46 Dose: Not Given Documented by: Cholecalciferol (Vitamin D3) 1,000 unit PO DAILY [facility] Last Admin: 10/05/20 10:53 Dose: Not Given Documented by: Cholecalciferol (Vitamin D3) 25 mcg PO DAILY [facility] Last Admin: 10/06/20 10:41 Dose: Not Given Documented by: Dexamethasone (Decadron) 6 mg IVPUSH ONETIME ONE Stop: 10/04/20 19:28 Last Admin: 10/04/20 19:48 Dose: 6 mg Documented by: Dexamethasone (Dexamethasone) 6 mg PO DAILY [facility] Last Admin: 10/06/20 10:41 Dose: Not Given Documented by: Ferrous Sulfate (Ferrous Sulfate) 648 mg PO DAILY [facility] Last Admin: 10/06/20 10:41 Dose: Not Given Documented by: Furosemide (Lasix) 40 mg IVPUSH BIDDIURETIC [facility] Furosemide (Lasix) 80 mg IVPUSH BIDDIURETIC [facility] Last Admin: 10/06/20 06:51 Dose: 80 mg Documented by: Hydromorphone HCl (Dilaudid) 0.25 mg IVPUSH ONETIME ONE Stop: 10/06/20 08:02 Last Admin: 10/06/20 08:18 Dose: 0.25 mg Documented by: Remdesivir 100 mg/ Sodium (Chloride) 100 mls @ 100 mls/hr IV ONETIME ONE Stop: 10/04/20 20:26 Last Admin: 10/04/20 19:48 Dose: 100 mls/hr Documented by: Remdesivir 100 mg/ Sodium (Chloride) 100 mls @ 100 mls/hr IV Q24H [facility] Stop: 10/08/20 20:59 Last Admin: 10/05/20 21:23 Dose: 100 mls/hr Documented by: Potassium Chloride 10 meq/ (Premix) 100 mls @ 100 mls/hr IV Q1H [facility] Stop: 10/05/20 17:44 Last Admin: 10/05/20 22:46 Dose: 100 mls/hr Documented by: Ceftriaxone Sodium 2 gm/ (Sodium Chloride) 100 mls @ 200 mls/hr IV Q24H [facility] Stop: 10/11/20 18:29 Last Admin: 10/05/20 18:51 Dose: 200 mls/hr Documented by: Azithromycin 500 mg/ Sodium (Chloride) 250 mls @ 250 mls/hr IV Q24H [facility] Stop: 10/07/20 19:29 Last Admin: 10/05/20 20:21 Dose: 250 mls/hr Documented by: Sodium Chloride (Normal Saline (Advbag)) Confirm Administered Dose 250 mls @ as directed .ROUTE .[facility] ONE Stop: 10/05/20 20:22 Last Admin: 10/05/20 21:23 Dose: Not Given Documented by: Sodium Chloride (Normal Saline) Confirm Administered Dose 250 mls @ as directed .ROUTE .[facility] ONE Stop: 10/05/20 20:24 Last Admin: 10/05/20 20:29 Dose: 50 mls/hr Documented by: Levothyroxine Sodium (Levothyroxine) 25 mcg PO DAILY [facility] Last Admin: 10/06/20 10:41 Dose: Not Given Documented by: Lorazepam (Ativan) 0.5 mg IV Q6H PRN PRN Reason: Irritability Magnesium Oxide (Magnesium Oxide) 400 mg PO BEDTIME [facility] Last Admin: 10/05/20 20:30 Dose: Not Given Documented by: Ondansetron HCl (Zofran Odt) 4 mg PO Q6H PRN PRN Reason: nausea, able to take PO Pantoprazole Sodium (Protonix) 40 mg PO BEDTIME [facility] Last Admin: 10/05/20 20:42 Dose: Not Given Documented by: Potassium Chloride (Klor-Con M20) 20 meq PO DAILY [facility] Last Admin: 10/06/20 10:42 Dose: Not Given Documented by: Saccharomyces Boulardii (Florastor) 250 mg PO BID [facility] Last Admin: 10/06/20 10:42 Dose: Not Given Documented by: Sildenafil Citrate (Revatio) 10 mg PO BID [facility] Last Admin: 10/05/20 10:45 Dose: Not Given Documented by: Sildenafil Citrate (Revatio) 10 mg PO BID [facility] Last Admin: 10/06/20 10:42 Dose: Not Given Documented by: Sodium Bicarbonate (Sodium Bicarbonate) 325 mg PO BID [facility] Last Admin: 10/06/20 10:42 Dose: Not Given Documented by: Sodium Chloride (Saline Flush) 10 ml FLUSH ASDIRECTED PRN PRN Reason: Keep Vein Open Last Admin: 10/04/20 19:49 Dose: 10 ml Documented by: Temazepam (Restoril) 7.5 mg PO BEDTIME PRN PRN Reason: Sleep Warfarin Sodium (Pharmacy To Dose - Warfarin) 1 dose .XX ASDIRECTED PRN PRN Reason: RX TO DOSE WARFARIN Warfarin Sodium (Coumadin Sliding Scale) 0 each PO QPM [facility] Stop: 10/06/20 18:01 - Exam Quality Assessment: Supplemental Oxygen General: Lethargic Lungs: Normal Respiratory Effort, Rales Cardiovascular: Regular Rate, Regular Rhythm GI/Abdominal Exam: Tender (Diffusely), Abnormal Bowel Sounds (Decreased) Extremities: Normal Inspection, Slow Capillary Refill Sepsis Event Note - Evaluation Sepsis Screening Result: No Definite Risk - Problem List & Annotations (1) Anemia SNOMED Code(s): 257069870 Code(s): D64.9 - ANEMIA, UNSPECIFIED Status: Acute Current Visit: Yes Qualifiers: Chronic kidney disease stage: stage 3 (moderate) (2) Chronic hyponatremia SNOMED Code(s): 20589454 Code(s): E87.1 - HYPO-OSMOLALITY AND HYPONATREMIA Status: Acute Priority: Medium Current Visit: Yes Onset Date: ~10/04/20 Annotation/Comment:: hold diuretics x 24 hours and reassess. (3) Hypokalemia SNOMED Code(s): 63771985 Code(s): E87.6 - HYPOKALEMIA Status: Acute Priority: Medium Current Visit: Yes Onset Date: ~10/04/20 Annotation/Comment:: replace mag and k (4) COVID-19 SNOMED Code(s): 816761568 Code(s): U07.1 - COVID-19 Status: Acute Priority: High Current Visit: No Onset Date: ~09/25/20 - Problem List Review Problem List Initiated/Reviewed/Updated: Yes - Plan Plan:: Assessment COVID-19 with pneumonia COPD Worsening white count concern for secondary bacterial pneumonia End-stage renal disease Metabolic encephalopathy/altered mental status GI bleed Atrial fibrillation Congestive heart failure Heart valve replacement Pacemaker [facility] * * Patient has had continued worsening of all parameters. White count up to 28,000, INR is increased to 5.93, and she has had worsening abdominal pain. * Had a large black stool * Kidney function has worsened with a GFR of 9 and creatinine of 4.7. BUN is elevated secondary to GI bleed and kidney failure at 106. * Worsening mental status * Worsening oxygenation prior comfort measures Chronic multiple medical problems : copd/ valve replacement/renal insuff chronic./hypertension/pacemaker for tachybrady.//thrombocytopenia anemia/leukocytosis/ osteoporosis/hypokalemia//hyponatremia//hyperparathyroidism. recent increase in bruising and falling but no other bleeding. weight loss and malnutrition noted on eval/ petechia . anxiety and multiple osteoarthritic joints.chronic pain she states. + myalgias. diarrhea and hx of c diff. Plan: * On Morphine, ativan and glycopyrrolate for comfort meds * Continue above treatment * CODE STATUS : DNR/DNI comfort measures * LOS/Discharge > 96 hrs pending placement
--- NOTE | 2020-10-09 09:00 | CR ---
PROCEDURE INFORMATION: Exam: XR Chest, 1 View Exam date and time: 10/04/2020 6:55 PM Age: 89 years old Clinical indication: Other: Covid +, hypoxic TECHNIQUE: Imaging protocol: XR of the chest Views: 1 view. COMPARISON: OT Chest 1V Frontal 09/29/2020 8:26 PM FINDINGS: Tubes, catheters and devices: Cardiac pacing device demonstrated with intact pacer wires. Lungs: Bilateral patchy infiltrates. Pleural space: Unremarkable. No pleural effusion. No pneumothorax. Heart/Mediastinum: Heart size projects enlarged on the AP view. Uncoiled thoracic aorta. Bones/joints: Status post sternotomy. Osteoporosis. IMPRESSION: Bilateral patchy infiltrates. Thank you for allowing us to participate in the care of your patient. Dictated and Authenticated by: Danial Agustin MD 10/04/2020 9:09 PM Central Time ([place] & [place]) TRE
--- NOTE | 2020-10-09 09:25 | CR ---
PROCEDURE INFORMATION: Exam: XR Chest, 2 Views Exam date and time: 10/05/2020 9:13 AM Age: 89 years old Clinical indication: Cough; Patient HX: Heart murmur; Additional info: Previous reports scanned for your review TECHNIQUE: Imaging protocol: XR of the chest Views: 2 views. COMPARISON: OT Chest 1V Frontal 10/04/2020 6:55 PM FINDINGS: Tubes, catheters and devices: Transvenous pacemaker leads Lungs: Opacities in the mid lung regions and both bases may represent atelectasis or pneumonia.. Pleural space: There may be small left pleural effusion. Heart/Mediastinum: Cardiomegaly and mild vascular prominence may represent interstitial edema. Bones/joints: Median sternotomy Internal fixation device in the lumbar spine IMPRESSION: 1. Cardiomegaly and mild vascular prominence may represent interstitial edema. 2. Opacities in the mid lung regions and both bases may represent atelectasis or pneumonia.. Thank you for allowing us to participate in the care of your patient. Dictated and Authenticated by: Gage Holden MD 10/05/2020 10:54 AM Central Time ([place] & [place]) TRE
--- NOTE | 2020-10-10 17:06 | PCM.PN ---
- General Info Date of Service: 10/10/20 Admission Dx/Problem (Free Text): Admission Diagnosis/Problem Admission Diagnosis/Problem Hypoxia Subjective Update: Erica continues to decline. She did ask for water but fell asleep before I could get it to her. She is not in any distress. Functional Status: Reports: Pain Controlled - Review of Systems General: Reports: Other (Unable to obtain) - Patient Data Vitals - Most Recent: Last Vital Signs Temp 97.5 F 10/10/20 07:56 Pulse 83 10/10/20 07:56 Resp 16 10/10/20 07:56 BP 112/82 10/10/20 07:56 Pulse Ox 81 L 10/10/20 07:56 Weight - Most Recent: 142 lb 12.8 oz I&O - Last 24 Hours: Intake & Output 10/10/20 10/10/20 10/10/20 06:59 14:59 22:59 Intake Total 50 50 Balance 50 50 Dashawn Results Last 24 Hours: Microbiology 10/04/20 19:40 Aerobic Blood Culture - Preliminary Blood - Venous - Lab Draw NO GROWTH AFTER 5 DAYS Anaerobic Blood Culture - Preliminary NO GROWTH AFTER 5 DAYS 10/04/20 19:30 Aerobic Blood Culture - Preliminary Blood - Venous NO GROWTH AFTER 5 DAYS Anaerobic Blood Culture - Preliminary NO GROWTH AFTER 5 DAYS Med Orders - Current: Current Medications Acetaminophen (Tylenol) 650 mg PO Q4H PRN PRN Reason: Pain (Mild 1-3)/fever Lorazepam (Ativan) 0.5 mg IVPUSH Q1H PRN PRN Reason: Anxiety Morphine Sulfate (Morphine) 2 mg IVPUSH Q2H PRN PRN Reason: Pain Last Admin: 10/07/20 21:40 Dose: 2 mg Documented by: Morphine Sulfate (Morphine 10 Mg/0.5 Ml Oral Syringe) 10 mg PO Q2H PRN PRN Reason: Pain Ondansetron HCl (Zofran) 4 mg IVPUSH Q4H PRN PRN Reason: Nausea Sodium Chloride (Saline Flush) 10 ml FLUSH ASDIRECTED PRN PRN Reason: Keep Vein Open Discontinued Medications Acetaminophen (Tylenol) 650 mg PO Q6HR PRN PRN Reason: Pain Allopurinol (Zyloprim) 300 mg PO BEDTIME [facility] Last Admin: 10/05/20 20:43 Dose: Not Given Documented by: Calcium Acetate (Phoslo) 667 mg PO 12,18 [facility] Last Admin: 10/05/20 18:45 Dose: 667 mg Documented by: Cholecalciferol (Vitamin D3) 1,000 mcg PO DAILY [facility] Last Admin: 10/05/20 10:46 Dose: Not Given Documented by: Cholecalciferol (Vitamin D3) 1,000 unit PO DAILY [facility] Last Admin: 10/05/20 10:53 Dose: Not Given Documented by: Cholecalciferol (Vitamin D3) 25 mcg PO DAILY [facility] Last Admin: 10/06/20 10:41 Dose: Not Given Documented by: Dexamethasone (Decadron) 6 mg IVPUSH ONETIME ONE Stop: 10/04/20 19:28 Last Admin: 10/04/20 19:48 Dose: 6 mg Documented by: Dexamethasone (Dexamethasone) 6 mg PO DAILY [facility] Last Admin: 10/06/20 10:41 Dose: Not Given Documented by: Ferrous Sulfate (Ferrous Sulfate) 648 mg PO DAILY [facility] Last Admin: 10/06/20 10:41 Dose: Not Given Documented by: Furosemide (Lasix) 40 mg IVPUSH BIDDIURETIC [facility] Furosemide (Lasix) 80 mg IVPUSH BIDDIURETIC [facility] Last Admin: 10/06/20 06:51 Dose: 80 mg Documented by: Hydromorphone HCl (Dilaudid) 0.25 mg IVPUSH ONETIME ONE Stop: 10/06/20 08:02 Last Admin: 10/06/20 08:18 Dose: 0.25 mg Documented by: Remdesivir 100 mg/ Sodium (Chloride) 100 mls @ 100 mls/hr IV ONETIME ONE Stop: 10/04/20 20:26 Last Admin: 10/04/20 19:48 Dose: 100 mls/hr Documented by: Remdesivir 100 mg/ Sodium (Chloride) 100 mls @ 100 mls/hr IV Q24H [facility] Stop: 10/08/20 20:59 Last Admin: 10/05/20 21:23 Dose: 100 mls/hr Documented by: Potassium Chloride 10 meq/ (Premix) 100 mls @ 100 mls/hr IV Q1H [facility] Stop: 10/05/20 17:44 Last Admin: 10/05/20 22:46 Dose: 100 mls/hr Documented by: Ceftriaxone Sodium 2 gm/ (Sodium Chloride) 100 mls @ 200 mls/hr IV Q24H [facility] Stop: 10/11/20 18:29 Last Admin: 10/05/20 18:51 Dose: 200 mls/hr Documented by: Azithromycin 500 mg/ Sodium (Chloride) 250 mls @ 250 mls/hr IV Q24H [facility] Stop: 10/07/20 19:29 Last Admin: 10/05/20 20:21 Dose: 250 mls/hr Documented by: Sodium Chloride (Normal Saline (Advbag)) Confirm Administered Dose 250 mls @ as directed .ROUTE .[facility] ONE Stop: 10/05/20 20:22 Last Admin: 10/05/20 21:23 Dose: Not Given Documented by: Sodium Chloride (Normal Saline) Confirm Administered Dose 250 mls @ as directed .ROUTE .[facility] ONE Stop: 10/05/20 20:24 Last Admin: 10/05/20 20:29 Dose: 50 mls/hr Documented by: Levothyroxine Sodium (Levothyroxine) 25 mcg PO DAILY [facility] Last Admin: 10/06/20 10:41 Dose: Not Given Documented by: Lorazepam (Ativan) 0.5 mg IV Q6H PRN PRN Reason: Irritability Magnesium Oxide (Magnesium Oxide) 400 mg PO BEDTIME [facility] Last Admin: 10/05/20 20:30 Dose: Not Given Documented by: Ondansetron HCl (Zofran Odt) 4 mg PO Q6H PRN PRN Reason: nausea, able to take PO Pantoprazole Sodium (Protonix) 40 mg PO BEDTIME [facility] Last Admin: 10/05/20 20:42 Dose: Not Given Documented by: Potassium Chloride (Klor-Con M20) 20 meq PO DAILY [facility] Last Admin: 10/06/20 10:42 Dose: Not Given Documented by: Saccharomyces Boulardii (Florastor) 250 mg PO BID [facility] Last Admin: 10/06/20 10:42 Dose: Not Given Documented by: Sildenafil Citrate (Revatio) 10 mg PO BID [facility] Last Admin: 10/05/20 10:45 Dose: Not Given Documented by: Sildenafil Citrate (Revatio) 10 mg PO BID [facility] Last Admin: 10/06/20 10:42 Dose: Not Given Documented by: Sodium Bicarbonate (Sodium Bicarbonate) 325 mg PO BID [facility] Last Admin: 10/06/20 10:42 Dose: Not Given Documented by: Sodium Chloride (Saline Flush) 10 ml FLUSH ASDIRECTED PRN PRN Reason: Keep Vein Open Last Admin: 10/04/20 19:49 Dose: 10 ml Documented by: Temazepam (Restoril) 7.5 mg PO BEDTIME PRN PRN Reason: Sleep Warfarin Sodium (Pharmacy To Dose - Warfarin) 1 dose .XX ASDIRECTED PRN PRN Reason: RX TO DOSE WARFARIN Warfarin Sodium (Coumadin Sliding Scale) 0 each PO QPM [facility] Stop: 10/06/20 18:01 - Exam Quality Assessment: Supplemental Oxygen General: Lethargic HEENT: Pupils Equal Lungs: Normal Respiratory Effort, Rales Cardiovascular: Regular Rate, Regular Rhythm GI/Abdominal Exam: Soft, Non-Tender Peripheral Pulses: 1+: Posterior Tibial (L), Posterior Tibial (R), Dorsalis Pedis (L), Dorsalis Pedis (R) Sepsis Event Note - Evaluation Sepsis Screening Result: No Definite Risk - Focused Exam Vital Signs: Vital Signs Temp Pulse Resp BP Pulse Ox 10/10/20 07:56 97.5 F 83 16 112/82 81 L - Problem List & Annotations (1) Anemia SNOMED Code(s): 043266227 Code(s): D64.9 - ANEMIA, UNSPECIFIED Status: Acute Current Visit: Yes Qualifiers: Chronic kidney disease stage: stage 3 (moderate) (2) Chronic hyponatremia SNOMED Code(s): 22175196 Code(s): E87.1 - HYPO-OSMOLALITY AND HYPONATREMIA Status: Acute Priority: Medium Current Visit: Yes Onset Date: ~10/04/20 Annotation/Comment:: hold diuretics x 24 hours and reassess. (3) Hypokalemia SNOMED Code(s): 81604987 Code(s): E87.6 - HYPOKALEMIA Status: Acute Priority: Medium Current Visit: Yes Onset Date: ~10/04/20 Annotation/Comment:: replace mag and k (4) COVID-19 SNOMED Code(s): 524832171 Code(s): U07.1 - COVID-19 Status: Acute Priority: High Current Visit: No Onset Date: ~09/25/20 - Problem List Review Problem List Initiated/Reviewed/Updated: Yes - Plan Plan:: Assessment COVID-19 with pneumonia COPD Worsening white count concern for secondary bacterial pneumonia End-stage renal disease Metabolic encephalopathy/altered mental status GI bleed Atrial fibrillation Congestive heart failure Heart valve replacement Pacemaker [facility] * Patient is comfortable. Added glycopyrrolate for secretions. Continue on morphine and Ativan for comfort. * Patient has had continued worsening of all parameters. White count up to 28,000, INR is increased to 5.93, and she has had worsening abdominal pain. * Had a large black stool * Kidney function had worsened with a GFR of 9 and creatinine of 4.7. BUN is elevated secondary to GI bleed and kidney failure at 106. * Worsening mental status * Worsening oxygenation prior comfort measures Chronic multiple medical problems : copd/ valve replacement/renal insuff chronic./hypertension/pacemaker for tachybrady.//thrombocytopenia anemia/leukocytosis/ osteoporosis/hypokalemia//hyponatremia//hyperparathyroidism. recent increase in bruising and falling but no other bleeding. weight loss and malnutrition noted on eval/ petechia . anxiety and multiple osteoarthritic joints.chronic pain she states. + myalgias. diarrhea and hx of c diff. Plan: * On Morphine, ativan and glycopyrrolate for comfort meds * Continue above treatment * CODE STATUS : DNR/DNI comfort measures * LOS/Discharge > 96 hrs pending placement. Family and aids social worker working on placement.
[2020-10-10] MEDS ORDERED: Glycopyrrolate 0.2 MG/ML SDV IVPUSH PRN (20:00)
[2020-10-11] MEDS: Morphine 2 MG/ML SYRINGE IVPUSH PRN (09:17)
--- NOTE | 2020-10-11 14:35 | PCM.PN ---
- General Info Date of Service: 10/11/20 Admission Dx/Problem (Free Text): Admission Diagnosis/Problem Admission Diagnosis/Problem Hypoxia Subjective Update: Erica has minimal responsiveness today. - Patient Data Vitals - Most Recent: Last Vital Signs Temp 97.5 F 10/11/20 07:32 Pulse 102 H 10/11/20 07:32 Resp 18 10/11/20 07:32 BP 96/51 L 10/11/20 07:32 Pulse Ox 90 L 10/11/20 07:32 Weight - Most Recent: 142 lb 12.8 oz I&O - Last 24 Hours: Intake & Output 10/10/20 10/11/20 10/11/20 22:59 06:59 14:59 Intake Total 50 10 Balance 50 10 Dashawn Results Last 24 Hours: Microbiology 10/04/20 19:40 Aerobic Blood Culture - Preliminary Blood - Venous - Lab Draw NO GROWTH AFTER 6 DAYS Anaerobic Blood Culture - Preliminary NO GROWTH AFTER 6 DAYS 10/04/20 19:30 Aerobic Blood Culture - Preliminary Blood - Venous NO GROWTH AFTER 6 DAYS Anaerobic Blood Culture - Preliminary NO GROWTH AFTER 6 DAYS Med Orders - Current: Current Medications Acetaminophen (Tylenol) 650 mg PO Q4H PRN PRN Reason: Pain (Mild 1-3)/fever Glycopyrrolate (Robinul) 0.2 mg IVPUSH Q4H PRN PRN Reason: Other Lorazepam (Ativan) 0.5 mg IVPUSH Q1H PRN PRN Reason: Anxiety Morphine Sulfate (Morphine) 2 mg IVPUSH Q2H PRN PRN Reason: Pain Last Admin: 10/11/20 09:17 Dose: 2 mg Documented by: Morphine Sulfate (Morphine 10 Mg/0.5 Ml Oral Syringe) 10 mg PO Q2H PRN PRN Reason: Pain Ondansetron HCl (Zofran) 4 mg IVPUSH Q4H PRN PRN Reason: Nausea Sodium Chloride (Saline Flush) 10 ml FLUSH ASDIRECTED PRN PRN Reason: Keep Vein Open Discontinued Medications Acetaminophen (Tylenol) 650 mg PO Q6HR PRN PRN Reason: Pain Allopurinol (Zyloprim) 300 mg PO BEDTIME [facility] Last Admin: 10/05/20 20:43 Dose: Not Given Documented by: Calcium Acetate (Phoslo) 667 mg PO , [facility] Last Admin: 10/05/20 18:45 Dose: 667 mg Documented by: Cholecalciferol (Vitamin D3) 1,000 mcg PO DAILY [facility] Last Admin: 10/05/20 10:46 Dose: Not Given Documented by: Cholecalciferol (Vitamin D3) 1,000 unit PO DAILY [facility] Last Admin: 10/05/20 10:53 Dose: Not Given Documented by: Cholecalciferol (Vitamin D3) 25 mcg PO DAILY [facility] Last Admin: 10/06/20 10:41 Dose: Not Given Documented by: Dexamethasone (Decadron) 6 mg IVPUSH ONETIME ONE Stop: 10/04/20 19:28 Last Admin: 10/04/20 19:48 Dose: 6 mg Documented by: Dexamethasone (Dexamethasone) 6 mg PO DAILY [facility] Last Admin: 10/06/20 10:41 Dose: Not Given Documented by: Ferrous Sulfate (Ferrous Sulfate) 648 mg PO DAILY [facility] Last Admin: 10/06/20 10:41 Dose: Not Given Documented by: Furosemide (Lasix) 40 mg IVPUSH BIDDIURETIC [facility] Furosemide (Lasix) 80 mg IVPUSH BIDDIURETIC [facility] Last Admin: 10/06/20 06:51 Dose: 80 mg Documented by: Hydromorphone HCl (Dilaudid) 0.25 mg IVPUSH ONETIME ONE Stop: 10/06/20 08:02 Last Admin: 10/06/20 08:18 Dose: 0.25 mg Documented by: Remdesivir 100 mg/ Sodium (Chloride) 100 mls @ 100 mls/hr IV ONETIME ONE Stop: 10/04/20 20:26 Last Admin: 10/04/20 19:48 Dose: 100 mls/hr Documented by: Remdesivir 100 mg/ Sodium (Chloride) 100 mls @ 100 mls/hr IV Q24H [facility] Stop: 10/08/20 20:59 Last Admin: 10/05/20 21:23 Dose: 100 mls/hr Documented by: Potassium Chloride 10 meq/ (Premix) 100 mls @ 100 mls/hr IV Q1H [facility] Stop: 10/05/20 17:44 Last Admin: 10/05/20 22:46 Dose: 100 mls/hr Documented by: Ceftriaxone Sodium 2 gm/ (Sodium Chloride) 100 mls @ 200 mls/hr IV Q24H [facility] Stop: 10/11/20 18:29 Last Admin: 10/05/20 18:51 Dose: 200 mls/hr Documented by: Azithromycin 500 mg/ Sodium (Chloride) 250 mls @ 250 mls/hr IV Q24H [facility] Stop: 10/07/20 19:29 Last Admin: 10/05/20 20:21 Dose: 250 mls/hr Documented by: Sodium Chloride (Normal Saline (Advbag)) Confirm Administered Dose 250 mls @ as directed .ROUTE .[facility] ONE Stop: 10/05/20 20:22 Last Admin: 10/05/20 21:23 Dose: Not Given Documented by: Sodium Chloride (Normal Saline) Confirm Administered Dose 250 mls @ as directed .ROUTE .[facility] ONE Stop: 10/05/20 20:24 Last Admin: 10/05/20 20:29 Dose: 50 mls/hr Documented by: Levothyroxine Sodium (Levothyroxine) 25 mcg PO DAILY [facility] Last Admin: 10/06/20 10:41 Dose: Not Given Documented by: Lorazepam (Ativan) 0.5 mg IV Q6H PRN PRN Reason: Irritability Magnesium Oxide (Magnesium Oxide) 400 mg PO BEDTIME [facility] Last Admin: 10/05/20 20:30 Dose: Not Given Documented by: Ondansetron HCl (Zofran Odt) 4 mg PO Q6H PRN PRN Reason: nausea, able to take PO Pantoprazole Sodium (Protonix) 40 mg PO BEDTIME [facility] Last Admin: 10/05/20 20:42 Dose: Not Given Documented by: Potassium Chloride (Klor-Con M20) 20 meq PO DAILY [facility] Last Admin: 10/06/20 10:42 Dose: Not Given Documented by: Saccharomyces Boulardii (Florastor) 250 mg PO BID [facility] Last Admin: 10/06/20 10:42 Dose: Not Given Documented by: Sildenafil Citrate (Revatio) 10 mg PO BID [facility] Last Admin: 10/05/20 10:45 Dose: Not Given Documented by: Sildenafil Citrate (Revatio) 10 mg PO BID [facility] Last Admin: 10/06/20 10:42 Dose: Not Given Documented by: Sodium Bicarbonate (Sodium Bicarbonate) 325 mg PO BID [facility] Last Admin: 10/06/20 10:42 Dose: Not Given Documented by: Sodium Chloride (Saline Flush) 10 ml FLUSH ASDIRECTED PRN PRN Reason: Keep Vein Open Last Admin: 10/04/20 19:49 Dose: 10 ml Documented by: Temazepam (Restoril) 7.5 mg PO BEDTIME PRN PRN Reason: Sleep Warfarin Sodium (Pharmacy To Dose - Warfarin) 1 dose .XX ASDIRECTED PRN PRN Reason: RX TO DOSE WARFARIN Warfarin Sodium (Coumadin Sliding Scale) 0 each PO QPM [facility] Stop: 10/06/20 18:01 - Exam Quality Assessment: Supplemental Oxygen General: Obtunded Neck: Supple Lungs: Rales (Throughout). No: Normal Respiratory Effort (Increased) Cardiovascular: Regular Rhythm, Tachycardia GI/Abdominal Exam: Normal Bowel Sounds, Soft, Non-Tender, No Distention Extremities: Pedal Edema, Slow Capillary Refill Skin: Cool Psy/Mental Status: No: Alert Sepsis Event Note - Evaluation Sepsis Screening Result: No Definite Risk - Focused Exam Vital Signs: Vital Signs Temp Pulse Resp BP Pulse Ox 10/11/20 07:32 97.5 F 102 H 18 96/51 L 90 L - Problem List & Annotations (1) Anemia SNOMED Code(s): 720618981 Code(s): D64.9 - ANEMIA, UNSPECIFIED Status: Acute Current Visit: Yes Qualifiers: Chronic kidney disease stage: stage 3 (moderate) (2) Chronic hyponatremia SNOMED Code(s): 09475016 Code(s): E87.1 - HYPO-OSMOLALITY AND HYPONATREMIA Status: Acute Priority: Medium Current Visit: Yes Onset Date: ~10/04/20 Annotation/Comment:: hold diuretics x 24 hours and reassess. (3) Hypokalemia SNOMED Code(s): 35232457 Code(s): E87.6 - HYPOKALEMIA Status: Acute Priority: Medium Current Visit: Yes Onset Date: ~10/04/20 Annotation/Comment:: replace mag and k (4) COVID-19 SNOMED Code(s): 883154085 Code(s): U07.1 - COVID-19 Status: Acute Priority: High Current Visit: No Onset Date: ~09/25/20 - Problem List Review Problem List Initiated/Reviewed/Updated: Yes - My Orders Last 24 Hours: My Active Orders 10/10/20 19:49 Communication Order [RC] ROUTINE 10/10/20 20:00 Glycopyrrolate [Robinul] 0.2 mg IVPUSH Q4H PRN - Plan Plan:: Assessment COVID-19 with pneumonia COPD Worsening white count concern for secondary bacterial pneumonia End-stage renal disease Metabolic encephalopathy/altered mental status GI bleed Atrial fibrillation Congestive heart failure Heart valve replacement Pacemaker [facility] * Patient is comfortable. Added glycopyrrolate for secretions. Continue on morphine and Ativan for comfort. * Focuser present and patient received [facility] Chronic multiple medical problems : copd/ valve replacement/renal insuff chronic./hypertension/pacemaker for tachybrady.//thrombocytopenia anemia/leukocytosis/ osteoporosis/hypokalemia//hyponatremia//hyperparathyroidism. recent increase in bruising and falling but no other bleeding. weight loss and malnutrition noted on eval/ petechia . anxiety and multiple osteoarthritic joints.chronic pain she states. + myalgias. diarrhea and hx of c diff. Plan: * On Morphine, ativan and glycopyrrolate for comfort meds * Continue above treatment * CODE STATUS : DNR/DNI comfort measures * LOS/Discharge > 96 hrs pending placement. Family and social services director working on placement.
[2020-10-11 20:15] VITALS: PULSE 76
[2020-10-12] MEDS: Morphine 2 MG/ML SYRINGE IVPUSH PRN ×3 (03:32→17:16)
--- NOTE | 2020-10-12 16:06 | PCM.PN ---
- General Info Date of Service: 10/12/20 Admission Dx/Problem (Free Text): Admission Diagnosis/Problem Admission Diagnosis/Problem Hypoxia Subjective Update: Patient is noncommunicative today. - Patient Data Vitals - Most Recent: Last Vital Signs Temp 97.5 F 10/11/20 07:32 Pulse 76 10/11/20 11:46 Resp 18 10/11/20 07:32 BP 96/51 L 10/11/20 07:32 Pulse Ox 67 L 10/11/20 11:46 Weight - Most Recent: 142 lb 12.8 oz I&O - Last 24 Hours: Intake & Output 10/12/20 10/12/20 10/12/20 06:59 14:59 22:59 Intake Total 250 Balance 250 Dashawn Results Last 24 Hours: Microbiology 10/04/20 19:40 Aerobic Blood Culture - Final Blood - Venous - Lab Draw NO GROWTH AFTER 7 DAYS Anaerobic Blood Culture - Final NO GROWTH AFTER 7 DAYS 10/04/20 19:30 Aerobic Blood Culture - Final Blood - Venous NO GROWTH AFTER 7 DAYS Anaerobic Blood Culture - Final NO GROWTH AFTER 7 DAYS Med Orders - Current: Current Medications Acetaminophen (Tylenol) 650 mg PO Q4H PRN PRN Reason: Pain (Mild 1-3)/fever Glycopyrrolate (Robinul) 0.2 mg IVPUSH Q4H PRN PRN Reason: Other Lorazepam (Ativan) 0.5 mg IVPUSH Q1H PRN PRN Reason: Anxiety Morphine Sulfate (Morphine) 2 mg IVPUSH Q2H PRN PRN Reason: Pain Last Admin: 10/12/20 10:31 Dose: 2 mg Documented by: Morphine Sulfate (Morphine 10 Mg/0.5 Ml Oral Syringe) 10 mg PO Q2H PRN PRN Reason: Pain Ondansetron HCl (Zofran) 4 mg IVPUSH Q4H PRN PRN Reason: Nausea Sodium Chloride (Saline Flush) 10 ml FLUSH ASDIRECTED PRN PRN Reason: Keep Vein Open Discontinued Medications Acetaminophen (Tylenol) 650 mg PO Q6HR PRN PRN Reason: Pain Allopurinol (Zyloprim) 300 mg PO BEDTIME [facility] Last Admin: 10/05/20 20:43 Dose: Not Given Documented by: Calcium Acetate (Phoslo) 667 mg PO 12,18 [facility] Last Admin: 10/05/20 18:45 Dose: 667 mg Documented by: Cholecalciferol (Vitamin D3) 1,000 mcg PO DAILY [facility] Last Admin: 10/05/20 10:46 Dose: Not Given Documented by: Cholecalciferol (Vitamin D3) 1,000 unit PO DAILY [facility] Last Admin: 10/05/20 10:53 Dose: Not Given Documented by: Cholecalciferol (Vitamin D3) 25 mcg PO DAILY [facility] Last Admin: 10/06/20 10:41 Dose: Not Given Documented by: Dexamethasone (Decadron) 6 mg IVPUSH ONETIME ONE Stop: 10/04/20 19:28 Last Admin: 10/04/20 19:48 Dose: 6 mg Documented by: Dexamethasone (Dexamethasone) 6 mg PO DAILY [facility] Last Admin: 10/06/20 10:41 Dose: Not Given Documented by: Ferrous Sulfate (Ferrous Sulfate) 648 mg PO DAILY [facility] Last Admin: 10/06/20 10:41 Dose: Not Given Documented by: Furosemide (Lasix) 40 mg IVPUSH BIDDIURETIC [facility] Furosemide (Lasix) 80 mg IVPUSH BIDDIURETIC [facility] Last Admin: 10/06/20 06:51 Dose: 80 mg Documented by: Hydromorphone HCl (Dilaudid) 0.25 mg IVPUSH ONETIME ONE Stop: 10/06/20 08:02 Last Admin: 10/06/20 08:18 Dose: 0.25 mg Documented by: Remdesivir 100 mg/ Sodium (Chloride) 100 mls @ 100 mls/hr IV ONETIME ONE Stop: 10/04/20 20:26 Last Admin: 10/04/20 19:48 Dose: 100 mls/hr Documented by: Remdesivir 100 mg/ Sodium (Chloride) 100 mls @ 100 mls/hr IV Q24H [facility] Stop: 10/08/20 20:59 Last Admin: 10/05/20 21:23 Dose: 100 mls/hr Documented by: Potassium Chloride 10 meq/ (Premix) 100 mls @ 100 mls/hr IV Q1H [facility] Stop: 10/05/20 17:44 Last Admin: 10/05/20 22:46 Dose: 100 mls/hr Documented by: Ceftriaxone Sodium 2 gm/ (Sodium Chloride) 100 mls @ 200 mls/hr IV Q24H [facility] Stop: 10/11/20 18:29 Last Admin: 10/05/20 18:51 Dose: 200 mls/hr Documented by: Azithromycin 500 mg/ Sodium (Chloride) 250 mls @ 250 mls/hr IV Q24H [facility] Stop: 10/07/20 19:29 Last Admin: 10/05/20 20:21 Dose: 250 mls/hr Documented by: Sodium Chloride (Normal Saline (Advbag)) Confirm Administered Dose 250 mls @ as directed .ROUTE .[facility] ONE Stop: 10/05/20 20:22 Last Admin: 10/05/20 21:23 Dose: Not Given Documented by: Sodium Chloride (Normal Saline) Confirm Administered Dose 250 mls @ as directed .ROUTE [facility] Stop: 10/05/20 20:24 Last Admin: 10/05/20 20:29 Dose: 50 mls/hr Documented by: Levothyroxine Sodium (Levothyroxine) 25 mcg PO DAILY [facility] Last Admin: 10/06/20 10:41 Dose: Not Given Documented by: Lorazepam (Ativan) 0.5 mg IV Q6H PRN PRN Reason: Irritability Magnesium Oxide (Magnesium Oxide) 400 mg PO BEDTIME [facility] Last Admin: 10/05/20 20:30 Dose: Not Given Documented by: Ondansetron HCl (Zofran Odt) 4 mg PO Q6H PRN PRN Reason: nausea, able to take PO Pantoprazole Sodium (Protonix) 40 mg PO BEDTIME [facility] Last Admin: 10/05/20 20:42 Dose: Not Given Documented by: Potassium Chloride (Klor-Con M20) 20 meq PO DAILY [facility] Last Admin: 10/06/20 10:42 Dose: Not Given Documented by: Saccharomyces Boulardii (Florastor) 250 mg PO BID [facility] Last Admin: 10/06/20 10:42 Dose: Not Given Documented by: Sildenafil Citrate (Revatio) 10 mg PO BID [facility] Last Admin: 10/05/20 10:45 Dose: Not Given Documented by: Sildenafil Citrate (Revatio) 10 mg PO BID [facility] Last Admin: 10/06/20 10:42 Dose: Not Given Documented by: Sodium Bicarbonate (Sodium Bicarbonate) 325 mg PO BID [facility] Last Admin: 10/06/20 10:42 Dose: Not Given Documented by: Sodium Chloride (Saline Flush) 10 ml FLUSH ASDIRECTED PRN PRN Reason: Keep Vein Open Last Admin: 10/04/20 19:49 Dose: 10 ml Documented by: Temazepam (Restoril) 7.5 mg PO BEDTIME PRN PRN Reason: Sleep Warfarin Sodium (Pharmacy To Dose - Warfarin) 1 dose .XX ASDIRECTED PRN PRN Reason: RX TO DOSE WARFARIN Warfarin Sodium (Coumadin Sliding Scale) 0 each PO QPM [facility] Stop: 10/06/20 18:01 - Exam Quality Assessment: Supplemental Oxygen, Urine Catheter General: Obtunded Lungs: Rales. No: Normal Respiratory Effort (Increased respiratory effort) Cardiovascular: Regular Rate, Regular Rhythm GI/Abdominal Exam: Soft, No Distention, Abnormal Bowel Sounds Extremities: Slow Capillary Refill Psy/Mental Status: Alert, Normal Affect, Normal Mood Sepsis Event Note - Evaluation Sepsis Screening Result: No Definite Risk - Problem List & Annotations (1) Anemia SNOMED Code(s): 822326333 Code(s): D64.9 - ANEMIA, UNSPECIFIED Status: Acute Current Visit: Yes Qualifiers: Chronic kidney disease stage: stage 3 (moderate) (2) Chronic hyponatremia SNOMED Code(s): 75798979 Code(s): E87.1 - HYPO-OSMOLALITY AND HYPONATREMIA Status: Acute Priority: Medium Current Visit: Yes Onset Date: ~10/04/20 Annotation/Comment:: hold diuretics x 24 hours and reassess. (3) Hypokalemia SNOMED Code(s): 78185916 Code(s): E87.6 - HYPOKALEMIA Status: Acute Priority: Medium Current Visit: Yes Onset Date: ~10/04/20 Annotation/Comment:: replace mag and k (4) COVID-19 SNOMED Code(s): 737042032 Code(s): U07.1 - COVID-19 Status: Acute Priority: High Current Visit: No Onset Date: ~09/25/20 - Problem List Review Problem List Initiated/Reviewed/Updated: Yes - Plan Plan:: Assessment COVID-19 with pneumonia COPD Worsening white count concern for secondary bacterial pneumonia End-stage renal disease Metabolic encephalopathy/altered mental status GI bleed Atrial fibrillation Congestive heart failure Heart valve replacement Pacemaker [facility] * Patient is comfortable. Glycopyrrolate for secretions. Continue on morphine and Ativan for comfort. Chronic multiple medical problems : copd/ valve replacement/renal insuff chronic./hypertension/pacemaker for tachybrady.//thrombocytopenia anemia/leukocytosis/ osteoporosis/hypokalemia//hyponatremia//hyperparathyroidism. recent increase in bruising and falling but no other bleeding. weight loss and malnutrition noted on eval/ petechia . anxiety and multiple osteoarthritic joints.chronic pain she states. + myalgias. diarrhea and hx of c diff. Plan: * On Morphine, ativan and glycopyrrolate for comfort meds * Continue above treatment * CODE STATUS : DNR/DNI comfort measures * LOS/Discharge > 96 hrs pending placement. Family and aids social worker working on placement.
--- NOTE | 2020-10-13 08:18 | PCM.DCSUM1 ---
Discharge Summary - Hospital Course HPI Initial Comments: 89 year old female dx with Covid 09/29 , today with hypoxia and resp insuff/ coughing. admitted with more anxiety and weakness and anorexia. she is dehydrated a nd cannot say how much she is drinking but took her diuretics today . was placed on dexameth for 3 days and is hydrocortizone daily. multiple medical problems : copd/ valve replacement/renal insuff chronic./hypertension/pacemaker for tachybrady.//thrombocytopenia anemia/leukocytosis/ osteoporosis/hypokalemia//hyponatremia//hyperparathyrodism. recent increase in bruising and falling but no other bleeding. weight loss and malnutrition noted on eval/ petechia . anxiety and multiple osteoarthritic joints.chronic pain she states. + myalgias. diarrhea and hx of c diff. - Discharge Data Discharge Date: 10/13/20 Discharge Disposition: Condition: - Referral to Home Health Primary Care Physician: Benito Johnson MD - Discharge Diagnosis/Problem(s) (1) Anemia SNOMED Code(s): 281192721 ICD Code: D64.9 - ANEMIA, UNSPECIFIED Status: Acute Qualifiers: Chronic kidney disease stage: stage 3 (moderate) (2) Chronic hyponatremia SNOMED Code(s): 09253233 ICD Code: E87.1 - HYPO-OSMOLALITY AND HYPONATREMIA Status: Acute Elisa ority: Medium Onset Date: ~10/04/20 Problem Details: hold diuretics x 24 hours and reassess. (3) Hypokalemia SNOMED Code(s): 00660561 ICD Code: E87.6 - HYPOKALEMIA Status: Acute Priority: Medium Onset Date: ~10/04/20 Problem Details: replace mag and k (4) COVID-19 SNOMED Code(s): 050655439 ICD Code: U07.1 - COVID-19 Status: Acute Priority: High Onset Date: ~09/25/20 - Patient Summary/Data Consults: Consultations 10/04/20 22:02 Consult to Case Management/Post Framer [CONS] Routine Respiratory Care Assess and Treatment [CONS] Routine Hospital Course: Erica was admitted to the hospital with pneumonia secondary to Covid, bacterial pneumonia complications, end-stage renal disease, metabolic encephalopathy, atrial fibrillation, developed a GI bleed, elevated INR up to 5.9 secondary to warfarin. She was started on treatment including remdesivir, dexamethasone, Rocephin, and azithromycin. Unfortunately patient continued to worsen and decision by family was made to keep her comfortable and stop aggressive care. Patient was unable to make any decisions for herself so her power of glass grinder, her daughter Tania, had to make decision. She did it in conjunction with the rest of her family. Patient was kept comfortable utilizing morphine, Ativan, and glycopyrrolate. Patient passed at 0025 hours on October 13, 2020 - Discharge Plan Home Medications: Home Meds Omeprazole [Prilosec] 20 mg PO DAILY 04/25/14 [History] Acetaminophen [Tylenol] 650 mg PO Q6HR PRN 07/18/16 [History] Ferrous Sulfate [Iron] 650 mg PO DAILY 07/18/16 [History] Levothyroxine 25 mcg PO DAILY 07/18/16 [History] Torsemide 20 mg PO BID 07/18/16 [History] Allopurinol [Zyloprim] 300 mg PO BEDTIME 10/22/17 [History] Loperamide HCl [Imodium A-D] 4 mg PO DAILY PRN 10/22/17 [History] Magnesium 500 mg PO BEDTIME 10/22/17 [History] Melatonin 3 mg PO BEDTIME PRN 10/22/17 [History] Potassium Chloride 20 meq PO DAILY 10/22/17 [History] Sildenafil [Revatio] 10 mg PO BID 10/22/17 [History] Sodium Bicarbonate 325 mg PO BID 10/22/17 [History] metOLazone [Metolazone] 5 mg PO MO 10/22/17 [History] Calcium Acetate 667 mg PO 12/21/18 [History] Diphenhyd/Lidocaine/MagAl/Ashlyn [First-Mouthwash BLM Susp] 30 ml MM TID PRN #1 bottle 12/25/18 [Rx] C-Estradiol 0.1 ml TOP DAILY PRN 09/19/19 [History] Cholecalciferol (Vitamin D3) [Vitamin D3] 1,000 unit PO DAILY 09/19/19 [History] L. Acidophilus/Pectin, [place] [Acidophilus Capsule] 1 tab PO BID 09/19/19 [History] predniSONE [Prednisone] 10 mg PO DAILY 09/19/19 [History] dexAMETHasone [Decadron] 8 mg PO BID #6 tablet 09/29/20 [Rx] Warfarin [Coumadin] 2 mg PO 10/05/20 [History] Patient Handouts: and Dying Forms: ED Department Discharge Referrals: Benito Johnson MD [Primary Care Provider] - - Discharge Summary/Plan Comment DC Time >30 min.: No - Patient Data Vitals - Most Recent: Last Vital Signs Temp 97.5 F 10/11/20 07:32 Pulse 76 10/11/20 11:46 Resp 18 10/11/20 07:32 BP 96/51 L 10/11/20 07:32 Pulse Ox 67 L 10/11/20 11:46 Weight - Most Recent: 142 lb 12.8 oz I&O - Last 24 hours: Intake & Output 10/12/20 10/13/20 10/13/20 22:59 06:59 14:59 Intake Total 15 Output Total 0 Balance 15 Med Orders - Current: Current Medications Discontinued Medications Acetaminophen (Tylenol) 650 mg PO Q4H PRN PRN Reason: Pain (Mild 1-3)/fever Acetaminophen (Tylenol) 650 mg PO Q6HR PRN PRN Reason: Pain Allopurinol (Zyloprim) 300 mg PO BEDTIME [facility] Last Admin: 10/05/20 20:43 Dose: Not Given Documented by: Calcium Acetate (Phoslo) 667 mg PO [facility] Last Admin: 10/05/20 18:45 Dose: 667 mg Documented by: Cholecalciferol (Vitamin D3) 1,000 mcg PO DAILY [facility] Last Admin: 10/05/20 10:46 Dose: Not Given Documented by: Cholecalciferol (Vitamin D3) 1,000 unit PO DAILY [facility] Last Admin: 10/05/20 10:53 Dose: Not Given Documented by: Cholecalciferol (Vitamin D3) 25 mcg PO DAILY [facility] Last Admin: 10/06/20 10:41 Dose: Not Given Documented by: Dexamethasone (Decadron) 6 mg IVPUSH ONETIME ONE Stop: 10/04/20 19:28 Last Admin: 10/04/20 19:48 Dose: 6 mg Documented by: Dexamethasone (Dexamethasone) 6 mg PO DAILY [facility] Last Admin: 10/06/20 10:41 Dose: Not Given Documented by: Ferrous Sulfate (Ferrous Sulfate) 648 mg PO DAILY [facility] Last Admin: 10/06/20 10:41 Dose: Not Given Documented by: Furosemide (Lasix) 40 mg IVPUSH BIDDIURETIC [facility] Furosemide (Lasix) 80 mg IVPUSH BIDDIURETIC [facility] Last Admin: 10/06/20 06:51 Dose: 80 mg Documented by: Glycopyrrolate (Robinul) 0.2 mg IVPUSH Q4H PRN PRN Reason: Other Hydromorphone HCl (Dilaudid) 0.25 mg IVPUSH ONETIME ONE Stop: 10/06/20 08:02 Last Admin: 10/06/20 08:18 Dose: 0.25 mg Documented by: Remdesivir 100 mg/ Sodium (Chloride) 100 mls @ 100 mls/hr IV ONETIME ONE Stop: 10/04/20 20:26 Last Admin: 10/04/20 19:48 Dose: 100 mls/hr Documented by: Remdesivir 100 mg/ Sodium (Chloride) 100 mls @ 100 mls/hr IV Q24H [facility] Stop: 10/08/20 20:59 Last Admin: 10/05/20 21:23 Dose: 100 mls/hr Documented by: Potassium Chloride 10 meq/ (Premix) 100 mls @ 100 mls/hr IV Q1H [facility] Stop: 10/05/20 17:44 Last Admin: 10/05/20 22:46 Dose: 100 mls/hr Documented by: Ceftriaxone Sodium 2 gm/ (Sodium Chloride) 100 mls @ 200 mls/hr IV Q24H [facility] Stop: 10/11/20 18:29 Last Admin: 10/05/20 18:51 Dose: 200 mls/hr Documented by: Azithromycin 500 mg/ Sodium (Chloride) 250 mls @ 250 mls/hr IV Q24H [facility] Stop: 10/07/20 19:29 Last Admin: 10/05/20 20:21 Dose: 250 mls/hr Documented by: Sodium Chloride (Normal Saline (Advbag)) Confirm Administered Dose 250 mls @ as directed .ROUTE .[facility] ONE Stop: 10/05/20 20:22 Last Admin: 10/05/20 21:23 Dose: Not Given Documented by: Sodium Chloride (Normal Saline) Confirm Administered Dose 250 mls @ as directed .ROUTE .[facility] ONE Stop: 10/05/20 20:24 Last Admin: 10/05/20 20:29 Dose: 50 mls/hr Documented by: Levothyroxine Sodium (Levothyroxine) 25 mcg PO DAILY [facility] Last Admin: 10/06/20 10:41 Dose: Not Given Documented by: Lorazepam (Ativan) 0.5 mg IV Q6H PRN PRN Reason: Irritability Lorazepam (Ativan) 0.5 mg IVPUSH Q1H PRN PRN Reason: Anxiety Magnesium Oxide (Magnesium Oxide) 400 mg PO BEDTIME [facility] Last Admin: 10/05/20 20:30 Dose: Not Given Documented by: Morphine Sulfate (Morphine) 2 mg IVPUSH Q2H PRN PRN Reason: Pain Last Admin: 10/12/20 17:16 Dose: 2 mg Documented by: Morphine Sulfate (Morphine 10 Mg/0.5 Ml Oral Syringe) 10 mg PO Q2H PRN PRN Reason: Pain Ondansetron HCl (Zofran Odt) 4 mg PO Q6H PRN PRN Reason: nausea, able to take PO Ondansetron HCl (Zofran) 4 mg IVPUSH Q4H PRN PRN Reason: Nausea Pantoprazole Sodium (Protonix) 40 mg PO BEDTIME [facility] Last Admin: 10/05/20 20:42 Dose: Not Given Documented by: Potassium Chloride (Klor-Con M20) 20 meq PO DAILY [facility] Last Admin: 10/06/20 10:42 Dose: Not Given Documented by: Saccharomyces Boulardii (Florastor) 250 mg PO BID [facility] Last Admin: 10/06/20 10:42 Dose: Not Given Documented by: Sildenafil Citrate (Revatio) 10 mg PO BID [facility] Last Admin: 10/05/20 10:45 Dose: Not Given Documented by: Sildenafil Citrate (Revatio) 10 mg PO BID [facility] Last Admin: 10/06/20 10:42 Dose: Not Given Documented by: Sodium Bicarbonate (Sodium Bicarbonate) 325 mg PO BID [facility] Last Admin: 10/06/20 10:42 Dose: Not Given Documented by: Sodium Chloride (Saline Flush) 10 ml FLUSH ASDIRECTED PRN PRN Reason: Keep Vein Open Last Admin: 10/04/20 19:49 Dose: 10 ml Documented by: Sodium Chloride (Saline Flush) 10 ml FLUSH ASDIRECTED PRN PRN Reason: Keep Vein Open Temazepam (Restoril) 7.5 mg PO BEDTIME PRN PRN Reason: Sleep Warfarin Sodium (Pharmacy To Dose - Warfarin) 1 dose .XX ASDIRECTED PRN PRN Reason: RX TO DOSE WARFARIN Warfarin Sodium (Coumadin Sliding Scale) 0 each PO QPM [facility] Stop: 10/06/20 18:01 *Q Meaningful Use (DIS) - VTE *Q VTE Anticoagulation Contraindications: Med/TX Not Indicated/Need
[2020-10-18 10:13] VITALS: BP 108/74
== END 2020-10-13 01:30 | disposition expired | DRG 177 ==
LOC: JD.ED 18:18 → JD.MS 20:52
PROVIDERS: ADMIT Pediatrics; ATTEND Pediatrics
PROC: XW033E5 Introduction of Remdesivir Anti-infective into Peripheral Vein, Percutaneous Approach, New Technology Group 5 (ICD-10-PCS; principal; 2020-10-04)
PROC: 8E0ZXY6 Isolation (ICD-10-PCS; 2020-10-04)
DX: U07.1 COVID-19 (principal); R09.02 Hypoxemia; J12.89 Other viral pneumonia; J15.9 Unspecified bacterial pneumonia; N18.6 End stage renal disease; G93.41 Metabolic encephalopathy; E87.1 Hypo-osmolality and hyponatremia; K92.2 Gastrointestinal hemorrhage, unspecified; E46 Unspecified protein-calorie malnutrition; I13.2 Hypertensive heart and chronic kidney disease with heart failure and with stage 5 chronic kidney disease, or end stage renal disease; J44.0 Chronic obstructive pulmonary disease with (acute) lower respiratory infection; Z51.5 Encounter for palliative care; Z66 Do not resuscitate; F41.9 Anxiety disorder, unspecified; E86.0 Dehydration; D69.6 Thrombocytopenia, unspecified; M81.0 Age-related osteoporosis without current pathological fracture; E87.6 Hypokalemia; E21.3 Hyperparathyroidism, unspecified; I48.91 Unspecified atrial fibrillation; G89.29 Other chronic pain; R63.0 Anorexia; R29.6 Repeated falls; R79.1 Abnormal coagulation profile; T45.515A Adverse effect of anticoagulants, initial encounter; M79.10 Myalgia, unspecified site; L29.9 Pruritus, unspecified; R19.7 Diarrhea, unspecified; R23.3 Spontaneous ecchymoses; M19.90 Unspecified osteoarthritis, unspecified site; D63.1 Anemia in chronic kidney disease; E83.42 Hypomagnesemia; H54.7 Unspecified visual loss; G47.30 Sleep apnea, unspecified; Z95.0 Presence of cardiac pacemaker; Z95.2 Presence of prosthetic heart valve; Z79.01 Long term (current) use of anticoagulants; Z79.890 Hormone replacement therapy; Z79.52 Long term (current) use of systemic steroids; Z79.899 Other long term (current) drug therapy; Z88.2 Allergy status to sulfonamides; Z98.49 Cataract extraction status, unspecified eye; Z90.710 Acquired absence of both cervix and uterus; Z98.1 Arthrodesis status; Z98.890 Other specified postprocedural states; Z68.25 Body mass index [BMI] 25.0-25.9, adult; Z86.19 Personal history of other infectious and parasitic diseases; Z82.49 Family history of ischemic heart disease and other diseases of the circulatory system; Z83.6 Family history of other diseases of the respiratory system; Z82.61 Family history of arthritis; Z83.2 Family history of diseases of the blood and blood-forming organs and certain disorders involving the immune mechanism; Z84.0 Family history of diseases of the skin and subcutaneous tissue; I50.9 Heart failure, unspecified
CPT/HCPCS: 36415; 71045; 80053; 82728; 83605; 83735; 83880; 84484; 85007; 85027; 85379; 85610; 85730; 86140; 87040 ×2; 96365; 96375; 99285; J1100; 71046; 71046-26; 82550; 82962; 83540; 84145; 85025; 87641; 93005; 94762; 97162-GP; A9270-GY; J0456; J0696; J1170; J1940; J2270; J3480; J7050; J8540